=== PATIENT | female | born 1950 | race Caucasian/White ===

== ENCOUNTER 2023-04-06 12:49 | Outpatient (OUT) | payer MEDICARE, SELFPAY ==
[2023-04-06 13:42] LABS: Estimated Average Glucose 114 mg/dL; Glycohemoglobin A1C 5.6 % (4.5-6.2)
[2023-04-06 13:58] LABS: Alanine Aminotransferase 28 U/L (14-59); Albumin Globulin Ratio 0.8; Albumin Level 3.6 g/dL (3.4-5.0); Alkaline Phosphatase 152 U/L (46-116); Aspartate Amino Transferase 25 U/L (15-37); Bilirubin Direct 0.1 mg/dL (0.0-0.2); Bilirubin Total 0.6 mg/dL (0.2-1.0); Chol HDL Ratio 2.4; Cholesterol 154 mg/dL (<=200); Globulin 4.6 g/dL; HDL Cholesterol 64 mg/dL (40-60); Total Protein 8.2 g/dL (6.4-8.2); Triglycerides 74 mg/dL (<=150); VLDL CHOLESTEROL 14.8 mg/dL
== END 2023-04-06 12:50 | disposition home or self-care (01) ==
PROVIDERS: PCP Family Medicine; Visit Provider Family Medicine
DX: E78.5 Hyperlipidemia, unspecified (principal); E11.9 Type 2 diabetes mellitus without complications
CPT/HCPCS: 36415; 80061; 80076; 83036

== ENCOUNTER 2023-05-23 13:26 | Outpatient (OUT) | payer MEDICARE, SELFPAY ==
[2023-05-23 14:52] LABS: Hematocrit 38.8 % (36.0-48.0); Hemoglobin 12.4 g/dL (12.0-16.0); Mean Corpuscular Volume 93.9 fL (81.0-99.0); Platelet Count 264 10^3/uL (150-450); Red Blood Count 4.13 10^6/uL (4.20-5.40); Red Cell Distribution Width 13.6 % (11.0-15.0); White Blood Count 5.7 10^3/uL (4.0-11.0)
[2023-05-23 15:28] LABS: Albumin Level 3.1 g/dL (3.4-5.0); Anion Gap 12.4; BUN Creatinine Ratio 23.4; Calcium 8.9 mg/dL (8.5-10.1); Chloride 107 mmol/L (98-107); Estimated GFR (African America 44 (>=60); Estimated GFR (Non-African Ame 36 (>=60); Glucose 91 mg/dL (74-106); Potassium 4.4 mmol/L (3.5-5.1); Sodium 141 mmol/L (136-145); Uric Acid 3.6 mg/dL (2.6-6.0)
[2023-05-23 15:43] LABS: Creatinine Urine Random 121.52 mg/dL (20.00-300.00); Protein Creatinine Ratio Urine 0.18; Total Protein Urine Random 22.4 mg/dL (<=11.9)
[2023-05-23 16:21] LABS: Bilirubin Urine NEGATIVE (NEGATIVE); Blood Urine NEGATIVE (NEGATIVE); Clarity Urine CLEAR (CLEAR); Color Urine YELLOW (YELLOW); Glucose Urine UA NEGATIVE (NEGATIVE); Ketones Urine NEGATIVE (NEGATIVE); Leukocyte Esterase Urine NEGATIVE (NEGATIVE); Nitrite Urine NEGATIVE (NEGATIVE); Protein Urine NEGATIVE (NEG/TRACE); Specific Gravity Urine 1.025 (1.005-1.025); Urobilinogen Urine 0.2 EU/dL (0.2-1.0); pH Urine 5.5 (5.0-9.0)
[2023-05-23 16:27] LABS: Bacteria Urine NONE SEEN #/HPF (NONE SEEN); Cast Seen? NONE SEEN #/LPF (NONE SEEN); Crystals Seen? None Seen #/HPF (None Seen); Mucus Urine NONE SEEN (NONE SEEN); RBC Urine NONE SEEN #/HPF (0-2); Squamous Epithelial Cell Urine FEW #/LPF (NONE/RARE); WBC Urine 0-2 #/HPF (NONE SEEN)
[2023-05-24 11:09] LABS: PTH, Intact 135 pg/mL (15-65)
== END 2023-05-23 13:27 | disposition home or self-care (01) ==
LOC: LAB 13:31
PROVIDERS: PCP Family Medicine; Visit Provider Internal Medicine
DX: I12.9 Hypertensive chronic kidney disease with stage 1 through stage 4 chronic kidney disease, or unspecified chronic kidney disease (principal); N18.32 Chronic kidney disease, stage 3b; N25.81 Secondary hyperparathyroidism of renal origin; E79.0 Hyperuricemia without signs of inflammatory arthritis and tophaceous disease; R31.29 Other microscopic hematuria; E87.5 Hyperkalemia
CPT/HCPCS: 36415; 80069; 81001; 82306; 82570; 83735; 83970; 84156; 84550; 85027

== ENCOUNTER 2023-08-29 08:32 | Outpatient (OUT) | payer MEDICARE, SELFPAY ==
--- NOTE | 2023-08-29 08:54 | XR_ITS ---
[address] [address] Patient Name: ROBERT COBOS MRN: [id number] date: 1950 Sex: F Assigned Patient Location: [facility] Current Patient Location: [facility] Accession/Order Number: [id number] Exam Date: 08/29/2023 08:45 Report Date: 08/29/2023 09:03 At the request of: GEORGE PAULA Procedure: XR DEXA axial skeleton EXAMINATION: XR DEXA axial skeleton, 08/29/2023 8:45 AM EST HISTORY: osteopenia M85.80 COMPARISON: 2016 TECHNIQUE: Dual-energy X-ray absorptiometry (DEXA) bone density study performed for the axial skeleton. HISTORY: osteopenia M85.80 FINDINGS: Bone mineral density AP spine L1-L4 measures 1.281 g/sq cm. T score 0.8. WHO classification: Normal. Bone mineral density is lowest in the left femoral trochanter measuring 0.496 g/sq cm. T score -3.1. WHO classification: Osteoporosis XR/XR DEXA axial skeleton IMPRESSION: Osteoporosis. High fracture risk Electronically authenticated by: JAVIER EDWARDS Date: 08/29/2023 09:03
== END 2023-08-29 08:33 | disposition home or self-care (01) ==
LOC: RAD 08:32
PROVIDERS: PCP Family Medicine; Visit Provider Family Medicine
DX: M85.80 Other specified disorders of bone density and structure, unspecified site (principal); M81.0 Age-related osteoporosis without current pathological fracture
CPT/HCPCS: 77080

== ENCOUNTER 2023-09-12 12:04 | Outpatient (OUT) | payer MEDICARE, SELFPAY ==
--- OUTSIDE RECORDS SUMMARY | 2023-09-12 12:10 | XMS_ITS | CCD ---
Author Name Unknown Address [address] [place] [address] Organization [facility] Care Team Providers Care District Plant Superintendent Name Role Phone Yvan Razo Unavailable Unavailable Yvan Razo Unavailable Unavailable Yvan Razo Unavailable Unavailable George Ozuna~[id number] UNKNOWN Unavailable Unavailable George Ozuna Unavailable Unavailable Unavailable Corbin, Guillermo Unavailable MD George Ozuna Primary Care Provider [phone] DO Mahsa Howard Attending Provider [phone] MD George Ozuna Primary Care Provider [phone] DO Mahsa Howard Attending Provider MD George Ozuna Primary Care Provider [phone] DO Mahsa Howard Attending Provider DR GEORGE STACK Consulting Unavailable LAITH Patrick, DR VAZQUEZ Primary Care Unavailable LAITH Patrick, DR VAZQUEZ Attending Unavailable LAITH Patrick, DR VAZQUEZ Admitting Unavailable IVAN, DR MELINDA Barber Consulting Unavailable CORBIN, GUILLERMO Consulting Unavailable LAITH Patrick, DR VAZQUEZ Primary Care Unavailable CORBINGUILLERMO Attending Unavailable CORBIN, GUILLERMO Admitting Unavailable JAVIER MEDINA Consulting Unavailable LAITH Patrick, DR VAZQUEZ Primary Care Unavailable ANITA, DR JOSE FRANCISCO Pedro Attending Unavailnitin HOWARD, DR JOSE FRANCISCO Pedro Admitting Unavailnitin HOWARD, DR JOSE FRANCISCO Pedro Consulting Unavailabl e IVAN, DR MELINDA Barber Consulting Unavailable LAITH Patrick, DR VAZQUEZ Primary Care Unavailable ANITA, DR JOSE FRANCISCO Pedro Attending Unavailnitin HOWARD, DR JSOE FRANCISCO Pedro Admitting Unavailabl e ANITA, DR JOSE FRANCISCO Pedro Consulting Unavailabl e CORBIN, GUILLERMO Consulting Unavailable HOY ., DR VAZQUEZ Primary Care Unavailable HOY ., DR VAZQUEZ Referring Unavailable CORBIN, GUILLERMO Attending Unavailable CORBIN, GUILLERMO Admitting Unavailable HOY ., DR VAZQUEZ Consulting Unavailable HOY ., DR VAZQUEZ Attending Unavailable HOY ., DR VAZQUEZ Admitting Unavailable HOY ., DR VAZQUEZ Primary Care Unavailable YUNG GARCIA Consulting Unavailable SELVIN, AUSTIN Consulting Unavailable SULEMA, RUDDY Consulting Unavailable Bronson Smith Consulting Unavailable JAVIER HOWELL Consulting Unavailable LINTON, ADENIKE Consulting Unavailable HOY ., DR VAZQUEZ Consulting Unavailable HOY ., DR VAZQUEZ Primary Care Unavailable HOY ., DR VAZQUEZ Attending Unavailable HOY ., DR VAZQUEZ Admitting Unavailable AQUILINO FARIA Consulting Unavailable HOY ., DR VAZQUEZ Primary Care Unavailable ANITA, DR JOSE FRANCISCO Pedro Attending Unavailnitin e ANITA, DR JOSE FRANCISCO Pedro Admitting Unavailabl e ANIAT, DR JOSE FRANCISCO Pedro Consulting UnavailMD George Wolfe Primary Care Provider [phone] DO Mahsa Howard Attending Provider [phone] Dr. George Ozuna Primary Care Unavail able Laith, Dr. George Doe Primary Care Unavail able Laith, Dr. George Doe Primary Care Unavail able Anita, Dr. Jose Francisco Cortez Attending Unava ilable Anita, Dr. Jose Francisco Cortez Referring Unava ilmiladys Ozuna, Dr. George Doe Primary Care Unavail able Laith, Dr. George Doe Primary Care Unavail able MD George Ozuna Primary Care Provider [phone] DO Mahsa Howard Attending Provider Mahsa Howard Attending Unavailable George Ozuna Primary Care Unavailable Mahsa Howard Admitting Unavailable Mahsa Howard Attending Unavailable George Ozuna Primary Care Unavailable Mahsa Howard Admitting Unavailable Mahsa Howard Attending Unavailable George Ozuna Primary Care Unavailable Mahsa Howard Admitting Unavailable Mahsa Howard Attending Unavailable Mahsa Howard Admitting Unavailable Laith, George M Primary Care Unavailable Allergies Allergy Classification Reported Allergen(s) Allergy Type Date of Onset Reaction(s) Facility (1 source) No Known Medication Allergies; Translations: [No Known Medication Allergies] Propensity to adverse reactions (disorder) [facility] Medications Current Medications Medication Drug Class(es) Dates Sig (Normalized) Sig (Original) alendronic acid 70 mg oral tablet (12 sources) Bisphosphonate take 1 tablet by mouth every week Fosamax 70 MG 1 tablet Orally Weekly Active allopurinol 300 mg oral tablet (18 sources) Xanthine Oxidase Inhibitor Start: 08-24-2021 Allopurinol Active MG TABLET August 24, 2021 12:00am take 0.5 tablet by mouth once da alejandro Allopurinol 300 MG 1/2 tablet Orally Once a day for 90 day(s) Active apixaban 5 mg oral tablet (20 sources) Factor Xa Inhibitor Start: 08-24-2021 End: 08-26-2021 take 1 tablet by mouth twice daily Apixaban (Eliquis) 5 mg Tablet Active 5 MG PO Twice daily 60 August 26, 2021 12:00am calcitriol 0.22761 mg oral capsule (17 sources) Vitamin D3 Analog Start: 08-24-2021 Calcitriol A ctive MCG August 24, 2021 12:00am Start: 06-24-2021 Calcitriol 0.2 5 MCG 1 capsule Orally 3xweek for 90 day(s) Jun, Active take 1 capsule by [facility] every week Calcitriol 0.25 MCG 1 capsule Orally 2x a week for 90 days Active take 1 capsule by [facility] three times weekly Calcitriol 0.25 MCG Oral Capsule take one capsule three times a week. Quantity: 0 Refills: 0 Ordered: 07-Sep-2021 DO Active carvedilol 25 mg oral tablet (17 sources) alpha-Adrenergic Gordon, beta-Adrenergic Gordon Start: 08-26-2021 take 25 mg by mouth twice daily at mealtime Carvedilol Active 25 MG PO Twice daily with meals 60 August 26, 2021 12:00am clopidogrel 75 mg oral tablet (13 sources) P2Y12 Platelet Inhibitor Start: 08-26-2021 take 75 mg by mouth once daily Clopidogrel Active 75 MG PO Daily 30 August 26, 2021 12:00am lisinopril 2.5 mg oral tablet (16 sources) Angiotensin Converting Enzyme Inhibitor Start: 08-26-2021 take 2.5 mg by mouth once daily Lisinopril Active 2.5 MG PO Daily 30 August 26, 2021 12:00am nitroglycerin 0.4 mg sublingual tablet (16 sources) Nitrate Vasodilator Start: 08-26-2021 Nitroglycerin Active 0.4 MG SUBLINGUAL Q5M 25 August 26, 2021 12:00am Nitroglycerin 0. 4 MG as directed Sublingual Active Completed/Discontinued Medications Medication Drug Class(es) Dates Sig (Normalized) Sig (Original) amiodarone hydrochloride 200 mg oral tablet (9 sources) Antiarrhythmic Start: 03-10-2022 take 0.5 tablet by mouth once daily Amiodarone HCl - 200 MG Oral Tablet take one-half tablet daily monday through monday only Quantity: 40 Refills: 1 Ordered: 10-Mar-2022 Jose Francisco Howard DO Start : 10-Mar-2022 Active dose decreased Amiodarone HCl 1 00 MG 1 tablet Orally MONDAY- MONDAY Active take 1 tablet by eva th every twenty-four hours Amiodarone HCl 200 mg 1 tablet Orally On ce a day Active amLODIPine 5 mg oral tablet (7 sources) Dihydropyridine Calcium Channel Gordon Start: 08-24-2021 End: 08-26-2021 Amlodipine Discontinued MG TABLET August 24, 2021 12:00am August 26, 2021 3:20pm take 1 tablet by eva th every twenty-four hours Norvasc 5 mg 1 tablet Orally Once a day for 90 day(s) Active aspirin 81 mg delayed release oral tablet (16 sources) Platelet Aggregation Inhibitor, Nonsteroidal Anti-inflammatory Drug Start: 09-22-2022 take 1 tablet by mouth two times weekly Aspirin 81 MG Oral Tablet Delayed Release one tablet twice weekly Quantity: 32 Refills: 3 Ordered: 22-Sep-2022 Jose Francisco Howard DO Start : 22-Sep-2022 Active Start: 08-26-2021 take 81 mg by mouth once daily Aspirin Active 81 MG PO Daily 0 August 26, 2021 12:00am Aspirin 81 81 MG 1 tablet Orally MONDAY, MONDAY ONLY Active take 1 tablet by mouth once danny y Aspirin 81 81 MG 1 tablet Orally Once a day Active take 1 tablet by mouth once danny y Aspirin 81 MG Oral Tablet Chewable Take 1 tablet daily Quantity: 90 Refills: 3 Ordered: 07-Sep-2021 Jose Francisco Howard DO Active atorvastatin 40 mg oral tablet (16 sources) HMG-CoA Reductase Inhibitor Start: 09-22-2022 take 1 tablet by mouth at bedtime Atorvastatin Calcium 40 MG Oral Tablet TAKE 1 TABLET AT BEDTIME. Quantity: 90 Refills: 3 Ordered: 22-Sep-2022 Jose Francisco Howard DO Start : 22-Sep-2022 Active new start Start: 08-26-2021 take 80 mg by mouth once daily in the evening Atorvastatin Active 80 MG PO Every evening 30 30 August 26, 2021 12:00am furosemide 40 mg oral tablet (12 sources) Loop Diuretic Start: 08-24-2021 End: 08-26-2021 Furosemide (Lasix) 40 mg tablet Discontinued MG TABLET August 24, 2021 12:00am August 26, 2021 3:20pm Start: 08-24-2021 End: 08-26-2021 Furosemide Discontinued MG T ABLET August 24, 2021 12:00am August 26, 2021 3:20pm Problems Active Problems Problem Classification Problem Date Documented Date Episodic/Chronic Acute and unspecified renal failure (1 source) Acute kidney failure, unspecified; Translations: [ACUTE KIDNEY FAILURE UNSPECIFIED] Onset: 3 Episodic Acute myocardial infarction (10 sources) Myocardial infarction; Translations: [Acute myocardial infarction of unspecified site, episode of care unspecified] 08-24-2021 Chronic Cardiac arrest and ventricular fibrillation (5 sources) Ventricular fibrillation; Translations: [Ventricular fibrillation] 08-24-2021 Chronic Cardiac dysrhythmias (20 sources) Paroxysmal atrial fibrillation; Translations: [Atrial fibrillation] Onset: 3 08-24-2021 Chronic Chronic kidney disease (20 sources) Chronic kidney disease stage 4; Translations: [Chronic kidney disease, stage 4 (severe)] Onset: 1 Resolved: 1 Chronic Conduction disorders (11 sources) Cardiac pacemaker in situ; Translations: [Cardiac pacemaker in situ] Onset: 3 08-24-2021 Chronic Congestive heart failure; nonhypertensive (1 source) Chronic diastolic (congestive) heart failure; Translations: [CHRONIC DIASTOLIC HEART FAILURE] Onset: 2 Chronic Coronary atherosclerosis and other heart disease (5 sources) Coronary arteriosclerosis; Translations: [Coronary atherosclerosis of unspecified type of vessel, [place] or graft] Chronic Deficiency and other anemia (7 sources) Anemia of renal disease; Translations: [Anemia in chronic kidney disease] Chronic Disorders of lipid metabolism (9 sources) Mixed hyperlipidemia; Translations: [Mixed hyperlipidemia] Onset: 2 Chronic Essential hypertension (17 sources) Hypertensive disorder; Translations: [Unspecified essential hypertension] 08-24-2021 Chronic Genitourinary symptoms and ill-defined conditions (8 sources) Other microscopic hematuria; Translations: [OTHER MICROSCOPIC HEMATURIA] Onset: 1 Resolved: 1 Episodic Hypertension with complications and secondary hypertension (16 sources) Hypertensive renal disease; Translations: [Hypertensive chronic kidney disease with stage 1 through stage 4 chronic kidney disease, or unspecified chronic kidney disease] Onset: 1 Resolved: 1 Chronic Malaise and fatigue (1 source) Weakness; Translations: [WEAKNESS] Onset: 3 Episodic Other aftercare (4 sources) Drug therapy finding; Translations: [Long-term (current) use of other medications] Episodic Other aftercare (1 source) Other prison (current) drug therapy; Translations: [OTH SENIOR CARE CURRENT DRUG THERAPY] Onset: 3 Episodic Other aftercare (1 source) 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; Translations: [SENIOR CARE CURRNT USE ANTICOAGULANTS] Onset: 3 Episodic Other connective tissue disease (1 source) Rhabdomyolysis; Translations: [RHABDOMYOLYSIS] Onset: 3 Episodic Other diseases of kidney and ureters (7 sources) Secondary hyperparathyroidism; Translations: [Secondary hyperparathyroidism of renal origin] Chronic Other diseases of kidney and ureters (8 sources) Secondary hyperparathyroidism of renal origin; Translations: [SEC HYPERPARATHYROIDISM RENAL ORIGN] Onset: 1 Resolved: 2 Chronic Other lower respiratory disease (1 source) Dyspnea on exertion; Translations: [Shortness of breath] Episodic Other nutritional; endocrine; and metabolic disorders (4 sources) Body mass index 40+ - severely obese; Translations: [Morbid obesity] Chronic Other nutritional; endocrine; and metabolic disorders (2 sources) Severe obesity; Translations: [Morbid obesity] Chronic Other nutritional; endocrine; and metabolic disorders (6 sources) Obesity; Translations: [Obesity, unspecified] 08-24-2021 Chronic Other nutritional; endocrine; and metabolic disorders (1 source) Morbid (severe) obesity due to excess calories; Translations: [MORBID SEVERE OBES D/T EXCESS ZULEMA] Onset: 3 Chronic Other nutritional; endocrine; and metabolic disorders (1 source) Body mass index (BMI) 39.0-39.9, adult; Translations: [BODY MASS INDEX BMI 39.0-39.9 ADULT] Onset: 3 Chronic Other nutritional; endocrine; and metabolic disorders (4 sources) Hyperuricemia without signs of inflammatory arthritis and tophaceous disease; Translations: [HU W/O SIGNS IA AND TOPHACEOUS DZ] Onset: 1 Resolved: 1 Episodic Septicemia (except in labor) (1 source) Sepsis due to Escherichia coli [E. coli]; Translations: [SEPSIS D/O ESCHERICHIA COLI E COLI] Onset: 3 Episodic Unclassified (1 source) CONTACT W/AND (SUSP) EXPOS COVID-19; Translations: [CONTACT W/AND (SUSP) EXPOS COVID-19] Onset: 3 Unclassified (1 source) Encounter for checking and testing of cardiac pacemaker pulse generator [battery]; Translations: [Encounter for checking and testing of cardiac pacemaker pulse generator [battery]] Onset: 3 Urinary tract infections (3 sources) Acute pyelonephritis; Translations: [ACUTE PYELONEPHRITIS] Onset: 3 Episodic Past or Other Problems Problem Classification Problem Date Documented Da te Episodic/Chronic Chronic kidney disease (2 sources) Chronic kidney disease Deficiency and other anemia (1 source) Anemia, unspecified; Translations: [ANEMIA UNSPECIFIED] Onset: 01-13-2022 Episodic Diabetes mellitus without complication (1 source) Other abnormal glucose; Translations: [OTHER ABNORMAL GLUCOSE] Onset: 01-13-2022 Episodic Fluid and electrolyte disorders (7 sources) Hyperkalemia; Translations: [HYPERKALEMIA] Onset: 06-24-2021 Resolved: 06-24-2021 Episodic Other lower respiratory disease (4 sources) Other nonspecific abnormal finding of lung field; Translations: [OTH NONSPECIFIC ABN FIND LNG FIELD] Onset: 06-04-2022 Episodic Other screening for suspected conditions (not mental disorders or infectious disease) (1 source) Encounter for screening for malignant neoplasm of rectum; Translations: [ENC SCREEN MALIG NEOPLASM RECTUM] Onset: 01-13-2022 Episodic Unclassified (5 sources) Never smoked tobacco; Translations: [Never a smoker] Results Test Name Value Interpretation Reference Range Facility HEMOGLOBINon 11-30-2022 Hemoglobin (Bld) [Mass/Vol] 12.3 g/dL Normal 12.0-16.0 [facility] Comment on above: Performed By: #### L ACT #### [facility] [address] [address] [address] Dale Ngo PROF CHEM 8 (BAS METB)on Anion gap [Moles/Vol] 11.0 mmol/L Normal [facility] Comment on above: Performed By: #### B MP, AST, TSH #### [facility] [address] [place] [address] Dr. Dale Ngo Calcium [Mass/Vol] 9.2 mg/dL Normal 8.5-10.1 [facility] Comment on above: Performed By: #### B MP, AST, TSH #### [facility] [address] [address] [address] Dale Ngo Chloride [Moles/Vol] 106 mmol/L Normal 98-107 [facility] Comment on above: Performed By: #### B MP, AST, TSH #### [facility] [address] [place] [address] Dr. Dale Ngo CO2 [Moles/Vol] 26.5 mmol/L Normal 21.0-32.0 [facility] Comment on above: Performed By: #### B MP, AST, TSH #### [facility] [address] [place] [address] Dr. Dale Ngo Creatinine [Mass/Vol] 1.42 mg/dL Critically high 0.55-1.02 [facility] Comment on above: Performed By: #### B MP, AST, TSH #### [facility] [address] [place] [address] Dr. Dale Ngo EGFR-AF EMIRATI 44 mL/min/1.73m2 Critically low >=60 [facility] Comment on above: Performed By: #### B MP, AST, TSH #### [facility] [address] [address] [address] Dale Ngo EGFR-NON AF EMIRATI 36 mL/min/1.73m2 Critically low >=60 [facility] Comment on above: Performed By: #### B MP, AST, TSH #### [facility] [address] [address] [address] Dale Ngo Glucose [Mass/Vol] 118 mg/dL Critically high 74-106 T [facility] Comment on above: Performed By: #### B MP, AST, TSH #### [facility] [address] [place] [address] Dr. Dale Ngo Potassium [Moles/Vol] 4.5 mmol/L Normal 3.5-5.1 [facility] Comment on above: Performed By: #### B MP, AST, TSH #### [facility] [address] [place] [address] Dr. Dale Ngo Sodium [Moles/Vol] 139 mmol/L Normal 136-145 [facility] Comment on above: Performed By: #### B MP, AST, TSH #### [facility] [address] [address] [address] Dale Ngo Urea nitrogen [Mass/Vol] 31.0 mg/dL Critically high 7.0-18.0 [facility] Comment on above: Performed By: #### B MP, AST, TSH #### [facility] [address] [place] [address] Dr. Dale Ngo Urea nitrogen/Creatinine [Mass ratio] 21.8 mg/mg Normal [facility] Comment on above: Performed By: #### B MP, AST, TSH #### [facility] [address] [place] [address] Dr. Dale Ngo SGOTon 11-30-2022 AST [Catalytic activity/Vol] 24 U/L Normal 15-37 [facility] Comment on above: Performed By: #### B MP, AST, TSH #### [facility] [address] [place] [address] Dr. Dale Ngo TSHon 11-30-2022 TSH 2.811 uIU/mL Normal 0.358-3.740 [facility] Comment on above: Performed By: #### B MP, AST, TSH #### [facility] [address] [address] [address] Dale Ngo XR CHEST 2 Von 11-30-2022 XR CHEST 2 V EXAM: Chest x-ray HISTORY: . Long-term current use of drug therapy . COMPARISON: 10/16/2022 TECHNIQUE: Frontal and lateral chest. FINDINGS: Heart is normal in size. Bipolar pacing device is noted. Vascularity is unremarkable. Lungs are free of focal infiltrates. There is slight prominence of the interstitial markings. Atherosclerotic changes of the thoracic aorta are noted. Spondylosis of the spine is noted. IMPRESSION: 2. No infiltrates. 3. Slight prominence of the interstitial markings which are most likely chronic. Clinical correlation is suggested. 1. Heart is normal in size. Bipolar pacing device is noted. Electronically authenticated by: JAVIER MEDINA Date: 2022-11-30 19:00 Normal [facility] CBC AUTO DIFFon 10-19-2022 BASO # 0.0 103/ul Normal 0.0-0.1 [facility] Comment on above: Performed By: #### L ACT #### [facility] [address] [address] [address] Dale Ngo Basophils/100 WBC (Bld) 0.3 % Normal 0.2-2.0 [facility] Comment on above: Performed By: #### L ACT #### [facility] [address] [address] [address] Dale Ngo EO # 0.3 103/ul Normal 0.0-0.7 [facility] Comment on above: Performed By: #### L ACT #### [facility] [address] [address] [address] Dale Ngo Eosinophils/100 WBC (Bld) 2.9 % Normal 0.9-7.0 [facility] Comment on above: Performed By: #### L ACT #### [facility] [address] [place] [address] Dr. Dale Ngo Erythrocyte distribution width (RBC) [Ratio] 13.4 % Normal 11.0-15.0 [facility] Comment on above: Performed By: #### L ACT #### [facility] [address] [address] [address] Dale Ngo Hematocrit (Bld) [Volume fraction] 34.5 % Critically low 36.0-48.0 [facility] Comment on above: Performed By: #### L ACT #### [facility] [address] [address] [address] Dale Ngo Hemoglobin (Bld) [Mass/Vol] 11.6 g/dL Critically low 12.0-16.0 [facility] Comment on above: Performed By: #### L ACT #### [facility] [address] [address] [address] Dale Ngo IG # 0.08 10e3/ul Critically high 0.00-0.03 [facility] Comment on above: Performed By: #### L ACT #### [facility] [address] [address] [address] Dale Ngo IG % 0.8 % Critically high 0.0-0.5 [facility] Comment on above: Performed By: #### L ACT #### [facility] [address] [address] [address] Dale Ngo LYMPH # 0.6 103/ul Critically low 1.2-3.8 [facility] Comment on above: Performed By: #### L ACT #### [facility] [address] [address] [address] Dale Ngo Lymphocytes/100 WBC (Bld) 6.1 % Critically low 20.5-60.0 [facility] Comment on above: Performed By: #### L ACT #### [facility] [address] [address] [address] Dale Ngo MANUAL DIFF REQ NO Normal [facility] Comment on above: Performed By: #### L ACT #### [facility] [address] [address] [address] Dale Ngo MCH (RBC) [Entitic mass] 29.0 pg Normal 26.7-34.0 [facility] Comment on above: Performed By: #### L ACT #### [facility] [address] [address] [address] Dale Ngo MCHC (RBC) [Mass/Vol] 33.6 g/dL Normal 29.9-35.2 [facility] Comment on above: Performed By: #### L ACT #### [facility] [address] [address] [address] Dale Ngo MCV (RBC) [Entitic vol] 86.3 fL Normal 81.0-99.0 [facility] Comment on above: Performed By: #### L ACT #### [facility] [address] [address] [address] Dale Ngo MONO # 0.8 103/ul Normal 0.3-0.8 [facility] Comment on above: Performed By: #### L ACT #### [facility] [address] [place] [address] Dr. Dale Ngo Monocytes/100 WBC (Bld) 7.9 % Normal 1.7-12.0 [facility] Comment on above: Performed By: #### L ACT #### [facility] [address] [address] [address] Dale Ngo NEUT # 8.5 103/ul Critically high 1.4-6.5 [facility] Comment on above: Performed By: #### L ACT #### [facility] [address] [address] [address] Dale Ngo Neutrophils/100 WBC (Bld) 82.0 % Critically high 43.0-75.0 [facility] Comment on above: Performed By: #### L ACT #### [facility] [address] [address] [address] Dale Ngo Platelet mean volume (Bld) [Entitic vol] 11.3 fL Normal 9.5-13.[address] [facility] Comment on above: Performed By: #### L ACT #### [facility] [address] [address] [address] Dale Ngo PLT 234 103/ul Normal 150-[address] [facility] Comment on above: Performed By: #### L ACT #### [facility] [address] [place] [address] Dr. Dale Ngo RBC 4.00 106/ul Critically low 4.20-5.40 [facility] Comment on above: Performed By: #### L ACT #### [facility] [address] [place] [address] [id number] [address] Dale Ngo WBC 10.4 103/ul Normal 4.0-11.0 [facility] Comment on above: Performed By: #### L ACT #### [facility] [address] [place] [address] Dr. Dale Ngo CULTURE BLOODon 10-19-2022 Microscopic examination of blood, culture Culture Observations: Positive blood culture. Aerobic & Anaerobic bottles. BCID= E. Coli Isolate 1 Escherichia coli Growth of ORGANISM 1 Escherichia coli ANTIBIOTIC M.I.C RX STATUS Ampicillin >=32 R F Ampicillin/Sulbactam >=32 R F Piperacillin/Tazobact am <=4 S F Cefazolin <=4 S F Ceftazidime <=1 S F Ceftriaxone <=1 S F Ertapenem <=0.5 S F Imipenem <=0.25 S F Amikacin <=2 S F Gentamicin <=1 S F Tobramycin <=1 S F Ciprofloxacin <=0.25 S F Levofloxacin <=0.12 S F Trimethoprim/Sulfamet hoxazole <=20 S F Normal [facility] Comment on above: Performed By: #### L ACT #### [facility] [address] [place] [address] Dr. Dale Ngo CULTURE URINEon 10-19-2022 CULTURE URINE Isolate 1 Escherichia coli >100,000 cfu/mL of ORGANISM 1 Escherichia coli ANTIBIOTIC M.I.C RX STATUS Ampicillin >=32 R F Ampicillin/Sulbactam 16 I F Piperacillin/Tazobact am <=4 S F Cefazolin <=4 S F Ceftazidime <=1 S F Ceftriaxone <=1 S F Ertapenem <=0.5 S F Imipenem <=0.25 S F Amikacin <=2 S F Gentamicin <=1 S F Tobramycin <=1 S F Ciprofloxacin <=0.25 S F Levofloxacin <=0.12 S F Nitrofurantoin <=16 S F Trimethoprim/Sulfamet hoxazole <=20 S F Normal [facility] Comment on above: Performed By: #### L ACT #### [facility] [address] [address] [address] Dale Ngo PROF CHEM 8 (BAS METB)on Anion gap [Moles/Vol] 13.8 mmol/L Normal [facility] Comment on above: Performed By: #### B MP #### [facility] [address] [place] [address] Dr. Dale Ngo Calcium [Mass/Vol] 7.6 mg/dL Critically low 8.5-10.1 [facility] Comment on above: Performed By: #### B MP #### [facility] [address] [place] [address] Dr. Dale Ngo Chloride [Moles/Vol] 105 mmol/L Normal 98-107 [facility] Comment on above: Performed By: #### B MP #### [facility] [address] [place] [address] Dr. Dale Ngo CO2 [Moles/Vol] 20.8 mmol/L Critically low 21.0-32.0 [facility] Comment on above: Performed By: #### B MP #### [facility] [address] [place] [address] Dr. Dale Ngo Creatinine [Mass/Vol] 1.58 mg/dL Critically high 0.55-1.02 [facility] Comment on above: Performed By: #### B MP #### [facility] [address] [place] [address] Dr. Dale Ngo EGFR-AF EMIRATI 39 mL/min/1.73m2 Critically low >=60 [facility] Comment on above: Performed By: #### B MP #### [facility] [address] [place] [address] Dr. Dale Ngo EGFR-NON AF EMIRATI 32 mL/min/1.73m2 Critically low >=60 [facility] Comment on above: Performed By: #### B MP #### [facility] [address] [address] [address] Dale Ngo Glucose [Mass/Vol] 98 mg/dL Normal 74-106 [facility] Comment on above: Performed By: #### B MP #### [facility] [address] [place] [address] Dr. Dale Ngo Potassium [Moles/Vol] 3.6 mmol/L Normal 3.5-5.1 [facility] Comment on above: Performed By: #### B MP #### [facility] [address] [place] [address] Dr. Dale Ngo Sodium [Moles/Vol] 136 mmol/L Normal 136-145 [facility] Comment on above: Performed By: #### B MP #### [facility] [address] [place] [address] Dr. Dale Ngo Urea nitrogen [Mass/Vol] 31.0 mg/dL Critically high 7.0-18.0 [facility] Comment on above: Performed By: #### B MP #### [facility] [address] [place] [address] Dr. Dale Ngo Urea nitrogen/Creatinine [Mass ratio] 19.6 mg/mg Normal [facility] Comment on above: Performed By: #### B MP #### [facility] [address] [place] [address] Dr. Dale Ngo CBC AUTO DIFFon 10-18-2022 BASO # 0.0 103/ul Normal 0.0-0.1 [facility] Comment on above: Performed By: #### B MP, AST, TSH #### [facility] [address] [place] [address] Dr. Dale Ngo Basophils/100 WBC (Bld) 0.2 % Normal 0.2-2.0 [facility] Comment on above: Performed By: #### B MP, AST, TSH #### [facility] [address] [place] [address] Dr. Dale Ngo EO # 0.2 103/ul Normal 0.0-0.7 [facility] Comment on above: Performed By: #### B MP, AST, TSH #### [facility] [address] [place] [address] Dr. Dale Ngo Eosinophils/100 WBC (Bld) 1.7 % Normal 0.9-7.0 [facility] Comment on above: Performed By: #### B MP, AST, TSH #### [facility] [address] [place] [address] Dr. Dale Ngo Erythrocyte distribution width (RBC) [Ratio] 13.2 % Normal 11.0-15.0 [facility] Comment on above: Performed By: #### B MP, AST, TSH #### [facility] [address] [place] [address] Dr. Dale Ngo Hematocrit (Bld) [Volume fraction] 32.5 % Critically low 36.0-48.0 [facility] Comment on above: Performed By: #### B MP, AST, TSH #### [facility] [address] [place] [address] Dr. Dale Ngo Hemoglobin (Bld) [Mass/Vol] 10.8 g/dL Critically low 12.0-16.0 [facility] Comment on above: Performed By: #### B MP, AST, TSH #### [facility] [address] [place] [address] Dr. Dale Ngo IG # 0.09 10e3/ul Critically high 0.00-0.03 [facility] Comment on above: Performed By: #### B MP, AST, TSH #### [facility] [address] [place] [address] Dr. Dale Ngo IG % 0.7 % Critically high 0.0-0.5 [facility] Comment on above: Performed By: #### B MP, AST, TSH #### [facility] [address] [place] [address] Dr. Dale Ngo LYMPH # 0.5 103/ul Critically low 1.2-3.8 [facility] Comment on above: Performed By: #### B MP, AST, TSH #### [facility] [address] [place] [address] Dr. Dale Ngo Lymphocytes/100 WBC (Bld) 4.0 % Critically low 20.5-60.[address] [facility] Comment on above: Performed By: #### B MP, AST, TSH #### [facility] [address] [place] [address] Dr. Dale Ngo MANUAL DIFF REQ NO Normal [facility] Comment on above: Performed By: #### B MP, AST, TSH #### [facility] [address] [place] [address] Dr. Dale Ngo MCH (RBC) [Entitic mass] 29.0 pg Normal 26.7-34.[address] [facility] Comment on above: Performed By: #### B MP, AST, TSH #### [facility] [address] [place] [address] Dr. Dale Ngo MCHC (RBC) [Mass/Vol] 33.2 g/dL Normal 29.9-35.[address] [facility] Comment on above: Performed By: #### B MP, AST, TSH #### [facility] [address] [place] [address] Dr. Dale Ngo MCV (RBC) [Entitic vol] 87.1 fL Normal 81.0-99.[address] [facility] Comment on above: Performed By: #### B MP, AST, TSH #### [facility] [address] [place] [address] Dr. Dale Ngo MONO # 0.6 103/ul Normal 0.3-0.[address] [facility] Comment on above: Performed By: #### B MP, AST, TSH #### [facility] [address] [place] [address] Dr. Dale Ngo Monocytes/100 WBC (Bld) 5.0 % Normal 1.7-12.[address] [facility] Comment on above: Performed By: #### B MP, AST, TSH #### [facility] [address] [place] [address] Dr. Dale Ngo NEUT # 11.2 103/ul Critically high 1.4-6.5 [facility] Comment on above: Performed By: #### B MP, AST, TSH #### [facility] [address] [address] [address] Dale gNo Neutrophils/100 WBC (Bld) 88.4 % Critically high 43.0-75.0 [facility] Comment on above: Performed By: #### B MP, AST, TSH #### [facility] [address] [address] [address] Dale Ngo Platelet mean volume (Bld) [Entitic vol] 11.1 fL Normal 9.5-13.5 [facility] Comment on above: Performed By: #### B MP, AST, TSH #### [facility] [address] [place] [address] Dr. Dale Ngo PLT 199 103/ul Normal 150-450 [facility] Comment on above: Performed By: #### B MP, AST, TSH #### [facility] [address] [place] [address] Dr. Dale Ngo RBC 3.73 106/ul Critically low 4.20-5.40 [facility] Comment on above: Performed By: #### B MP, AST, TSH #### [facility] [address] [place] [address] Dr. Dale Ngo WBC 12.6 103/ul Critically high 4.0-11.0 [facility] Comment on above: Performed By: #### B MP, AST, TSH #### [facility] [address] [place] [address] Dr. Dale Ngo PROF CHEM 8 (BAS METB)on Anion gap [Moles/Vol] 12.3 mmol/L Normal [facility] Comment on above: Performed By: #### C BC #### [facility] [address] [place] [address] Dr. Dale Ngo Calcium [Mass/Vol] 7.3 mg/dL Critically low 8.5-10.1 [facility] Comment on above: Performed By: #### C BC #### [facility] [address] [place] [address] Dr. Dale Ngo Chloride [Moles/Vol] 103 mmol/L Normal 98-107 [facility] Comment on above: Performed By: #### C BC #### [facility] [address] [address] [address] Dale Ngo CO2 [Moles/Vol] 21.6 mmol/L Normal 21.0-32.0 [facility] Comment on above: Performed By: #### C BC #### [facility] [address] [address] [address] Dale Ngo Creatinine [Mass/Vol] 1.81 mg/dL Critically high 0.55-1.02 [facility] Comment on above: Performed By: #### C BC #### [facility] [address] [address] [address] Dale Ngo EGFR-AF EMIRATI 33 mL/min/1.73m2 Critically low >=60 [facility] Comment on above: Performed By: #### C BC #### [facility] [address] [address] [address] Dale Ngo EGFR-NON AF EMIRATI 27 mL/min/1.73m2 Critically low >=60 [facility] Comment on above: Performed By: #### C BC #### [facility] [address] [address] [address] Dale Ngo Glucose [Mass/Vol] 82 mg/dL Normal 74-106 [facility] Comment on above: Performed By: #### C BC #### [facility] [address] [address] [address] Dale Ngo Potassium [Moles/Vol] 3.9 mmol/L Normal 3.5-5.1 [facility] Comment on above: Performed By: #### C BC #### [facility] [address] [address] [address] Dale Ngo Sodium [Moles/Vol] 133 mmol/L Critically low 136-145 [facility] Comment on above: Performed By: #### C BC #### [facility] [address] [address] [address] Dale Ngo Urea nitrogen [Mass/Vol] 44.0 mg/dL Critically high 7.0-18.0 [facility] Comment on above: Performed By: #### C BC #### [facility] [address] [address] [address] Dale Ngo Urea nitrogen/Creatinine [Mass ratio] 24.3 mg/mg Normal [facility] Comment on above: Performed By: #### C BC #### [facility] [address] [address] [address] Dale Ngo CBC AUTO DIFFon 10-17-2022 BASO # 0.0 103/ul Normal 0.0-0.1 [facility] Comment on above: Performed By: #### C BC #### [facility] [address] [place] [address] Dr. Dale Ngo Basophils/100 WBC (Bld) 0.2 % Normal 0.2-2.0 [facility] Comment on above: Performed By: #### C BC #### [facility] [address] [place] [address] Dr. Dale Ngo EO # 0.0 103/ul Normal 0.0-0.7 [facility] Comment on above: Performed By: #### C BC #### [facility] [address] [place] [address] Dr. Dale Ngo Eosinophils/100 WBC (Bld) 0.1 % Critically low 0.9-7.0 [facility] Comment on above: Performed By: #### C BC #### [facility] [address] [place] [address] Dr. Dale Ngo Erythrocyte distribution width (RBC) [Ratio] 13.2 % Normal 11.0-15.0 [facility] Comment on above: Performed By: #### C BC #### [facility] [address] [place] [address] Dr. Dale Ngo Hematocrit (Bld) [Volume fraction] 33.9 % Critically low 36.0-48.0 [facility] Comment on above: Performed By: #### C BC #### [facility] [address] [place] [address] Dr. Dale Ngo Hemoglobin (Bld) [Mass/Vol] 11.5 g/dL Critically low 12.0-16.0 [facility] Comment on above: Performed By: #### C BC #### [facility] [address] [address] [address] Dale Ngo IG # 0.11 10e3/ul Critically high 0.00-0.03 [facility] Comment on above: Performed By: #### C BC #### [facility] [address] [address] [address] Dale Ngo IG % 0.6 % Critically high 0.0-0.5 [facility] Comment on above: Performed By: #### C BC #### [facility] [address] [address] [address] Dale Ngo LYMPH # 0.3 103/ul Critically low 1.2-3.8 [facility] Comment on above: Performed By: #### C BC #### [facility] [address] [place] [address] Dr. Dale Ngo Lymphocytes/100 WBC (Bld) 1.9 % Critically low 20.5-60.0 [facility] Comment on above: Performed By: #### C BC #### [facility] [address] [address] [address] Dale Ngo MANUAL DIFF REQ NO Normal [facility] Comment on above: Performed By: #### C BC #### [facility] [address] [address] [address] Dale Ngo MCH (RBC) [Entitic mass] 29.3 pg Normal 26.7-34.0 [facility] Comment on above: Performed By: #### C BC #### [facility] [address] [address] [address] Dale Ngo MCHC (RBC) [Mass/Vol] 33.9 g/dL Normal 29.9-35.2 [facility] Comment on above: Performed By: #### C BC #### [facility] [address] [address] [address] Dale Ngo MCV (RBC) [Entitic vol] 86.5 fL Normal 81.0-99.0 [facility] Comment on above: Performed By: #### C BC #### [facility] [address] [address] [address] Dale Ngo MONO # 0.5 103/ul Normal 0.3-0.[address] [facility] Comment on above: Performed By: #### C BC #### [facility] [address] [address] [address] Dale Ngo Monocytes/100 WBC (Bld) 3.1 % Normal 1.7-12.0 [facility] Comment on above: Performed By: #### C BC #### [facility] [address] [address] [address] Dale Ngo NEUT # 16.2 103/ul Critically high 1.4-6.5 [facility] Comment on above: Performed By: #### C BC #### [facility] [address] [place] [address] Dr. Dale Ngo Neutrophils/100 WBC (Bld) 94.1 % Critically high 43.0-75.0 [facility] Comment on above: Performed By: #### C BC #### [facility] [address] [address] [address] Dale Ngo Platelet mean volume (Bld) [Entitic vol] 11.4 fL Normal 9.5-13.5 [facility] Comment on above: Performed By: #### C BC #### [facility] [address] [address] [address] Dale gNo PLT 188 103/ul Normal 150-[address] [facility] Comment on above: Performed By: #### C BC #### [facility] [address] [address] [address] Dale Ngo RBC 3.92 106/ul Critically low 4.20-5.40 [facility] Comment on above: Performed By: #### C BC #### [facility] [address] [address] [address] Dale Ngo WBC 17.2 103/ul Critically high 4.0-11.0 [facility] Comment on above: Performed By: #### C BC #### [facility] [address] [place] [address] Dr. Dale Ngo CPKon 10-17-2022 CK [Catalytic activity/Vol] 1307 U/L Critically high 26-192 [facility] Comment on above: Performed By: #### C K #### [facility] [address] [place] [address] Dr. Dale Ngo Covid-19 PCR (CVDTB)on 09-22 SARS-CoV-2 (COVID-19) RNA LUCERO+probe Ql (Unsp spec) Not detected Normal NOT DETECTED [facility] Comment on above: Result Comment: When diagnostic testing is negative, the possibility of a false negative should be considered in the context of a patient's recent exposures and the presence of clinical signs and symptoms consistent with SARS-CoV-2. This test is not yet approved or cleared by the [place] FDA. When there are no FDA-approved or cleared tests available, and other criteria are met, FDA can make tests available under an emergency access mechanism called an Emergency Use Authorization (EUA). The EUA for this test is supported by the [employer] of Health and Human Service's declaration that circumstances exist to justify the emergency use of in vitro diagnostics for the detection and/or diagnosis of the virus that causes COVID-19. This EUA will remain in effect for the duration of the COVID-19 declaration justifying emergency of IVDs, unless it is terminated or revoked by the FDA (after which the test may no longer be used). Performed By: #### B MP, AST, TSH #### [facility] [address] [place] [address] Dr. Dale Ngo LACTATE/LACTIC ACIDon 2022 Lactate [Moles/Vol] 1.9 mmol/L Normal 0.4-1.9 [facility] Comment on above: Performed By: #### L ACT #### [facility] [address] [place] [address] Dr. Dale Ngo PROF CHEM 8 (BAS METB)on Anion gap [Moles/Vol] 15.3 mmol/L Normal [facility] Comment on above: Performed By: #### B MP, AST, TSH #### [facility] [address] [address] [address] Dale Ngo Calcium [Mass/Vol] 7.4 mg/dL Critically low 8.5-10.1 [facility] Comment on above: Performed By: #### B MP, AST, TSH #### [facility] [address] [address] [address] Dale Ngo Chloride [Moles/Vol] 101 mmol/L Normal 98-107 [facility] Comment on above: Performed By: #### B MP, AST, TSH #### [facility] [address] [address] [address] Dale Ngo CO2 [Moles/Vol] 21.3 mmol/L Normal 21.0-32.0 [facility] Comment on above: Performed By: #### B MP, AST, TSH #### [facility] [address] [address] [address] Dale Ngo Creatinine [Mass/Vol] 2.16 mg/dL Critically high 0.55-1.02 [facility] Comment on above: Performed By: #### B MP, AST, TSH #### [facility] [address] [address] [address] Dale Ngo EGFR-AF EMIRATI 27 mL/min/1.73m2 Critically low >=60 [facility] Comment on above: Performed By: #### B MP, AST, TSH #### [facility] [address] [address] [address] Dale Ngo EGFR-NON AF EMIRATI 22 mL/min/1.73m2 Critically low >=60 [facility] Comment on above: Performed By: #### B MP, AST, TSH #### [facility] [address] [address] [address] Dale Ngo Glucose [Mass/Vol] 80 mg/dL Normal 74-106 [facility] Comment on above: Performed By: #### B MP, AST, TSH #### [facility] [address] [address] [address] Dale Ngo Potassium [Moles/Vol] 3.6 mmol/L Normal 3.5-5.1 [facility] Comment on above: Performed By: #### B MP, AST, TSH #### [facility] [address] [place] [address] Dr. Dale Ngo Sodium [Moles/Vol] 134 mmol/L Critically low 136-145 [facility] Comment on above: Performed By: #### B MP, AST, TSH #### [facility] [address] [place] [address] Dr. Dale Ngo Urea nitrogen [Mass/Vol] 45.0 mg/dL Critically high 7.0-18.0 [facility] Comment on above: Performed By: #### B MP, AST, TSH #### [facility] [address] [place] [address] Dr. Dale Ngo Urea nitrogen/Creatinine [Mass ratio] 20.8 mg/mg Normal [facility] Comment on above: Performed By: #### B MP, AST, TSH #### [facility] [address] [place] [address] Dr. Dale Ngo BLOOD CULTURE ID PANELon A. baumannii Not detected Normal NOT DETECTED [facility] Comment on above: Performed By: #### B MP, AST, TSH #### [facility] [address] [place] [address] Dr. Dale Ngo Bacteriodes fragilis Not detected Normal NOT DETECTED [facility] Comment on above: Performed By: #### B MP, AST, TSH #### [facility] [address] [place] [address] Dr. Dale Ngo BCID CONTROLS PASSED Normal [facility] Comment on above: Performed By: #### B MP, AST, TSH #### [facility] [address] [place] [address] Dr. Dale Ngo BCIDBTHD BLOOD CULTURE BOTTLE INFORMATION Normal [facility] Comment on above: Performed By: #### B MP, AST, TSH #### [facility] [address] [place] [address] Dr. Dale Ngo [id number] ANTIMICROBIAL RESISTANCE GENES [facility] Comment on above: Performed By: #### B MP, AST, TSH #### [facility] [address] [place] [address] Dr. Dale Ngo [id number] SEE BELOW Normal [facility] Comment on above: Result Comment: Note : Antimicrobial resitance can occur via multiple mechanisms. A Not Detected result for the [employer] antomicrobial resistance gene assays does not indicate antimicrobial susceptibility. Subculturing is required for species identification and susceptibility testing of isolates. Performed By: #### B MP, AST, TSH #### [facility] [address] [place] [address] Dr. Dale Ngo BCIDHD3 Positive [facility] Comment on above: Performed By: #### B MP, AST, TSH #### [facility] [address] [place] [address] Dr. Dale Ngo BCIDHD4 Negative Normal [facility] Comment on above: Performed By: #### B MP, AST, TSH #### [facility] [address] [place] [address] Dr. Dale Ngo BCIDHD5 YEAST Normal [facility] Comment on above: Performed By: #### B MP, AST, TSH #### [facility] [address] [place] [address] Dr. Dale Ngo Bottle Set: Set 1 Normal [facility] Comment on above: Performed By: #### B MP, AST, TSH #### [facility] [address] [place] [address] Dr. Dale Ngo Bottle: Aerobic Normal [facility] Comment on above: Performed By: #### B MP, AST, TSH #### [facility] [address] [place] [address] Dr. Dale Ngo C. neoformans/gattii Not detected Normal NOT DETECTED [facility] Comment on above: Performed By: #### B MP, AST, TSH #### [facility] [address] [place] [address] Dr. Dale Ngo Lolis albicans Not detected Normal NOT DETECTED [facility] Comment on above: Performed By: #### B MP, AST, TSH #### [facility] [address] [place] [address] Dr. Dale Ngo Lolis auris Not detected Normal NOT DETECTED [facility] Comment on above: Performed By: #### B MP, AST, TSH #### [facility] [address] [place] [address] Dr. Dale Ngo Lolis glabrata Not detected Normal NOT DETECTED [facility] Comment on above: Performed By: #### B MP, AST, TSH #### [facility] [address] [place] [address] Dr. Dale Ngo Lolis Krusei Not detected Normal NOT DETECTED [facility] Comment on above: Performed By: #### B MP, AST, TSH #### [facility] [address] [place] [address] Dr. Dale Ngo Lolis Parapsilosis Not detected Normal NOT DETECTED [facility] Comment on above: Performed By: #### B MP, AST, TSH #### [facility] [address] [place] [address] Dr. Dale Ngo Lolis Tropicalis Not detected Normal NOT DETECTED [facility] Comment on above: Performed By: #### B MP, AST, TSH #### [facility] [address] [place] [address] Dr. Dale Ngo CTX-M Resistant Gene Not detected Normal NOT DETECTED [facility] Comment on above: Performed By: #### B MP, AST, TSH #### [facility] [address] [place] [address] Dr. Dale Ngo E. Cloacae complex Not detected Normal NOT DETECTED [facility] Comment on above: Performed By: #### B MP, AST, TSH #### [facility] [address] [place] [address] Dr. Dale Ngo E. faecalis Not detected Normal NOT DETECTED [facility] Comment on above: Performed By: #### B MP, AST, TSH #### [facility] [address] [place] [address] Dr. Dlae Ngo E. faecium Not detected Normal NOT DETECTED [facility] Comment on above: Performed By: #### B MP, AST, TSH #### [facility] [address] [place] [address] Dr. Dale Ngo Enterobacteriaceae Detected Critically abnormal NOT DETECTED [facility] Comment on above: Performed By: #### B MP, AST, TSH #### [facility] [address] [place] [address] Dr. Dale Ngo Escherichia coli Detected Critically abnormal NOT DETECTED [facility] Comment on above: Performed By: #### B MP, AST, TSH #### [facility] [address] [place] [address] Dr. Dale Ngo H. influenzae Not detected Normal NOT DETECTED [facility] Comment on above: Performed By: #### B MP, AST, TSH #### [facility] [address] [place] [address] Dr. Dale Ngo IMP Resistant Gene Not detected Normal NOT DETECTED [facility] Comment on above: Performed By: #### B MP, AST, TSH #### [facility] [address] [place] [address] Dr. Dale Ngo K. oxytoca Not detected Normal NOT DETECTED [facility] Comment on above: Performed By: #### B MP, AST, TSH #### [facility] [address] [place] [address] Dr. Dale Ngo K. pneumoniae Not detected Normal NOT DETECTED [facility] Comment on above: Performed By: #### B MP, AST, TSH #### [facility] [address] [place] [address] Dr. Dale Ngo Klebsiella aerogenes Not detected Normal NOT DETECTED [facility] Comment on above: Performed By: #### B MP, AST, TSH #### [facility] [address] [place] [address] Dr. Dale Ngo KPC Resistant Gene Not detected Normal NOT DETECTED [facility] Comment on above: Performed By: #### B MP, AST, TSH #### [facility] [address] [place] [address] Dr. Dale Ngo List. monocytogenes Not detected Normal NOT DETECTED [facility] Comment on above: Performed By: #### B MP, AST, TSH #### [facility] [address] [place] [address] Dr. Dale Ngo Mcr-1 Resistant Gene Not detected Normal NOT DETECTED [facility] Comment on above: Performed By: #### B MP, AST, TSH #### [facility] [address] [place] [address] Dr. Dale Ngo mecA/C Not Applicable Normal NOT DETECTED [facility] Comment on above: Performed By: #### B MP, AST, TSH #### [facility] [address] [place] [address] Dr. Dale Ngo mecA/C MREJ Not Applicable Normal NOT DETECTED [facility] Comment on above: Performed By: #### B MP, AST, TSH #### [facility] [address] [place] [address] Dr. Dale Ngo N. meningitidis Not detected Normal NOT DETECTED [facility] Comment on above: Performed By: #### B MP, AST, TSH #### [facility] [address] [place] [address] Dr. Dale Ngo NDM Resistant Gene Not detected Normal NOT DETECTED [facility] Comment on above: Performed By: #### B MP, AST, TSH #### [facility] [address] [place] [address] Dr. Dale Ngo Oxa-48-like Not detected Normal NOT DETECTED [facility] Comment on above: Performed By: #### B MP, AST, TSH #### [facility] [address] [place] [address] Dr. Dale Ngo Proteus Not detected Normal NOT DETECTED [facility] Comment on above: Performed By: #### B MP, AST, TSH #### [facility] [address] [place] [address] Dr. Dale Ngo Pseud. aeruginosa Not detected Normal NOT DETECTED [facility] Comment on above: Performed By: #### B MP, AST, TSH #### [facility] [address] [place] [address] Dr. Dale Ngo S. maltophilia Not detected Normal NOT DETECTED [facility] Comment on above: Performed By: #### B MP, AST, TSH #### [facility] [address] [address] [address] Dale Ngo Salmonella Not detected Normal NOT DETECTED [facility] Comment on above: Performed By: #### B MP, AST, TSH #### [facility] [address] [place] [address] Dr. Dale Ngo Seratia marcescens Not detected Normal NOT DETECTED [facility] Comment on above: Performed By: #### B MP, AST, TSH #### [facility] [address] [place] [address] Dr. Dale Ngo Site: unknown Normal [facility] Comment on above: Performed By: #### B MP, AST, TSH #### [facility] [address] [place] [address] Dr. Dale Ngo Stapgenaro. aureus Not detected Normal NOT DETECTED [facility] Comment on above: Performed By: #### B MP, AST, TSH #### [facility] [address] [place] [address] Dr. Dale Ngo Stapgenaro. epidermidis Not detected Normal NOT DETECTED [facility] Comment on above: Performed By: #### B MP, AST, TSH #### [facility] [address] [place] [address] Dr. Dale Ngo Stapgenaro. lugdunensis Not detected Normal NOT DETECTED [facility] Comment on above: Performed By: #### B MP, AST, TSH #### [facility] [address] [place] [address] Dr. Dale Ngo Staphylococcus Not detected Normal NOT DETECTED [facility] Comment on above: Performed By: #### B MP, AST, TSH #### [facility] [address] [place] [address] Dr. Dale Ngo Strep. agalactiae Not detected Normal NOT DETECTED [facility] Comment on above: Performed By: #### B MP, AST, TSH #### [facility] [address] [place] [address] Dr. Dale Ngo Strep. pneumoniae Not detected Normal NOT DETECTED [facility] Comment on above: Performed By: #### B MP, AST, TSH #### [facility] [address] [place] [address] Dr. Dale Ngo Strep. pyogenes Not detected Normal NOT DETECTED [facility] Comment on above: Performed By: #### B MP, AST, TSH #### [facility] [address] [place] [address] Dr. Dale Ngo Streptococcus Not detected Normal NOT DETECTED [facility] Comment on above: Performed By: #### B MP, AST, TSH #### [facility] [address] [place] [address] Dr. Dale Ngo Mireya/Ramez Resist. Gene Not Applicable Normal NOT DETECTED [facility] Comment on above: Performed By: #### B MP, AST, TSH #### [facility] [address] [place] [address] Dr. Dale Ngo VIM Resistant Gene Not detected Normal NOT DETECTED [facility] Comment on above: Performed By: #### B MP, AST, TSH #### [facility] [address] [place] [address] Dr. Dale Ngo CBC W MANUAL DIFFon 10-16-19 23 ANISOCYTOSIS SLIGHT Normal [facility] Comment on above: Performed By: #### B MP, AST, TSH #### [facility] [address] [place] [address] Dr. Dale Ngo ATYPICAL LYMPH # Normal [facility] Comment on above: Performed By: #### B MP, AST, TSH #### [facility] [address] [place] [address] Dr. Dale Ngo ATYPICAL LYMPH % Normal [facility] Comment on above: Performed By: #### B MP, AST, TSH #### [facility] [address] [place] [address] Dr. Dale Ngo BAND # 0.7 103/ul Critically high 0.0-0.3 [facility] Comment on above: Performed By: #### B MP, AST, TSH #### [facility] [address] [place] [address] Dr. Dale Ngo BAND % 3 % Normal 0-5 [facility] Comment on above: Performed By: #### B MP, AST, TSH #### [facility] [address] [place] [address] Dr. Dale Ngo BASOM # 0.00 103/ul Normal 0.00-0.10 [facility] Comment on above: Performed By: #### B MP, AST, TSH #### [facility] [address] [place] [address] Dr. Dale Ngo BASOM % 0.0 % Critically low 0.2-2.0 [facility] Comment on above: Performed By: #### B MP, AST, TSH #### [facility] [address] [place] [address] Dr. Dale Ngo BLAST # Normal [facility] Comment on above: Performed By: #### B MP, AST, TSH #### [facility] [address] [place] [address] Dr. Dale Ngo BLAST % Normal [facility] Comment on above: Performed By: #### B MP, AST, TSH #### [facility] [address] [place] [address] Dr. Dale gNo CORRECTED WBC Normal 4.0-11.0 [facility] Comment on above: Performed By: #### B MP, AST, TSH #### [facility] [address] [place] [address] Dr. Dale Ngo EOS # 0.48 103/ul Normal 0.00-0.70 [facility] Comment on above: Performed By: #### B MP, AST, TSH #### [facility] [address] [place] [address] Dr. Dale Ngo EOS% 2.0 % Normal 0.9-7.0 [facility] Comment on above: Performed By: #### B MP, AST, TSH #### [facility] [address] [place] [address] Dr. Dale Ngo HCT 37.4 % Normal 36.0-48.0 [facility] Comment on above: Performed By: #### B MP, AST, TSH #### [facility] [address] [place] [address] Dr. Dale Ngo HGB 12.9 g/dl Normal 12.0-16.0 [facility] Comment on above: Performed By: #### B MP, AST, TSH #### [facility] [address] [address] [address] Dale Ngo LYMPHM # 0.48 103/ul Critically low 1.20-3.80 [facility] Comment on above: Performed By: #### B MP, AST, TSH #### [facility] [address] [place] [address] Dr. Dale Ngo LYMPHM% 2.0 % Critically low 20.5-60.0 [facility] Comment on above: Performed By: #### B MP, AST, TSH #### [facility] [address] [place] [address] Dr. Dale Ngo MCH 29.3 pg Normal 26.7-34.0 [facility] Comment on above: Performed By: #### B MP, AST, TSH #### [facility] [address] [place] [address] Dr. Dale Ngo MCHC 34.5 g/dl Normal 29.9-35.2 [facility] Comment on above: Performed By: #### B MP, AST, TSH #### [facility] [address] [place] [address] Dr. Dale Ngo MCV 85.0 fL Normal 81.0-99.0 [facility] Comment on above: Performed By: #### B MP, AST, TSH #### [facility] [address] [place] [address] Dr. Dale Ngo METAMYELOCYTE # Normal [facility] Comment on above: Performed By: #### B MP, AST, TSH #### [facility] [address] [place] [address] Dr. Dale Ngo METAMYELOCYTE % Normal [facility] Comment on above: Performed By: #### B MP, AST, TSH #### [facility] [address] [place] [address] Dr. Dale Ngo MICROCYTOSIS SLIGHT Normal [facility] Comment on above: Performed By: #### B MP, AST, TSH #### [facility] [address] [address] [address] Dale Ngo MONOM# 0.71 103/ul Normal 0.30-0.80 [facility] Comment on above: Performed By: #### B MP, AST, TSH #### [facility] [address] [place] [address] Dr. Dale Ngo MONOM% 3.0 % Normal 1.7-12.0 [facility] Comment on above: Performed By: #### B MP, AST, TSH #### [facility] [address] [place] [address] Dr. Dale Ngo MPV 11.2 fL Normal 9.5-13.5 [facility] Comment on above: Performed By: #### B MP, AST, TSH #### [facility] [address] [place] [address] Dr. Dale Ngo MYELOCYTE # Normal [facility] Comment on above: Performed By: #### B MP, AST, TSH #### [facility] [address] [place] [address] Dr. Dale Ngo MYELOCYTE % Normal [facility] Comment on above: Performed By: #### B MP, AST, TSH #### [facility] [address] [place] [address] Dr. Dale Ngo NRBC Normal [facility] Comment on above: Performed By: #### B MP, AST, TSH #### [facility] [address] [place] [address] Dr. Dale Ngo PLT 208 103/ul Normal 150-[address] [facility] Comment on above: Performed By: #### B MP, AST, TSH #### [facility] [address] [place] [address] Dr. Dale Ngo RBC 4.40 106/ul Normal 4.20-5.40 [facility] Comment on above: Performed By: #### B MP, AST, TSH #### [facility] [address] [place] [address] Dr. Dale Ngo RDW 13.0 % Normal 11.0-15.0 [facility] Comment on above: Performed By: #### B MP, AST, TSH #### [facility] [address] [address] [address] Dale Ngo SEG # 21.42 103/ul Critically high 1.40-6.50 [facility] Comment on above: Performed By: #### B MP, AST, TSH #### [facility] [address] [address] [address] Dale Ngo SEG % 90.0 % Critically high 43.0-75.0 [facility] Comment on above: Performed By: #### B MP, AST, TSH #### [facility] [address] [place] [address] Dr. Dale Ngo WBC 23.8 103/ul Critically high 4.0-11.0 [facility] Comment on above: Performed By: #### B MP, AST, TSH #### [facility] [address] [address] [address] Dale Ngo CPKon 10-16-2022 CK [Catalytic activity/Vol] 2025 U/L Critically high 26-192 [facility] Comment on above: Performed By: #### B MP, AST, TSH #### [facility] [address] [place] [address] ABD/PELVIS WO CONon 10-16 CT ABD/PELVIS WO CON CLINICAL HISTORY: CALCULUS OF KIDNEY. Generalized weakness. EXAMINATION: Unenhanced CT scan of the abdomen and pelvis: 10/16/2022. COMPARISON: Unenhanced disc of the abdomen and pelvis: 06/15/2018. TECHNIQUE: 3 mm axial images from lung bases through ischial tuberosities without intravenous or oral contrast were obtained. Sagittal, coronal reconstructions were performed. CT dose reduction technique was used, including Automated Exposure Control. FINDINGS: There is a bipolar pacemaker with electroleads in right atrium, right ventricle. There is calcified granuloma in the left lower lobe. The remaining visualized lung bases seem normal. The heart size seems normal with minimal pericardial effusion. There is a small sliding-type hiatus hernia. CT ABDOMEN: The liver, spleen appears normal with multiple punctate calcified granulomas within the spleen. The pancreas is slightly atrophic without discrete lesions. 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 This seems unchanged. There is no hydronephrosis involving the right or the left kidney. There is slight asymmetric perinephric fat stranding left being greater than right with a nonobstructing calculus in the midpole of the left kidney, measuring approximately 4 mm in size. There is no definite ureteral lithiasis. The abdominal aorta is moderately atherosclerotic but there is no aneurysm. There is diffusely thickened asymmetric appearance with gallbladder wall near the fundus with a thickened portion measuring approximately 6 mm. There is some hypodensity in the vicinity which could represent some calculi. There is no induration of surrounding fat. There is no retroperitoneal or mesenteric adenopathy. The bowel loops are of normal caliber. There is a normal-appearing appendix. CT PELVIS: There is a Fernandez catheter in the bladder with decompression of the bladder. No ureterolithiasis seen. The uterus, ovaries are not identified. There is no pelvic adenopathy. No discrete focal fluid collections are seen. The visualized osseous structures demonstrate degenerative disc disease with vacuum disc phenomena at L5-S1. IMPRESSION: 1. There is asymmetric thickening of the gallbladder wall with some calcifications along the fundus of the gallbladder which has developed since previous examination. This is concerning for a possible mass in the gallbladder. There could be some cholelithiasis but no acute cholecystitis. 2. There is a nonobstructing calculus in the left kidney without obvious obstructive uropathy. There is asymmetric stranding of the perinephric fat left greater than right concerning for questionable pyelonephritis involving the left kidney. 3. Normal appendix. 4. Previous hysterectomy. Electronically authenticated by: RUDDY LEONE Date: 2022-10-16 21:23 Normal [facility] CT HEAD WO CONon 10-16-2022 CT HEAD WO CON NONCONTRAST CT SCAN OF THE HEAD CT HEAD WO CON HISTORY:: 72-year-old female with weakness and lack of energy/asthenia. TECHNIQUE: Multiple axial images are taken from the level the vertex down to the base of the skull without the use of IV contrast. Images were then reconstructed in the sagittal and coronal planes. This exam was performed according to our departmental dose-optimization program which includes use of Automated Exposure Control, adjustment of the mA and/or kV according to patient size and/or use of iterative reconstruction technique. COMPARISON: None. FINDINGS: Brain Parenchyma: There is global, diffuse atrophy with periventricular decreased white matter attenuation. No intracranial mass. No intracranial hemorrhage. Posterior fossa: Normal. Midline shift: None Extra-axial fluid collection: None Ventricles: Normal. Mastoid air cells: Normal. Sinuses: There is near complete opacification of the left maxillary sinus within the [id number]. There is some thickening of the bone around the maxillary sinus which is incompletely imaged. Cranium: No depressed skull fracture. Soft tissues: Normal. Orbits: Normal. IMPRESSION: 1. Chronic small vessel ischemic change. 2. Sinus disease which is incompletely imaged. Dedicated CT scan of the sinuses may help better delineate. 3. Otherwise, no CT evidence for acute pathology. If symptoms continue, MRI may help better delineate. Electronically authenticated by: BRONSON SMITH Date: 2022-10-16 18:25 [address] [facility] CULTURE BLOODon 10-16-2022 Microscopic examination of blood, culture Culture Observations: Positive blood culture. Pediatric bottle. Culture Observations: Refer to accession #[id number] for susceptibilities. Isolate 1 Escherichia coli Growth of Normal [facility] Comment on above: Performed By: #### L ACT #### [facility] [address] [place] [address] Dr. Dale gNo ER URINE PROFILEon 3 Bilirubin Ql (U) Negative Normal NEGATIVE [facility] Comment on above: Performed By: #### C BC #### [facility] [address] [place] [address] Dr. Dale Ngo Clarity (U) SL CLOUDY Abnormal CLEAR [facility] Comment on above: Performed By: #### C BC #### [facility] [address] [place] [address] Dr. Dale Ngo Color (U) LT. YELLOW Normal YELLOW [facility] Comment on above: Performed By: #### C BC #### [facility] [address] [place] [address] Dr. Dale Ngo ERUAHD A micrscopic examination will be performed if indicated. Normal [facility] Comment on above: Performed By: #### C BC #### [facility] [address] [place] [address] Dr. Dale Ngo Glucose Ql (U) Negative Normal NEGATIVE [facility] Comment on above: Performed By: #### C BC #### [facility] [address] [place] [address] Dr. Dale Ngo Hemoglobin Ql (U) LARGE Abnormal NEGATIVE [facility] Comment on above: Performed By: #### C BC #### [facility] [address] [place] [address] Dr. Dale Ngo Ketones Ql (U) Negative Normal NEGATIVE [facility] Comment on above: Performed By: #### C BC #### [facility] [address] [place] [address] Dr. Dale Ngo LEUKOCYTES LARGE Abnormal NEGATIVE [facility] Comment on above: Performed By: #### C BC #### [facility] [address] [place] [address] Dr. Dale Ngo Nitrite Ql (U) Positive Abnormal NEGATIVE [facility] Comment on above: Performed By: #### C BC #### [facility] [address] [place] [address] Dr. Dale Ngo pH (U) 5.5 [pH] Normal 5-9 [facility] Comment on above: Performed By: #### C BC #### [facility] [address] [place] [address] Dr. Dale Ngo Protein (U) [Mass/Vol] 100 mg/dL Abnormal NEGAT TIFFANI/ TRACE [facility] Comment on above: Performed By: #### C BC #### [facility] [address] [place] [address] Dr. Dale Ngo SPEC GRAVITY 1.020 Normal 1.005-<=1.02 5 [facility] Comment on above: Performed By: #### C BC #### [facility] [address] [place] [address] Dr. Dale Ngo UR MICRO IND INDICATED Normal [facility] Comment on above: Performed By: #### C BC #### [facility] [address] [address] [address] Dale Ngo Urobilinogen Qn (U) 0.2 {Tenisha'U}/dL Normal 0.2 - 1. 0 [facility] Comment on above: Performed By: #### C BC #### [facility] [address] [address] [address] Dale Ngo LIVER PROFILEon 10-16-2022 Albumin [Mass/Vol] 2.7 g/dL Critically low 3.4-5.0 [facility] Comment on above: Performed By: #### B MP, AST, TSH #### [facility] [address] [address] [address] Dale Ngo Albumin/Globulin [Mass ratio] 0.6 {ratio} Normal [facility] Comment on above: Performed By: #### B MP, AST, TSH #### [facility] [address] [address] [address] Dale Ngo ALP [Catalytic activity/Vol] 148 U/L Critically high 46-116 [facility] Comment on above: Performed By: #### B MP, AST, TSH #### [facility] [address] [address] [address] Dale Ngo ALT [Catalytic activity/Vol] 61 U/L Critically high 14-59 [facility] Comment on above: Performed By: #### B MP, AST, TSH #### [facility] [address] [address] [address] Dale Ngo AST [Catalytic activity/Vol] 111 U/L Critically high 15-37 [facility] Comment on above: Performed By: #### B MP, AST, TSH #### [facility] [address] [address] [address] Dale Ngo BILI, CONJUGATED 0.3 mg/dL Critically high 0.0-0.2 [facility] Comment on above: Performed By: #### B MP, AST, TSH #### [facility] [address] [address] [address] Dale Ngo Bilirubin [Mass/Vol] 0.9 mg/dL Normal 0.2-1.0 [facility] Comment on above: Performed By: #### B MP, AST, TSH #### [facility] [address] [address] [address] Dale Nog Globulin (S) [Mass/Vol] 4.2 g/dL Normal [facility] Comment on above: Performed By: #### B MP, AST, TSH #### [facility] [address] [place] [address] Dr. Dale Ngo Protein [Mass/Vol] 6.9 g/dL Normal 6.4-8.2 [facility] [place] [facility] Comment on above: Performed By: #### B MP, AST, TSH #### [facility] [address] [place] [address] Dr. Dale Ngo MYOGLOBINon 10-16-2022 BEVERLEY 4501 ng/mL Critically high 9-82 [facility] Comment on above: Performed By: #### B MP, AST, TSH #### [facility] [address] [place] [address] Dr. Dale Ngo PROF CHEM 8 (BAS METB)on Anion gap [Moles/Vol] 18.2 mmol/L Normal [facility] Comment on above: Performed By: #### B MP, AST, TSH #### [facility] [address] [place] [address] Dr. Dale Ngo Calcium [Mass/Vol] 8.5 mg/dL Normal 8.5-10.1 [facility] [place] [facility] Comment on above: Performed By: #### B MP, AST, TSH #### [facility] [address] [place] [address] Dr. Dale Ngo Chloride [Moles/Vol] 99 mmol/L Normal 98-[address] [facility] Comment on above: Performed By: #### B MP, AST, TSH #### [facility] [address] [place] [address] Dr. Dale Ngo CO2 [Moles/Vol] 20.0 mmol/L Critically low 21.0-32.0 [facility] Comment on above: Performed By: #### B MP, AST, TSH #### [facility] [address] [address] [address] Dale Ngo Creatinine [Mass/Vol] 2.08 mg/dL Critically high 0.55-1.02 [facility] Comment on above: Performed By: #### B MP, AST, TSH #### [facility] [address] [address] [address] Dale Ngo EGFR-AF EMIRATI 28 mL/min/1.73m2 Critically low >=60 [facility] Comment on above: Performed By: #### B MP, AST, TSH #### [facility] [address] [address] [address] Dale Ngo EGFR-NON AF EMIRATI 23 mL/min/1.73m2 Critically low >=60 [facility] Comment on above: Performed By: #### B MP, AST, TSH #### [facility] [address] [address] [address] Dale Ngo Glucose [Mass/Vol] 110 mg/dL Critically high 74-106 [facility] Comment on above: Performed By: #### B MP, AST, TSH #### [facility] [address] [address] [address] Dale Ngo Potassium [Moles/Vol] 4.2 mmol/L Normal 3.5-5.1 [facility] Comment on above: Performed By: #### B MP, AST, TSH #### [facility] [address] [address] [address] Dale Ngo Sodium [Moles/Vol] 133 mmol/L Critically low 136-145 [facility] Comment on above: Performed By: #### B MP, AST, TSH #### [facility] [address] [address] [address] Dale Ngo Urea nitrogen [Mass/Vol] 39.0 mg/dL Critically high 7.0-18.0 [facility] Comment on above: Performed By: #### B MP, AST, TSH #### [facility] [address] [address] [address] Dale Ngo Urea nitrogen/Creatinine [Mass ratio] 18.8 mg/mg Normal [facility] Comment on above: Performed By: #### B MP, AST, TSH #### [facility] [address] [place] [address] Dr. Dale Ngo TROPONIN, HIGH SENSITIVITYon 10-16-2022 HSTROP 22.0 pg/mL Normal 4.0-51.[address] [facility] Comment on above: Result Comment: CUT- OFF POINTS HAVE BEEN ESTABLISHED BASED ON THE FOURTH UNIVERSAL DEFINITIONS OF MYOCARDIAL INFARCTION. THE UPPER REFERENCE LIMIT (URL) OF TROPONIN, DEFINED THE 99TH PERCENTILE OF cTnI DISTRIBUTION IN A REFERENCE POPULATION, HAS BEEN CONFIRMED THE DECISION THRESHOLD FOR [place] DIAGNOSIS. Performed By: #### B MP, AST, TSH #### [facility] [address] [place] [address] Dr. Dale Ngo URINE MICROSCOPIC ONLYon BACTERIA LARGE Abnormal NONE SEEN [facility] Comment on above: Performed By: #### C BC #### [facility] [address] [place] [address] Dr. Dale Ngo Bacteria identified Cx Nom (U) INDICATED Normal [facility] Comment on above: Performed By: #### C BC #### [facility] [address] [place] [address] Dr. Dale Ngo CAST SEEN Abnormal NONE SEEN [facility] Comment on above: Performed By: #### C BC #### [facility] [address] [place] [address] Dr. Dale Ngo Crystals LM Nom (Urine sed) NONE SEEN Normal NONE SEEN [facility] Comment on above: Performed By: #### C BC #### [facility] [address] [place] [address] Dr. Dale Ngo Epithelial cells LM Ql (Urine sed) FEW Abnormal NONE SEEN /RARE [facility] Comment on above: Performed By: #### C BC #### [facility] [address] [place] [address] Dr. Dale Ngo FINE GRANULAR CAST RARE Normal [facility] Comment on above: Performed By: #### C BC #### [facility] [address] [place] [address] Dr. Dale Ngo MUCOUS NONE SEEN Normal NONE SEEN [facility] Comment on above: Performed By: #### C BC #### [facility] [address] [place], [place] [address] Dr. Dale Ngo RBC (U) [#/Vol] /uL Abnormal 0-2 [facility] Comment on above: Performed By: #### C BC #### [facility] [address] [place], [place] [address] Dr. Dale Ngo WBC (U) [#/Vol] /uL Abnormal NONE SEEN [facility] Comment on above: Performed By: #### C BC #### [facility] [address] [place], [place] [address] Dr. Dale Ngo XR CHEST 1 Von 10-16-2022 XR CHEST 1 V EXAMINATION: XR CHES T 1 V HISTORY: Weakness COMPARISON: Chest x-ray 05/23/2022 TECHNIQUE: Portable chest FINDINGS: The lung parenchyma is free of consolidation or infiltrate. No pneumothorax or pleural effusion. Left-sided cardiac pacemaker. The cardiac, mediastinal and hilar contours are normal. The visualized osseous structures exhibit no gross abnormality. IMPRESSION: No acute cardiopulmonary abnormality. Electronically authenticated by: JAVIER HOWELL Date: 2022-10-16 18:16 Normal [facility] Office Visit (Cardiology)on 09-22-2022 Follow-up visit Diagnoses/Problems Assessed STEMI (ST elevation myocardial infarction) (410.90) (I21.3) Paroxysmal atrial fibrillation (427.31) (I48.0) Sinus node dysfunction (427.81) (I49.5) History of PTCA (V45.82) (Z98.61) CAD (coronary artery disease) (414.00) (I25.10) Cardiac pacemaker in situ (V45.01) (Z95.0) High risk medication use (V58.69) (Z79.899) SOB (shortness of breath) on exertion (786.05) (R06.02) Orders CAD (coronary artery disease) Stop: Aspirin 81 MG Oral Tablet Chewable Start: Aspirin 81 MG Oral Tablet Delayed Release; one tablet twice weekly CAD (coronary artery disease), Mixed hyperlipidemia, Sinus node dysfunction, SOB (shortness of breath) on exertion, STEMI (ST elevation myocardial infarction) Ultrasound Duplex Carotid Bilateral; Status:Hold For - Scheduling,Retrospect tiffani Authorization; Requested for:[id number]; Radiologist to Determine Optimal Study : Y What are the patient's signs and symptoms? : SOB Class 2 obesity with body mass index (BMI) of 38.0 to 38.9 in adult Healthy Weight Tips; Status:Complete - Retrospective Authorization; Done: 22Sep2022 Some eating tips that can help you lose weight.; Status:Complete - Retrospective Authorization; Done: [id number] History of PTCA, Paroxysmal atrial fibrillation IO EKG Electrocardiogram- 12 Lead; Status:Complete; Done: [id number] Mixed hyperlipidemia Start: Atorvastatin Calcium 40 MG Oral Tablet; TAKE 1 TABLET AT BEDTIME Patient Instructions Please bring all medicines, vitamins, and herbal supplements with you when you come to the office. Prescriptions will not be filled unless you are compliant with your follow up appointments or have a follow up appointment scheduled as per instruction of your physician. Refills should be requested at the time of your visit. Patient provided Falls Prevention education sheet. Follow up in 1 year Chief Complaint GWEN WILCOX is being seen for a 6 month follow-up of. 72-year-old female here for routine follow-up and is doing overall well. 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 She has a history of sick sinus syndrome, paroxysmal A-fib, previously treated by workforce services representative in [place] now follows with ourselves. Her amiodarone has been downgraded to 100 mg Monday through Monday. Today's ECG reveals atrial pacing and appropriate sensing at a rate of 60 with low voltage. She does remain on Eliquis, clopidogrel and aspirin. She also complains of left neck swelling or asymmetry there is no left arm asymmetry or significant edema. When offered her a venous duplex of the left arm to rule out DVT left jugular she refuses since she is already on thromboembolic protection with Eliquis. We have asked her to decrease her aspirin to 2 days a week and stop her clopidogrel altogether. She is questioning the need for atorvastatin await counseled her on appropriateness of guideline directed medical therapies especially with statin following ACS event in future reduction in cardiovascular events/risks. Recommendations: Decrease aspirin stop clopidogrel, reorder atorvastatin 40 mg daily, I would recommend consideration for left subclavian vein and jugular vein duplex, will otherwise follow-up in 1 year Current Meds Medication NameInstruction Alendronate Sodium 70 MG Oral TabletTAKE 1 TABLET Once a week. Allopurinol 300 MG Oral TabletTAKE 1/2 TABLET DAILY. Amiodarone HCl - 200 MG Oral Tablettake one-half tablet daily monday through monday only Aspirin 81 MG Oral Tablet ChewableTake 1 tablet daily Calcitriol 0.25 MCG Oral Capsuletake one capsule three times a week. Carvedilol 25 MG Oral TabletTAKE 1 TABLET TWICE DAILY. Clopidogrel Bisulfate 75 MG Oral TabletTAKE 1 TABLET DAILY. Eliquis 5 MG Oral TabletTake 1 tablet twice daily Lisinopril 2.5 MG Oral TabletTAKE 1 TABLET DAILY. Nitroglycerin 0.4 MG Sublingual Tablet SublingualPLACE 1 TABLET UNDER THE TONGUE EVERY 5 MINUTES UP TO 3 DOSES NEEDED FOR CHEST PAIN. Allergies Medication No Known Drug Allergies Recorded By: Ainsley Tony; 09/07/2021 9:59:01 AM Social History Problems Never a smoker No alcohol use No caffeine use No illicit drug use Review of Systems Constitutional: not feeling tired. Cardiovascular: no intermittent leg claudication and as noted in HPI. Respiratory: no cough and no shortness of breath. Gastrointestinal: no change in bowel habits and no blood in stools. Integumentary: no skin rashes. Neurological: no seizures and no frequent falls. All other systems have been reviewed and are negative for complaint. Vitals Vital Signs Recorded: 22Sep2022 10:31AM Heart Rate60, Apical [id number] Oestbrywq07 Height5 ft 1 in Slbsxa349 lb BMI Zjspzbaqnp53.92 kg/m2 BSA Calculated1.91 Tobacco Useb) No PHQ-2 #1. Over the last 2 weeks have you felt down, depressed or hopeless? (If yes, answer PHQ-9 below)No PHQ-2 #2. Over the last 2 wee (more content not included)... Normal AMT Tobacco Screening.on 023 Adult depression screening assessment No [facility] [address] DO Work Phone: Fall risk assessment b) One or more fall s in the last year [facility] 250 DO Work Phone: Tobacco use status [facility] b) No [facility] 250 DO Work Phone: PTH INTACTon 06-25-2022 PTH, Intact 40 pg/mL Normal 15-65 [facility] Comment on above: Performed By: #### B MP, AST, TSH #### [facility] [address] [place] [address] Dr. Dale Ngo HEMOGRAM AND PLATELon 2021 Hematocrit (Bld) [Volume fraction] 40.6 % Normal 36.0-48.0 [facility] Comment on above: Performed By: #### C BC #### [facility] [address] [place] [address] Dr. Dale Ngo Hemoglobin (Bld) [Mass/Vol] 13.1 g/dL Normal 12.0-16.0 [facility] Comment on above: Performed By: #### C BC #### [facility] [address] [place] [address] Dr. Dale Ngo MCH (RBC) [Entitic mass] 29.2 pg Normal 26.7-34.0 [facility] Comment on above: Performed By: #### C BC #### [facility] [address] [place] [address] Dr. Dale Ngo MCHC (RBC) [Mass/Vol] 32.3 g/dL Normal 29.9-35.2 [facility] Comment on above: Performed By: #### C BC #### [facility] [address] [place] [address] Dr. Dale Ngo MCV (RBC) [Entitic vol] 90.6 fL Normal 81.0-99.0 [facility] Comment on above: Performed By: #### C BC #### [facility] [address] [place] [address] Dr. Dale Ngo PLT 249 103/ul Normal 150-[address] [facility] Comment on above: Performed By: #### C BC #### [facility] [address] [place] [address] Dr. Dale Ngo RBC 4.48 106/ul Normal 4.20-5.[address] [facility] Comment on above: Performed By: #### C BC #### [facility] [address] [address] [address] Dale Ngo WBC 7.2 103/ul Normal 4.0-11.0 [facility] Comment on above: Performed By: #### C BC #### [facility] [address] [address] [address] Dale Ngo MAGNESIUMon 06-24-2022 Magnesium [Mass/Vol] 2.1 mg/dL Normal 1.8-2.4 [facility] Comment on above: Performed By: #### C BC #### [facility] [address] [place] [address] Dr. Dale Ngo RENAL FUNCTION PANELon 06-24 Albumin [Mass/Vol] 3.4 g/dL Normal 3.4-5.0 [facility] [place] [facility] Comment on above: Performed By: #### C BC #### [facility] [address] [place] [address] Dr. Dale Ngo Calcium [Mass/Vol] 9.4 mg/dL Normal 8.5-10.1 [facility] Comment on above: Performed By: #### C BC #### [facility] [address] [place] [address] Dr. Dale Ngo Chloride [Moles/Vol] 104 mmol/L Normal 98-[address] [facility] Comment on above: Performed By: #### C BC #### [facility] [address] [place] [address] Dr. Dale Ngo CO2 [Moles/Vol] 28.5 mmol/L Normal 21.0-32.0 [facility] [place] [facility] Comment on above: Performed By: #### C BC #### [facility] [address] [place] [address] Dr. Dale Ngo Creatinine [Mass/Vol] 1.39 mg/dL Critically high 0.55-1.02 [facility] Comment on above: Performed By: #### C BC #### [facility] [address] [place] [address] Dr. Dale Ngo EGFR-AF EMIRATI 45 mL/min/1.73m2 Critically low >=[address] [facility] Comment on above: Performed By: #### C BC #### [facility] [address] [address] [address] Dale Ngo EGFR-NON AF EMIRATI 37 mL/min/1.73m2 Critically low >=60 [facility] Comment on above: Performed By: #### C BC #### [facility] [address] [address] [address] Dale Ngo Glucose [Mass/Vol] 93 mg/dL Normal 74-106 [facility] [place] [facility] Comment on above: Performed By: #### C BC #### [facility] [address] [address] [address] Dale Ngo Phosphate [Mass/Vol] 3.1 mg/dL Normal 2.6-4.7 [facility] Comment on above: Performed By: #### C BC #### [facility] [address] [address] [address] Dale Ngo Potassium [Moles/Vol] 5.0 mmol/L Normal 3.5-5.1 [facility] Comment on above: Performed By: #### C BC #### [facility] [address] [address] [address] Dale Ngo Sodium [Moles/Vol] 135 mmol/L Critically low 136-145 [facility] Comment on above: Performed By: #### C BC #### [facility] [address] [address] [address] Dale Ngo Urea nitrogen [Mass/Vol] 29.0 mg/dL Critically high 7.0-18.0 [facility] Comment on above: Performed By: #### C BC #### [facility] [address] [address] [address] Dale Ngo UA RANDOM W/MICROSCOPICon BACTERIA NONE SEEN Normal NONE SEEN [facility] Comment on above: Performed By: #### U AMIC #### [facility] [address] [address] [address] Dale Ngo Bilirubin Ql (U) Negative Normal NEGATIVE [facility] Comment on above: Performed By: #### U AMIC #### [facility] [address] [address] [address] Dale Ngo CAST NONE SEEN Normal NONE SEEN [facility] Comment on above: Performed By: #### U AMIC #### [facility] [address] [place] [address] Dr. Dale Ngo Clarity (U) CLEAR Normal CLEAR [facility] Comment on above: Performed By: #### U AMIC #### [facility] [address] [address] [address] Dale Ngo Color (U) LT. YELLOW Normal YELLOW [facility] Comment on above: Performed By: #### U AMIC #### [facility] [address] [place] [address] Dr. Dale Ngo Crystals LM Nom (Urine sed) NONE SEEN Normal NONE SEEN [facility] Comment on above: Performed By: #### U AMIC #### [facility] [address] [place] [address] Dr. Dale Ngo Epithelial cells LM Ql (Urine sed) FEW Abnormal NONE SEEN /RARE [facility] Comment on above: Performed By: #### U AMIC #### [facility] [address] [place] [address] Dr. Dale Ngo Glucose Ql (U) Negative Normal NEGATIVE [facility] Comment on above: Performed By: #### U AMIC #### [facility] [address] [place] [address] Dr. Dale Ngo Hemoglobin Ql (U) Negative Normal NEGATIVE [facility] Comment on above: Performed By: #### U AMIC #### [facility] [address] [place] [address] Dr. Dale Ngo Ketones Ql (U) Negative Normal NEGATIVE [facility] Comment on above: Performed By: #### U AMIC #### [facility] [address] [place] [address] Dr. Dale Ngo LEUKOCYTES SMALL Abnormal NEGATIVE [facility] Comment on above: Performed By: #### U AMIC #### [facility] [address] [place] [address] Dr. Dale Ngo MUCOUS NONE SEEN Normal NONE SEEN [facility] Comment on above: Performed By: #### U AMIC #### [facility] [address] [place] [address] Dr. Dale Ngo Nitrite Ql (U) Negative Normal NEGATIVE [facility] Comment on above: Performed By: #### U AMIC #### [facility] [address] [address] [address] Dale Ngo pH (U) 6.0 [pH] Normal 5-[address] [facility] Comment on above: Performed By: #### U AMIC #### [facility] [address] [place] [address] Dr. Dale Ngo RBC NONE SEEN Abnormal 0-2 [facility] Comment on above: Performed By: #### U AMIC #### [facility] [address] [place] [address] Dr. Dale Ngo SPEC GRAVITY <=1.005 Abnormal 1.005-<=1.02 5 [facility] Comment on above: Performed By: #### U AMIC #### [facility] [address] [place] [address] Dr. Dale Ngo UA PROTEIN Negative Normal NEGATIVE/ TRACE [facility] Comment on above: Performed By: #### U AMIC #### [facility] [address] [place] [address] Dr. Dale Ngo Urobilinogen Qn (U) 0.2 {Tenisha'U}/dL Normal 0.2 - 1. 0 [facility] Comment on above: Performed By: #### U AMIC #### [facility] [address] [place] [address] Dr. Dale Ngo WBC 0-2 Abnormal NONE SEEN [facility] Comment on above: Performed By: #### U AMIC #### [facility] [address] [place] [address] Dr. Dale Ngo URIC ACID SERUMon 06-24-2022 Urate [Mass/Vol] 4.0 mg/dL Normal 2.6-6.0 [facility] Comment on above: Performed By: #### C BC #### [facility] [address] [place] [address] Dr. Dale Ngo URINE T PROTEIN CREAT RATIOo n 06-24-2022 UR PROT CREAT RAT 0.34 Normal [facility] Comment on above: Performed By: #### B MP, AST, TSH #### [facility] [address] [place] [address] Dr. Dale Ngo UR TOTAL PROTEIN <6.0 Normal <=12.0 [facility] Comment on above: Performed By: #### B MP, AST, TSH #### [facility] [address] [place] [address] Dr. Dale Ngo URINE CREAT 17.84 mg/dL Critically low 20.00-300.00 [facility] [place] [facility] Comment on above: Performed By: #### B MP, AST, TSH #### [facility] [address] [place] [address] Dr. Dale Ngo VITAMIN D 25 OHon 06-24-2022 VIT D 25-OH 62.8 ng/mL Normal [facility] Comment on above: Performed By: #### V ITAD #### [facility] [address] [place] [address] Dr. Dale Ngo VIT D RANGES SEE BELOW Normal [facility] Comment on above: Result Comment: <20 ng/mL Vit D deficient 20 - <30 ng/mL Vit D insufficient 30 - 100 ng/mL Vit D sufficient >100 ng/mL Potential Toxicity Performed By: #### V ITAD #### [facility] [address] [place] [address] CHEST WO CONon 06-05-2022 CT CHEST WO CON EXAMINATION: CT CHES T WO CON HISTORY: Standard chest X-ray abnormal COMPARISON: XR chest 05/23/2022, CT chest 10/09/2018 TECHNIQUE: Axial, Coronal, and Sagittal images were created without the administration of IV contrast material. Dose reduction techniques were achieved by using automated exposure control and/or adjustment of mA and/or kV according to patient size and/or use of iterative reconstruction technique. FINDINGS: LUNGS: Stable appearance of a few scattered sub-5 mm nodules favoring benign etiology. No acute infiltrates or significant chronic interstitial changes. PLEURA: No mass, effusion, or pneumothorax. VASCULATURE: No abnormality. FLORENCE: No mass or adenopathy. MEDIASTINUM: No mass or adenopathy. CARDIAC: No enlargement or pericardial thickening. AORTA: No aneurysm or dissection. CHEST WALL: Heterogeneous, nodular thyroid gland containing numerous calcifications. BONES: No bone lesion or fracture. LIMITED ABDOMEN: Stable fat density right adrenal nodule favoring a benign adenoma. Limited images of the upper abdomen. OTHER: Negative. IMPRESSION: 1. No acute infiltrates to correspond to the recent chest x-ray. 2. Stable appearance of a few scattered sub-5 mm nodules; no overtly suspicious findings. 3. Heterogeneous, nodular thyroid gland with numerous calcifications; not appreciably changed compared to prior study. Patient underwent thyroid ultrasound evaluation on 10/12/2018 but no report is available. Electronically authenticated by: MELINDA LOVE Date: 2022-06-05 21:20 Normal [facility] HEMOGLOBINon 05-23-2022 Hemoglobin (Bld) [Mass/Vol] 13.1 g/dL Normal 12.0-16.0 [facility] Comment on above: Performed By: #### C BC #### [facility] [address] [address] [address] Dale Ngo PROF CHEM 8 (BAS METB)on Anion gap [Moles/Vol] 9.9 mmol/L Normal [facility] Comment on above: Performed By: #### L ACT #### [facility] [address] [address] [address] Dale Ngo Calcium [Mass/Vol] 8.7 mg/dL Normal 8.5-10.1 [facility] [place] [facility] Comment on above: Performed By: #### L ACT #### [facility] [address] [address] [address] Dale Ngo Chloride [Moles/Vol] 106 mmol/L Normal 98-107 [facility] Comment on above: Performed By: #### L ACT #### [facility] [address] [address] [address] Dale Ngo CO2 [Moles/Vol] 29.0 mmol/L Normal 21.0-32.0 [facility] Comment on above: Performed By: #### L ACT #### [facility] [address] [address] [address] Dale Ngo Creatinine [Mass/Vol] 1.37 mg/dL Critically high 0.55-1.02 [facility] Comment on above: Performed By: #### L ACT #### [facility] [address] [address] [address] Dale Ngo EGFR-AF EMIRATI 46 mL/min/1.73m2 Critically low >=60 [facility] Comment on above: Performed By: #### L ACT #### [facility] [address] [address] [address] Dale Ngo EGFR-NON AF EMIRATI 38 mL/min/1.73m2 Critically low >=60 [facility] Comment on above: Performed By: #### L ACT #### [facility] [address] [address] [address] Dale Ngo Glucose [Mass/Vol] 94 mg/dL Normal 74-106 [facility] [place] [facility] Comment on above: Performed By: #### L ACT #### [facility] [address] [address] [address] Dale Ngo Potassium [Moles/Vol] 3.9 mmol/L Normal 3.5-5.1 [facility] Comment on above: Performed By: #### L ACT #### [facility] [address] [address] [address] Dale Ngo Sodium [Moles/Vol] 141 mmol/L Normal 136-145 [facility] [place] [facility] Comment on above: Performed By: #### L ACT #### [facility] [address] [address] [address] Dale Ngo Urea nitrogen [Mass/Vol] 25.0 mg/dL Critically high 7.0-18.0 [facility] Comment on above: Performed By: #### L ACT #### [facility] [address] [address] [address] Dale Ngo Urea nitrogen/Creatinine [Mass ratio] 18.2 mg/mg Normal [facility] Comment on above: Performed By: #### L ACT #### [facility] [address] [place], [place] [address] Dr. Dale Ngo SGOTon 05-23-2022 AST [Catalytic activity/Vol] 37 U/L Normal 15-37 [facility] Comment on above: Performed By: #### L ACT #### [facility] [address] [place], [place] [address] Dr. Dale Ngo TSHon 05-23-2022 TSH 1.800 uIU/mL Normal 0.358-3.740 [facility] Comment on above: Performed By: #### A ST, TSH, BMP #### [facility] [address] [place], [place] [address] Dr. Dale Ngo XR CHEST 2 Von 05-23-2022 XR CHEST 2 V EXAM: XR CHEST 2 V HISTORY: Paroxysmal atrial fibrillation COMPARISON: 01/14/2022 TECHNIQUE: Upright PA and lateral chest x-ray FINDINGS: The heart is not enlarged and the vasculature is not distended. The pacemaker remains in place. There is focal eventration of the right hemidiaphragm. Subtle opacity at the right lung base medially suggest an infiltrate in the infrahilar region. Lungs otherwise clear and there is no evidence of an effusion or pneumothorax. The osseous structures are grossly intact. IMPRESSION: Slightly increasing opacity at the right lung base medially suggest an infrahilar infiltrate. The lungs otherwise clear and there is no evidence of overt cardiac decompensation. Electronically authenticated by: AQUILINO FARIA Date: 2022-05-23 13:14 Normal [facility] Office Visit (Cardiology)on 03-10-2022 Follow-up visit Diagnoses/Problems Assessed Class 2 severe obesity with serious comorbidity and body mass index (BMI) of 39.0 to 39.9 in adult (278.01,V85.39) (E66.01,Z68.39) History of PTCA (V45.82) (Z98.61) Paroxysmal atrial fibrillation (427.31) (I48.0) Cardiac pacemaker in situ (V45.01) (Z95.0) CAD (coronary artery disease) (414.00) (I25.10) High risk medication use (V58.69) (Z79.899) STEMI (ST elevation myocardial infarction) (410.90) (I21.3) Orders CAD (coronary artery disease) Renew: Atorvastatin Calcium 80 MG Oral Tablet; TAKE 1 TABLET AT BEDTIME Renew: Clopidogrel Bisulfate 75 MG Oral Tablet; TAKE 1 TABLET DAILY Class 2 severe obesity with serious comorbidity and body mass index (BMI) of 39.0 to 39.9 in adult Healthy Weight Tips; Status:Complete - Retrospective Authorization; Done: 10Mar2022 High risk medication use, Paroxysmal atrial fibrillation Pulmonary Function Test with DLCO; Status:Active - Retrospective Authorization; Requested for:10Jun2022; Pulmonary Function Test with/without bronchodilators; Status:Active - Retrospective Authorization; Requested for:10Jun2022; Paroxysmal atrial fibrillation Start: Amiodarone HCl - 200 MG Oral Tablet; take one-half tablet daily monday through monday only IO EKG Electrocardiogram- 12 Lead; Status:Complete; Done: 10Mar2022 Unlinked Stop: Amiodarone HCl - 200 MG Oral Tablet Patient Instructions By signing my name below, I, Ramriez Shahid RN ,Scribe, attest that this documentation has been prepared under the direction and in the presence of Dr. Jose Francisco Howard DO. All medical record entries made by the Scribe were at my direction and personally dictated by me. I have reviewed the chart and agree that the record accurately reflects my personal performance of the history, physical exam, discussion and plan. Please bring all medicines, vitamins, and herbal supplements with you when you come to the office. Prescriptions will not be filled unless you are compliant with your follow up appointments or have a follow up appointment scheduled as per instruction of your physician. Refills should be requested at the time of your visit. Pacemaker follow up per routine Amiodarone follow up per routine - repeat PFT 3 months Follow up in 6 months Chief Complaint GWEN WILCOX is being seen for a 6 month follow-up of. 71-year-old female who returns for follow-up, her only complaints are increasing shortness of breath and dyspnea. She sustained inferior ST elevation TN in August of this year with revascularization of the RCA. She has a history of paroxysmal A. 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 She has underlying obesity, pacemaker for reportedly sick sinus syndrome. Today's ECG reveals atrial paced rhythm with low voltage, QT corrected interval 414 ms. She remains on amiodarone 200 daily, aspirin 81 daily in addition to carvedilol, clopidogrel, Eliquis and lisinopril. She has had no bleeding or thromboembolic events. Notably on recent pulmonary function testing her DLCO had declined to 78% originally 92% when corrected. Based on the above I would recommend decreasing amiodarone to 100 mg Monday through Monday recessed pulmonary function test, continue current therapies, will pull her off her clopidogrel in 6 months and follow-up again in 6 months. Surgical History Problems Denied: History of Colonoscopy History of Hysterectomy History of Pacemaker insertion History of Percutaneous transluminal coronary angioplasty History of Tonsillectomy with adenoidectomy Current Meds Medication NameInstruction Alendronate Sodium 70 MG Oral TabletTAKE 1 TABLET Once a week. Allopurinol 300 MG Oral TabletTAKE 1/2 TABLET DAILY. Amiodarone HCl - 200 MG Oral TabletTAKE 1 TABLET DAILY. Aspirin 81 MG Oral Tablet ChewableTake 1 tablet daily Atorvastatin Calcium 80 MG Oral TabletTAKE 1 TABLET AT BEDTIME. Calcitriol 0.25 MCG Oral Capsuletake one capsule three times a week. Carvedilol 25 MG Oral TabletTAKE 1 TABLET TWICE DAILY. Clopidogrel Bisulfate 75 MG Oral TabletTAKE 1 TABLET DAILY. Eliquis 5 MG Oral TabletTake 1 tablet twice daily Lisinopril 2.5 MG Oral TabletTAKE 1 TABLET DAILY. Nitroglycerin 0.4 MG Sublingual Tablet SublingualPLACE 1 TABLET UNDER THE TONGUE EVERY 5 MINUTES UP TO 3 DOSES NEEDED FOR CHEST PAIN. Allergies Medication No Known Drug Allergies Recorded By: Ainsley Tony; 09/07/2021 9:59:01 AM Social History Problems Never a smoker No alcohol use No caffeine use No illicit drug use Review of Systems Constitutional: not feeling tired. Cardiovascular: no intermittent leg claudication and as noted in HPI. Respiratory: shortness of breath, but no cough. Gastrointestinal: no change in bowel habits and no blood in stools. Integumentary: no skin rashes. Neurological: no seizures and no frequent falls. All other systems have been reviewed and are negative for complaint. Vitals Vital Signs Recorded: 10Mar2022 02:45PM Hea (more content not included)... Normal [employer] Tobacco Screening.on 022 Adult depression screening assessment No [facility] y 250 DO Work Phone: Fall risk assessment a) No falls within the last year -[facility] y 250 DO Work Phone: Tobacco use status CP b) No -[facility] 250 DO Work Phone: PROF CHEM 8 (BAS METB)on Anion gap [Moles/Vol] 10.3 mmol/L Normal [facility] Comment on above: Performed By: #### B MP, AST, TSH #### [facility] [address] [address] [address] Dale Ngo Calcium [Mass/Vol] 8.8 mg/dL Normal 8.5-10.1 [facility] [place] [facility] Comment on above: Performed By: #### B MP, AST, TSH #### [facility] [address] [address] [address] Dale Ngo Chloride [Moles/Vol] 101 mmol/L Normal 98-107 [facility] Comment on above: Performed By: #### B MP, AST, TSH #### [facility] [address] [address] [address] Dale Ngo CO2 [Moles/Vol] 28.8 mmol/L Normal 21.0-32.0 [facility] Comment on above: Performed By: #### B MP, AST, TSH #### [facility] [address] [address] [address] Dale Ngo Creatinine [Mass/Vol] 1.58 mg/dL Critically high 0.55-1.02 [facility] Comment on above: Performed By: #### B MP, AST, TSH #### [facility] [address] [address] [address] Dale Ngo EGFR-AF EMIRATI 39 mL/min/1.73m2 Critically low >=60 [facility] Comment on above: Performed By: #### B MP, AST, TSH #### [facility] [address] [address] [address] Dale Ngo EGFR-NON AF EMIRATI 32 mL/min/1.73m2 Critically low >=60 [facility] Comment on above: Performed By: #### B MP, AST, TSH #### [facility] [address] [place] [address] Dr. Dale Ngo Glucose [Mass/Vol] 93 mg/dL Normal 74-106 [facility] [place] [facility] Comment on above: Performed By: #### B MP, AST, TSH #### [facility] [address] [place] [address] Dr. Dale Nog Potassium [Moles/Vol] 5.1 mmol/L Normal 3.5-5.1 [facility] Comment on above: Performed By: #### B MP, AST, TSH #### [facility] [address] [place] [address] Dr. Dale Ngo Sodium [Moles/Vol] 135 mmol/L Critically low 136-145 [facility] Comment on above: Performed By: #### B MP, AST, TSH #### [facility] [address] [place] [address] Dr. Dale Ngo Urea nitrogen [Mass/Vol] 36.0 mg/dL Critically high 7.0-18.0 [facility] Comment on above: Performed By: #### B MP, AST, TSH #### [facility] [address] [place] [address] Dr. Dale Ngo Urea nitrogen/Creatinine [Mass ratio] 22.8 mg/mg Normal [facility] Comment on above: Performed By: #### B MP, AST, TSH #### [facility] [address] [place] [address] Dr. Dale Ngo SGOTon 01-14-2022 AST [Catalytic activity/Vol] 29 U/L Normal 15-37 [facility] Comment on above: Performed By: #### B MP, AST, TSH #### [facility] [address] [place] [address] Dr. Dale Ngo T4 [facility]on 01-14-2022 T4 [Mass/Vol] 10.1 ug/dL Normal 4.5-12.0 [facility] Comment on above: Performed By: #### L ACT #### [facility] [address] [address] [address] Dale Ngo TSHon 01-14-2022 TSH 1.420 uIU/mL Normal 0.358-3.740 [facility] Comment on above: Performed By: #### B MP, AST, TSH #### [facility] [address] [address] [address] Dale Ngo TSH RANGE SEE BELOW Normal [facility] Comment on above: Result Comment: <0.3 4 UIU/ml HYPERTHYROID 0.34-5.60 UIU/ml EUTHYROID >5.60 UIU/ml HYPOTHYROID Performed By: #### B MP, AST, TSH #### [facility] [address] [address] [address] Dale Ngo XR CHEST 2 Von 01-14-2022 XR CHEST 2 V EXAMINATION: XR CHES T 2 V HISTORY: Long-term current use of drug therapy ; high risk medications COMPARISON: XR chest 08/24/2021 FINDINGS: LUNGS: Hyperexpanded lungs with mild haziness within the right and left lung bases. VASCULATURE: No increased pulmonary vasculature. PLEURA: No pneumothorax, effusion, or pleural thickening. CARDIAC: No cardiomegaly or cardiac silhouette abnormality. MEDIASTINUM: No visible mass or adenopathy. BONES: No fracture or visible bone lesion. OTHER: Stable cardiac pacer. IMPRESSION: 1. Hyperexpanded lungs suggestive COPD. 2. Trace amount of bibasilar atelectasis versus infiltrates. 3. No appreciable findings to suggest fibrosis. Electronically authenticated by: MELINDA LOVE Date: 2022-01-14 14:22 Normal [facility] BNPon 01-10-2022 Natriuretic peptide B (Bld) [Mass/Vol] 190.0 pg/mL Normal <=900.[address] [facility] Comment on above: Performed By: #### B MP, AST, TSH #### [facility] [address] [place] [address] Dr. Dale Ngo CBC AUTO DIFFon 01-10-2022 BASO # 0.1 103/ul Normal 0.0-0.1 [facility] Comment on above: Performed By: #### B MP, AST, TSH #### [facility] [address] [place] [address] Dr. Dale Ngo Basophils/100 WBC (Bld) 0.8 % Normal 0.2-2.0 [facility] Comment on above: Performed By: #### B MP, AST, TSH #### [facility] [address] [place] [address] Dr. Dale Ngo EO # 0.3 103/ul Normal 0.0-0.[address] [facility] Comment on above: Performed By: #### B MP, AST, TSH #### [facility] [address] [place] [address] Dr. Dale Ngo Eosinophils/100 WBC (Bld) 4.4 % Normal 0.9-7.0 [facility] Comment on above: Performed By: #### B MP, AST, TSH #### [facility] [address] [place] [address] Dr. Dale Ngo Erythrocyte distribution width (RBC) [Ratio] 14.0 % Normal 11.0-15.0 [facility] Comment on above: Performed By: #### B MP, AST, TSH #### [facility] [address] [place] [address] Dr. Dale Ngo Hematocrit (Bld) [Volume fraction] 40.6 % Normal 36.0-48.0 [facility] Comment on above: Performed By: #### B MP, AST, TSH #### [facility] [address] [place] [address] Dr. Dale Ngo Hemoglobin (Bld) [Mass/Vol] 13.0 g/dL Normal 12.0-16.0 [facility] Comment on above: Performed By: #### B MP, AST, TSH #### [facility] [address] [place] [address] Dr. aDle Ngo IG # 0.02 10e3/ul Normal 0.00-0.03 [facility] Comment on above: Performed By: #### B MP, AST, TSH #### [facility] [address] [place] [address] Dr. Dale Ngo IG % 0.3 % Normal 0.0-0.5 [facility] Comment on above: Performed By: #### B MP, AST, TSH #### [facility] [address] [place] [address] Dr. Dale Ngo LYMPH # 1.6 103/ul Normal 1.2-3.8 [facility] Comment on above: Performed By: #### B MP, AST, TSH #### [facility] [address] [place] [address] Dr. Dale Ngo Lymphocytes/100 WBC (Bld) 25.6 % Normal 20.5-60.0 [facility] Comment on above: Performed By: #### B MP, AST, TSH #### [facility] [address] [place] [address] Dr. Dale Ngo MANUAL DIFF REQ NO Normal [facility] Comment on above: Performed By: #### B MP, AST, TSH #### [facility] [address] [place] [address] Dr. Dale Ngo MCH (RBC) [Entitic mass] 29.1 pg Normal 26.7-34.0 [facility] Comment on above: Performed By: #### B MP, AST, TSH #### [facility] [address] [place] [address] Dr. Dale Ngo MCHC (RBC) [Mass/Vol] 32.0 g/dL Normal 29.9-35.2 [facility] Comment on above: Performed By: #### B MP, AST, TSH #### [facility] [address] [place] [address] Dr. Dale Ngo MCV (RBC) [Entitic vol] 90.8 fL Normal 81.0-99.[address] [facility] Comment on above: Performed By: #### B MP, AST, TSH #### [facility] [address] [place] [address] Dr. Dale Ngo MONO # 0.4 103/ul Normal 0.3-0.8 [facility] Comment on above: Performed By: #### B MP, AST, TSH #### [facility] [address] [place] [address] Dr. Dale Ngo Monocytes/100 WBC (Bld) 6.6 % Normal 1.7-12.[address] [facility] Comment on above: Performed By: #### B MP, AST, TSH #### [facility] [address] [place] [address] Dr. Dale Ngo NEUT # 3.9 103/ul Normal 1.4-6.[address] [facility] Comment on above: Performed By: #### B MP, AST, TSH #### [facility] [address] [place] [address] Dr. Dale Ngo Neutrophils/100 WBC (Bld) 62.3 % Normal 43.0-75.[address] [facility] Comment on above: Performed By: #### B MP, AST, TSH #### [facility] [address] [place] [address] Dr. Dale Ngo Platelet mean volume (Bld) [Entitic vol] 10.6 fL Normal 9.5-13.[address] [facility] Comment on above: Performed By: #### B MP, AST, TSH #### [facility] [address] [place] [address] Dr. Dale Ngo PLT 240 103/ul Normal 150-[address] [facility] Comment on above: Performed By: #### B MP, AST, TSH #### [facility] [address] [place] [address] Dr. Dale Ngo RBC 4.47 106/ul Normal 4.20-5.[address] [facility] Comment on above: Performed By: #### B MP, AST, TSH #### [facility] [address] [place] [address] Dr. Dale Ngo WBC 6.2 103/ul Normal 4.0-11.[address] [facility] Comment on above: Performed By: #### B MP, AST, TSH #### [facility] [address] [place] [address] Dr. Dale Ngo FREE THYROXINE INDEX T7on FTI 3.74 Normal 1.30-4.[address] [facility] Comment on above: Performed By: #### B MP, AST, TSH #### [facility] [address] [address] [address] Dale Ngo T3U 37.0 % Normal 30.0-39.0 [facility] Comment on above: Performed By: #### B MP, AST, TSH #### [facility] [address] [address] [address] Dale Ngo T4 [Mass/Vol] 10.10 ug/dL Normal 4.80-13.90 [facility] Comment on above: Performed By: #### B MP, AST, TSH #### [facility] [address] [address] [address] Dale Ngo GLYCOHEMOGLOBIN A1Con 2021 ADA RECOMMENDATION SEE BELOW Normal [facility] [place] [facility] Comment on above: Result Comment: ADA RECOMMENDED LIMIT 4.0 - 6.0 ADA THERAPEUTIC TARGET < 7.0 ACTION SUGGESTED > 7.0 Performed By: #### B MP, AST, TSH #### [facility] [address] [address] [address] Dale Ngo Glucose [Mass/Vol] 120 mg/dL Normal [facility] Comment on above: Performed By: #### B MP, AST, TSH #### [facility] [address] [address] [address] Dale Ngo HbA1c (Bld) [Mass fraction] 5.8 % Normal 4.5-6.2 [facility] Comment on above: Performed By: #### B MP, AST, TSH #### [facility] [address] [address] [address] Dale Ngo IRONon 01-10-2022 Iron [Mass/Vol] 81.0 ug/dL Normal 50.0-170.0 [facility] Comment on above: Performed By: #### B MP, AST, TSH #### [facility] [address] [place] [address] Dr. Dale Ngo LIPID PROFILEon 01-10-2022 CHOL-HDL RATIO NORM SEE BELOW Normal [facility] Comment on above: Result Comment: 3.3 - 4.4 LOW RISK 4.4 - 7.1 AVERAGE RISK 7.1 - 11.0 MODERATE RISK >11.0 HIGH RISK Performed By: #### B MP, AST, TSH #### [facility] [address] [address] [address] Dale Ngo Cholesterol [Mass/Vol] 144 mg/dL Normal <=200 [facility] Comment on above: Performed By: #### B MP, AST, TSH #### [facility] [address] [address] [address] Dale Ngo Cholesterol in HDL [Mass/Vol] 57 mg/dL Normal 40-60 [facility] Comment on above: Performed By: #### B MP, AST, TSH #### [facility] [address] [address] [address] Dale Ngo Cholesterol in LDL [Mass/Vol] 71.6 mg/dL Normal [facility] Comment on above: Performed By: #### B MP, AST, TSH #### [facility] [address] [address] [address] Dale Ngo Cholesterol.total/Chol esterol in HDL [Mass ratio] 2.5 {ratio} Normal [facility] Comment on above: Performed By: #### B MP, AST, TSH #### [facility] [address] [address] [address] Dale Ngo HDL NORMAL > or = 60 mg/dl - LO W CARDIOVASCULAR RISK <40 mg/dl - HIGH CARDIOVASCULAR RISK Normal [facility] Comment on above: Performed By: #### B MP, AST, TSH #### [facility] [address] [address] [address] Dale Ngo LDL CALC NORMAL SEE BELOW Normal [facility] Comment on above: Result Comment: <100 mg/dl OPTIMAL 100 - 129 mg/dl NEAR OR ABOVE OPTIMAL 130 - 159 mg/dl BORDERLINE HIGH 160 - 189 mg/dl HIGH >190 mg/dl VERY HIGH Performed By: #### B MP, AST, TSH #### [facility] [address] [address] [address] Dale Ngo Triglyceride [Mass/Vol] 77 mg/dL Normal <=150 [facility] Comment on above: Performed By: #### B MP, AST, TSH #### [facility] [address] [address] [address] Dale Ngo VLDL CALC 15.4 mg/dL Normal [facility] Comment on above: Performed By: #### B MP, AST, TSH #### [facility] [address] [address] [address] Dale Ngo OCC BLD IMMUNO SCREENon 12-20 OCCULT BLOOD Negative Normal NEGATIVE [facility] Comment on above: Performed By: #### B MP #### [facility] [address] [place] [address] Dr. Dale Ngo PROF 14(COMP METB)on 022 Albumin [Mass/Vol] 3.1 g/dL Critically low 3.4-5.0 [facility] Comment on above: Performed By: #### B MP, AST, TSH #### [facility] [address] [place] [address] Dr. Dale Ngo Albumin/Globulin [Mass ratio] 0.8 {ratio} Normal [facility] Comment on above: Performed By: #### B MP, AST, TSH #### [facility] [address] [place] [address] Dr. Dale Ngo ALP [Catalytic activity/Vol] 132 U/L Critically high 46-116 [facility] Comment on above: Performed By: #### B MP, AST, TSH #### [facility] [address] [address] [address] Dale Ngo ALT [Catalytic activity/Vol] 44 U/L Normal 14-59 [facility] Comment on above: Performed By: #### B MP, AST, TSH #### [facility] [address] [address] [address] Dale Ngo Anion gap [Moles/Vol] 12.6 mmol/L Normal [facility] Comment on above: Performed By: #### B MP, AST, TSH #### [facility] [address] [place] [address] Dr. Dale Ngo AST [Catalytic activity/Vol] 31 U/L Normal 15-37 [facility] Comment on above: Performed By: #### B MP, AST, TSH #### [facility] [address] [place] [address] Dr. Dale Ngo Bilirubin [Mass/Vol] 0.5 mg/dL Normal 0.2-1.0 [facility] Comment on above: Performed By: #### B MP, AST, TSH #### [facility] [address] [place] [address] Dr. Dale Ngo Calcium [Mass/Vol] 8.7 mg/dL Normal 8.5-10.1 [facility] [place] [facility] Comment on above: Performed By: #### B MP, AST, TSH #### [facility] [address] [place] [address] Dr. Dale Ngo Chloride [Moles/Vol] 104 mmol/L Normal 98-107 [facility] Comment on above: Performed By: #### B MP, AST, TSH #### [facility] [address] [place] [address] Dr. Dale Ngo CO2 [Moles/Vol] 27.5 mmol/L Normal 21.0-32.0 [facility] Comment on above: Performed By: #### B MP, AST, TSH #### [facility] [address] [place] [address] Dr. Dale Ngo Creatinine [Mass/Vol] 1.49 mg/dL Critically high 0.55-1.02 [facility] Comment on above: Performed By: #### B MP, AST, TSH #### [facility] [address] [place] [address] Dr. Dale Ngo EGFR-AF EMIRATI 42 mL/min/1.73m2 Critically low >=60 [facility] Comment on above: Performed By: #### B MP, AST, TSH #### [facility] [address] [place] [address] Dr. Dale Ngo EGFR-NON AF EMIRATI 34 mL/min/1.73m2 Critically low >=60 [facility] Comment on above: Performed By: #### B MP, AST, TSH #### [facility] [address] [place] [address] Dr. Dale Ngo Globulin (S) [Mass/Vol] 3.8 g/dL Normal [facility] Comment on above: Performed By: #### B MP, AST, TSH #### [facility] [address] [place] [address] Dr. Dale Ngo Glucose [Mass/Vol] 105 mg/dL Normal 74-106 [facility] Comment on above: Performed By: #### B MP, AST, TSH #### [facility] [address] [place] [address] Dr. Dale Ngo Potassium [Moles/Vol] 4.1 mmol/L Normal 3.5-5.1 [facility] Comment on above: Performed By: #### B MP, AST, TSH #### [facility] [address] [place] [address] Dr. Dale Ngo Protein [Mass/Vol] 6.9 g/dL Normal 6.4-8.2 [facility] Comment on above: Performed By: #### B MP, AST, TSH #### [facility] [address] [place] [address] Dr. Dale Ngo Sodium [Moles/Vol] 140 mmol/L Normal 136-145 [facility] Comment on above: Performed By: #### B MP, AST, TSH #### [facility] [address] [place] [address] Dr. Dale Ngo Urea nitrogen [Mass/Vol] 26.0 mg/dL Critically high 7.0-18.0 [facility] Comment on above: Performed By: #### B MP, AST, TSH #### [facility] [address] [place] [address] Dr. Dale Ngo Urea nitrogen/Creatinine [Mass ratio] 17.4 mg/mg Normal [facility] Comment on above: Performed By: #### B MP, AST, TSH #### [facility] [address] [place] [address] Dr. Dale Ngo TSHon 01-10-2022 TSH 1.720 uIU/mL Normal 0.358-3.740 [facility] Comment on above: Performed By: #### B MP, AST, TSH #### [facility] [address] [place] [address] Dr. Dale Ngo TSH RANGE SEE BELOW Normal [facility] Comment on above: Result Comment: <0.3 4 UIU/ml HYPERTHYROID 0.34-5.60 UIU/ml EUTHYROID >5.60 UIU/ml HYPOTHYROID Performed By: #### B MP, AST, TSH #### [facility] [address] [place] [address] Dr. Dale Ngo URIC ACID SERUMon 01-10-2022 Urate [Mass/Vol] 4.1 mg/dL Normal 2.6-6.0 [facility] Comment on above: Performed By: #### B MP, AST, TSH #### [facility] [address] [place] [address] Dr. Dale Ngo PTH INTACTon 01-06-2022 PTH, Intact 62 pg/mL Normal 15-[address] [facility] Comment on above: Performed By: #### B MP, AST, TSH #### [facility] [address] [place] [address] Dr. Dale Ngo HEMOGRAM AND PLATELon 2021 Hematocrit (Bld) [Volume fraction] 44.0 % Normal 36.0-48.0 [facility] Comment on above: Performed By: #### C BC #### [facility] [address] [place] [address] Dr. Dale Ngo Hemoglobin (Bld) [Mass/Vol] 14.1 g/dL Normal 12.0-16.[address] [facility] Comment on above: Performed By: #### C BC #### [facility] [address] [place] [address] Dr. Dale Ngo MCH (RBC) [Entitic mass] 29.3 pg Normal 26.7-34.[address] [facility] Comment on above: Performed By: #### C BC #### [facility] [address] [place] [address] Dr. Dale Ngo MCHC (RBC) [Mass/Vol] 32.0 g/dL Normal 29.9-35.[address] [facility] Comment on above: Performed By: #### C BC #### [facility] [address] [address] [address] Dale Ngo MCV (RBC) [Entitic vol] 91.3 fL Normal 81.0-99.0 [facility] Comment on above: Performed By: #### C BC #### [facility] [address] [address] [address] Dale Ngo PLT 272 103/ul Normal 150-[address] [facility] Comment on above: Performed By: #### C BC #### [facility] [address] [place] [address] Dr. Dale Ngo RBC 4.82 106/ul Normal 4.20-5.40 [facility] Comment on above: Performed By: #### C BC #### [facility] [address] [place] [address] Dr. Dale Ngo WBC 6.8 103/ul Normal 4.0-11.[address] [facility] Comment on above: Performed By: #### C BC #### [facility] [address] [place] [address] Dr. Dale Ngo MAGNESIUMon 01-05-2022 Magnesium [Mass/Vol] 2.2 mg/dL Normal 1.8-2.[address] [facility] Comment on above: Performed By: #### B MP #### [facility] [address] [place] [address] Dr. Dale Ngo RENAL FUNCTION PANELon 01-05 Albumin [Mass/Vol] 3.5 g/dL Normal 3.4-5.0 [facility] [place] [facility] Comment on above: Performed By: #### B MP #### [facility] [address] [place] [address] Dr. Dale Ngo Calcium [Mass/Vol] 9.3 mg/dL Normal 8.5-10.1 [facility] Comment on above: Performed By: #### B MP #### [facility] [address] [place] [address] Dr. Dale Ngo Chloride [Moles/Vol] 105 mmol/L Normal 98-[address] [facility] Comment on above: Performed By: #### B MP #### [facility] [address] [address] [address] Dale Ngo CO2 [Moles/Vol] 27.7 mmol/L Normal 21.0-32.0 [facility] Comment on above: Performed By: #### B MP #### [facility] [address] [address] [address] Dale Ngo Creatinine [Mass/Vol] 1.45 mg/dL Critically high 0.55-1.02 [facility] Comment on above: Performed By: #### B MP #### [facility] [address] [address] [address] Dale Ngo EGFR-AF EMIRATI 43 mL/min/1.73m2 Critically low >=60 [facility] Comment on above: Performed By: #### B MP #### [facility] [address] [address] [address] Dale Ngo EGFR-NON AF EMIRATI 35 mL/min/1.73m2 Critically low >=60 [facility] Comment on above: Performed By: #### B MP #### [facility] [address] [address] [address] Dale Ngo Glucose [Mass/Vol] 114 mg/dL Critically high 74-106 [facility] Comment on above: Performed By: #### B MP #### [facility] [address] [address] [address] aDle Ngo Phosphate [Mass/Vol] 3.9 mg/dL Normal 2.6-4.7 [facility] Comment on above: Performed By: #### B MP #### [facility] [address] [address] [address] Dale Ngo Potassium [Moles/Vol] 4.4 mmol/L Normal 3.5-5.1 [facility] Comment on above: Performed By: #### B MP #### [facility] [address] [address] [address] Dale Ngo Sodium [Moles/Vol] 141 mmol/L Normal 136-145 [facility] [place] [facility] Comment on above: Performed By: #### B MP #### [facility] [address] [place] [address] Dr. Dale Ngo Urea nitrogen [Mass/Vol] 27.0 mg/dL Critically high 7.0-18.0 [facility] Comment on above: Performed By: #### B MP #### [facility] [address] [place] [address] Dr. Dale Ngo UA RANDOM W/MICROSCOPICon BACTERIA NONE SEEN Normal NONE SEEN [facility] Comment on above: Performed By: #### L ACT #### [facility] [address] [place] [address] Dr. Dale Ngo Bilirubin Ql (U) Negative Normal NEGATIVE [facility] Comment on above: Performed By: #### L ACT #### [facility] [address] [place] [address] Dr. Dale Ngo CAST SEEN Abnormal NONE SEEN [facility] Comment on above: Performed By: #### L ACT #### [facility] [address] [place] [address] Dr. Dale Ngo Clarity (U) CLEAR Normal CLEAR [facility] Comment on above: Performed By: #### L ACT #### [facility] [address] [place] [address] Dr. Dale Ngo Color (U) YELLOW Normal YELLOW [facility] Comment on above: Performed By: #### L ACT #### [facility] [address] [place] [address] Dr. Dale Ngo Crystals LM Nom (Urine sed) NONE SEEN Normal NONE SEEN [facility] Comment on above: Performed By: #### L ACT #### [facility] [address] [place] [address] Dr. Dale Ngo Epithelial cells LM Ql (Urine sed) FEW Abnormal NONE SEEN /RARE [facility] Comment on above: Performed By: #### L ACT #### [facility] [address] [place] [address] Dr. Dale Ngo Glucose Ql (U) Negative Normal NEGATIVE [facility] Comment on above: Performed By: #### L ACT #### [facility] [address] [place] [address] Dr. Dale Ngo Hemoglobin Ql (U) Negative Normal NEGATIVE [facility] Comment on above: Performed By: #### L ACT #### [facility] [address] [place] [address] Dr. Dale Ngo HYALINE CAST RARE Normal [facility] Comment on above: Result Comment: Prev iously reported as: RARE On 01/05/2022 14:08 By RC01 Performed By: #### L ACT #### [facility] [address] [place] [address] Dr. Dale Ngo Ketones Ql (U) Negative Normal NEGATIVE [facility] Comment on above: Performed By: #### L ACT #### [facility] [address] [place] [address] Dr. Dale Ngo LEUKOCYTES TRACE Abnormal NEGATIVE [facility] Comment on above: Performed By: #### L ACT #### [facility] [address] [place] [address] Dr. Dale Ngo MUCOUS NONE SEEN Normal NONE SEEN [facility] Comment on above: Performed By: #### L ACT #### [facility] [address] [place] [address] Dr. Dale Ngo Nitrite Ql (U) Negative Normal NEGATIVE [facility] Comment on above: Performed By: #### L ACT #### [facility] [address] [place] [address] Dr. Dale Ngo pH (U) 5.0 [pH] Normal 5-[address] [facility] Comment on above: Performed By: #### L ACT #### [facility] [address] [place] [address] Dr. Dale Ngo RBC NONE SEEN Abnormal 0-[address] [facility] Comment on above: Performed By: #### L ACT #### [facility] [address] [place] [address] Dr. Dale Ngo SPEC GRAVITY >=1.030 Abnormal 1.005-<=1.02 [address] [facility] Comment on above: Performed By: #### L ACT #### [facility] [address] [place] [address] Dr. Dale Ngo UA PROTEIN Negative Normal NEGATIVE/ TRACE [facility] Comment on above: Performed By: #### L ACT #### [facility] [address] [address] [address] Dale Ngo Urobilinogen Qn (U) 0.2 {Tenisha'U}/dL Normal 0.2 - 1. [address] [facility] Comment on above: Performed By: #### L ACT #### [facility] [address] [place] [address] Dr. Dale Ngo WBC 2-5 Abnormal NONE SEEN [facility] Comment on above: Performed By: #### L ACT #### [facility] [address] [place] [address] Dr. Dale Ngo URIC ACID SERUMon 01-05-2022 Urate [Mass/Vol] 3.8 mg/dL Normal 2.6-6.0 [facility] Comment on above: Performed By: #### B MP #### [facility] [address] [place] [address] Dr. Dale Ngo URINE T PROTEIN CREAT RATIOo n 01-05-2022 Protein (U) [Mass/Vol] 19.9 mg/dL Critically high <=12.0 [facility] Comment on above: Performed By: #### B MP, AST, TSH #### [facility] [address] [place] [address] Dr. Dale Ngo UR PROT CREAT RAT 0.10 Normal [facility] Comment on above: Performed By: #### B MP, AST, TSH #### [facility] [address] [place] [address] Dr. Dale Ngo URINE CREAT 197.92 mg/dL Normal 20.00-300.00 [facility] Comment on above: Performed By: #### B MP, AST, TSH #### [facility] [address] [place] [address] Dr. Dale Ngo VITAMIN D 25 OHon 01-05-2022 VIT D 25-OH 69.6 ng/mL Normal [facility] Comment on above: Performed By: #### C BC #### [facility] [address] [place], [place] [address] Dr. Dale Ngo VIT D RANGES SEE BELOW Normal [facility] [facility] Comment on above: Result Comment: <20 ng/mL Vit D deficient 20 - <30 ng/mL Vit D insufficient 30 - 100 ng/mL Vit D sufficient >100 ng/mL Potential Toxicity Performed By: #### C BC #### [facility] [address] [place], [place] [address] Dr. Dale Ngo Tobacco Screening.on 022 Fall risk assessment a) No falls within the last year -[facility] 250 DO Work Phone: Tobacco use status [facility] b) No [facility] DO Work Phone: Coding Summary.on 06-22-2018 Coding Summary. CODING DATE: 06/22/2018 FINAL [facility] DSC STATUS: Home (Routine DC) PAYOR: Medicare APC DESCRIPTION 5372 Level 2 Urology and Related Services ADMIT DX: REASON FOR VISIT DX: R31.21 Asymptomatic microscopic hematuria FINAL DX: PRINCIPAL: R31.21 Asymptomatic microscopic hematuria SECONDARY: N20.0 Calculus of kidney N28.1 Cyst of kidney, acquired R35.0 Frequency of micturition I48.91 Unspecified atrial fibrillation M10.9 Gout, unspecified I10 Essential (primary) hypertension Z79.01 assisted (current) use of anticoagulants E66.01 Morbid (severe) obesity due to excess calories PYMT PROC APC STAT DESCRIPTION DOCTOR NAME DATE NOTE: The code number assigned matches the documented diagnosis and / or procedure in the patient's chart. However, the narrative phrase printed from the coding software may appear abbreviated, or result in slightly different terminology. Coded By: Krystal Bertrand Date Saved: 06/22/2018 08:44 am Normal [facility] Main OR Intraoperative Recor don 06-21-2018 Main OR Intraoperative Record IntraOp Document Type FTURO Summary Primary Physician: Manish Ludwig MD, Romeo Miranda Finalized Date/Time: 06/21/18 14:34:44 Pt. Name: GWEN WILCOX/Sex: 1950 Female Med Rec #: [id number] Physician: Romeo Hammond Jr., MD Financial #: [id number] Pt. Type: O Room/Bed: / Admit/Disch: 06/21/18 14:08:24 - Institution: Case Times FTURO Entry 1 Patient Times In Room 06/21/18 14:24:00 Out Room 06/21/18 14:34:00 Procedure Times Start 06/21/18 14:28:00 Stop 06/21/18 14:30:00 Anesthesia Times Last Modified By: LOUISE Boswell RNOR, Adenike Cortés 06/21/18 14:33:47 Case Attendance FTURO Entry 1 Entry 2 Entry 3 Case Attendee Manish Ludwig MD, Romeo Boswell RN, CNOR, Adenike Lester SENIOR SALES ADMINISTRATOR, Maira Elisabeth Role Performed Surgeon - Primary Neurology Specialist - Primary Scrub - Primary Time In 06/21/18 14:26:00 06/21/18 14:24:00 06/21/18 14:24:00 Time Out 06/21/18 14:34:00 06/21/18 14:34:00 06/21/18 14:34:00 Procedure CYSTOSCOPY LOCAL(.) CYSTOSCOPY LOCAL(.) CYSTOSCOPY LOCAL(.) Comments Last Modified By: Andreia MARQUIS, LOUISEORAdenike RN, CNORAdenike RN, ILDA, Adenike Cortés 06/21/18 14:33:48 06/21/18 14:33:48 06/21/18 14:33:48 Surgical Procedures FTURO Entry 1 Procedure Description Procedure CYSTOSCOPY LOCAL Modifiers . Surgeon Description CYSTOSCOPY Primary Procedure Yes Primary Surgeon Romeo Hammond Jr., MD Start 06/21/18 14:28:00 Stop 06/21/18 14:30:00 Anesthesia Type Local Surgical Service Urology Wound Class 2 - Clean-Contaminated Last Modified By: ILDA Boswell RN, Lou Ann 06/21/18 14:29:53 General Case Data FTURO Pre-Care Text: Classifies surgical wound, implements aseptic technique, initiates traffic control Entry 1 Case Information OR URO 1 FT Case Level None Wound Class 2 - Clean-Contaminated Specialty Urology Preop Diagnosis HEMATURIA, STRESS Postop Same As Preop Yes INCONTINENCE Postop Diagnosis HEMATURIA, STRESS Outcomes Met? Yes INCONTINENCE Last Modified By: ILDA Boswell RN, Lou Ann 06/21/18 10:50:07 Post-Care Text: The patient is free from signs and symptoms of infection General Comments: small stone via cat scan EU IntraOp - FTURO Pre-Care Text: Implements protective measures prior to operative or invasive procedure, confirms identity before the operative or invasive procedure, verifies operative procedure, surgical site, and laterality Entry 1 EU Perioperative Protocols Procedure(s) CYSTOSCOPY LOCAL(.) Patient Identity ID Band Check, Patient Verified (select at Participation least 2): Consents / H and P HandP, Surgery/Procedure Operative Site N/A Verified Consent Marking Verified Surgical Site Yes Laterality Verified n/a Verified Procedure Verified Yes Correct Patient Yes Position Verified Availability Equipment, Medication Time Out Manish Ludwig MD, Romeo Miranda, Verified (If Participants ILDA Boswell RN, Lou Applicable) Tayler Cortés SENIOR SALES ADMINISTRATOR, Shawn R Time Out Complete 06/21/18 14:26:00 Allergies Reviewed? Yes Allergies Reviewed Self/Patient With Body Position Frog Legged Prep Area perinium Prep Agents Betadine Solution Skin. Condition Warm, Dry Additional None Specimens Collected Vitals - EU Blood Pressure Pulse Respirations SPO2 EBL 0 IandO - EU Total Intake 0 mL Total Output 0 mL Outcomes Met? Yes Last Modified By: ILDA Boswell RN, Lou Ann 06/21/18 14:26:53 Post-Care Text: The patient is free from signs and symptoms of injury caused by extraneous objects Case Comments Finalized By: ILDA Boswell RN, Lou Ann Document Signatures Signed By: ILDA Boswell RN, Lou Ann 06/21/18 14:33 ILDA Boswell RN, Lou Ann 06/21/18 14:34 Normal [facility] Main OR Preoperative Recordo n 06-21-2018 Main OR Preoperative Record Holding Area Document Type FTURO Summary Primary Physician: Romeo Hammond Jr., MD Finalized Date/Time: 06/21/18 14:34:35 Pt. Name: GWEN WILCOX/Sex: 1950 Female Med Rec #: [id number] Physician: Romeo Hammond Jr., MD Financial #: [id number] Pt. Type: O Room/Bed: / Admit/Disch: 06/21/18 14:08:24 - Institution: Case Times Holding FTURO Pre-Care Text: Verifies consent for planned procedure, identifies individual values and wishes concerning care, includes family members in perioperative teaching Secures patient's records' belongings, and valuables, maintains patient's dignity and privacy, and maintains patient confidentiality Entry 1 In Holding 06/21/18 14:17:00 Outcomes Met? Yes Last Modified By: Jagruti Garcia LPN 06/21/18 14:17:05 Post-Care Text: The patient participates in decisions affecting his or her perioperative plan of care The patient's right to privacy is maintained Surgery Checklist FTURO Entry 1 Patient Birthday, ID Band Procedure History and Physical, Identification: Check, Patient Verification: Surgical Consent, With Participation Patient NPO after Midnight: n/a Personal Items: Glasses, Jewelry, Pacemaker Personal Items ring Complaints of Pain: No Comment: Skin Integrity Intact, [place], Warm, & Dry Vitals - EU Blood Pressure 158/87 Pulse 66 bpm Respirations 18 br/min SPO2 Additional None RN Reviewed Yes Specimens Collected Last Modified By: ILDA Boswell RN, Lou Ann 06/21/18 14:34:31 Finalized By: ILDA Boswell RN, Lou Ann Document Signatures Signed By: Jagruti Garcia LPN 06/21/18 14:19 ILDA Boswell RN, Lou Ann 06/21/18 14:34 Normal [facility] Operative Reporton Operative Report Patient: GWEN WILCOX Age: 67 years Sex: Female : 1950 Associated Diagnoses: None Author: Manish Ludwig MD, Romeo Miranda Procedure Operative Information Details: Date/ Time: 06/21/18 14:34:00. Pre-Op Dx: Micro Hematuria - Asymptomatic - R31.21, Left renal calculus, left renal cyst. Post-Op Dx: Same. Anesthesia Type: Local. Procedure: Local Cystoscopy. Complications: None. Risks/Benefits/Inform ed Consent: Surgical risks, benefits, details of the procedure have been explained to the patient, Full informed consent has been obtained. Intraoperative Information Prepped: Patient is brought back to the endoscopy suite, Patient is placed in modified dorso/lithotomy position, Patient prepped in the usual fashion with Betadine solution, 2% Xylocaine Jelly is placed per Urethra, After waiting several minutes the Cystoscope is introduced. The Urethra is: Normal. The Bladder is: Normal, Trabeculated None (0). The ureteral orifices: Show efflux of clear urine. Specimens Removed: Urine cytology was negative and FISH was negative.. Devices Implanted: None. Removal: Cystoscope is removed, The patient tolerated it well. Review of this computed tomography scan showed a 4 mm left renal calculus with no obstruction and small left renal cyst.. The results of the computed tomography scan and urine tests have been discussed with the patient as well as the recent cystoscopic examination. Her hematuria workup is negative except for the left renal calculus. She will follow up with us on an as needed. Postoperative Information Discharge: Patient is discharged home with antibiotic coverage, Follow up arranged. Normal [facility] Comment on above: Result Comment: Elec tronically Signed By: Manish Ludwig MD, Romeo Miranda\.zeb\Date and Time Signed: 06/21/18 14:37 EDT Vital Signs Date Time Vital Sign Value Performing Clinician Facility 06-01-2023 11:40-0400 Body height 154.94 cm Guillermo Corbin Other [facility] Other 06-01-2023 11:40-0400 Body mass index (BMI) [Ratio] 40.35 kg/m2 Guillermo Corbin Other [facility] Other 06-01-2023 11:40-0400 Body temperature 96.6 [degF] Guillermo Corbin Other [facility] Other 06-01-2023 11:40-0400 Body weight 96.89 kg Guillermo Corbin Other [facility] Other 06-01-2023 11:40-0400 Diastolic blood pressure 77 mm[Hg] Guillermo Corbin Other [facility] Other 06-01-2023 11:40-0400 Respiratory rate 18 /min Guillermo Corbin Other [facility] Other 06-01-2023 11:40-0400 SaO2% (BldA) [Mass fraction] 96 % Guillermo Corbin Other [facility] Other 06-01-2023 11:40-0400 Systolic blood pressure 157 mm[Hg] Guillermo Cobrin Other [facility] Other 09-22-2022 10:31-0500 Body height 154.94 cm George Pond5 Hoy Work Phone: [employer] [facility] 250 DO Work Phone: 09-22-2022 10:31-0500 Body mass index (BMI) [Ratio] 38.92 kg/m2 George M Hoy Work Phone: [facility] 250 DO Work Phone: 09-22-2022 10:31-0500 Body surface area Derived from formula 1.91 m2 George Pond5 Hoy Work Phone: [facility] DO Work Phone: 09-22-2022 10:31-0500 Body weight 93.44 kg George M Hoy Work Phone: [facility] 250 DO Work Phone: 09-22-2022 10:31-0500 Diastolic blood pressure 86 mm[Hg] George M Hoy Work Phone: [facility] 250 DO Work Phone: 09-22-2022 10:31-0500 Heart rate 60 /min George M Hoy Work Phone: [facility] 250 DO Work Phone: 09-22-2022 10:31-0500 Systolic blood pressure 136 mm[Hg] George Healy Hoy Work Phone: [facility] [employer] 250 DO Work Phone: 06-30-2022 15:00-0500 Body height 154.94 cm Guillermo Corbin Other [facility] Other 06-30-2022 15:00-0500 Body mass index (BMI) [Ratio] 39.03 kg/m2 Guillermo Corbin Other [facility] Other 06-30-2022 15:00-0500 Body temperature 96.8 [degF] Guillermo Corbin Other [facility] Other 06-30-2022 15:00-0500 Body weight 93.71 kg Guillermo Corbin Other [facility] Other 06-30-2022 15:00-0500 Diastolic blood pressure 80 mm[Hg] Guillermo Corbin Other [facility] Other 06-30-2022 15:00-0500 Respiratory rate 18 /min Guillermo Corbin Other [facility] Other 06-30-2022 15:00-0500 SaO2% (BldA) [Mass fraction] 96 % Guillermo Corbin Other [facility] Other 06-30-2022 15:00-0500 Systolic blood pressure 126 mm[Hg] Guillermo Corbin Other [facility] Other 03-10-2022 14:45-0400 Body height 154.94 cm George Davalosy Work Phone: [facility] 250 DO Work Phone: 03-10-2022 14:45-0400 Body mass index (BMI) [Ratio] 39.49 kg/m2 George M Hoy Work Phone: [facility] 250 DO Work Phone: 03-10-2022 14:45-0400 Body surface area Derived from formula 1.92 m2 George M Hoy Work Phone: [facility] DO Work Phone: 03-10-2022 14:45-0400 Body weight 94.8 kg George M Hoy Work Phone: [facility] DO Work Phone: 03-10-2022 14:45-0400 Diastolic blood pressure 74 mm[Hg] George M Hoy Work Phone: [facility] DO Work Phone: 03-10-2022 14:45-0400 Heart rate 60 /min George M Hoy Work Phone: [facility] DO Work Phone: 03-10-2022 14:45-0400 Systolic blood pressure 102 mm[Hg] George M Hoy Work Phone: [facility] 250 DO Work Phone: 09-07-2021 10:10-0500 Body height 154.94 cm George M Hoy Work Phone: [facility] DO Work Phone: 09-07-2021 10:10-0500 Body mass index (BMI) [Ratio] 40.81 kg/m2 George M Hoy Work Phone: [facility] DO Work Phone: 09-07-2021 10:10-0500 Body surface area Derived from formula 1.95 m2 George Healy Hoy Work Phone: [facility] 250 DO Work Phone: 09-07-2021 10:10-0500 Body weight 97.98 kg George Healy Hoy Work Phone: [facility] 250 DO Work Phone: 09-07-2021 10:10-0500 Diastolic blood pressure 68 mm[Hg] George Haely Hoy Work Phone: [facility] DO Work Phone: 09-07-2021 10:10-0500 Heart rate 61 /min George Healy Hoy Work Phone: [facility] 250 DO Work Phone: 09-07-2021 10:10-0500 Systolic blood pressure 108 mm[Hg] George Healy Hoy Work Phone: [facility] DO Work Phone: 08-25-2021 08:15-0500 60 1 George Healy Hoy Work Phone: [facility] 250 DO Work Phone: Comment on above: [id number] 06-24-2021 14:20-0400 Body height 154.94 cm Guillermo Cobrin Other [facility] Other 06-24-2021 14:20-0400 Body mass index (BMI) [Ratio] 41.22 kg/m2 Guillermo Corbin Other [facility] Other 06-24-2021 14:20-0400 Body temperature 96.4 [degF] Guillermo Corbin Other [facility] Other 06-24-2021 14:20-0400 Body weight 98.98 kg Guillermo Corbin Other [facility] Other 06-24-2021 14:20-0400 Diastolic blood pressure 70 mm[Hg] Guillermo Corbin Other [facility] Other 06-24-2021 14:20-0400 Respiratory rate 18 /min Guillermo Corbin Other [facility] Other 06-24-2021 14:20-0400 SaO2% (BldA) [Mass fraction] 95 % Guillermo Corbin Other [facility] Other 06-24-2021 14:20-0400 Systolic blood pressure 120 mm[Hg] Guillermo Corbin Other [facility] Other Encounters Encounter Date Encounter Type Care Provider Facility Start: 08-18-2023 End: 08-18-2023 ambulatory Mahsa Howard Facility:[facility] Start: 08-18-2023 End: 08-18-2023 ambulatory MD George Ozuna Work Phone: [facility] Work Phone: Start: 08-18-2023 End: 08-18-2023 Patient encounter procedure MD George Ozuna Work Phone: [facility] Start: 07-11-2023 End: 07-11-2023 ambulatory Guillermo Corbin Other [facility] Other Start: 07-11-2023 Telephone encounter Guillermo Corbin [facility] Start: 06-01-2023 End: 06-01-2023 ambulatory Guillermo Corbin Other [facility] Other Start: 06-01-2023 Office outpatient vi sit 25 minutes Guillermo Corbin [facility] Manny Start: 05-18-2023 End: 05-18-[address] George Ozuna Facility:[id number] Start: 02-13-2023 End: 02-13-[address] George Ozuna Facility:[id number] Start: 02-13-2023 End: 02-13-2023 ambulatory MD Goerge Ozuna Work Phone: [facility] Work Phone: Start: 02-13-2023 End: 02-13-2023 Patient encounter procedure MD George Ozuna Work Phone: [facility] Start: 11-30-2022 End: 12-01-2022 ambulatory JAVIER MEDINA Facility:[facility] Start: 11-10-2022 End: 11-10-2022 ambulatory Mahsa Howard Facility:[facility] Start: 11-10-2022 End: 11-10-2022 ambulatory MD George zOuna Work Phone: [facility] Work Phone: Start: 11-10-2022 End: 11-10-2022 Patient encounter procedure MD George Ozuna Work Phone: [facility] Start: 11-10-[address] George Ozuna Facility:[id number] Start: 10-17-2022 End: 10-19-2022 Evaluation and management of inpatient DR GEORGE OZUNA . Facility:[facility]1 Start: 09-22-2022 Office outpatient vi sit 25 minutes George Ozuna Work Phone: [facility] DO Work Phone: Start: 09-22-[address] Jose Francisco Howard Facility: Start: 09-16-2022 End: 09-16-2022 ambulatory Guillermo Cheung Other [facility] [employer] Other Start: 09-16-2022 Telephone encounter Guillermo Corbin [facility] Start: 09-12-2022 End: 09-12-2022 ambulatory Guillermo Corbin Other [facility] Other Start: 09-12-2022 Telephone encounter Guillermo Corbin [facility] Start: 09-05-2022 Rx Renewal George Ozuna Work Phone: [facility] DO Work Phone: Start: 08-11-2022 End: 08-11-2022 Patient encounter procedure MD George Ozuna Work Phone: [facility] Start: 08-11-2022 End: 08-11-2022 ambulatory MD George Ozuna Work Phone: [facility] Work Phone: Start: 06-30-2022 End: 06-30-2022 ambulatory Guillermo Corbin Other [facility] Other Start: 06-30-2022 Office outpatient vi sit 25 minutes Guillermo Corbin [facility] Start: 06-24-2022 End: 06-25-2022 ambulatory GUILLERMO CORBIN Facility:[facility]1 Start: 06-04-2022 End: 06-05-[address] GEORGE OZUNA . Facility:[facility] Start: 05-23-2022 End: 05-24-2022 ambulatory AQUILINO FARIA Facility:[facility]1 Start: 05-13-2022 End: 05-13-2022 Patient encounter procedure MD George Ozuna Work Phone: [facility] Start: 03-10-2022 Office outpatient vi sit 25 minutes George Ozuna Work Phone: [facility] DO Work Phone: Start: 02-04-2022 End: 02-04-2022 ambulatory Guillermo Corbin Other [facility] Other Start: 02-04-2022 Telephone encounter Guillermo Corbin [facility] Start: 01-14-2022 End: 01-15-[address] MELINDA LOVE Facility: Start: 01-10-2022 End: 01-11-[address] GEORGE OZUNA . Facility: Start: 01-05-2022 End: 01-06-2022 ambulatory GUILLERMO CORBIN Facility: Start: 12-23-2021 Patient encounter procedure George Ozuna Work Phone: [facility] 600 DO Work Phone: Start: 09-07-2021 Patient encounter procedure Georgeamee Ozuna Work Phone: [facility] 250 DO Work Phone: Start: 06-24-2021 End: 06-24-2021 ambulatory Guillermo Corbin Other [facility] [employer] Other Start: 06-24-2021 Office outpatient vi sit 25 minutes Guillermo Corbin [facility] Manny Start: 06-21-2018 End: 06-22-2018 Patient encounter procedure Yvan Razo Facility:[facility] Procedures Date Procedure Procedure Detail Performing Clinician History of percutane ous transluminal coronary angioplasty History of PTCA Georgeamee Ozuna Work Phone: History of placement of stent for coronary artery disease Status post insertion of drug eluting coronary artery stent Georgeamee Ozuna Work Phone: Hysterectomy George M Anoop[place]il Work Phone: Insertion of pacemak er pulse generator George Ozuna Work Phone: Percutaneous transluminal coronary angioplasty Georgeamee Ozuna Work Phone: Tonsillectomy and adenoidectomy Georgeamee Ozuna Work Phone: NEGATED: Highlighted row has not occurred! Colonoscopy Georgeamee zOuna Work Phone: Plan of Treatment Date Care Activity Detail Author Start: 09-27-2023 FUV, Provider: Jose Francisco Howard, Status: Pen, Time: 10:30 AM [facility], Provider: Jose Francisco Howard, Status: Pen, Time: 10:30 AM [facility] DO Work Phone: Start: 09-22-2022 FUV, Provider: Jose Francisco Howard, Status: Pen, Time: 10:30 AM [facility], Provider: Jose Francisco Howard, Status: Pen, Time: 10:30 AM [facility] DO Work Phone: Start: 03-09-2022 FUV, Provider: Jose Francisco Howard, Status: Pen, Time: 9:50 AM [facility], Provider: Jose Francisco Howard, Status: Pen, Time: 9:50 AM [facility] 250 DO Work Phone: Payers Date Payer Category Payer Self-pay [id number] 1961 Medicare [id number] 1950 Unknown [id number] 2.16.84 [id number] 1950 Unknown [id number] 2.16.84 0.1.339663.3.579.2.593 1950 Unknown [id number] 2.16.84 0.1.960807.3.579.2.593 1950 Unknown [id number] 2.16.84 0.1.263898.3.579.2.593 1950 Unknown [id number] 2.16.84 0.1.215134.3.579.2.593 1950 Unknown [id number] 2.16.84 0.1.435163.3.579.2.593 1950 Unknown [id number] 2.16.84 0.1.337041.3.579.2.593 1950 Unknown [id number] 2.16.84 0.1.845841.3.579.2.593 1950 Unknown [id number] 2.16.84 0.1.682661.3.579.2.593 1950 Unknown [id number] 2.16. 840.1.743298.3.579.2.356 1950 Unknown [id number] 2.16. 840.1.436035.3.579.2.356 1950 Unknown [id number] 2.16. 840.1.926810.3.579.2.356 1950 Unknown [id number] 2.16. 840.1.167927.3.579.2.356 1950 Unknown [id number] 2.16. 840.1.574848.3.579.2.356 Unknown Unknown [id number] 2.16.8 40.1.981182.3.579.2.531 Unknown [id number] 2.16.8 40.1.933614.3.579.2.531 Unknown [id number] 2.16.8 40.1.048614.3.579.2.531 Unknown [id number] 2.16.8 40.1.611195.3.579.2.531 Social History Date Type Detail Facility No alcohol use No alcohol use [facility] Other Sex Assigned At Sex Assigned At Bir th [facility] Other Start: 08-24-2021 End: 08-24-2021 Tobacco smoking status NHIS Never smoked tobacco (finding) [facility] Start: 1950 Sex Assigned At Female F [facility] Medical Equipment Procedure Code Equipment Code Equipment Origin al Text Equipment Identifier Dates Drug-eluting coronary artery stent, [id number] lymer-coated ()[id number] FDA Start: 08-24-2021 Drug-eluting coronary artery stent, [id number]-[id number]-wi lymer-coated ()[id number] FDA Start: 08-24-2021 Clinical Notes 06-24-2021 to 07-11-2023 Note Date & Type Note Facility 11-21-2023 Evaluation note Encounter Date Diagnosis Assessment Notes Jun, Secondary hyperparathyroidism (ICD-10 - N25.81) [facility] Other 10-12-2023 Evaluation note* Encounter Date Diagnosis Assessment Notes Treatment Notes Treatment Clinical Notes May, Chronic kidney disea se, stage 3b (ICD-10 - N18.32) She has CKD due to longstanding HTN. Her serum Creatinine is 1.3-1.5 mg /dl. Her renal function has been declining due to the progression of her CKD. Her renal US showed b/l renal cortical atrophy and non obstructive nephrolithiasis. I have discussed with her the importance of good blood pressure control to slow down the progression of disease. I also discussed with the importance of weight loss to slow down the progression of CKD. Advised that she can follow-up with the weight loss clinic and can take Ozempic if needed. May, Hypertensive chronic kidney disease with stage 1 through stage 4 chronic kidney disease, or unspecified chronic kidney disease (ICD-10 - I12.9) Her Blood pressure is controlled and appears to be euvolemic. Continue Lisinopril May, Secondary hyperparathyroidism (ICD-10 - N25.81) Her PTH is below the goal. Calcium, phosphorus are within the normal limit. Decrease oral Calcitriol May, Hyperuricemia (ICD-1 0 - E79.0) She denies any recent gout flare. Uric acid within the target goal. Continue oral allopurinol. May, Microscopic hematuri a (ICD-10 - R31.29) She has transient hematuria and was seen by Urologist Dr. Hammond. May, Dyslipidemia (ICD-10 - E78.5) Continue statins. Monitor LFTs and lipid profile [facility] Other 01-27-2023 Evaluation note* Encounter Date Diagnosis Assessment Notes Treatment Notes Treatment Clinical Notes Aug, Secondary hyperparathyroidism (ICD-10 - N25.81) [facility] Other 01-23-2023 Evaluation note* Encounter Date Diagnosis Assessment Notes Treatment Notes Treatment Clinical Notes Aug, Secondary hyperparathyroidism (ICD-10 - N25.81) [facility] Other 11-10-2022 Evaluation note* Encounter Date Diagnosis Assessment Notes Treatment Notes Treatment Clinical Notes Jun, Hypertensive chronic kidney disease with stage 1 through stage 4 chronic kidney disease, or unspecified chronic kidney disease (ICD-10 - I12.9) Her Blood pressure is controlled and appears to be euvolemic. Continue Lisinopril 10 Jun, 2022 Chronic kidney disea se, stage 3b (ICD-10 - N18.32) She has CKD due to longstanding HTN. Her serum Creatinine is 1.3-1.5 mg /dl. Her renal function has been declining due to the progression of her CKD. Her renal US showed b/l renal cortical atrophy and non obstructive nephrolithiasis. I have discussed with her the importance of good blood pressure control to slow down the progression of disease. Jun, Secondary hyperparathyroidism (ICD-10 - N25.81) Her PTH is below the goal. Calcium, phosphorus are within the normal limit. Decrease oral Calcitriol Jun, Hyperuricemia (ICD-1 0 - E79.0) She denies any recent gout flare. Uric acid within the target goal. Continue oral allopurinol. Jun, Microscopic hematuri a (ICD-10 - R31.29) She has transient hematuria and was seen by Urologist Dr. Hammond. Jun, Hyperkalemia (ICD-10 - E87.5) Her serum Potassium is normal. Continue low potassium diet. [facility] Other 06-17-2022 Evaluation note* Encounter Date Diagnosis Assessment Notes Treatment Notes Treatment Clinical Notes Jan, Secondary hyperparathyroidism (ICD-10 - N25.81) [facility] Other 01-01-2022 History general Narrative - Reported* Type Description Date Medical History hypertension Medical History Arthritis Medical History Gout Medical History A fib Medical History osteoporsis Medical History HEART ATTACK IN AUGUST 2021 Surgical History hysterectomy 1992 Surgical History cardiac pacemeker 05/2016 Surgical History tonsillectomy 1950s Surgical History HEART STENT PLACEMENT X 2 Hospitalization History see above surgical histo ry Hospitalization History A-fib Hospitalization History HEART ATTACK 08/2021 [facility] Other 01-01-2022 History general Narrative - Reported* Type Description Date Medical History hypertension Medical History Arthritis Medical History Gout Medical History A fib Medical History osteoporsis Medical History HEART ATTACK IN AUGUST 2021 Medical History KIDNEY INFECTION, AND SEPSIS 09/22 023 Surgical History hysterectomy 1992 Surgical History cardiac pacemeker 05/2016 Surgical History tonsillectomy 1950s Surgical History HEART STENT PLACEMENT X 2 Hospitalization History see above surgical histo ry Hospitalization History A-fib Hospitalization History HEART ATTACK 08/2021 Hospitalization History SEPSIS AND URINARY TRACT INFECTION 09/2022 [facility] Other 11-04-2021 Evaluation note* Encounter Date Diagnosis Assessment Notes Treatment Notes Treatment Clinical Notes Jun, CKD (chronic kidney disease) stage 4, GFR 15-29 ml/min (ICD-10 - N18.4) She has CKD due to longstanding HTN. Her serum Creatinine is 1.9 mg /dl. Her renal function has been declining due to the progression of her CKD. Her renal US showed b/l renal cortical atrophy and non obstructive nephrolithiasis. I have discussed with her the importance of good blood pressure control to slow down the progression of disease. Jun, Secondary hyperparathyroidism (ICD-10 - N25.81) Her PTH is above the goal. Calcium, phosphorus are within the normal limit. I have prescribed oral calcitriol 3 times a week. I have advised her to stop the vitamin D due to the high normal vitamin D level. Jun, Hypertensive chronic kidney disease with stage 1 through stage 4 chronic kidney disease, or unspecified chronic kidney disease (ICD-10 - I12.9) Her Blood pressure is controlled and appears to be euvolemic. Continue Lasix 40 mg daily. Jun, Hyperuricemia (ICD-1 0 - E79.0) She has Hyperuricemia but denies any h/o Gout. Her Uric acid is within the goal . Decrease Allopurinol to 150 mg daily due to the cost Jun, Microscopic hematuri a (ICD-10 - R31.29) She has transient hematuria and was seen by Urologist Dr. Hammond. Jun, Hyperkalemia (ICD-10 - E87.5) Her serum Potassium is normal. Continue Lasix and low K diet [facility] Other Evaluation noteNo assessment information available [facility] Work Phone: History general Narrative - Reported* Type Description Date Medical History hypertension Medical History Arthritis Medical History Gout Medical History A fib Medical History osteoporsis Surgical History hysterectomy 1991 Surgical History cardiac pacemeker 05/2016 Surgical History tonsillectomy 1950s Hospitalization History see above surgical histo ry Hospitalization History A-fib [facility] Other Summary Purpose Family History No Family History Records FoundUnknown Family Member Name Dates Details Family history of malignant neoplasm of esophagus: Father(V16.0, Z80.0) Status:Active S/P CABG (coronary artery by pass graft): Father(V45.81, Z95.1) Status:Active Family history of Alzheimer' s disease: Mother(V17.2, Z82.0) Status:Active Family history of malignant neoplasm of bone: Brother(V16.8, Z80.8) Status:Active Family history of cerebral a neurysm: Sister(V17.1, Z82.49) Status:Active Unknown Family Member Name Dates Details Family history of malignant neoplasm of esophagus: Father(V16.0, Z80.0) Status:Active S/P CABG (coronary artery by pass graft): Father(V45.81, Z95.1) Status:Active Family history of Alzheimer' s disease: Mother(V17.2, Z82.0) Status:Active Family history of malignant neoplasm of bone: Brother(V16.8, Z80.8) Status:Active Family history of cerebral a neurysm: Sister(V17.1, Z82.49) Status:Active Unknown Family Member Name Dates Details Family history of malignant neoplasm of esophagus: Father(V16.0, Z80.0) Status:Active S/P CABG (coronary artery by pass graft): Father(V45.81, Z95.1) Status:Active Family history of Alzheimer' s disease: Mother(V17.2, Z82.0) Status:Active Family history of malignant neoplasm of bone: Brother(V16.8, Z80.8) Status:Active Family history of cerebral a neurysm: Sister(V17.1, Z82.49) Status:Active Unknown Family Member Name Dates Details Family history of malignant neoplasm of esophagus: Father(V16.0, Z80.0) Status:Active S/P CABG (coronary artery by pass graft): Father(V45.81, Z95.1) Status:Active Family history of Alzheimer' s disease: Mother(V17.2, Z82.0) Status:Active Family history of malignant neoplasm of bone: Brother(V16.8, Z80.8) Status:Active Family history of cerebral a neurysm: Sister(V17.1, Z82.49) Status:Active Unknown Family Member Name Dates Details Family history of malignant neoplasm of esophagus: Father(V16.0, Z80.0) Status:Active S/P CABG (coronary artery by pass graft): Father(V45.81, Z95.1) Status:Active Family history of Alzheimer' s disease: Mother(V17.2, Z82.0) Status:Active Family history of malignant neoplasm of bone: Brother(V16.8, Z80.8) Status:Active Family history of cerebral a neurysm: Sister(V17.1, Z82.49) Status:Active Advance Directives No Advanced Directives Records Found Advance Directive Response Recorded Date/ Time Advance Directives No August 24, 2021 5:04pm Advance Directive Response Recorded Date/ Time Advance Directives No August 24, 2021 4:04pm Chief Complaint Amiodarone order sent to [facility] for December* GWEN WILCOX is being seen for a 6 month follow-up of. * 71-year-old female who returns for follow-up, her only complaints are increasing shortness of breath and dyspnea. She sustained inferior ST elevation TN in August of this year with revascularizationof the RCA. She has a history of paroxysmal A. 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 She has underlying obesity, pacemaker for reportedly sick sinus syndrome. Today's ECG reveals atrialpaced rhythm with low voltage, QT corrected interval 414 ms. She remains on amiodarone 200 daily, aspirin 81 daily in addition to carvedilol, clopidogrel, Eliquis and lisinopril. She has had no bleeding or thromboembolic events. * Notably on recent pulmonary function testing her DLCO had declined to 78% originally 92% when corrected. * Based on the above I would recommend decreasing amiodarone to 100 mg Monday through Monday recessedpulmonary function test, continue current therapies, will pull her off her clopidogrel in 6 months and follow-up again in 6 months. Chief Complaint and Reason for Visit Chief Complaint i49.5 Additional Source Comments INFORMATION SOURCE (unrecogn ized section and content) DATE CREATED AUTHOR 07/29/2018 Ronn Wheat [facility] DATE CREATED AUTHOR AUTHOR'S ORGANIZ ATION 09/23/2022 [employer] DATE CREATED AUTHOR AUTHOR'S ORGANIZ ATION 12/05/2022 [facility] DATE CREATED AUTHOR AUTHOR'S ORGANIZ ATION 05/28/2023 [facility] DATE CREATED AUTHOR AUTHOR'S ORGANIZ ATION 08/31/2023 [facility] REASON FOR VISIT (unrecogniz ed section and content) CKDClinicalCKD and HTN[facility]FILL ClinicalCKD and HTN[employer] Care Teams (unrecognized sec tion and content) Team Status: Active Member Role Status Dates George Ozuna MD Primary Care Provider Active Team Status: Inactive Member Role Status Dates George Ozuna MD Primary Care Provider Active W Diego Howard DO Attending Provider Active Goals (unrecognized section and content) Goals may be documented in a n alternate section FOR RECORDS PERTAINING TO PATIENTS WHO ARE OR HAVE BEEN ENROLLED IN A CHEMICAL DEPENDENCY/SUBSTANCEABUSE PROGRAM, SOME INFORMATION MAY BE OMITTED. This clinical summary was aggregated from multiple sources. Caution should be exercised in using it in the provision of clinical care. This summary normalizes information from multiple sources, and as a consequence, information in this document may materially change the coding, format and clinical context of patient data. In addition, data may be omitted in some cases. CLINICAL DECISIONS SHOULD BE BASED ON THE PRIMARY CLINICAL RECORDS. [employer] provides no warranty or guarantee of the accuracy or completeness of information in this document.
[2023-09-12 12:33] LABS: Hemoglobin 13.8 g/dL (12.0-16.0)
--- NOTE | 2023-09-12 13:44 | RT_ITS ---
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 Findings were considered accurate and reproducible, with exception of DLCO which did not meet ATS standards. No bronchodilator was administered due to normal spirometric values. Plethysmography wsa not ordered. Spirometry: -FEV1/FVC: Normal @ 90% -FEV1: Normal @ 113% -FVC: Normal @ 93% Diffusion capacity: -DLCO: Normal @ 87% when corrected for Hb 13.8g/dL Flow-volume loop: -Normal shape Impressions: -Normal spirometry and diffusion capacity. Clinical correlation required. Electronically Signed On 09-13-2023 13:08:36 EST by Ahsan Rees
== END 2023-09-12 12:05 | disposition home or self-care (01) ==
LOC: CARD 12:04
PROVIDERS: PCP Family Medicine; Visit Provider Internal Medicine Cardiovascular Disease
DX: I48.0 Paroxysmal atrial fibrillation (principal); Z79.899 Other long term (current) drug therapy
CPT/HCPCS: 36415; 85018; 94010; 94729

== ENCOUNTER 2023-09-14 07:22 | Outpatient (RCR) | payer MEDICARE, SELFPAY ==
[2023-09-14 13:13] LABS: Calcium 8.7 mg/dL (8.5-10.1); Estimated GFR (African America 40 (>=60); Estimated GFR (Non-African Ame 33 (>=60)
[2023-09-14 13:15] VITALS: BP 161/106; PULSE 72; RESP 20; TEMP 36.2; O2SAT 94
[2023-09-14] MEDS: DENOSUMAB 60 MG/ML SYRINGE SUBQ (13:43)
--- NOTE | 2023-09-14 13:49 | PC.NURSE ---
Patient is here for prolia injection, she denies any issues or concerns. Patient tolerated this well and was discharged home ambulatory.
== END 2023-10-12 14:26 | disposition home or self-care (01) ==
LOC: LAB 07:22
PROVIDERS: PCP Family Medicine; Visit Provider Family Medicine
DX: M81.0 Age-related osteoporosis without current pathological fracture (principal)
CPT/HCPCS: 36415; 82310; 82565; 96372; J0897

== ENCOUNTER 2024-04-25 09:20 | Outpatient (OUT) | payer MEDICARE, SELFPAY ==
--- OUTSIDE RECORDS SUMMARY | 2024-04-25 09:45 | XMS_ITS | CCD ---
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 Name Role Phone Yvan Razo W Unavailable Unavailable Rice, Yvan W Unavailable Unavailable Rice, Yvan W Unavailable Unavailable George Ozuna~[id number] UNKNOWN Unavailable Unavailable George Ozuna Unavailable Unavailable Unavailable Guillermo Alaniz Unavailable MD George Ozuna Primary Care Provider [phone] DO Mahsa Howard Attending Provider MD George Ozuna Primary Care Provider [phone] DO Mahsa Howard Attending Provider MD George Ozuna Primary Care Provider [phone] DO Mahsa Howard Attending Provider [phone] LAITH Patrick, DR VAZQUEZ Consulting Unavailable LAITH ., DR VAZQUEZ Primary Care Unavailable LAITH ., DR VAZQUEZ Attending Unavailable HOBasil ., DR VAZQUEZ Admitting Unavailable IVAN, DR MELINDA Barber Consulting Unavailable CORBIN, GUILLERMO Consulting Unavailable LAITH Patrick, DR VAZQUEZ Primary Care Unavailable GUILLERMO ALANIZ Attending Unavailable CORBIN, GUILLERMO Admitting Unavailable JAVIER MEDINA Consulting Unavailable LAITH Patrick, DR VAZQUEZ Primary Care Unavailable ANITA, DR JOSE FRANCISCO Pedro Attending Unavailabl herbert HOWARD, DR JOSE FRANCISCO Pedro Admitting Unavailabl e ANITA, DR JOSE FRANCISCO Pedro Consulting Unavailabl e IVAN, DR MELINDA Barber Consulting Unavailable LAITH Patrick, DR VAZQUEZ Primary Care Unavailable ANITA, DR JOSE FRANCISCO Pedro Attending Unavailabl e ANITA, DR JOSE FRANCISCO Pedro Admitting Unavailabl e ANITA, DR JOSE FRANCISCO Pedro Consulting Unavailabl e CORBIN, GUILLERMO Consulting Unavailable LAITH Patrick, DR VAZQUEZ Primary Care Unavailable LAITH ., DR VAZQUEZ Referring Unavailable CORBIN, GUILLERMO Attending Unavailable CORBIN, GUILLERMO Admitting Unavailable PAYALY ., DR VAZQUEZ Consulting Unavailable HOY ., DR VAZQUEZ Attending Unavailable HOY ., DR VAZQUEZ Admitting Unavailable HOY ., DR VAZQUEZ Primary Care Unavailable YUNG GARCIA Consulting Unavailable AUSTIN MONTALVO Consulting Unavailable SULEMA, RUDDY Consulting Unavailable Bronson Smith Consulting Unavailable JAVIER HOWELL Consulting Unavailable LINTON, ADENIKE Consulting Unavailable HOY ., DR VAZQUEZ Consulting Unavailable HOY ., DR VAZQUEZ Primary Care Unavailable HOY ., DR VAZQUEZ Attending Unavailable HOY ., DR VAZQUEZ Admitting Unavailable AQUILINO FARIA Consulting Unavailable LAITH ., DR VAZQUEZ Primary Care Unavailable ANITA, DR JOSE FRANCISCO Pedro Attending Unavailnitin HOWARD, DR JOSE FRANCISCO Pedro Admitting Unavailnitin HOWARD, DR JOSE FRANCISCO Pedro Consulting UnavailMD George Wolfe Primary Care Provider [phone] DO Mahsa Howard Attending Provider Dr. George Ozuna Primary Care Unavail able Laith, Dr. George Doe Primary Care Unavail able Laith, Dr. George Doe Primary Care Unavail able Anita, Dr. Jose Francisco Cortez Attending Unava ilable Anita, Dr. Jose Francisco Cortez Referring Unava sindi Ozuna, Dr. George Doe Primary Care Unavail able Laith, Dr. George Doe Primary Care Unavail able MD George Ozuna Primary Care Provider [phone] DO Mahsa Howard Attending Provider JOSE FRANCISCO HOWARD Attending Unavailable GEOGRE OZUNA Primary Care Unavailable MD George Ozuna Primary Care Provider [phone] DO Mahsa Howard Attending Provider [phone] MD George Ozuna Primary Care Provider [phone] DO Mahsa Howard Attending Provider [phone] Mahsa Howard Attending Unavailable George Ozuna Primary Care Unavailable Mahsa Howard Admitting Unavailable Mahsa Howard Attending Unavailable George Ozuna Primary Care Unavailable Mahsa Howard Admitting Unavailable Mahsa Howard Attending Unavailable George Ozuna Primary Care Unavailable Mahsa Howard Admitting Unavailable Mahsa Howard Attending Unavailable Mahsa Howard Admitting Unavailable George Ozuna Primary Care Unavailable Allergies Allergy Classification Reported Allergen(s) Allergy Type Date of Onset Reaction(s) Facility (1 source) No Known Medication Allergies; Translations: [No Known Medication Allergies] Propensity to adverse reactions (disorder) [facility] Repository Medications Current Medications Medication Drug Class(es) Dates Sig (Normalized) Sig (Original) alendronic acid 70 mg oral tablet (12 sources) Bisphosphonate take 1 tablet by mouth every week Fosamax 70 MG 1 tablet Orally Weekly Active allopurinol 300 mg oral tablet (20 sources) Xanthine Oxidase Inhibitor Start: 08-24-2021 Allopurinol Active MG TABLET August 24, 2021 1:00am take 0.5 tablet by mouth once da alejandro Allopurinol 300 MG 1/2 tablet Orally Once a day for 90 day(s) Active apixaban 5 mg oral tablet (20 sources) Factor Xa Inhibitor Start: 08-24-2021 End: 08-26-2021 take 1 tablet by mouth twice daily Apixaban (Eliquis) 5 mg Tablet Active 5 MG PO Twice daily 60 August 26, 2021 1:00am calcitriol 0.98194 mg oral capsule (19 sources) Vitamin D3 Analog Start: 08-24-2021 Calcitriol A ctive MCG August 24, 2021 1:00am Start: 06-24-2021 Calcitriol 0.2 5 MCG 1 capsule Orally 3xweek for 90 day(s) Jun, Active take 1 capsule by [facility] every week Calcitriol 0.25 MCG 1 capsule Orally 2x a week for 90 days Active take 1 capsule by [facility] three times weekly Calcitriol 0.25 MCG Oral Capsule take one capsule three times a week. Quantity: 0 Refills: 0 Ordered: 07-Sep-2021 DO Active carvedilol 25 mg oral tablet (19 sources) alpha-Adrenergic Gordon, beta-Adrenergic Gordon Start: 08-26-2021 take 25 mg by mouth twice daily at mealtime Carvedilol Active 25 MG PO Twice daily with meals 60 August 26, 2021 1:00am clopidogrel 75 mg oral tablet (15 sources) [id number] Platelet Inhibitor Start: 08-26-2021 take 75 mg by mouth once daily Clopidogrel Active 75 MG PO Daily 30 August 26, 2021 1:00am lisinopril 2.5 mg oral tablet (18 sources) Angiotensin Converting Enzyme Inhibitor Start: 08-26-2021 take 2.5 mg by mouth once daily Lisinopril Active 2.5 MG PO Daily August 26, 2021 1:00am nitroglycerin 0.4 mg sublingual tablet (18 sources) Nitrate Vasodilator Start: 08-26-2021 Nitroglycerin Active 0.4 MG SUBLINGUAL Q5M August 26, 2021 1:00am Nitroglycerin 0. 4 MG as directed Sublingual [...] day Active amLODIPine 5 mg oral tablet (9 sources) Dihydropyridine Calcium Channel Gordon Start: 08-24-2021 End: 08-26-2021 Amlodipine Discontinued MG TABLET August 24, 2021 1:00am August 26, 2021 4:20pm take 1 tablet by eva th every twenty-four hours Norvasc 5 mg 1 tablet Orally Once a day for 90 day(s) Active aspirin 81 mg delayed release oral tablet (18 sources) Platelet Aggregation Inhibitor, Nonsteroidal Anti-inflammatory Drug Start: 09-22-2022 take 1 tablet by mouth two times weekly Aspirin 81 MG Oral Tablet Delayed Release one tablet twice weekly Quantity: 32 Refills: 3 Ordered: 22-Sep-2022 Jose Francisco Howard DO Start : 22-Sep-2022 Active Start: 08-26-2021 take 81 mg by mouth once daily Aspirin Active 81 MG PO Daily 0 August 26, 2021 1:00am Aspirin 81 81 MG 1 tablet Orally [...] DO Active atorvastatin 40 mg oral tablet (18 sources) HMG-CoA Reductase Inhibitor Start: 09-22-2022 take 1 tablet by mouth at bedtime Atorvastatin Calcium 40 MG Oral Tablet TAKE 1 TABLET AT BEDTIME. Quantity: 90 Refills: 3 Ordered: 22-Sep-2022 Jose Francisco Hwoard DO Start : 22-Sep-2022 Active new start Start: 08-26-2021 take 80 mg by mouth once daily in the evening Atorvastatin Active 80 MG PO Every evening 30 August 26, 2021 1:00am furosemide 40 mg oral tablet (16 sources) Loop Diuretic Start: 08-24-2021 End: 08-26-2021 Furosemide (Lasix) 40 mg tablet Discontinued MG TABLET August 24, 2021 1:00am August 26, 2021 4:20pm Start: 08-24-2021 End: 08-26-2021 Furosemide Discontinued MG T ABLET August 24, 2021 1:00am August 26, 2021 4:20pm Problems Active Problems Problem Classification Problem Date Documented Date Episodic/Chronic Acute and unspecified renal failure (1 source) Acute kidney failure, unspecified; Translations: [ACUTE KIDNEY FAILURE UNSPECIFIED] Onset: 3 Episodic Acute myocardial infarction (14 sources) Myocardial infarction; Translations: [Acute myocardial infarction of unspecified site, episode of care unspecified] Onset: 4 08-24-2021 Chronic Cardiac arrest and ventricular fibrillation (7 sources) Ventricular fibrillation; Translations: [Ventricular fibrillation] 08-24-2021 Chronic Cardiac dysrhythmias (20 sources) Paroxysmal atrial fibrillation; Translations: [Atrial fibrillation] Onset: 3 08-24-2021 Chronic Chronic kidney disease (20 sources) Chronic kidney disease stage 4; Translations: [Chronic kidney disease, stage 4 (severe)] Onset: 1 Resolved: 1 Chronic Conduction disorders (16 sources) Cardiac pacemaker in situ; Translations: [Cardiac pacemaker in situ] Onset: 3 08-24-2021 Chronic Congestive heart failure; nonhypertensive (1 source) Chronic diastolic (congestive) heart failure; Translations: [CHRONIC DIASTOLIC HEART FAILURE] Onset: 2 Chronic Coronary atherosclerosis and other heart disease (7 sources) Coronary arteriosclerosis; Translations: [Coronary atherosclerosis of unspecified type of vessel, [facility] or graft] Onset: 4 Chronic Coronary atherosclerosis and other heart disease (2 sources) Coronary angioplasty status; Translations: [Coronary angioplasty status] Onset: 4 Episodic Deficiency and other anemia (7 sources) Anemia of renal disease; Translations: [Anemia in chronic kidney disease] Chronic Disorders of lipid metabolism (9 sources) Mixed hyperlipidemia; Translations: [Mixed hyperlipidemia] Onset: 2 Chronic Essential hypertension (20 sources) Hypertensive disorder; Translations: [Unspecified essential hypertension] Onset: 4 08-24-2021 Chronic Genitourinary symptoms and ill-defined conditions [...] use of other medications] Episodic Other aftercare (3 sources) Other jail (current) drug therapy; Translations: [OTH CHEMIST BIOLOGICAL CURRENT DRUG THERAPY] Onset: 3 Episodic Other aftercare (1 source) retirement (current) use of anticoagulants; Translations: [CHEMIST BIOLOGICAL CURRNT USE ANTICOAGULANTS] Onset: 3 Episodic Other [...] Chronic Other nutritional; endocrine; and metabolic disorders (8 sources) Obesity; Translations: [Obesity, unspecified] 08-24-2021 Chronic [...] Hemoglobin (Bld) [Mass/Vol] 12.3 g/dL Normal 12.0-16.0 [facility] Comment on above: Performed By: #### L ACT #### [facility] [address] [place] [address] Dr. Dale Ngo PROF CHEM 8 (BAS METB)on Anion gap [Moles/Vol] 11.0 mmol/L Normal [facility] Comment on above: Performed By: #### B MP, AST, TSH #### [facility] [address] [address] [address] Dale Ngo Calcium [Mass/Vol] 9.2 mg/dL Normal 8.5-10.1 [facility] Comment on above: Performed By: #### B MP, AST, TSH #### [facility] [address] [address] [address] Dale Ngo Chloride [Moles/Vol] 106 mmol/L Normal 98-107 [facility] Comment on above: Performed By: #### B MP, AST, TSH #### [facility] [address] [address] [address] Dale Ngo CO2 [Moles/Vol] 26.5 mmol/L Normal 21.0-32.0 [facility] Comment on above: Performed By: #### B MP, AST, TSH #### [facility] [address] [address] [address] Dale Ngo Creatinine [Mass/Vol] 1.42 mg/dL Critically high 0.55-1.02 [facility] Comment on above: Performed By: #### B MP, AST, TSH #### [facility] [address] [address] [address] Dale Ngo EGFR-AF COSTA RICAN 44 mL/min/1.73m2 Critically low >=60 [facility] Comment on above: Performed By: #### B MP, AST, TSH #### [facility] [address] [address] [address] Dale Ngo EGFR-NON AF COSTA RICAN 36 mL/min/1.73m2 Critically low >=60 [facility] Comment on above: Performed By: #### B MP, AST, TSH #### [facility] [address] [place] [address] Dr. Dale Ngo Glucose [Mass/Vol] 118 mg/dL Critically high 74-106 [facility] Comment on above: Performed By: #### B MP, AST, TSH #### [facility] [address] [place] [address] Dr. Dale Ngo Potassium [Moles/Vol] 4.5 mmol/L Normal 3.5-5.1 [facility] Comment on above: Performed By: #### B MP, AST, TSH #### [facility] [address] [place] [address] Dr. Dale Ngo Sodium [Moles/Vol] 139 mmol/L Normal 136-145 [facility] Comment on above: Performed By: #### B MP, AST, TSH #### [facility] [address] [place] [address] Dr. Dale Ngo Urea nitrogen [Mass/Vol] 31.0 mg/dL Critically high 7.0-18.0 [facility] Comment on above: Performed By: #### B MP, AST, TSH #### [facility] [address] [place] [address] Dr. Dale Ngo Urea nitrogen/Creatinine [Mass ratio] 21.8 mg/mg Normal [facility] Comment on above: Performed By: #### B MP, AST, TSH #### [facility] [address] [place] [address] Dr. Dale Ngo SGOTon 11-30-2022 AST [Catalytic activity/Vol] 24 U/L Normal 15-37 [facility] Comment on above: Performed By: #### B MP, AST, TSH #### [facility] [address] [place] [address] Dr. Dale Ngo TSHon 11-30-2022 TSH 2.811 uIU/mL Normal 0.358-3.740 [facility] Comment on above: Performed By: #### B MP, AST, TSH #### [facility] [address] [place], [place] [id number] Dr. Dale Ngo XR CHEST 2 Von [...] JAVIER MEDINA Date: 2022-11-30 19:00 Normal [facility] CBC AUTO DIFFon 10-19-2022 BASO # 0.0 103/ul Normal 0.0-0.1 [facility] Comment on above: Performed By: #### L ACT #### [facility] [address] [place] [address] Dr. Dale Ngo Basophils/100 WBC (Bld) 0.3 % Normal 0.2-2.0 [facility] Comment on above: Performed By: #### L ACT #### [facility] [address] [place] [address] Dr. Dale Ngo EO # 0.3 103/ul Normal 0.0-0.7 [facility] Comment on above: Performed By: #### L ACT #### [facility] [address] [place] [address] Dr. Dale Ngo Eosinophils/100 WBC (Bld) 2.9 % Normal 0.9-7.0 [facility] Comment on above: Performed By: #### L ACT #### [facility] [address] [address] [address] Dale Ngo Erythrocyte distribution width (RBC) [Ratio] 13.4 % Normal 11.0-15.0 [facility] Comment on above: Performed By: #### L ACT #### [facility] [address] [address] [address] Dale Ngo Hematocrit (Bld) [Volume fraction] 34.5 % Critically low 36.0-48.0 [facility] Comment on above: Performed By: #### L ACT #### [facility] [address] [place] [address] Dr. Dale Ngo Hemoglobin (Bld) [Mass/Vol] 11.6 g/dL Critically low 12.0-16.0 [facility] Comment on above: Performed By: #### L ACT #### [facility] [address] [place] [address] Dr. Dale Ngo IG # 0.08 10e3/ul Critically high 0.00-0.03 [facility] Comment on above: Performed By: #### L ACT #### [facility] [address] [place] [address] Dr. Dale Ngo IG % 0.8 % Critically high 0.0-0.5 [facility] Comment on above: Performed By: #### L ACT #### [facility] [address] [place] [address] Dr. Dale Ngo LYMPH # 0.6 103/ul Critically low 1.2-3.8 [facility] Comment on above: Performed By: #### L ACT #### [facility] [address] [address] [address] Dale Ngo Lymphocytes/100 WBC (Bld) 6.1 % Critically low 20.5-60.0 [facility] Comment on above: Performed By: #### L ACT #### [facility] [address] [place] [address] Dr. Dale Ngo MANUAL DIFF REQ NO Normal [facility] Comment on above: Performed By: #### L ACT #### [facility] [address] [place] [address] Dr. Dale Ngo MCH (RBC) [Entitic mass] 29.0 pg Normal 26.7-34.0 [facility] Comment on above: Performed By: #### L ACT #### [facility] [address] [place] [address] Dr. Dale Ngo MCHC (RBC) [Mass/Vol] 33.6 g/dL Normal 29.9-35.2 [facility] Comment on above: Performed By: #### L ACT #### [facility] [address] [place] [address] Dr. Dale Ngo MCV (RBC) [Entitic vol] 86.3 fL Normal 81.0-99.0 [facility] Comment on above: Performed By: #### L ACT #### [facility] [address] [place] [address] Dr. Dale Ngo MONO # 0.8 103/ul Normal 0.3-0.8 [facility] Comment on above: Performed By: #### L ACT #### [facility] [address] [place] [address] Dr. Dale Ngo Monocytes/100 WBC (Bld) 7.9 % Normal 1.7-12.0 [facility] Comment on above: Performed By: #### L ACT #### [facility] [address] [place] [address] Dr. Dale Ngo NEUT # 8.5 103/ul Critically high 1.4-6.5 [facility] Comment on above: Performed By: #### L ACT #### [facility] [address] [place] [address] Dr. Dale Ngo Neutrophils/100 WBC (Bld) 82.0 % Critically high 43.0-75.0 [facility] Comment on above: Performed By: #### L ACT #### [facility] [address] [place] [address] Dr. Dale Ngo Platelet mean volume (Bld) [Entitic vol] 11.3 fL Normal 9.5-13.5 [facility] Comment on above: Performed By: #### L ACT #### [facility] [address] [place] [address] Dr. Dale Ngo PLT 234 103/ul Normal 150-450 [facility] Comment on above: Performed By: #### L ACT #### [facility] [address] [address] [address] Dale Ngo RBC 4.00 106/ul Critically low 4.20-5.40 [facility] Comment on above: Performed By: #### L ACT #### [facility] [address] [place] [address] Dr. Dale Ngo WBC 10.4 103/ul Normal 4.0-11.0 [facility] Comment on above: Performed By: #### L ACT #### [facility] [address] [place] [address] Dr. Dale Ngo CULTURE BLOODon 10-19-2022 Microscopic [...] Trimethoprim/Sulfamet hoxazole <=20 S F Normal [facility] Comment on above: Performed By: #### L ACT #### [facility] [address] [place] [address] Dr. Dale Ngo CULTURE URINEon 10-19-2022 CULTURE [...] F Trimethoprim/Sulfamet hoxazole <=20 S F Normal [facility] Comment on above: Performed By: #### L ACT #### [facility] [address] [place] [address] Dr. Dale Ngo PROF CHEM 8 (BAS METB)on Anion gap [Moles/Vol] 13.8 mmol/L Normal [facility] Comment on above: Performed By: #### B MP #### [facility] [address] [place] [address] Dr. Dale Ngo Calcium [Mass/Vol] 7.6 mg/dL Critically low 8.5-10.1 [facility] Comment on above: Performed By: #### B MP #### [facility] [address] [place] [address] Dr. Dale Ngo Chloride [Moles/Vol] 105 mmol/L Normal 98-107 [facility] Comment on above: Performed By: #### B MP #### [facility] [address] [place] [address] Dr. Dale Ngo CO2 [Moles/Vol] 20.8 mmol/L Critically low 21.0-32.0 [facility] Comment on above: Performed By: #### B MP #### [facility] [address] [place] [address] Dr. Dale Ngo Creatinine [Mass/Vol] 1.58 mg/dL Critically high 0.55-1.02 [facility] Comment on above: Performed By: #### B MP #### [facility] [address] [place] [address] Dr. Dale Ngo EGFR-AF COSTA RICAN 39 mL/min/1.73m2 Critically low >=60 [facility] Comment on above: Performed By: #### B MP #### [facility] [address] [address] [address] Dale Ngo EGFR-NON AF COSTA RICAN 32 mL/min/1.73m2 Critically low >=60 [facility] Comment on above: Performed By: #### B MP #### [facility] [address] [address] [address] Dale Ngo Glucose [Mass/Vol] 98 mg/dL Normal 74-106 [facility] Comment on above: Performed By: #### B MP #### [facility] [address] [address] [address] Dale Ngo Potassium [Moles/Vol] 3.6 mmol/L Normal 3.5-5.1 [facility] Comment on above: Performed By: #### B MP #### [facility] [address] [address] [address] Dale Ngo Sodium [Moles/Vol] 136 mmol/L Normal 136-145 [facility] Comment on above: Performed By: #### B MP #### [facility] [address] [address] [address] Dale Ngo Urea nitrogen [Mass/Vol] 31.0 mg/dL Critically high 7.0-18.0 [facility] Comment on above: Performed By: #### B MP #### [facility] [address] [address] [address] Dale Ngo Urea nitrogen/Creatinine [Mass ratio] 19.6 mg/mg Normal [facility] Comment on above: Performed By: #### B MP #### [facility] [address] [address] [address] Dale Ngo CBC AUTO DIFFon 10-18-2022 BASO # 0.0 103/ul Normal 0.0-0.1 [facility] Comment on above: Performed By: #### B MP, AST, TSH #### [facility] [address] [place] [address] Dr. Dale Ngo Basophils/100 WBC (Bld) 0.2 % Normal 0.2-2.0 [facility] Comment on above: Performed By: #### B MP, AST, TSH #### [facility] [address] [place] [address] Dr. Dale Ngo EO # 0.2 103/ul Normal 0.0-0.7 [facility] Comment on above: Performed By: #### B MP, AST, TSH #### [facility] [address] [place] [address] Dr. Dale Ngo Eosinophils/100 WBC (Bld) 1.7 % Normal 0.9-7.0 [facility] Comment on above: Performed By: #### B MP, AST, TSH #### [facility] [address] [place] [address] Dr. Dale Ngo Erythrocyte distribution width (RBC) [Ratio] 13.2 % Normal 11.0-15.0 [facility] Comment on above: Performed By: #### B MP, AST, TSH #### [facility] [address] [place] [address] Dr. Dale Ngo Hematocrit (Bld) [Volume fraction] 32.5 % Critically low 36.0-48.0 [facility] Comment on above: Performed By: #### B MP, AST, TSH #### [facility] [address] [place] [address] Dr. Dale Ngo Hemoglobin (Bld) [Mass/Vol] 10.8 g/dL Critically low 12.0-16.0 [facility] Comment on above: Performed By: #### B MP, AST, TSH #### [facility] [address] [place] [address] Dr. Dale Ngo IG # 0.09 10e3/ul Critically high 0.00-0.03 [facility] Comment on above: Performed By: #### B MP, AST, TSH #### [facility] [address] [place] [address] Dr. Dale Ngo IG % 0.7 % Critically high 0.0-0.5 [facility] Comment on above: Performed By: #### B MP, AST, TSH #### [facility] [address] [address] [address] Dale Ngo LYMPH # 0.5 103/ul Critically low 1.2-3.8 [facility] Comment on above: Performed By: #### B MP, AST, TSH #### [facility] [address] [place] [address] Dr. Dale Ngo Lymphocytes/100 WBC (Bld) 4.0 % Critically low 20.5-60.0 [facility] Comment on above: Performed By: #### B MP, AST, TSH #### [facility] [address] [place] [address] Dr. Dale Ngo MANUAL DIFF REQ NO Normal [facility] Comment on above: Performed By: #### B MP, AST, TSH #### [facility] [address] [place] [address] Dr. Dale Ngo MCH (RBC) [Entitic mass] 29.0 pg Normal 26.7-34.0 [facility] Comment on above: Performed By: #### B MP, AST, TSH #### [facility] [address] [place] [address] Dr. Dale Ngo MCHC (RBC) [Mass/Vol] 33.2 g/dL Normal 29.9-35.2 [facility] Comment on above: Performed By: #### B MP, AST, TSH #### [facility] [address] [place] [address] Dr. Dale Ngo MCV (RBC) [Entitic vol] 87.1 fL Normal 81.0-99.0 [facility] Comment on above: Performed By: #### B MP, AST, TSH #### [facility] [address] [place] [address] Dr. Dale Ngo MONO # 0.6 103/ul Normal 0.3-0.8 [facility] Comment on above: Performed By: #### B MP, AST, TSH #### [facility] [address] [place] [address] Dr. Dale Ngo Monocytes/100 WBC (Bld) 5.0 % Normal 1.7-12.0 [facility] Comment on above: Performed By: #### B MP, AST, TSH #### [facility] [address] [place] [address] Dr. Dale Ngo NEUT # 11.2 103/ul Critically high 1.4-6.5 [facility] Comment on above: Performed By: #### B MP, AST, TSH #### [facility] [address] [place] [address] Dr. Dale Ngo Neutrophils/100 WBC (Bld) 88.4 % Critically high 43.0-75.0 [facility] Comment on above: Performed By: #### B MP, AST, TSH #### [facility] [address] [place] [address] Dr. Dale Ngo Platelet mean volume (Bld) [Entitic vol] 11.1 fL Normal 9.5-13.5 [facility] Comment on above: Performed By: #### B MP, AST, TSH #### [facility] [address] [place] [address] Dr. Dale Ngo PLT 199 103/ul Normal 150-450 [facility] Comment on above: Performed By: #### B MP, AST, TSH #### [facility] [address] [place] [address] Dr. Dale Ngo RBC 3.73 106/ul Critically low 4.20-5.40 [facility] Comment on above: Performed By: #### B MP, AST, TSH #### [facility] [address] [place] [address] Dr. Dale Ngo WBC 12.6 103/ul Critically high 4.0-11.0 [facility] Comment on above: Performed By: #### B MP, AST, TSH #### [facility] [address] [place] [address] Dr. Dale Ngo PROF CHEM 8 (BAS METB)on Anion gap [Moles/Vol] 12.3 mmol/L Normal [facility] Comment on above: Performed By: #### C BC #### [facility] [address] [place], [place] [id number] Dr. Dale Ngo Calcium [Mass/Vol] 7.3 mg/dL Critically low 8.5-10.1 [facility] Comment on above: Performed By: #### C BC #### [facility] [address] [place] [address] Dr. Dale Ngo Chloride [Moles/Vol] 103 mmol/L Normal 98-107 [facility] Comment on above: Performed By: #### C BC #### [facility] [address] [address] [address] Dale Ngo CO2 [Moles/Vol] 21.6 mmol/L Normal 21.0-32.0 [facility] Comment on above: Performed By: #### C BC #### [facility] [address] [place] [address] Dr. Dale Ngo Creatinine [Mass/Vol] 1.81 mg/dL Critically high 0.55-1.02 [facility] Comment on above: Performed By: #### C BC #### [facility] [address] [place] [address] Dr. Dale Ngo EGFR-AF COSTA RICAN 33 mL/min/1.73m2 Critically low >=60 [facility] Comment on above: Performed By: #### C BC #### [facility] [address] [place] [address] Dr. Dale Ngo EGFR-NON AF COSTA RICAN 27 mL/min/1.73m2 Critically low >=60 [facility] Comment on above: Performed By: #### C BC #### [facility] [address] [place] [address] Dr. Dale Ngo Glucose [Mass/Vol] 82 mg/dL Normal 74-106 [facility] Comment on above: Performed By: #### C BC #### [facility] [address] [address] [address] Dale Ngo Potassium [Moles/Vol] 3.9 mmol/L Normal 3.5-5.1 [facility] Comment on above: Performed By: #### C BC #### [facility] [address] [place] [address] Dr. Dale Ngo Sodium [Moles/Vol] 133 mmol/L Critically low 136-145 [facility] Comment on above: Performed By: #### C BC #### [facility] [address] [place] [address] Dr. Dale Ngo Urea nitrogen [Mass/Vol] 44.0 mg/dL Critically high 7.0-18.0 [facility] Comment on above: Performed By: #### C BC #### [facility] [address] [place] [address] Dr. Dale Ngo Urea nitrogen/Creatinine [Mass ratio] 24.3 mg/mg Normal [facility] Comment on above: Performed By: #### C BC #### [facility] [address] [place] [address] Dr. Dale Ngo CBC AUTO DIFFon 10-17-2022 BASO # 0.0 103/ul Normal 0.0-0.1 [facility] Comment on above: Performed By: #### C BC #### [facility] [address] [place] [address] Dr. Dale Ngo Basophils/100 WBC (Bld) 0.2 % Normal 0.2-2.0 [facility] Comment on above: Performed By: #### C BC #### [facility] [address] [place] [address] Dr. Dale Ngo EO # 0.0 103/ul Normal 0.0-0.7 [facility] Comment on above: Performed By: #### C BC #### [facility] [address] [place] [address] Dr. Dale Ngo Eosinophils/100 WBC (Bld) 0.1 % Critically low 0.9-7.0 [facility] Comment on above: Performed By: #### C BC #### [facility] [address] [place] [address] Dr. Dale Ngo Erythrocyte distribution width (RBC) [Ratio] 13.2 % Normal 11.0-15.0 [facility] Comment on above: Performed By: #### C BC #### [facility] [address] [place] [address] Dr. Dale Ngo Hematocrit (Bld) [Volume fraction] 33.9 % Critically low 36.0-48.0 [facility] Comment on above: Performed By: #### C BC #### [facility] [address] [place] [address] Dr. Dale Ngo Hemoglobin (Bld) [Mass/Vol] 11.5 g/dL Critically low 12.0-16.0 [facility] Comment on above: Performed By: #### C BC #### [facility] [address] [address] [address] Dale Ngo IG # 0.11 10e3/ul Critically high 0.00-0.03 [facility] Comment on above: Performed By: #### C BC #### [facility] [address] [place] [address] Dr. Dale Ngo IG % 0.6 % Critically high 0.0-0.5 [facility] Comment on above: Performed By: #### C BC #### [facility] [address] [address] [address] Dale Ngo LYMPH # 0.3 103/ul Critically low 1.2-3.8 [facility] Comment on above: Performed By: #### C BC #### [facility] [address] [place] [address] Dr. Dale Ngo Lymphocytes/100 WBC (Bld) 1.9 % Critically low 20.5-60.0 [facility] Comment on above: Performed By: #### C BC #### [facility] [address] [place] [address] Dr. Dale Ngo MANUAL DIFF REQ NO Normal [facility] Comment on above: Performed By: #### C BC #### [facility] [address] [place] [address] Dr. Dale Ngo MCH (RBC) [Entitic mass] 29.3 pg Normal 26.7-34.0 [facility] Comment on above: Performed By: #### C BC #### [facility] [address] [place] [address] Dr. Dale Ngo MCHC (RBC) [Mass/Vol] 33.9 g/dL Normal 29.9-35.2 [facility] Comment on above: Performed By: #### C BC #### [facility] [address] [place] [address] Dr. Dale Ngo MCV (RBC) [Entitic vol] 86.5 fL Normal 81.0-99.0 [facility] Comment on above: Performed By: #### C BC #### [facility] [address] [place] [address] Dr. Dale Ngo MONO # 0.5 103/ul Normal 0.3-0.8 [facility] Comment on above: Performed By: #### C BC #### [facility] [address] [place] [address] Dr. Dale Ngo Monocytes/100 WBC (Bld) 3.1 % Normal 1.7-12.0 [facility] Comment on above: Performed By: #### C BC #### [facility] [address] [place] [address] Dr. Dale Ngo NEUT # 16.2 103/ul Critically high 1.4-6.5 [facility] Comment on above: Performed By: #### C BC #### [facility] [address] [place] [address] Dr. Dale Ngo Neutrophils/100 WBC (Bld) 94.1 % Critically high 43.0-75.0 [facility] Comment on above: Performed By: #### C BC #### [facility] [address] [place] [address] Dr. Dale Ngo Platelet mean volume (Bld) [Entitic vol] 11.4 fL Normal 9.5-13.5 [facility] Comment on above: Performed By: #### C BC #### [facility] [address] [place] [address] Dr. Dale Ngo PLT 188 103/ul Normal 150-450 [facility] Comment on above: Performed By: #### C BC #### [facility] [address] [place] [address] Dr. Dale Ngo RBC 3.92 106/ul Critically low 4.20-5.40 [facility] Comment on above: Performed By: #### C BC #### [facility] [address] [place] [address] Dr. Dale Ngo WBC 17.2 103/ul Critically high 4.0-11.0 [facility] Comment on above: Performed By: #### C BC #### [facility] [address] [place] [address] Dr. Dale Ngo CPKon 10-17-2022 CK [Catalytic activity/Vol] 1307 U/L Critically high 26-192 [facility] Comment on above: Performed By: #### C K #### [facility] [address] [place] [address] Dr. Dale Ngo [facility] SARS-CoV-2 (COVID-19) RNA LUCERO+probe Ql (Unsp spec) Not detected Normal NOT DETECTED [facility] Comment on above: Result Comment: When diagnostic [...] for this test is supported by the [employer] and Human Service's declaration that [...] By: #### B MP, AST, TSH #### [facility] [address] [place] [address] Dr. Dale Ngo LACTATE/LACTIC ACIDon 2022 Lactate [Moles/Vol] 1.9 mmol/L Normal 0.4-1.9 [place] Comment on above: Performed By: #### L ACT #### [facility] [address] [place] [address] Dr. Dale Ngo PROF CHEM 8 (BAS METB)on Anion gap [Moles/Vol] 15.3 mmol/L Normal [facility] Comment on above: Performed By: #### B MP, AST, TSH #### [facility] [address] [place] [address] Dr. Dale Ngo Calcium [Mass/Vol] 7.4 mg/dL Critically low 8.5-10.1 [facility] Comment on above: Performed By: #### B MP, AST, TSH #### [facility] [address] [place] [address] Dr. Dale Ngo Chloride [Moles/Vol] 101 mmol/L Normal 98-107 [facility] Comment on above: Performed By: #### B MP, AST, TSH #### [facility] [address] [place] [address] Dr. Dale Ngo CO2 [Moles/Vol] 21.3 mmol/L Normal 21.0-32.0 [facility] Comment on above: Performed By: #### B MP, AST, TSH #### [facility] [address] [place] [address] Dr. Dale Ngo Creatinine [Mass/Vol] 2.16 mg/dL Critically high 0.55-1.02 [facility] Comment on above: Performed By: #### B MP, AST, TSH #### [facility] [address] [place] [address] Dr. Dale Ngo EGFR-AF COSTA RICAN 27 mL/min/1.73m2 Critically low >=60 [facility] Comment on above: Performed By: #### B MP, AST, TSH #### [facility] [address] [place] [address] Dr. Dale Ngo EGFR-NON AF COSTA RICAN 22 mL/min/1.73m2 Critically low >=60 [facility] Comment on above: Performed By: #### B MP, AST, TSH #### [facility] [address] [address] [address] Dale Ngo Glucose [Mass/Vol] 80 mg/dL Normal 74-106 [facility] Comment on above: Performed By: #### B MP, AST, TSH #### [facility] [address] [address] [address] Dale Ngo Potassium [Moles/Vol] 3.6 mmol/L Normal 3.5-5.1 [facility] Comment on above: Performed By: #### B MP, AST, TSH #### [facility] [address] [address] [address] Dale Ngo Sodium [Moles/Vol] 134 mmol/L Critically low 136-145 [facility] Comment on above: Performed By: #### B MP, AST, TSH #### [facility] [address] [place] [address] Dr. Dale Ngo Urea nitrogen [Mass/Vol] 45.0 mg/dL Critically high 7.0-18.0 [facility] Comment on above: Performed By: #### B MP, AST, TSH #### [facility] [address] [place] [address] Dr. Dale Ngo Urea nitrogen/Creatinine [Mass ratio] 20.8 mg/mg Normal [facility] Comment on above: Performed By: #### B MP, AST, TSH #### [facility] [address] [place] [address] Dr. Dale Ngo BLOOD CULTURE ID PANELon A. baumannii Not detected Normal NOT DETECTED [facility] Comment on above: Performed By: #### B MP, AST, TSH #### [facility] [address] [place] [address] Dr. Dale Ngo Bacteriodes fragilis Not detected Normal NOT DETECTED [facility] Comment on above: Performed By: #### B MP, AST, TSH #### [facility] [address] [place] [address] Dr. Dale Ngo BCID CONTROLS PASSED Normal [facility] Comment on above: Performed By: #### B MP, AST, TSH #### [facility] [address] [address] [address] Dale Ngo BCIDBTHD BLOOD CULTURE BOTTLE INFORMATION Normal [facility] Comment on above: Performed By: #### B MP, AST, TSH #### [facility] [address] [place] [address] Dr. Dale Ngo BCIDHD1 ANTIMICROBIAL RESISTANCE GENES [facility] Comment on above: Performed By: #### B MP, AST, TSH #### [facility] [address] [address] [address] Dale Ngo BCIDHD2 SEE BELOW [facility] Comment on above: Result Comment: Note : Antimicrobial resitance can occur via multiple mechanisms. A Not Detected result for the [employer] antomicrobial resistance gene assays does not indicate antimicrobial susceptibility. Subculturing is required for species identification and susceptibility testing of isolates. Performed By: #### B MP, AST, TSH #### [facility] [address] [place] [address] Dr. Dale Ngo BCIDHD3 Positive [facility] Comment on above: Performed By: #### B MP, AST, TSH #### [facility] [address] [place] [address] Dr. Dale Ngo BCIDHD4 Negative [facility] Comment on above: Performed By: #### B MP, AST, TSH #### [facility] [address] [place] [address] Dr. Dale Ngo BCIDHD5 YEAST Normal [facility] Comment on above: Performed By: #### B MP, AST, TSH #### [facility] [address] [place] [address] Dr. Dale Ngo Bottle Set: Set 1 [facility] Comment on above: Performed By: #### B MP, AST, TSH #### [facility] [address] [place] [address] Dr. Dale Ngo Bottle: Aerobic Normal [facility] Comment on above: Performed By: #### B MP, AST, TSH #### [facility] [address] [place] [address] Dr. Dale Ngo C. neoformans/gattii Not detected Normal NOT DETECTED [facility] Comment on above: Performed By: #### B MP, AST, TSH #### [facility] [address] [place] [address] Dr. Dale Ngo Lolis albicans Not detected Normal NOT DETECTED [facility] Comment on above: Performed By: #### B MP, AST, TSH #### [facility] [address] [address] [address] Dale Ngo Lolis auris Not detected Normal NOT DETECTED [facility] Comment on above: Performed By: #### B MP, AST, TSH #### [facility] [address] [place] [address] Dr. Dale Ngo Lolis glabrata Not detected Normal NOT DETECTED [facility] Comment on above: Performed By: #### B MP, AST, TSH #### [facility] [address] [place] [address] Dr. Dale Ngo Lolis Krusei Not detected Normal NOT DETECTED [facility] Comment on above: Performed By: #### B MP, AST, TSH #### [facility] [address] [place] [address] Dr. Dale Ngo Lolis Parapsilosis Not detected Normal NOT DETECTED [facility] Comment on above: Performed By: #### B MP, AST, TSH #### [facility] [address] [place] [address] Dr. Dale Ngo Lolis Tropicalis Not detected Normal NOT DETECTED [facility] Comment on above: Performed By: #### B MP, AST, TSH #### [facility] [address] [place] [address] Dr. Dale Ngo CTX-M Resistant Gene Not detected Normal NOT DETECTED [facility] Comment on above: Performed By: #### B MP, AST, TSH #### [facility] [address] [place] [address] Dr. Dale Ngo E. Cloacae complex Not detected Normal NOT DETECTED [facility] Comment on above: Performed By: #### B MP, AST, TSH #### [facility] [address] [place] [address] Dr. Dale Ngo E. faecalis Not detected Normal NOT DETECTED [facility] Comment on above: Performed By: #### B MP, AST, TSH #### [facility] [address] [place] [address] Dr. Dale Ngo E. faecium Not detected Normal NOT DETECTED [facility] Comment on above: Performed By: #### B MP, AST, TSH #### [facility] [address] [place] [address] Dr. Dale Ngo Enterobacteriaceae Detected Critically abnormal NOT DETECTED [facility] Comment on above: Performed By: #### B MP, AST, TSH #### [facility] [address] [place] [address] Dr. Dale Ngo Escherichia coli Detected Critically abnormal NOT DETECTED [facility] Comment on above: Performed By: #### B MP, AST, TSH #### [facility] [address] [place] [address] Dr. Dale Ngo H. influenzae Not detected Normal NOT DETECTED [facility] Comment on above: Performed By: #### B MP, AST, TSH #### [facility] [address] [place] [address] Dr. Dale Ngo IMP Resistant Gene Not detected Normal NOT DETECTED [facility] Comment on above: Performed By: #### B MP, AST, TSH #### [facility] [address] [place] [address] Dr. Dlae Ngo K. oxytoca Not detected Normal NOT DETECTED [facility] Comment on above: Performed By: #### B MP, AST, TSH #### [facility] [address] [place] [address] Dr. Dale Ngo K. pneumoniae Not detected Normal NOT DETECTED [facility] Comment on above: Performed By: #### B MP, AST, TSH #### [facility] [address] [place] [address] Dr. Dale Ngo Klebsiella aerogenes Not detected Normal NOT DETECTED [facility] Comment on above: Performed By: #### B MP, AST, TSH #### [facility] [address] [place] [address] Dr. Dale Ngo KPC Resistant Gene Not detected Normal NOT DETECTED [facility] Comment on above: Performed By: #### B MP, AST, TSH #### [facility] [address] [place] [address] Dr. Dale Ngo List. monocytogenes Not detected Normal NOT DETECTED [facility] Comment on above: Performed By: #### B MP, AST, TSH #### [facility] [address] [place] [address] Dr. Dale Ngo Mcr-1 Resistant Gene Not detected Normal NOT DETECTED [facility] Comment on above: Performed By: #### B MP, AST, TSH #### [facility] [address] [place] [address] Dr. Dale Ngo mecA/C Not Applicable Normal NOT DETECTED [facility] Comment on above: Performed By: #### B MP, AST, TSH #### [facility] [address] [place] [address] Dr. Dale Ngo mecA/C MREJ Not Applicable Normal NOT DETECTED [facility] Comment on above: Performed By: #### B MP, AST, TSH #### [facility] [address] [place] [address] Dr. Dale Ngo N. meningitidis Not detected Normal NOT DETECTED [facility] Comment on above: Performed By: #### B MP, AST, TSH #### [facility] [address] [place] [address] Dr. Dale Ngo NDM Resistant Gene Not detected Normal NOT DETECTED [facility] Comment on above: Performed By: #### B MP, AST, TSH #### [facility] [address] [place] [address] Dr. Dale Ngo Oxa-48-like Not detected Normal NOT DETECTED [facility] Comment on above: Performed By: #### B MP, AST, TSH #### [facility] [address] [place] [address] Dr. Dale Ngo Proteus Not detected Normal NOT DETECTED [facility] Comment on above: Performed By: #### B MP, AST, TSH #### [facility] [address] [place] [address] Dr. Dale Ngo Pseud. aeruginosa Not detected Normal NOT DETECTED [facility] Comment on above: Performed By: #### B MP, AST, TSH #### [facility] [address] [place] [address] Dr. Dale Ngo S. maltophilia Not detected Normal NOT DETECTED [facility] Comment on above: Performed By: #### B MP, AST, TSH #### [facility] [address] [place] [address] Dr. Dale Ngo Salmonella Not detected Normal NOT DETECTED [facility] Comment on above: Performed By: #### B MP, AST, TSH #### [facility] [address] [place] [address] Dr. Dale Ngo Seratia marcescens Not detected Normal NOT DETECTED [facility] Comment on above: Performed By: #### B MP, AST, TSH #### [facility] [address] [place] [address] Dr. Dale Ngo Site: unknown Normal [facility] Comment on above: Performed By: #### B MP, AST, TSH #### [facility] [address] [place] [address] Dr. Dale Ngo Staph. aureus Not detected Normal NOT DETECTED [facility] Comment on above: Performed By: #### B MP, AST, TSH #### [facility] [address] [place] [address] Dr. Dale Ngo Staph. epidermidis Not detected Normal NOT DETECTED [facility] Comment on above: Performed By: #### B MP, AST, TSH #### [facility] [address] [place] [address] Dr. Dale Ngo Staph. lugdunensis Not detected Normal NOT DETECTED [facility] Comment on above: Performed By: #### B MP, AST, TSH #### [facility] [address] [place] [address] Dr. Dale Ngo Staphylococcus Not detected Normal NOT DETECTED [facility] Comment on above: Performed By: #### B MP, AST, TSH #### [facility] [address] [place], [place] [id number] Dr. Dale Ngo Strep. agalactiae Not detected Normal NOT DETECTED [facility] Comment on above: Performed By: #### B MP, AST, TSH #### [facility] [address] [place] [address] Dr. Dale Ngo Strep. pneumoniae Not detected Normal NOT DETECTED [facility] Comment on above: Performed By: #### B MP, AST, TSH #### [facility] [address] [place] [address] Dr. Dale Ngo Strep. pyogenes Not detected Normal NOT DETECTED [facility] Comment on above: Performed By: #### B MP, AST, TSH #### [facility] [address] [place] [address] Dr. Dale Ngo Streptococcus Not detected Normal NOT DETECTED [facility] Comment on above: Performed By: #### B MP, AST, TSH #### [facility] [address] [place] [address] Dr. Dale Ngo Mireya/Ramez Resist. Gene Not Applicable Normal NOT DETECTED [facility] Comment on above: Performed By: #### B MP, AST, TSH #### [facility] [address] [place] [address] Dr. Dale Ngo VIM Resistant Gene Not detected Normal NOT DETECTED [facility] Comment on above: Performed By: #### B MP, AST, TSH #### [facility] [address] [place] [address] Dr. Dale Ngo CBC W MANUAL DIFFon 10-16-19 23 ANISOCYTOSIS SLIGHT Normal [facility] Comment on above: Performed By: #### B MP, AST, TSH #### [facility] [address] [place] [address] Dr. Dale Ngo ATYPICAL LYMPH # Normal [facility] Comment on above: Performed By: #### B MP, AST, TSH #### [facility] [address] [place] [address] Dr. Dale Ngo ATYPICAL LYMPH % Normal [facility] Comment on above: Performed By: #### B MP, AST, TSH #### [facility] [address] [place] [address] Dr. Dale Ngo BAND # 0.7 103/ul Critically high 0.0-0.3 [facility] Comment on above: Performed By: #### B MP, AST, TSH #### [facility] [address] [place] [address] Dr. Dale Ngo BAND % 3 % Normal 0-5 [facility] Comment on above: Performed By: #### B MP, AST, TSH #### [facility] [address] [place] [address] Dr. Dlae Ngo BASOM # 0.00 103/ul Normal 0.00-0.10 [facility] Comment on above: Performed By: #### B MP, AST, TSH #### [facility] [address] [place] [address] Dr. Dale Ngo BASOM % 0.0 % Critically low 0.2-2.0 [facility] Comment on above: Performed By: #### B MP, AST, TSH #### [facility] [address] [place] [address] Dr. Dale Ngo BLAST # Normal [facility] Comment on above: Performed By: #### B MP, AST, TSH #### [facility] [address] [place] [address] Dr. Dale Ngo BLAST % Normal [facility] Comment on above: Performed By: #### B MP, AST, TSH #### [facility] [address] [place] [address] Dr. Dale Ngo CORRECTED WBC Normal 4.0-11.0 [facility] Comment on above: Performed By: #### B MP, AST, TSH #### [facility] [address] [place] [address] Dr. Dale Ngo EOS # 0.48 103/ul Normal 0.00-0.70 [facility] Comment on above: Performed By: #### B MP, AST, TSH #### [facility] [address] [place] [address] Dr. Dale Ngo EOS% 2.0 % Normal 0.9-7.0 [facility] Comment on above: Performed By: #### B MP, AST, TSH #### [facility] [address] [address] [address] Dale Ngo HCT 37.4 % Normal 36.0-48.0 [facility] Comment on above: Performed By: #### B MP, AST, TSH #### [facility] [address] [address] [address] Dale Ngo HGB 12.9 g/dl Normal 12.0-16.0 [facility] Comment on above: Performed By: #### B MP, AST, TSH #### [facility] [address] [address] [address] Dale Ngo LYMPHM # 0.48 103/ul Critically low 1.20-3.80 [facility] Comment on above: Performed By: #### B MP, AST, TSH #### [facility] [address] [address] [address] Dale Ngo LYMPHM% 2.0 % Critically low 20.5-60.0 [facility] Comment on above: Performed By: #### B MP, AST, TSH #### [facility] [address] [address] [address] Dale Ngo MCH 29.3 pg Normal 26.7-34.0 [facility] Comment on above: Performed By: #### B MP, AST, TSH #### [facility] [address] [address] [address] Dale Ngo MCHC 34.5 g/dl Normal 29.9-35.2 [facility] Comment on above: Performed By: #### B MP, AST, TSH #### [facility] [address] [address] [address] Dale Ngo MCV 85.0 fL Normal 81.0-99.0 [facility] Comment on above: Performed By: #### B MP, AST, TSH #### [facility] [address] [address] [address] Dale Ngo METAMYELOCYTE # Normal [facility] Comment on above: Performed By: #### B MP, AST, TSH #### [facility] [address] [address] [address] Dale Ngo METAMYELOCYTE % Normal [facility] Comment on above: Performed By: #### B MP, AST, TSH #### [facility] [address] [address] [address] Dale Ngo MICROCYTOSIS SLIGHT Normal [facility] Comment on above: Performed By: #### B MP, AST, TSH #### [facility] [address] [place] [address] Dr. Dale Ngo MONOM# 0.71 103/ul Normal 0.30-0.80 [facility] Comment on above: Performed By: #### B MP, AST, TSH #### [facility] [address] [place] [address] Dr. Dale Ngo MONOM% 3.0 % Normal 1.7-12.0 [facility] Comment on above: Performed By: #### B MP, AST, TSH #### [facility] [address] [place] [address] Dr. Dale Ngo MPV 11.2 fL Normal 9.5-13.5 [facility] Comment on above: Performed By: #### B MP, AST, TSH #### [facility] [address] [place] [address] Dr. Dale Ngo MYELOCYTE # Normal [facility] Comment on above: Performed By: #### B MP, AST, TSH #### [facility] [address] [place] [address] Dr. Dale Ngo MYELOCYTE % Normal [facility] Comment on above: Performed By: #### B MP, AST, TSH #### [facility] [address] [place] [address] Dr. Dale Ngo NRBC Normal [facility] Comment on above: Performed By: #### B MP, AST, TSH #### [facility] [address] [place] [address] Dr. Dale Ngo PLT 208 103/ul Normal 150-450 [facility] Comment on above: Performed By: #### B MP, AST, TSH #### [facility] [address] [address] [address] Dale Ngo RBC 4.40 106/ul Normal 4.20-5.40 [facility] Comment on above: Performed By: #### B MP, AST, TSH #### [facility] [address] [address] [address] Dale Ngo RDW 13.0 % Normal 11.0-15.0 [facility] Comment on above: Performed By: #### B MP, AST, TSH #### [facility] [address] [address] [address] Dale Ngo SEG # 21.42 103/ul Critically high 1.40-6.50 [facility] Comment on above: Performed By: #### B MP, AST, TSH #### [facility] [address] [address] [address] Dale Ngo SEG % 90.0 % Critically high 43.0-75.0 [facility] Comment on above: Performed By: #### B MP, AST, TSH #### [facility] [address] [address] [address] Dale Ngo WBC 23.8 103/ul Critically high 4.0-11.0 [facility] Comment on above: Performed By: #### B MP, AST, TSH #### [facility] [address] [address] [address] Dale Ngo CPKon 10-16-2022 CK [Catalytic activity/Vol] 2025 U/L Critically high 26-192 [facility] Comment on above: Performed By: #### B MP, AST, TSH #### [facility] [address] [address] [address] ABD/PELVIS WO CONon [...] RUDDY LEONE Date: 2022-10-16 21:23 Normal [facility] CT HEAD WO CONon 10-16-2022 CT HEAD [...] of the left maxillary sinus within the [id number]. There is some thickening of the bone [...] BRONSON SMITH Date: 2022-10-16 18:25 Normal [facility] CULTURE BLOODon 10-16-2022 Microscopic examination of blood, culture Culture Observations: Positive blood culture. Pediatric bottle. Culture Observations: Refer to accession #[id number] for susceptibilities. Isolate 1 Escherichia coli Growth of Normal [facility] Comment on above: Performed By: #### L ACT #### [facility] [address] [address] [address] Dale Ngo ER URINE PROFILEon 3 Bilirubin Ql (U) Negative Normal NEGATIVE [facility] Comment on above: Performed By: #### C BC #### [facility] [address] [address] [address] Dale Ngo Clarity (U) SL CLOUDY Abnormal CLEAR [facility] Comment on above: Performed By: #### C BC #### [facility] [address] [place] [address] Dr. Dale Ngo Color (U) LT. YELLOW Normal YELLOW [facility] Comment on above: Performed By: #### C BC #### [facility] [address] [place] [address] Dr. Dale NELSON A micrscopic examination will be performed if indicated. Normal [facility] Comment on above: Performed By: #### C BC #### [facility] [address] [place] [address] Dr. Dale Ngo Glucose Ql (U) Negative Normal NEGATIVE [facility] Comment on above: Performed By: #### C BC #### [facility] [address] [place] [address] Dr. Dale Ngo Hemoglobin Ql (U) LARGE Abnormal NEGATIVE [facility] Comment on above: Performed By: #### C BC #### [facility] [address] [place] [address] Dr. Dale Ngo Ketones Ql (U) Negative Normal NEGATIVE [facility] Comment on above: Performed By: #### C BC #### [facility] [address] [place] [address] Dr. Dale Ngo LEUKOCYTES LARGE Abnormal NEGATIVE [facility] Comment on above: Performed By: #### C BC #### [facility] [address] [place] [address] Dr. Dale Ngo Nitrite Ql (U) Positive Abnormal NEGATIVE [facility] Comment on above: Performed By: #### C BC #### [facility] [address] [place] [address] Dr. Dale Ngo pH (U) 5.5 [pH] Normal 5-9 [facility] Comment on above: Performed By: #### C BC #### [facility] [address] [place] [address] Dr. Dale Ngo Protein (U) [Mass/Vol] 100 mg/dL Abnormal NEGAT TIFFANI/ TRACE [facility] Comment on above: Performed By: #### C BC #### [facility] [address] [place] [address] Dr. Dale Ngo SPEC GRAVITY 1.020 Normal 1.005-<=1.02 5 [facility] Comment on above: Performed By: #### C BC #### [facility] [address] [place] [address] Dr. Dale Ngo UR MICRO IND INDICATED Normal [facility] Comment on above: Performed By: #### C BC #### [facility] [address] [place] [address] Dr. Dale Ngo Urobilinogen Qn (U) 0.2 {Tenisha'U}/dL Normal 0.2 - 1. 0 [facility] Comment on above: Performed By: #### C BC #### [facility] [address] [place] [address] Dr. Dale Ngo LIVER PROFILEon 10-16-2022 Albumin [Mass/Vol] 2.7 g/dL Critically low 3.4-5.0 [facility] Comment on above: Performed By: #### B MP, AST, TSH #### [facility] [address] [place] [address] Dr. Dale Ngo Albumin/Globulin [Mass ratio] 0.6 {ratio} Normal [facility] Comment on above: Performed By: #### B MP, AST, TSH #### [facility] [address] [place] [address] Dr. Dale Ngo ALP [Catalytic activity/Vol] 148 U/L Critically high 46-116 [facility] Comment on above: Performed By: #### B MP, AST, TSH #### [facility] [address] [place] [address] Dr. Dale Ngo ALT [Catalytic activity/Vol] 61 U/L Critically high 14-59 [facility] Comment on above: Performed By: #### B MP, AST, TSH #### [facility] [address] [place] [address] Dr. Dale Ngo AST [Catalytic activity/Vol] 111 U/L Critically high 15-37 [facility] Comment on above: Performed By: #### B MP, AST, TSH #### [facility] [address] [place] [address] Dr. Dale Ngo BILI, CONJUGATED 0.3 mg/dL Critically high 0.0-0.2 [facility] Comment on above: Performed By: #### B MP, AST, TSH #### [facility] [address] [place] [address] Dr. Dale Ngo Bilirubin [Mass/Vol] 0.9 mg/dL Normal 0.2-1.0 [facility] Comment on above: Performed By: #### B MP, AST, TSH #### [facility] [address] [address] [address] Dale Ngo Globulin (S) [Mass/Vol] 4.2 g/dL Normal [facility] Comment on above: Performed By: #### B MP, AST, TSH #### [facility] [address] [place] [address] Dr. Dale Ngo Protein [Mass/Vol] 6.9 g/dL Normal 6.4-8.2 [facility] Comment on above: Performed By: #### B MP, AST, TSH #### [facility] [address] [place] [address] Dr. Dale Ngo MYOGLOBINon 10-16-2022 BEVERLEY 4501 ng/mL Critically high 9-82 [facility] Comment on above: Performed By: #### B MP, AST, TSH #### [facility] [address] [place] [address] Dr. Dale Ngo PROF CHEM 8 (BAS METB)on Anion gap [Moles/Vol] 18.2 mmol/L Normal [facility] Comment on above: Performed By: #### B MP, AST, TSH #### [facility] [address] [address] [address] Dale Ngo Calcium [Mass/Vol] 8.5 mg/dL Normal 8.5-10.1 [facility] Comment on above: Performed By: #### B MP, AST, TSH #### [facility] [address] [address] [address] Dale Ngo Chloride [Moles/Vol] 99 mmol/L Normal 98-107 [facility] Comment on above: Performed By: #### B MP, AST, TSH #### [facility] [address] [place] [address] Dr. Dale Ngo CO2 [Moles/Vol] 20.0 mmol/L Critically low 21.0-32.0 [facility] Comment on above: Performed By: #### B MP, AST, TSH #### [facility] [address] [place] [address] Dr. Dale Ngo Creatinine [Mass/Vol] 2.08 mg/dL Critically high 0.55-1.02 [facility] Comment on above: Performed By: #### B MP, AST, TSH #### [facility] [address] [place] [address] Dr. Dale Ngo EGFR-AF COSTA RICAN 28 mL/min/1.73m2 Critically low >=60 [facility] Comment on above: Performed By: #### B MP, AST, TSH #### [facility] [address] [place] [address] Dr. Dale Ngo EGFR-NON AF COSTA RICAN 23 mL/min/1.73m2 Critically low >=60 [facility] Comment on above: Performed By: #### B MP, AST, TSH #### [facility] [address] [place] [address] Dr. Dale Ngo Glucose [Mass/Vol] 110 mg/dL Critically high 74-106 [facility] Comment on above: Performed By: #### B MP, AST, TSH #### [facility] [address] [place] [address] Dr. Dale Ngo Potassium [Moles/Vol] 4.2 mmol/L Normal 3.5-5.1 [facility] Comment on above: Performed By: #### B MP, AST, TSH #### [facility] [address] [place] [address] Dr. Dale Ngo Sodium [Moles/Vol] 133 mmol/L Critically low 136-145 [facility] Comment on above: Performed By: #### B MP, AST, TSH #### [facility] [address] [place] [address] Dr. Dale Ngo Urea nitrogen [Mass/Vol] 39.0 mg/dL Critically high 7.0-18.0 [facility] Comment on above: Performed By: #### B MP, AST, TSH #### [facility] [address] [place] [address] Dr. Dale Ngo Urea nitrogen/Creatinine [Mass ratio] 18.8 mg/mg Normal [facility] Comment on above: Performed By: #### B MP, AST, TSH #### [facility] [address] [place] [address] Dr. Dale Ngo TROPONIN, HIGH SENSITIVITYon 10-16-2022 HSTROP 22.0 pg/mL Normal 4.0-51.3 [facility] Comment on above: Result Comment: CUT- OFF POINTS HAVE BEEN ESTABLISHED BASED ON THE FOURTH UNIVERSAL DEFINITIONS OF MYOCARDIAL INFARCTION. THE UPPER REFERENCE LIMIT (URL) OF TROPONIN, DEFINED THE 99TH PERCENTILE OF cTnI DISTRIBUTION IN A REFERENCE POPULATION, HAS BEEN CONFIRMED THE DECISION THRESHOLD FOR LA DIAGNOSIS. Performed By: #### B MP, AST, TSH #### [facility] [address] [place] [address] Dr. Dale Ngo URINE MICROSCOPIC ONLYon BACTERIA LARGE Abnormal NONE SEEN [facility] Comment on above: Performed By: #### C BC #### [facility] [address] [place] [address] Dr. Dale Ngo Bacteria identified Cx Nom (U) INDICATED Normal [facility] Comment on above: Performed By: #### C BC #### [facility] [address] [place] [address] Dr. Dale Ngo CAST SEEN Abnormal NONE SEEN [facility] Comment on above: Performed By: #### C BC #### [facility] [address] [place] [address] Dr. Dale Ngo Crystals LM Nom (Urine sed) NONE SEEN Normal NONE SEEN [facility] Comment on above: Performed By: #### C BC #### [facility] [address] [place] [address] Dr. Dale Ngo Epithelial cells LM Ql (Urine sed) FEW Abnormal NONE SEEN /RARE [facility] Comment on above: Performed By: #### C BC #### [facility] [address] [address] [address] Dale Ngo FINE GRANULAR CAST RARE Normal [facility] Comment on above: Performed By: #### C BC #### [facility] [address] [place] [address] [address] [address] Dale Ngo MUCOUS NONE SEEN Normal NONE SEEN [facility] Comment on above: Performed By: #### C BC #### [facility] [address] [place] [address] Dr. Dale Ngo RBC (U) [#/Vol] /uL Abnormal 0-2 [facility] Comment on above: Performed By: #### C BC #### [facility] [address] [place] [address] Dr. Dale Ngo WBC (U) [#/Vol] /uL Abnormal NONE SEEN [facility] Comment on above: Performed By: #### C BC #### [facility] [address] [place] [address] Dr. Dale Ngo XR CHEST 1 Von [...] JAVIER HOWELL Date: 2022-10-16 18:16 Normal [facility] Office Visit (Cardiology)on 09-22-2022 Follow-up visit Diagnoses/Problems [...] Status:Hold For - Scheduling,Retrospect tiffani Authorization; Requested for:[id number]; Radiologist to Determine Optimal Study : Y What are the patient's signs and symptoms? 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 Her amiodarone has [...] Signs Recorded: 22Sep2022 10:31AM Heart Rate60, Apical [id number] Height5 ft 1 in Jmouvr491 lb BMI Dyrhtfbruz31.92 kg/m2 BSA Calculated1.91 Tobacco Useb) No PHQ-2 #1. Over the last 2 weeks have you felt down, depressed or hopeless? (If yes, answer PHQ-9 below)No PHQ-2 #2. Over the last 2 wee (more content not included)... Normal [employer] Tobacco Screening.on 023 Adult depression screening assessment No [facility] y 250 DO Work Phone: Fall risk assessment b) One or more fall s in the last year [facility] y 250 DO Work Phone: Tobacco use status [facility] b) No [facility] y 250 DO Work Phone: PTH INTACTon 06-25-2022 PTH, Intact 40 pg/mL Normal 15-65 [facility] Comment on above: Performed By: #### B MP, AST, TSH #### [facility] [address] [place] [address] Dr. Dale Ngo HEMOGRAM AND PLATELon 2021 Hematocrit (Bld) [Volume fraction] 40.6 % Normal 36.0-48.0 [facility] Comment on above: Performed By: #### C BC #### [facility] [address] [place] [address] Dr. Dale Ngo Hemoglobin (Bld) [Mass/Vol] 13.1 g/dL Normal 12.0-16.0 [facility] Comment on above: Performed By: #### C BC #### [facility] [address] [place] [address] Dr. Dale Ngo MCH (RBC) [Entitic mass] 29.2 pg Normal 26.7-34.0 [facility] [facility] Comment on above: Performed By: #### C BC #### [facility] [address] [place] [address] Dr. Dale Ngo MCHC (RBC) [Mass/Vol] 32.3 g/dL Normal 29.9-35.2 [facility] Comment on above: Performed By: #### C BC #### [facility] [address] [place] [address] Dr. Dale Ngo MCV (RBC) [Entitic vol] 90.6 fL Normal 81.0-99.0 [facility] Comment on above: Performed By: #### C BC #### [facility] [address] [place] [address] Dr. Dale Ngo PLT 249 103/ul Normal 150-450 [facility] Comment on above: Performed By: #### C BC #### [facility] [address] [place] [address] Dr. Dale Ngo RBC 4.48 106/ul Normal 4.20-5.40 [facility] Comment on above: Performed By: #### C BC #### [facility] [address] [place] [address] Dr. Dale Ngo WBC 7.2 103/ul Normal 4.0-11.0 [facility] Comment on above: Performed By: #### C BC #### [facility] [address] [place] [address] Dr. Dale Ngo MAGNESIUMon 06-24-2022 Magnesium [Mass/Vol] 2.1 mg/dL Normal 1.8-2.4 [facility] Comment on above: Performed By: #### C BC #### [facility] [address] [place] [address] Dr. Dale Ngo RENAL FUNCTION PANELon 06-24 Albumin [Mass/Vol] 3.4 g/dL Normal 3.4-5.0 [facility] Comment on above: Performed By: #### C BC #### [facility] [address] [place] [address] Dr. Dale Ngo Calcium [Mass/Vol] 9.4 mg/dL Normal 8.5-10.1 [facility] Comment on above: Performed By: #### C BC #### [facility] [address] [place] [address] Dr. Dale Ngo Chloride [Moles/Vol] 104 mmol/L Normal 98-107 [facility] Comment on above: Performed By: #### C BC #### [facility] [address] [place] [address] Dr. Dale Ngo CO2 [Moles/Vol] 28.5 mmol/L Normal 21.0-32.0 [facility] Comment on above: Performed By: #### C BC #### [facility] [address] [address] [address] Dale Ngo Creatinine [Mass/Vol] 1.39 mg/dL Critically high 0.55-1.02 [facility] Comment on above: Performed By: #### C BC #### [facility] [address] [address] [address] Dale Ngo EGFR-AF COSTA RICAN 45 mL/min/1.73m2 Critically low >=60 [facility] Comment on above: Performed By: #### C BC #### [facility] [address] [address] [address] Dale Ngo EGFR-NON AF COSTA RICAN 37 mL/min/1.73m2 Critically low >=60 [facility] Comment on above: Performed By: #### C BC #### [facility] [address] [place] [address] Dr. Dale Ngo Glucose [Mass/Vol] 93 mg/dL Normal 74-106 [facility] Comment on above: Performed By: #### C BC #### [facility] [address] [address] [address] Dale Ngo Phosphate [Mass/Vol] 3.1 mg/dL Normal 2.6-4.7 [facility] Comment on above: Performed By: #### C BC #### [facility] [address] [place] [address] Dr. Dale Ngo Potassium [Moles/Vol] 5.0 mmol/L Normal 3.5-5.1 [facility] Comment on above: Performed By: #### C BC #### [facility] [address] [address] [address] Dale Ngo Sodium [Moles/Vol] 135 mmol/L Critically low 136-145 [facility] Comment on above: Performed By: #### C BC #### [facility] [address] [address] [address] Dale Ngo Urea nitrogen [Mass/Vol] 29.0 mg/dL Critically high 7.0-18.0 [facility] Comment on above: Performed By: #### C BC #### [facility] [address] [address] [address] Dale Ngo UA RANDOM W/MICROSCOPICon BACTERIA NONE SEEN Normal NONE SEEN [facility] Comment on above: Performed By: #### U AMIC #### [facility] [address] [place] [address] Dr. Dale Ngo Bilirubin Ql (U) Negative Normal NEGATIVE [facility] Comment on above: Performed By: #### U AMIC #### [facility] [address] [place] [address] Dr. Dale Ngo CAST NONE SEEN Normal NONE SEEN [facility] Comment on above: Performed By: #### U AMIC #### [facility] [address] [place] [address] Dr. Dale Ngo Clarity (U) CLEAR Normal CLEAR [facility] Comment on above: Performed By: #### U AMIC #### [facility] [address] [place] [address] Dr. Dale Ngo Color (U) LT. YELLOW Normal YELLOW [facility] Comment on above: Performed By: #### U AMIC #### [facility] [address] [place] [address] Dr. Dale Ngo Crystals LM Nom (Urine sed) NONE SEEN Normal NONE SEEN [facility] Comment on above: Performed By: #### U AMIC #### [facility] [address] [place] [address] Dr. Dale Ngo Epithelial cells LM Ql (Urine sed) FEW Abnormal NONE SEEN /RARE [facility] Comment on above: Performed By: #### U AMIC #### [facility] [address] [place] [address] Dr. Dale Ngo Glucose Ql (U) Negative Normal NEGATIVE [facility] Comment on above: Performed By: #### U AMIC #### [facility] [address] [place] [address] Dr. Dale Ngo Hemoglobin Ql (U) Negative Normal NEGATIVE [facility] Comment on above: Performed By: #### U AMIC #### [facility] [address] [place] [address] Dr. Dale gNo Ketones Ql (U) Negative Normal NEGATIVE [facility] Comment on above: Performed By: #### U AMIC #### [facility] [address] [place] [address] Dr. Dale Ngo LEUKOCYTES SMALL Abnormal NEGATIVE [facility] Comment on above: Performed By: #### U AMIC #### [facility] [address] [place] [address] Dr. Dale Ngo MUCOUS NONE SEEN Normal NONE SEEN [facility] Comment on above: Performed By: #### U AMIC #### [facility] [address] [place] [address] Dr. Dale Ngo Nitrite Ql (U) Negative Normal NEGATIVE [facility] Comment on above: Performed By: #### U AMIC #### [facility] [address] [place] [address] Dr. Dale Ngo pH (U) 6.0 [pH] Normal 5-9 [facility] Comment on above: Performed By: #### U AMIC #### [facility] [address] [place] [address] Dr. Dale Ngo RBC NONE SEEN Abnormal 0-2 [facility] Comment on above: Performed By: #### U AMIC #### [facility] [address] [place] [address] Dr. Dale Ngo SPEC GRAVITY <=1.005 Abnormal 1.005-<=1.02 5 [facility] Comment on above: Performed By: #### U AMIC #### [facility] [address] [place] [address] Dr. Dale Ngo UA PROTEIN Negative Normal NEGATIVE/ TRACE [facility] Comment on above: Performed By: #### U AMIC #### [facility] [address] [address] [address] Dale Ngo Urobilinogen Qn (U) 0.2 {Tenisha'U}/dL Normal 0.2 - 1. 0 [facility] Comment on above: Performed By: #### U AMIC #### [facility] [address] [place] [address] Dr. Dale Ngo WBC 0-2 Abnormal NONE SEEN [facility] Comment on above: Performed By: #### U AMIC #### [facility] [address] [address] [address] Dale Ngo URIC ACID SERUMon 06-24-2022 Urate [Mass/Vol] 4.0 mg/dL Normal 2.6-6.0 [facility] Comment on above: Performed By: #### C BC #### [facility] [address] [address] [address] Dale Ngo URINE T PROTEIN CREAT RATIOo n 06-24-2022 UR PROT CREAT RAT 0.34 Normal [facility] Comment on above: Performed By: #### B MP, AST, TSH #### [facility] [address] [place] [address] Dr. Dale Ngo UR TOTAL PROTEIN <6.0 Normal <=12.0 [facility] Comment on above: Performed By: #### B MP, AST, TSH #### [facility] [address] [address] [address] Dale Ngo URINE CREAT 17.84 mg/dL Critically low 20.00-300.00 [facility] Comment on above: Performed By: #### B MP, AST, TSH #### [facility] [address] [place] [address] Dr. Dale Ngo VITAMIN D 25 OHon 06-24-2022 VIT D 25-OH 62.8 ng/mL Normal [facility] Comment on above: Performed By: #### V ITAD #### [facility] [address] [place] [address] Dr. Dale Ngo VIT D RANGES SEE BELOW Normal [facility] Comment on above: Result Comment: <20 ng/mL Vit D deficient 20 - <30 ng/mL Vit D insufficient 30 - 100 ng/mL Vit D sufficient >100 ng/mL Potential Toxicity Performed By: #### V ITAD #### [facility] [address] [place] [address] CHEST WO CONon [...] MELINDA LOVE Date: 2022-06-05 21:20 Normal [facility] HEMOGLOBINon 05-23-2022 Hemoglobin (Bld) [Mass/Vol] 13.1 g/dL Normal 12.0-16.0 [facility] Comment on above: Performed By: #### C BC #### [facility] [address] [address] [address] Dale Ngo PROF CHEM 8 (BAS METB)on Anion gap [Moles/Vol] 9.9 mmol/L Normal [facility] Comment on above: Performed By: #### L ACT #### [facility] [address] [address] [address] Dale Ngo Calcium [Mass/Vol] 8.7 mg/dL Normal 8.5-10.1 [facility] Comment on above: Performed By: #### L ACT #### [facility] [address] [address] [address] Dale Ngo Chloride [Moles/Vol] 106 mmol/L Normal 98-107 [facility] Comment on above: Performed By: #### L ACT #### [facility] [address] [address] [address] Dale Ngo CO2 [Moles/Vol] 29.0 mmol/L Normal 21.0-32.0 [facility] Comment on above: Performed By: #### L ACT #### [facility] [address] [address] [address] Dale Ngo Creatinine [Mass/Vol] 1.37 mg/dL Critically high 0.55-1.02 [facility] Comment on above: Performed By: #### L ACT #### [facility] [address] [place] [address] Dr. Dale Ngo EGFR-AF COSTA RICAN 46 mL/min/1.73m2 Critically low >=60 [facility] Comment on above: Performed By: #### L ACT #### [facility] [address] [place] [address] Dr. Dale Ngo EGFR-NON AF COSTA RICAN 38 mL/min/1.73m2 Critically low >=60 [facility] Comment on above: Performed By: #### L ACT #### [facility] [address] [place] [address] Dr. Dale Ngo Glucose [Mass/Vol] 94 mg/dL Normal 74-106 [facility] Comment on above: Performed By: #### L ACT #### [facility] [address] [address] [address] Dale Ngo Potassium [Moles/Vol] 3.9 mmol/L Normal 3.5-5.1 [facility] Comment on above: Performed By: #### L ACT #### [facility] [address] [address] [address] Dale Ngo Sodium [Moles/Vol] 141 mmol/L Normal 136-145 [facility] Comment on above: Performed By: #### L ACT #### [facility] [address] [address] [address] Dale Ngo Urea nitrogen [Mass/Vol] 25.0 mg/dL Critically high 7.0-18.0 [facility] Comment on above: Performed By: #### L ACT #### [facility] [id number] Dale Ngo Urea nitrogen/Creatinine [Mass ratio] 18.2 mg/mg Normal [facility] Comment on above: Performed By: #### L ACT #### [facility] [id number] Dale Ngo SGOTon 05-23-2022 AST [Catalytic activity/Vol] 37 U/L Normal 15-37 [facility] Comment on above: Performed By: #### L ACT #### [facility] [address] [place], [place] [id number] Dr. Dale Ngo TSHon 05-23-2022 TSH 1.800 uIU/mL Normal 0.358-3.740 [facility] Comment on above: Performed By: #### A ST, TSH, BMP #### [facility] [address] [place], [place] [id number] Dr. Dale Ngo XR CHEST 2 Von [...] overt cardiac decompensation. Electronically authenticated by: AQUILINO AFRIA Date: 2022-05-23 13:14 Normal [facility] Office Visit (Cardiology)on 03-10-2022 Follow-up visit Diagnoses/Problems [...] Weight Tips; Status:Complete - Retrospective Authorization; Done: [id number] High risk medication use, Paroxysmal atrial fibrillation Pulmonary Function Test with DLCO; Status:Active - Retrospective Authorization; Requested for:[id number]; Pulmonary Function Test with/without bronchodilators; Status:Active - Retrospective Authorization; Requested for:[id number]; Paroxysmal atrial fibrillation Start: Amiodarone HCl - 200 MG Oral Tablet; take one-half tablet daily monday through monday only IO EKG Electrocardiogram- 12 Lead; Status:Complete; Done: [id number] Unlinked Stop: Amiodarone HCl - 200 MG Oral Tablet Patient Instructions By signing my name below, I, Ramirez Shahid RN ,Scribe, attest that this documentation [...] and dyspnea. She sustained inferior ST elevation LA in August of this year with revascularization of the RCA. She has a history of paroxysmal A. 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 She has underlying obesity, pacemaker for reportedly [...] 02:45PM Hea (more content not included)... Normal [facility] Tobacco Screening.on 022 Adult depression screening assessment No [facility] io [facility] y 250 DO Work Phone: Fall risk assessment a) No falls within the last year [facility] y 250 DO Work Phone: Tobacco use status [facility] b) No [facility] y 250 DO Work Phone: PROF CHEM 8 (BAS METB)on Anion gap [Moles/Vol] 10.3 mmol/L Normal [facility] Comment on above: Performed By: #### B MP, AST, TSH #### [facility] [address] [place] [address] Dr. Dale Ngo Calcium [Mass/Vol] 8.8 mg/dL Normal 8.5-10.1 [facility] Comment on above: Performed By: #### B MP, AST, TSH #### [facility] [address] [address] [address] Dale Ngo Chloride [Moles/Vol] 101 mmol/L Normal 98-107 [facility] Comment on above: Performed By: #### B MP, AST, TSH #### [facility] [address] [address] [address] Dale Ngo CO2 [Moles/Vol] 28.8 mmol/L Normal 21.0-32.0 [facility] Comment on above: Performed By: #### B MP, AST, TSH #### [facility] [address] [address] [address] Dale Ngo Creatinine [Mass/Vol] 1.58 mg/dL Critically high 0.55-1.02 [facility] Comment on above: Performed By: #### B MP, AST, TSH #### [facility] [address] [place] [address] Dr. Dale Ngo EGFR-AF COSTA RICAN 39 mL/min/1.73m2 Critically low >=60 [facility] Comment on above: Performed By: #### B MP, AST, TSH #### [facility] [address] [address] [address] Dale Ngo EGFR-NON AF COSTA RICAN 32 mL/min/1.73m2 Critically low >=60 [facility] Comment on above: Performed By: #### B MP, AST, TSH #### [facility] [address] [address] [address] Dale Ngo Glucose [Mass/Vol] 93 mg/dL Normal 74-106 [facility] Comment on above: Performed By: #### B MP, AST, TSH #### [facility] [address] [place] [address] Dr. Dale Ngo Potassium [Moles/Vol] 5.1 mmol/L Normal 3.5-5.1 [facility] Comment on above: Performed By: #### B MP, AST, TSH #### [facility] [address] [address] [address] Dale Ngo Sodium [Moles/Vol] 135 mmol/L Critically low 136-145 [facility] Comment on above: Performed By: #### B MP, AST, TSH #### [facility] [address] [place] [address] Dr. Dale Ngo Urea nitrogen [Mass/Vol] 36.0 mg/dL Critically high 7.0-18.0 [facility] Comment on above: Performed By: #### B MP, AST, TSH #### [facility] [address] [place] [address] Dr. Dale Ngo Urea nitrogen/Creatinine [Mass ratio] 22.8 mg/mg Normal [facility] Comment on above: Performed By: #### B MP, AST, TSH #### [facility] [address] [address] [address] Dale Ngo SGOTon 01-14-2022 AST [Catalytic activity/Vol] 29 U/L Normal 15-37 [facility] Comment on above: Performed By: #### B MP, AST, TSH #### [facility] [address] [address] [address] Dale Ngo T4 LABCORPon 01-14-2022 T4 [Mass/Vol] 10.1 ug/dL Normal 4.5-12.0 [facility] Comment on above: Performed By: #### L ACT #### [facility] [address] [address] [address] Dale Ngo TSHon 01-14-2022 TSH 1.420 uIU/mL Normal 0.358-3.740 [facility] Comment on above: Performed By: #### B MP, AST, TSH #### [facility] [address] [place] [address] Dr. Dale Ngo TSH RANGE SEE BELOW Normal [facility] Comment on above: Result Comment: <0.3 4 UIU/ml HYPERTHYROID 0.34-5.60 UIU/ml EUTHYROID >5.60 UIU/ml HYPOTHYROID Performed By: #### B MP, AST, TSH #### [facility] [address] [place] [address] Dr. Dale Ngo XR CHEST 2 Von [...] MELINDA LOVE Date: 2022-01-14 14:22 Normal [facility] BNPon 01-10-2022 Natriuretic peptide B (Bld) [Mass/Vol] 190.0 pg/mL Normal <=900.0 [facility] Comment on above: Performed By: #### B MP, AST, TSH #### [facility] [address] [place] [address] Dr. Dale Ngo CBC AUTO DIFFon 01-10-2022 BASO # 0.1 103/ul Normal 0.0-0.1 [facility] Comment on above: Performed By: #### B MP, AST, TSH #### [facility] [address] [place] [address] Dr. Dale Ngo Basophils/100 WBC (Bld) 0.8 % Normal 0.2-2.0 [facility] Comment on above: Performed By: #### B MP, AST, TSH #### [facility] [address] [place] [address] Dr. Dale Ngo EO # 0.3 103/ul Normal 0.0-0.7 [facility] Comment on above: Performed By: #### B MP, AST, TSH #### [facility] [address] [place] [address] Dr. Dale Ngo Eosinophils/100 WBC (Bld) 4.4 % Normal 0.9-7.0 [facility] Comment on above: Performed By: #### B MP, AST, TSH #### [facility] [address] [place] [address] Dr. Dale Ngo Erythrocyte distribution width (RBC) [Ratio] 14.0 % Normal 11.0-15.0 [facility] Comment on above: Performed By: #### B MP, AST, TSH #### [facility] [address] [place] [address] Dr. Dale Ngo Hematocrit (Bld) [Volume fraction] 40.6 % Normal 36.0-48.0 [facility] Comment on above: Performed By: #### B MP, AST, TSH #### [facility] [address] [place] [address] Dr. Dale Ngo Hemoglobin (Bld) [Mass/Vol] 13.0 g/dL Normal 12.0-16.0 [facility] Comment on above: Performed By: #### B MP, AST, TSH #### [facility] [address] [address] [address] Dale Ngo IG # 0.02 10e3/ul Normal 0.00-0.03 [facility] Comment on above: Performed By: #### B MP, AST, TSH #### [facility] [address] [address] [address] Dale Ngo IG % 0.3 % Normal 0.0-0.5 [facility] Comment on above: Performed By: #### B MP, AST, TSH #### [facility] [address] [address] [address] Dale Ngo LYMPH # 1.6 103/ul Normal 1.2-3.8 [facility] Comment on above: Performed By: #### B MP, AST, TSH #### [facility] [address] [place] [address] Dr. Dale Ngo Lymphocytes/100 WBC (Bld) 25.6 % Normal 20.5-60.0 [facility] Comment on above: Performed By: #### B MP, AST, TSH #### [facility] [address] [place] [address] Dr. Dale Ngo MANUAL DIFF REQ NO Normal [facility] Comment on above: Performed By: #### B MP, AST, TSH #### [facility] [address] [place] [address] Dr. Dale Ngo MCH (RBC) [Entitic mass] 29.1 pg Normal 26.7-34.0 [facility] Comment on above: Performed By: #### B MP, AST, TSH #### [facility] [address] [place] [address] Dr. Dale Ngo MCHC (RBC) [Mass/Vol] 32.0 g/dL Normal 29.9-35.2 [facility] Comment on above: Performed By: #### B MP, AST, TSH #### [facility] [address] [place] [address] Dr. Dale Ngo MCV (RBC) [Entitic vol] 90.8 fL Normal 81.0-99.0 [facility] Comment on above: Performed By: #### B MP, AST, TSH #### [facility] [address] [place] [address] Dr. Dale Ngo MONO # 0.4 103/ul Normal 0.3-0.8 [facility] Comment on above: Performed By: #### B MP, AST, TSH #### [facility] [address] [place] [address] Dr. Dale Ngo Monocytes/100 WBC (Bld) 6.6 % Normal 1.7-12.0 [facility] Comment on above: Performed By: #### B MP, AST, TSH #### [facility] [address] [place] [address] Dr. Dale Ngo NEUT # 3.9 103/ul Normal 1.4-6.5 [facility] Comment on above: Performed By: #### B MP, AST, TSH #### [facility] [address] [place] [address] Dr. Dale Ngo Neutrophils/100 WBC (Bld) 62.3 % Normal 43.0-75.0 [facility] Comment on above: Performed By: #### B MP, AST, TSH #### [facility] [address] [place] [address] Dr. Dale Ngo Platelet mean volume (Bld) [Entitic vol] 10.6 fL Normal 9.5-13.5 [facility] Comment on above: Performed By: #### B MP, AST, TSH #### [facility] [address] [place] [address] Dr. Dale Ngo PLT 240 103/ul Normal 150-450 [facility] Comment on above: Performed By: #### B MP, AST, TSH #### [facility] [address] [place] [address] Dr. Dale Ngo RBC 4.47 106/ul Normal 4.20-5.40 [facility] Comment on above: Performed By: #### B MP, AST, TSH #### [facility] [address] [place] [address] Dr. Dale Ngo WBC 6.2 103/ul Normal 4.0-11.0 [facility] Comment on above: Performed By: #### B MP, AST, TSH #### [facility] [address] [address] [address] Dale Ngo FREE THYROXINE INDEX T7on FTI 3.74 Normal 1.30-4.50 [facility] Comment on above: Performed By: #### B MP, AST, TSH #### [facility] [address] [address] [address] Dale Ngo T3U 37.0 % Normal 30.0-39.0 [facility] Comment on above: Performed By: #### B MP, AST, TSH #### [facility] [address] [place] [address] Dr. Dale Ngo T4 [Mass/Vol] 10.10 ug/dL Normal 4.80-13.90 [facility] Comment on above: Performed By: #### B MP, AST, TSH #### [facility] [address] [address] [address] Dale Ngo GLYCOHEMOGLOBIN A1Con 2021 ADA RECOMMENDATION SEE BELOW Normal [facility] Comment on above: Result Comment: ADA RECOMMENDED LIMIT 4.0 - 6.0 ADA THERAPEUTIC TARGET < 7.0 ACTION SUGGESTED > 7.0 Performed By: #### B MP, AST, TSH #### [facility] [address] [place] [address] Dr. Dale Ngo Glucose [Mass/Vol] 120 mg/dL Normal [facility] Comment on above: Performed By: #### B MP, AST, TSH #### [facility] [address] [address] [address] Dale Ngo HbA1c (Bld) [Mass fraction] 5.8 % Normal 4.5-6.2 [facility] Comment on above: Performed By: #### B MP, AST, TSH #### [facility] [address] [place] [address] Dr. Dale Ngo IRONon 01-10-2022 Iron [Mass/Vol] 81.0 ug/dL Normal 50.0-170.0 [facility] Comment on above: Performed By: #### B MP, AST, TSH #### [facility] [address] [address] [address] Dale Ngo LIPID PROFILEon 01-10-2022 CHOL-HDL RATIO NORM SEE BELOW Normal [place] Comment on above: Result Comment: 3.3 - 4.4 LOW RISK 4.4 - 7.1 AVERAGE RISK 7.1 - 11.0 MODERATE RISK >11.0 HIGH RISK Performed By: #### B MP, AST, TSH #### [facility] [address] [address] [address] Dale Ngo Cholesterol [Mass/Vol] 144 mg/dL Normal <=200 [facility] Comment on above: Performed By: #### B MP, AST, TSH #### [facility] [address] [address] [address] Dale Ngo Cholesterol in HDL [Mass/Vol] 57 mg/dL Normal 40-60 [facility] Comment on above: Performed By: #### B MP, AST, TSH #### [facility] [address] [address] [address] Dale Ngo Cholesterol in LDL [Mass/Vol] 71.6 mg/dL Normal [facility] Comment on above: Performed By: #### B MP, AST, TSH #### [facility] [address] [address] [address] Dale Ngo Cholesterol.total/Chol esterol in HDL [Mass ratio] 2.5 {ratio} Normal [facility] Comment on above: Performed By: #### B MP, AST, TSH #### [facility] [address] [address] [address] Dale Ngo HDL NORMAL > or = 60 mg/dl - LO W CARDIOVASCULAR RISK <40 mg/dl - HIGH CARDIOVASCULAR RISK Normal [facility] Comment on above: Performed By: #### B MP, AST, TSH #### [facility] [address] [address] [address] Dale Ngo LDL CALC NORMAL SEE BELOW Normal [facility] Comment on above: Result Comment: <100 mg/dl OPTIMAL 100 - 129 mg/dl NEAR OR ABOVE OPTIMAL 130 - 159 mg/dl BORDERLINE HIGH 160 - 189 mg/dl HIGH >190 mg/dl VERY HIGH Performed By: #### B MP, AST, TSH #### [facility] [address] [place] [address] Dr. Dale Ngo Triglyceride [Mass/Vol] 77 mg/dL Normal <=150 [facility] Comment on above: Performed By: #### B MP, AST, TSH #### [facility] [address] [address] [address] Dale Ngo VLDL CALC 15.4 mg/dL Normal [facility] Comment on above: Performed By: #### B MP, AST, TSH #### [facility] [address] [place] [address] Dr. Dale Ngo OCC BLD IMMUNO SCREENon 12-20 OCCULT BLOOD Negative Normal NEGATIVE [facility] Comment on above: Performed By: #### B MP #### [facility] [address] [place] [address] Dr. Dale Ngo PROF 14(COMP METB)on 022 Albumin [Mass/Vol] 3.1 g/dL Critically low 3.4-5.0 [facility] Comment on above: Performed By: #### B MP, AST, TSH #### [facility] [address] [place] [address] Dr. Dale Ngo Albumin/Globulin [Mass ratio] 0.8 {ratio} Normal [facility] Comment on above: Performed By: #### B MP, AST, TSH #### [facility] [address] [place] [address] Dr. Dale Ngo ALP [Catalytic activity/Vol] 132 U/L Critically high 46-116 [facility] Comment on above: Performed By: #### B MP, AST, TSH #### [facility] [address] [place] [address] Dr. Dlae Ngo ALT [Catalytic activity/Vol] 44 U/L Normal 14-59 [facility] Comment on above: Performed By: #### B MP, AST, TSH #### [facility] [address] [address] [address] Dale Ngo Anion gap [Moles/Vol] 12.6 mmol/L Normal [facility] Comment on above: Performed By: #### B MP, AST, TSH #### [facility] [address] [address] [address] Dale Ngo AST [Catalytic activity/Vol] 31 U/L Normal 15-37 [facility] Comment on above: Performed By: #### B MP, AST, TSH #### [facility] [address] [place] [address] Dr. Dale Ngo Bilirubin [Mass/Vol] 0.5 mg/dL Normal 0.2-1.0 [facility] Comment on above: Performed By: #### B MP, AST, TSH #### [facility] [address] [place] [address] Dr. Dale Ngo Calcium [Mass/Vol] 8.7 mg/dL Normal 8.5-10.1 [facility] Comment on above: Performed By: #### B MP, AST, TSH #### [facility] [address] [place] [address] Dr. Dale Ngo Chloride [Moles/Vol] 104 mmol/L Normal 98-107 [facility] Comment on above: Performed By: #### B MP, AST, TSH #### [facility] [address] [place] [address] Dr. Dale Ngo CO2 [Moles/Vol] 27.5 mmol/L Normal 21.0-32.0 [facility] Comment on above: Performed By: #### B MP, AST, TSH #### [facility] [address] [address] [address] Dale Ngo Creatinine [Mass/Vol] 1.49 mg/dL Critically high 0.55-1.02 [facility] Comment on above: Performed By: #### B MP, AST, TSH #### [facility] [address] [place] [address] Dr. Dale Ngo EGFR-AF COSTA RICAN 42 mL/min/1.73m2 Critically low >=60 [facility] Comment on above: Performed By: #### B MP, AST, TSH #### [facility] [address] [address] [address] Dale Nog EGFR-NON AF COSTA RICAN 34 mL/min/1.73m2 Critically low >=60 [facility] Comment on above: Performed By: #### B MP, AST, TSH #### [facility] [address] [address] [address] Dale Ngo Globulin (S) [Mass/Vol] 3.8 g/dL Normal [facility] Comment on above: Performed By: #### B MP, AST, TSH #### [facility] [address] [address] [address] Dale Ngo Glucose [Mass/Vol] 105 mg/dL Normal 74-106 [facility] Comment on above: Performed By: #### B MP, AST, TSH #### [facility] [address] [address] [address] Dale Ngo Potassium [Moles/Vol] 4.1 mmol/L Normal 3.5-5.1 [facility] Comment on above: Performed By: #### B MP, AST, TSH #### [facility] [address] [address] [address] Dale Ngo Protein [Mass/Vol] 6.9 g/dL Normal 6.4-8.2 [facility] Comment on above: Performed By: #### B MP, AST, TSH #### [facility] [address] [address] [address] Dale Ngo Sodium [Moles/Vol] 140 mmol/L Normal 136-145 [facility] Comment on above: Performed By: #### B MP, AST, TSH #### [facility] [address] [address] [address] Dale Ngo Urea nitrogen [Mass/Vol] 26.0 mg/dL Critically high 7.0-18.0 [facility] Comment on above: Performed By: #### B MP, AST, TSH #### [facility] [address] [address] [address] Dale Ngo Urea nitrogen/Creatinine [Mass ratio] 17.4 mg/mg Normal [facility] Comment on above: Performed By: #### B MP, AST, TSH #### [facility] [address] [place] [address] Dr. Dale Ngo TSHon 01-10-2022 TSH 1.720 uIU/mL Normal 0.358-3.740 [facility] Comment on above: Performed By: #### B MP, AST, TSH #### [facility] [address] [place] [address] Dr. Dale Ngo TSH RANGE SEE BELOW Normal [facility] Comment on above: Result Comment: <0.3 4 UIU/ml HYPERTHYROID 0.34-5.60 UIU/ml EUTHYROID >5.60 UIU/ml HYPOTHYROID Performed By: #### B MP, AST, TSH #### [facility] [address] [place] [address] Dr. Dale Ngo URIC ACID SERUMon 01-10-2022 Urate [Mass/Vol] 4.1 mg/dL Normal 2.6-6.0 [facility] Comment on above: Performed By: #### B MP, AST, TSH #### [facility] [address] [place] [address] Dr. Dale Ngo PTH INTACTon 01-06-2022 PTH, Intact 62 pg/mL Normal 15-65 [facility] Comment on above: Performed By: #### B MP, AST, TSH #### [facility] [address] [place] [address] Dr. Dale Ngo HEMOGRAM AND PLATELon 2021 Hematocrit (Bld) [Volume fraction] 44.0 % Normal 36.0-48.0 [facility] Comment on above: Performed By: #### C BC #### [facility] [address] [place] [address] Dr. Dale Ngo Hemoglobin (Bld) [Mass/Vol] 14.1 g/dL Normal 12.0-16.0 [facility] Comment on above: Performed By: #### C BC #### [facility] [address] [place] [address] Dr. Dale Ngo MCH (RBC) [Entitic mass] 29.3 pg Normal 26.7-34.0 [facility] Comment on above: Performed By: #### C BC #### [facility] [address] [place] [address] Dr. Dale Ngo MCHC (RBC) [Mass/Vol] 32.0 g/dL Normal 29.9-35.2 [facility] Comment on above: Performed By: #### C BC #### [facility] [address] [place] [address] Dr. Dale Ngo MCV (RBC) [Entitic vol] 91.3 fL Normal 81.0-99.0 [facility] Comment on above: Performed By: #### C BC #### [facility] [address] [place] [address] Dr. Dale Ngo PLT 272 103/ul Normal 150-450 [facility] Comment on above: Performed By: #### C BC #### [facility] [address] [place] [address] Dr. Dale Ngo RBC 4.82 106/ul Normal 4.20-5.40 [facility] Comment on above: Performed By: #### C BC #### [facility] [address] [place] [address] Dr. Dale Ngo WBC 6.8 103/ul Normal 4.0-11.0 [facility] Comment on above: Performed By: #### C BC #### [facility] [address] [place] [address] Dr. Dale Ngo MAGNESIUMon 01-05-2022 Magnesium [Mass/Vol] 2.2 mg/dL Normal 1.8-2.4 [facility] Comment on above: Performed By: #### B MP #### [facility] [address] [place] [address] Dr. Dale Ngo RENAL FUNCTION PANELon 01-05 Albumin [Mass/Vol] 3.5 g/dL Normal 3.4-5.0 [facility] Comment on above: Performed By: #### B MP #### [facility] [address] [address] [address] Dale Ngo Calcium [Mass/Vol] 9.3 mg/dL Normal 8.5-10.1 [facility] Comment on above: Performed By: #### B MP #### [facility] [address] [address] [address] Dale Ngo Chloride [Moles/Vol] 105 mmol/L Normal 98-107 [facility] Comment on above: Performed By: #### B MP #### [facility] [address] [address] [address] Dale Ngo CO2 [Moles/Vol] 27.7 mmol/L Normal 21.0-32.0 [facility] Comment on above: Performed By: #### B MP #### [facility] [address] [place] [address] Dr. Dale Ngo Creatinine [Mass/Vol] 1.45 mg/dL Critically high 0.55-1.02 [facility] Comment on above: Performed By: #### B MP #### [facility] [address] [place] [address] Dr. Dale Ngo EGFR-AF COSTA RICAN 43 mL/min/1.73m2 Critically low >=60 [facility] Comment on above: Performed By: #### B MP #### [facility] [address] [place] [address] Dr. Dale Ngo EGFR-NON AF COSTA RICAN 35 mL/min/1.73m2 Critically low >=60 [facility] Comment on above: Performed By: #### B MP #### [facility] [address] [address] [address] Dale Ngo Glucose [Mass/Vol] 114 mg/dL Critically high 74-106 [facility] Comment on above: Performed By: #### B MP #### [facility] [address] [address] [address] Dale Ngo Phosphate [Mass/Vol] 3.9 mg/dL Normal 2.6-4.7 [facility] Comment on above: Performed By: #### B MP #### [facility] [address] [address] [address] Dale Ngo Potassium [Moles/Vol] 4.4 mmol/L Normal 3.5-5.1 [facility] Comment on above: Performed By: #### B MP #### [facility] [address] [place] [address] Dr. Dale Ngo Sodium [Moles/Vol] 141 mmol/L Normal 136-145 [facility] Comment on above: Performed By: #### B MP #### [facility] [address] [place] [address] Dr. Dale Ngo Urea nitrogen [Mass/Vol] 27.0 mg/dL Critically high 7.0-18.0 [facility] Comment on above: Performed By: #### B MP #### [facility] [address] [place] [address] Dr. Dale Ngo UA RANDOM W/MICROSCOPICon BACTERIA NONE SEEN Normal NONE SEEN [facility] Comment on above: Performed By: #### L ACT #### [facility] [address] [place] [address] Dr. Dale Ngo Bilirubin Ql (U) Negative Normal NEGATIVE [facility] Comment on above: Performed By: #### L ACT #### [facility] [address] [place] [address] Dr. Dale Ngo CAST SEEN Abnormal NONE SEEN [facility] Comment on above: Performed By: #### L ACT #### [facility] [address] [place] [address] Dr. Dale Ngo Clarity (U) CLEAR Normal CLEAR [facility] Comment on above: Performed By: #### L ACT #### [facility] [address] [place] [address] Dr. Dale Ngo Color (U) YELLOW Normal YELLOW [facility] Comment on above: Performed By: #### L ACT #### [facility] [address] [place] [address] Dr. Dale Ngo Crystals LM Nom (Urine sed) NONE SEEN Normal NONE SEEN [facility] Comment on above: Performed By: #### L ACT #### [facility] [address] [address] [address] Dale Ngo Epithelial cells LM Ql (Urine sed) FEW Abnormal NONE SEEN /RARE [facility] Comment on above: Performed By: #### L ACT #### [facility] [address] [place] [address] Dr. Dale Ngo Glucose Ql (U) Negative Normal NEGATIVE [facility] Comment on above: Performed By: #### L ACT #### [facility] [address] [place] [address] Dr. Dale Ngo Hemoglobin Ql (U) Negative Normal NEGATIVE [facility] Comment on above: Performed By: #### L ACT #### [facility] [address] [place] [address] Dr. Dale Ngo HYALINE CAST RARE Normal [facility] Comment on above: Result Comment: Prev iously reported as: RARE On 01/05/2022 14:08 By RC01 Performed By: #### L ACT #### [facility] [address] [place] [address] Dr. Dale Ngo Ketones Ql (U) Negative Normal NEGATIVE [facility] Comment on above: Performed By: #### L ACT #### [facility] [address] [place] [address] Dr. Dale Ngo LEUKOCYTES TRACE Abnormal NEGATIVE [facility] Comment on above: Performed By: #### L ACT #### [facility] [address] [place] [address] Dr. Dale Ngo MUCOUS NONE SEEN Normal NONE SEEN [facility] Comment on above: Performed By: #### L ACT #### [facility] [address] [place] [address] Dr. Dale Ngo Nitrite Ql (U) Negative Normal NEGATIVE [facility] Comment on above: Performed By: #### L ACT #### [facility] [address] [place] [address] Dr. Dale Ngo pH (U) 5.0 [pH] Normal 5-9 [facility] Comment on above: Performed By: #### L ACT #### [facility] [address] [place] [address] Dr. Dale Ngo RBC NONE SEEN Abnormal 0-2 [facility] Comment on above: Performed By: #### L ACT #### [facility] [address] [place] [address] Dr. Dale Ngo SPEC GRAVITY >=1.030 Abnormal 1.005-<=1.02 5 [facility] Comment on above: Performed By: #### L ACT #### [facility] [address] [place] [address] Dr. Dale Ngo UA PROTEIN Negative Normal NEGATIVE/ TRACE [facility] Comment on above: Performed By: #### L ACT #### [facility] [address] [place] [address] Dr. Dale Ngo Urobilinogen Qn (U) 0.2 {Tenisha'U}/dL Normal 0.2 - 1. 0 [facility] Comment on above: Performed By: #### L ACT #### [facility] [address] [place] [address] Dr. Dale Ngo WBC 2-5 Abnormal NONE SEEN [facility] Comment on above: Performed By: #### L ACT #### [facility] [address] [place] [address] Dr. Dale Ngo URIC ACID SERUMon 01-05-2022 Urate [Mass/Vol] 3.8 mg/dL Normal 2.6-6.0 [facility] Comment on above: Performed By: #### B MP #### [facility] [address] [place] [address] Dr. Dale Ngo URINE T PROTEIN CREAT RATIOo n 01-05-2022 Protein (U) [Mass/Vol] 19.9 mg/dL Critically high <=12.0 [facility] Comment on above: Performed By: #### B MP, AST, TSH #### [facility] [address] [place] [address] Dr. Dale Ngo UR PROT CREAT RAT 0.10 Normal [facility] Comment on above: Performed By: #### B MP, AST, TSH #### [facility] [address] [place] [address] Dr. Dale Ngo URINE CREAT 197.92 mg/dL Normal 20.00-300.00 [facility] Comment on above: Performed By: #### B MP, AST, TSH #### [facility] [address], [place] [address] Dr. Dale Ngo VITAMIN D 25 OHon 01-05-2022 VIT D 25-OH 69.6 ng/mL Normal [facility] Comment on above: Performed By: #### C BC #### [facility] [address], [place] [address] Dr. Dale Ngo VIT D RANGES SEE BELOW Normal [facility] Comment on above: Result Comment: <20 ng/mL Vit D deficient 20 - <30 ng/mL Vit D insufficient 30 - 100 ng/mL Vit D sufficient >100 ng/mL Potential Toxicity Performed By: #### C BC #### [facility] [address] [place], [place] [address] Dr. Dale Ngo Tobacco Screening.on 022 Fall risk assessment a) No falls within the last year -[facility] y 250 DO Work Phone: Tobacco use status CP b) No [facility] DO Work Phone: Coding Summary.on 06-22-2018 Coding Summary. CODING DATE: 06/22/[address] [facility] STATUS: Home (Routine DC) PAYOR: Medicare APC DESCRIPTION 5372 Level 2 Urology and Related Services ADMIT DX: REASON FOR VISIT DX: R31.21 Asymptomatic microscopic hematuria FINAL DX: PRINCIPAL: R31.21 Asymptomatic microscopic hematuria SECONDARY: N20.0 Calculus of kidney N28.1 Cyst of kidney, acquired R35.0 Frequency of micturition I48.91 Unspecified atrial fibrillation M10.9 Gout, unspecified I10 Essential (primary) hypertension Z79.01 retirement (current) use of anticoagulants E66.01 Morbid (severe) obesity due to excess calories PYMT PROC APC STAT DESCRIPTION DOCTOR NAME DATE NOTE: The code number assigned matches the documented diagnosis and / or procedure in the patient's chart. However, the narrative phrase printed from the coding software may appear abbreviated, or result in slightly different terminology. Coded By: Krystal Bertrand Saved: 06/22/2018 08:44 am Normal [facility] Main OR Intraoperative Recor don 06-21-2018 Main OR Intraoperative Record IntraOp Document Type FTURO Summary Primary Physician: Romeo Hammond Jr., MD Finalized Date/Time: 06/21/18 14:34:44 Pt. Name: GWEN WILCOX /Sex: 1950 Female Med Rec #: [id number] Physician: Romeo Hammond Jr., MD Financial #: [id number] Pt. Type: O Room/Bed: / Admit/Disch: 06/21/18 14:08:24 - Institution: Case Times FTURO Entry 1 Patient Times In Room 06/21/18 14:24:00 Out Room 06/21/18 14:34:00 Procedure Times Start 06/21/18 14:28:00 Stop 06/21/18 14:30:00 Anesthesia Times Last Modified By: LOUISE Boswell RNOR, Adenike Cortés 06/21/18 14:33:47 Case Attendance FTURO Entry 1 Entry 2 Entry 3 Case Attendee Romeo Hammond Jr., MD RN, CNOR, ViktoriaMilana Lester STAFF PHYSICAL THERAPY ASSISTANT, [facility] R Role Performed Surgeon - Primary Medical Billing Service - Primary Scrub - Primary Time In 06/21/18 14:26:00 06/21/18 14:24:00 06/21/18 14:24:00 Time Out 06/21/18 14:34:00 06/21/18 14:34:00 06/21/18 14:34:00 Procedure CYSTOSCOPY LOCAL(.) CYSTOSCOPY LOCAL(.) CYSTOSCOPY LOCAL(.) Comments Last Modified By: Andreia RN, CNOR, Adenike Boswell RN, CNOR, Adenike Boswell RN, CNOR, Viktoria 06/21/18 14:33:48 06/21/18 14:33:48 06/21/18 14:33:48 Surgical [...] ILDA Boswell RN, Lou Applicable) Tayler Cortés STAFF PHYSICAL THERAPY ASSISTANT, Maira R Time Out Complete 06/21/18 14:26:00 Allergies [...] Boswell RN, Lou Ann 06/21/18 14:34 Normal [facility] Main OR Preoperative Recordo n 06-21-2018 Main OR Preoperative Record Holding Area Document Type FTURO Summary Primary Physician: Manish Ludwig MD, Romeo Miranda Finalized Date/Time: 06/21/18 14:34:35 Pt. Name: GWEN WILCOX /Sex: 1950 Female Med Rec #: [id number] Physician: Romeo Hammond Jr., MD Financial #: [id number] Pt. Type: O Room/Bed: / Admit/Disch: 06/21/18 [...] of Pain: No Comment: Skin Integrity Intact, [place], Warm, & Dry Vitals - EU Blood Pressure 158/87 Pulse 66 bpm Respirations 18 br/min SPO2 Additional None RN Reviewed Yes Specimens Collected Last Modified By: ILDA Boswell RN, Lou Ann 06/21/18 14:34:31 Finalized By: ILDA Boswell RN, Lou Ann Document Signatures Signed By: Jagruti Garcia LPN 06/21/18 14:19 ILDA Boswell RN, Lou Ann 06/21/18 14:34 Normal [facility] Operative Reporton 8 Operative Report Patient: GWEN WILCOX Age: 67 years Sex: Female : 1950 Associated Diagnoses: None Author: Romeo Hammond Jr., MD Procedure Operative Information Details: Date/ Time: 06/21/18 [...] with antibiotic coverage, Follow up arranged. Normal [facility] Comment on above: Result Comment: Elec tronically Signed By: Manish Ludwig MD, Romeo Miranda\.zeb\Date and Time Signed: 06/21/18 14:37 EDT Vital Signs Date Time Vital Sign Value Performing Clinician Facility 06-01-2023 11:40-0400 Body height 154.94 cm Guillermo Alaniz Other [facility] Other 06-01-2023 11:40-0400 Body mass index (BMI) [Ratio] 40.35 kg/m2 Guillermo Corbin Other [facility] Other 06-01-2023 11:40-0400 Body temperature 96.6 [degF] Guillermo Corbin Other [facility] Other 10-12-2023 11:40-0400 Body weight 96.89 kg Guillermo Corbin Other [facility] Other 06-01-2023 11:40-0400 Diastolic blood pressure 77 mm[Hg] Guillermo Corbin Other [facility] Other 06-01-2023 11:40-0400 Respiratory rate 18 /min Guillermo Corbin Other [facility] Other 06-01-2023 11:40-0400 SaO2% (BldA) [Mass fraction] 96 % Guillermo Corbin Other [facility] Other 06-01-2023 11:40-0400 Systolic blood pressure 157 mm[Hg] Guillermo Corbin Other [facility] Other 09-22-2022 10:31-0500 Body height 154.94 cm George Integrate Hoy Work Phone: [facility] [place] 250 DO Work Phone: 09-22-2022 10:31-0500 Body mass index (BMI) [Ratio] 38.92 kg/m2 George M Hoy Work Phone: [facility] 250 DO Work Phone: 09-22-2022 10:31-0500 Body surface area Derived from formula 1.91 m2 George M Hoy Work Phone: [facility] 250 DO Work Phone: 09-22-2022 10:31-0500 Body weight 93.44 kg George M Hoy Work Phone: [facility] 250 DO Work Phone: 09-22-2022 10:31-0500 Diastolic blood pressure 86 mm[Hg] George M Hoy Work Phone: [facility] 250 DO Work Phone: 09-22-2022 10:31-0500 Heart rate 60 /min George Ozuna Work Phone: [facility] 250 DO Work Phone: 09-22-2022 10:31-0500 Systolic blood pressure 136 mm[Hg] George Ozuna Work Phone: [facility] 250 DO Work Phone: 06-30-2022 15:00-0500 Body height 154.94 cm Guillermo Corbin Other [facility] Other 06-30-2022 15:00-0500 Body mass index (BMI) [Ratio] 39.03 kg/m2 Guillermo Corbin Other [facility] Other 06-30-2022 15:00-0500 Body temperature 96.8 [degF] Guillermo Corbin Other [facility] Other 06-30-2022 15:00-0500 Body weight 93.71 kg Guillermo Corbin Other [facility] Other 06-30-2022 15:00-0500 Diastolic blood pressure 80 mm[Hg] Guillermo Corbin Other [facility] Other 06-30-2022 15:00-0500 Respiratory rate 18 /min Guillermo Corbin Other [facility] Other 06-30-2022 15:00-0500 SaO2% (BldA) [Mass fraction] 96 % Guillermo Corbin Other [facility] Other 06-30-2022 15:00-0500 Systolic blood pressure 126 mm[Hg] Guillermo Alaniz Other [facility] [employer] Other 03-10-2022 14:45-0400 Body height 154.94 cm George M Hoy Work Phone: [facility] 250 DO Work Phone: 03-10-2022 14:45-0400 Body mass index (BMI) [Ratio] 39.49 kg/m2 George M Hoy Work Phone: [facility] 250 DO Work Phone: 03-10-2022 14:45-0400 Body surface area Derived from formula 1.92 m2 George M Hoy Work Phone: [facility] 250 DO Work Phone: 03-10-2022 14:45-0400 Body weight 94.8 kg George M Hoy Work Phone: [facility] 250 DO Work Phone: 03-10-2022 14:45-0400 Diastolic blood pressure 74 mm[Hg] George M Hoy Work Phone: [facility] 250 DO Work Phone: 03-10-2022 14:45-0400 Heart rate 60 /min George M Hoy Work Phone: [facility] 250 DO Work Phone: 03-10-2022 14:45-0400 Systolic blood pressure 102 mm[Hg] George M Hoy Work Phone: [facility] 250 DO Work Phone: 09-07-2021 10:10-0500 Body height 154.94 cm George M Hoy Work Phone: [facility] 250 DO Work Phone: 09-07-2021 10:10-0500 Body mass index (BMI) [Ratio] 40.81 kg/m2 George M Hoy Work Phone: [facility] 250 DO Work Phone: 09-07-2021 10:10-0500 Body surface area Derived from formula 1.95 m2 George M Hoy Work Phone: [facility] 250 DO Work Phone: 09-07-2021 10:10-0500 Body weight 97.98 kg Geogre M Hoy Work Phone: [facility] 250 DO Work Phone: 09-07-2021 10:10-0500 Diastolic blood pressure 68 mm[Hg] George M Hoy Work Phone: [facility] 250 DO Work Phone: 09-07-2021 10:10-0500 Heart rate 61 /min George M Hoy Work Phone: [facility] 250 DO Work Phone: 09-07-2021 10:10-0500 Systolic blood pressure 108 mm[Hg] Georeg M Hoy Work Phone: [facility] 250 DO Work Phone: 08-25-2021 08:15-0500 60 1 George M Hoy Work Phone: [facility] 250 DO Work Phone: Comment on above: [id number] 06-24-2021 14:20-0400 Body height 154.94 cm Guillermo Corbin Other [facility] Other 06-24-2021 14:20-0400 Body mass index (BMI) [Ratio] 41.22 kg/m2 Guillermo Corbin Other [facility] Other 06-24-2021 14:20-0400 Body temperature 96.4 [degF] Guillermo Corbin Other [facility] Other 06-24-2021 14:20-0400 Body weight 98.98 kg Guillermo Corbin Other [facility] Other 06-24-2021 14:20-0400 Diastolic blood pressure 70 mm[Hg] Guillermo Corbin Other [facility] Other 06-24-2021 14:20-0400 Respiratory rate 18 /min Guillermo Corbin Other [facility] Other 06-24-2021 14:20-0400 SaO2% (BldA) [Mass fraction] 95 % Guillermo Corbin Other [facility] Other 06-24-2021 14:20-0400 Systolic blood pressure 120 mm[Hg] Guillermo Corbin Other [facility] Other Encounters Encounter Date Encounter Type Care Provider Facility Start: 02-19-2024 End: 02-19-2024 Patient encounter procedure MD George Ozuna Work Phone: [facility] Start: 02-19-2024 End: 02-19-2024 ambulatory MD George Ozuna Work Phone: [facility] Work Phone: Start: 11-17-2023 End: 11-17-2023 Patient encounter procedure MD George Ozuna Work Phone: [facility] Start: 11-17-2023 End: 11-17-2023 ambulatory MD George Ozuna Work Phone: [facility] Work Phone: Start: 09-27-2023 End: 09-27-2023 ambulatory [facility] Start: 08-18-2023 End: 08-18-2023 Patient encounter procedure MD George Ozuna Work Phone: [facility] Start: 08-18-2023 End: 08-18-2023 ambulatory MD George Ozuna Work Phone: [facility] Work Phone: Start: 07-11-2023 End: 07-11-2023 ambulatory Guillermo Corbin Other [facility] Other Start: 07-11-2023 Telephone encounter Guillermo Corbin [facility] Start: 06-01-2023 End: 06-01-2023 ambulatory Guillermo Corbin Other [facility] Other Start: 06-01-2023 Office outpatient vi sit 25 minutes Guillermo Corbin [facility] Manny Start: 05-18-2023 End: 05-18-[address] George Ozuna Facility:[id number] Start: 02-13-[address] George Ozuna Facility:[id number] Start: 02-13-2023 End: 02-13-2023 ambulatory MD George Ozuna Work Phone: [facility] Work Phone: Start: 02-13-2023 End: 02-13-2023 Patient encounter procedure MD George Ozuna Work Phone: [facility] Start: 11-30-2022 End: 12-01-2022 ambulatory JAVIER MEDINA Facility:H1 Start: 11-10-2022 End: 11-10-2022 ambulatory MD George Ozuna Work Phone: [facility] Work Phone: Start: 11-10-2022 End: 11-10-2022 Patient encounter procedure MD George Ozuna Work Phone: [facility] Start: 11-10-[address] George Ozuna Facility:[id number] Start: 10-17-2022 End: 10-19-2022 Evaluation and management of inpatient DR GEORGE OZUNA . Facility:H1 Start: 09-22-2022 Office outpatient vi sit 25 minutes George Ozuna Work Phone: [facility] 250 DO Work Phone: Start: 09-22-[address] Jose Francisco Howard Facility: Start: 09-16-2022 End: 09-16-2022 ambulatory Guillermo Corbin Other [facility] Other Start: 09-16-2022 Telephone encounter Guillermo Corbin [facility] Start: 09-12-2022 End: 09-12-2022 ambulatory Guillermo Corbin Other [facility] Other Start: 09-12-2022 Telephone encounter Guillermo Corbin [facility] Start: 09-05-2022 Rx Renewal [facility] Ozuna [facility] DO Work Phone: Start: 08-11-2022 End: 08-11-2022 Patient encounter procedure MD George Ozuna Work Phone: [facility] Start: 08-11-2022 End: 08-11-2022 ambulatory MD George Ozuna Work Phone: [facility] Work Phone: Start: 06-30-2022 End: 06-30-2022 ambulatory Guillermo Corbin Other [facility] Other Start: 06-30-2022 Office outpatient vi sit 25 minutes Guillermo Corbin [facility] [place] Start: 06-24-2022 End: 06-25-2022 ambulatory GUILLERMO CORBIN Facility:H1 Start: 06-04-2022 End: 06-05-[address] GEORGE OZUNA . Facility:H1 Start: 05-23-2022 End: 05-24-2022 ambulatory AQUILINO FARIA Facility:H1 Start: 05-13-2022 End: 05-13-2022 Patient encounter procedure MD George Ozuna Work Phone: [facility] Start: 03-10-2022 Office outpatient vi sit 25 minutes George Ozuna Work Phone: [facility] 250 DO Work Phone: Start: 02-04-2022 End: 02-04-2022 ambulatory Guillermo Corbin Other [facility] Other Start: 02-04-2022 Telephone encounter Guillermo Corbin [facility] Start: 01-14-2022 End: 01-15-[address] MELINDA LOVE Facility:H1 Start: 01-10-2022 End: 01-11-[address] GEORGE OZUNA . Facility:H1 Start: 01-05-2022 End: 01-06-2022 ambulatory GUILLERMO CORBIN Facility:H1 Start: 12-23-2021 Patient encounter procedure George Monet Laith Work Phone: [facility] 600 DO Work Phone: Start: 09-07-2021 Patient encounter procedure George M Payalbasil Work Phone: [facility] 250 DO Work Phone: Start: 06-24-2021 End: 06-24-2021 ambulatory Guillermo Corbin Other [facility] Other Start: 06-24-2021 Office outpatient vi sit 25 minutes Guillermo Corbin [facility] Start: 06-21-2018 End: 06-22-2018 Patient encounter procedure Yvan Razo Facility:[facility] Procedures Date Procedure Procedure Detail Performing Clinician Start: 09-27-2023 ECG 12-LEAD JOSE FRANCISCO SCHNEIDER History of percutane ous transluminal coronary angioplasty History of PTCA George Ozuna Work Phone: History of placement of stent for coronary artery disease Status post insertion of drug eluting coronary artery stent George Ozuna Work Phone: Hysterectomy George Ozuna Work Phone: Insertion of pacemak er pulse generator George Ozuna Work Phone: Percutaneous transluminal coronary angioplasty George Ozuna Work Phone: Tonsillectomy and adenoidectomy George Ozuna Work Phone: NEGATED: Highlighted row has not occurred! Colonoscopy George Ozuna Work Phone: Plan of Treatment Date Care Activity Detail Author Start: 09-27-2023 FUV, Provider: Jose Francisco Howard, Status: Pen, Time: 10:30 AM [facility]UV, Provider: Jose Francisco Howard, Status: Pen, Time: 10:30 AM [facility] 250 DO Work Phone: Start: 09-22-2022 FUV, Provider: Jose Francisco Howard, Status: Pen, Time: 10:30 AM [facility], Provider: Jose Francisco Howard, Status: Pen, Time: 10:30 AM [facility] 250 DO Work Phone: Start: 03-09-2022 FUV, Provider: Jose Francisco Howard, Status: Pen, Time: 9:50 AM [facility], Provider: Jose Francisco Howard, Status: Pen, Time: 9:50 AM [facility] 250 DO Work Phone: Payers Date Payer Category Payer Self-pay [id number] 1961 Medicare [id number] 1950 Unknown [id number] 2.16.84 [id number] 1950 Unknown [id number] 2.16.84 0.1.622843.3.579.2.593 1950 Unknown [id number] 2.16.84 0.1.832038.3.579.2.593 1950 Unknown [id number] 2.16.84 0.1.358341.3.579.2.593 1950 Unknown [id number] 2.16.84 0.1.468925.3.579.2.593 1948 Unknown [id number] 2.16.84 0.1.698538.3.579.2.593 1948 Unknown [id number] 2.16.84 0.1.232931.3.579.2.593 1950 Unknown [id number] 2.16.84 0.1.579687.3.579.2.593 1948 Unknown [id number] 2.16.84 0.1.711652.3.579.2.593 1948 Unknown [id number] 2.16. 840.1.728973.3.579.2.356 1950 Unknown [id number] 2.16. 840.1.850895.3.579.2.356 1950 Unknown [id number] 2.16. 840.1.485092.3.579.2.356 1950 Unknown [id number] 2.16. 840.1.012243.3.579.2.356 1950 Unknown [id number] 2.16. 840.1.159732.3.579.2.356 1950 Unknown [id number] 2.16.8 40.1.962229.3.579.2.1244 Unknown Unknown HCAP/HFA/FAP Active [id number] Unknown [id number] 2.16.8 40.1.455796.3.579.2.531 Unknown [id number] 2.16.8 40.1.158123.3.579.2.531 Unknown [id number] 2.16.8 40.1.070849.3.579.2.531 Unknown [id number] 2.16.8 40.1.110305.3.579.2.531 Social History Date Type Detail Facility No alcohol use No alcohol use [facility] [employer] Other Sex Assigned At Sex Assigned At Bir th [facility] Other Start: 08-24-2021 End: 08-24-2021 Tobacco smoking status NHIS Never smoked tobacco (finding) [facility] Start: 1950 Sex Assigned At Female F [facility] Medical Equipment Procedure Code Equipment Code Equipment Origin al Text Equipment Identifier Dates Drug-eluting coronary artery stent, [id number] lymer-coated ()[id number] [facility] Start: 08-24-2021 Drug-eluting coronary artery stent, [id number] lymer-coated ()[id number] [facility] Start: 08-24-2021 Clinical Notes 06-24-2021 to 07-11-2023 Note Date & Type Note Facility 07-11-2023 Evaluation note Encounter Date Diagnosis Assessment Notes Jun, Secondary hyperparathyroidism (ICD-10 - N25.81) [facility] [employer] Other [id number] Evaluation note* Encounter Date Diagnosis Assessment Notes [...] Continue statins. Monitor LFTs and lipid profile [facility] Other 01-27-2023 Evaluation note* Encounter Date Diagnosis Assessment Notes Treatment Notes Treatment Clinical Notes Aug, Secondary hyperparathyroidism (ICD-10 - N25.81) [facility] Other 01-23-2023 Evaluation note* Encounter Date Diagnosis Assessment Notes Treatment Notes Treatment Clinical Notes Aug, Secondary hyperparathyroidism (ICD-10 - N25.81) [facility] Other 11-10-2022 Evaluation note* Encounter Date Diagnosis Assessment Notes Treatment Notes Treatment Clinical Notes Jun, Hypertensive chronic kidney disease with stage 1 through stage 4 chronic kidney disease, or unspecified chronic kidney disease (ICD-10 - I12.9) Her Blood pressure is controlled and appears to be euvolemic. Continue Lisinopril Jun, Chronic kidney disea se, stage 3b (ICD-10 [...] within the target goal. Continue oral allopurinol. 10 Jun, 2022 Microscopic hematuri a (ICD-10 - R31.29) She has transient hematuria and was seen by Urologist Dr. Hammond. Jun, Hyperkalemia (ICD-10 - E87.5) Her serum Potassium is normal. Continue low potassium diet. [facility] Other 06-17-2022 Evaluation note* Encounter Date Diagnosis Assessment Notes Treatment Notes Treatment Clinical Notes Jan, Secondary hyperparathyroidism (ICD-10 - N25.81) [facility] Other 01-01-2022 History general Narrative - Reported* Type Description Date Medical History hypertension Medical History Arthritis Medical History Gout Medical History A fib Medical History osteoporsis Medical History HEART ATTACK IN AUGUST 2021 Surgical History hysterectomy 1991 Surgical History cardiac pacemeker 05/2016 Surgical History tonsillectomy 1950 Surgical History HEART STENT PLACEMENT X 2 Hospitalization History see above surgical histo ry Hospitalization History A-fib Hospitalization History HEART ATTACK 08/2021 [facility] Other 01-01-2022 History general Narrative - Reported* Type Description Date Medical History hypertension Medical History Arthritis Medical History Gout Medical History A fib Medical History osteoporsis Medical History HEART ATTACK IN AUGUST 2021 Medical History KIDNEY INFECTION, AND SEPSIS 09/22 023 Surgical History hysterectomy 1991 Surgical History cardiac pacemeker 05/2016 Surgical History tonsillectomy 1950s Surgical History HEART STENT PLACEMENT X 2 Hospitalization History see above surgical histo ry Hospitalization History A-fib Hospitalization History HEART ATTACK 08/2021 Hospitalization History SEPSIS AND URINARY TRACT INFECTION 09/2022 [facility] Other 11-04-2021 Evaluation note* Encounter Date Diagnosis [...] normal. Continue Lasix and low K diet [facility] Other Evaluation noteNo assessment information available [facility] Work Phone: History general Narrative - Reported* Type Description Date Medical History hypertension Medical History Arthritis Medical History Gout Medical History A fib Medical History osteoporsis Surgical History hysterectomy 1991 Surgical History cardiac pacemeker 05/2016 Surgical History tonsillectomy 1950s Hospitalization History see above surgical histo ry Hospitalization History A-fib [facility] Other Summary Purpose Family History No Family [...] of cerebral a neurysm: Sister(V17.1, Z82.49) Status:Active Relationship Condition Age at Onset Recorded Date/T yayo brother Malignant neoplasm Unknown Unknown father Malignant neoplasm Unknown Heart disease Unknown Hypertension Unknown Not Specified Unknown sister Unknown Relationship Condition Age at Onset Recorded Date/T yayo brother Malignant neoplasm Unknown Unknown father Malignant neoplasm Unknown Heart disease Unknown Hypertension Unknown mother Unknown sister Unknown Advance Directives No Advanced Directives Records Found Advance Directive Response Recorded Date/ Time Advance Directives No August 24, 2021 5:04pm Advance Directive Response Recorded Date/ Time Advance Directives No August 24, 2021 4:04pm Chief Complaint Amiodarone order sent to [facility] for December* GWEN WILCOX is being seen for a 6 month follow-up of. * 71-year-old female who returns for follow-up, her only complaints are increasing shortness of breath and dyspnea. She sustained inferior ST elevation LA in August of this year with revascularizationof the RCA. She has a history of paroxysmal A. 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 She has underlying obesity, pacemaker for reportedly [...] section and content) DATE CREATED AUTHOR 07/29/2018 [facility] [employer] [facility] DATE CREATED AUTHOR AUTHOR'S ORGANIZ ATION 09/23/2022 [employer] DATE CREATED AUTHOR AUTHOR'S ORGANIZ ATION 12/05/2022 [facility] DATE CREATED AUTHOR AUTHOR'S ORGANIZ ATION 05/28/2023 [facility] DATE CREATED AUTHOR AUTHOR'S ORGANIZ ATION 10/02/2023 [facility] DATE CREATED AUTHOR AUTHOR'S ORGANIZ ATION 02/21/2024 [facility] REASON FOR VISIT (unrecogniz ed section and content) CKDClinicalCKD and HTNREFILL ClinicalCKD and HTNREFILL Care Teams (unrecognized sec tion and content) Team Status: Active Member Role Status Leonardo Ozuna MD Primary Care Provider Active Team Status: Inactive Member Role Status Leonardo Ozuna MD Primary Care Provider Active W Diego Howard DO Attending Provider Active Team Status: Inactive Member Role Status Leonardo Ozuna MD Primary Care Provider Active Start: November 17, 2023 End: November 17, 2023 W Diego Howard DO Attending Provider Active S tart: November 17, 2023 End: November 17, 2023 Team Status: Inactive Member Role Status Leonardo Ozuna MD Primary Care Provider Active Start: February 19, 2024 End: February 19, 2024 W Diego Howard DO Attending Provider Active S tart: February 19, 2024 End: February 19, 2024 Goals (unrecognized section and content) Goals may [...] BE BASED ON THE PRIMARY CLINICAL RECORDS. [employer] provides no warranty or guarantee of the accuracy or completeness of information in this document.
[2024-04-25 10:24] LABS: Creatinine Urine Random 85.05 mg/dL (20.00-300.00); Protein Creatinine Ratio Urine 0.13; Total Protein Urine Random 10.8 mg/dL (<=11.9)
[2024-04-25 10:33] LABS: Hemoglobin 13.4 g/dL (12.0-16.0); Mean Corpuscular HGB Conc 32.7 g/dL (29.9-35.2); Mean Corpuscular Hemoglobin 29.9 pg (26.7-34.0); Mean Corpuscular Volume 91.5 fL (81.0-99.0); Mean Platelet Volume 10.7 fL (9.5-13.5); Platelet Count 279 10^3/uL (150-450); Red Blood Count 4.48 10^6/uL (4.20-5.40); Red Cell Distribution Width 13.1 % (11.0-15.0); White Blood Count 6.7 10^3/uL (4.0-11.0)
[2024-04-25 10:34] LABS: Bilirubin Urine NEGATIVE (NEGATIVE); Blood Urine NEGATIVE (NEGATIVE); Clarity Urine CLEAR (CLEAR); Color Urine LT. YELLOW (YELLOW); Glucose Urine UA NEGATIVE (NEGATIVE); Ketones Urine NEGATIVE (NEGATIVE); Leukocyte Esterase Urine TRACE (NEGATIVE); Nitrite Urine NEGATIVE (NEGATIVE); Protein Urine NEGATIVE (NEG/TRACE); Urobilinogen Urine 0.2 EU/dL (0.2-1.0)
[2024-04-25 10:46] LABS: Bacteria Urine TRACE #/HPF (NONE SEEN); RBC Urine NONE SEEN #/HPF (0-2)
[2024-04-25 10:47] LABS: Mucus Urine NONE SEEN (NONE SEEN); Squamous Epithelial Cell Urine MODERATE #/LPF (NONE/RARE)
[2024-04-25 10:56] LABS: Albumin Level 3.3 g/dL (3.4-5.0); Anion Gap 12.6; BUN Creatinine Ratio 19.6; Calcium 9.1 mg/dL (8.5-10.1); Carbon Dioxide 27.9 mmol/L (21.0-32.0); Chloride 105 mmol/L (98-107); Estimated GFR (African America 43 (>=60); Estimated GFR (Non-African Ame 36 (>=60); Glucose 101 mg/dL (74-106); Phosphorus 2.8 mg/dL (2.6-4.7); Potassium 4.5 mmol/L (3.5-5.1); Sodium 141 mmol/L (136-145); Uric Acid 4.6 mg/dL (2.6-6.0)
[2024-04-26 12:09] LABS: PTH, Intact 108 pg/mL (15-65)
== END 2024-04-25 09:21 | disposition home or self-care (01) ==
LOC: LAB 09:22
PROVIDERS: PCP Family Medicine; Visit Provider Internal Medicine
DX: I12.9 Hypertensive chronic kidney disease with stage 1 through stage 4 chronic kidney disease, or unspecified chronic kidney disease (principal); N18.32 Chronic kidney disease, stage 3b; N25.81 Secondary hyperparathyroidism of renal origin; E79.0 Hyperuricemia without signs of inflammatory arthritis and tophaceous disease; R31.29 Other microscopic hematuria; E87.5 Hyperkalemia
CPT/HCPCS: 36415; 80069; 81001; 82306; 82570; 83735; 83970; 84156; 84550; 85027

== ENCOUNTER 2024-05-02 13:54 | Outpatient (OUT) | payer MEDICARE, SELFPAY ==
[2024-05-02 14:46] LABS: Estimated Average Glucose 111 mg/dL; Glycohemoglobin A1C 5.5 % (4.5-6.2)
[2024-05-02 15:36] LABS: Alanine Aminotransferase 25 U/L (14-59); Albumin Globulin Ratio 0.9; Albumin Level 3.5 g/dL (3.4-5.0); Alkaline Phosphatase 125 U/L (46-116); Aspartate Amino Transferase 23 U/L (15-37); Bilirubin Direct 0.2 mg/dL (0.0-0.2); Bilirubin Total 0.7 mg/dL (0.2-1.0); Chol HDL Ratio 4.3; Cholesterol 251 mg/dL (<=200); Globulin 4.1 g/dL; HDL Cholesterol 58 mg/dL (40-60); Total Protein 7.6 g/dL (6.4-8.2); Triglycerides 85 mg/dL (<=150)
== END 2024-05-02 13:55 | disposition home or self-care (01) ==
LOC: LAB 13:56
PROVIDERS: PCP Family Medicine; Visit Provider Family Medicine
DX: E78.5 Hyperlipidemia, unspecified (principal); E11.9 Type 2 diabetes mellitus without complications
CPT/HCPCS: 36415; 80061; 80076; 83036

== ENCOUNTER 2024-10-11 14:42 | Outpatient (OUT) | payer MEDICARE, SELFPAY ==
[2024-10-11 15:29] LABS: Estimated Average Glucose 117 mg/dL; Glycohemoglobin A1C 5.7 % (4.5-6.2)
[2024-10-11 15:41] LABS: Basophils Percent Auto 0.7 % (0.2-2.0); Eosinophils Absolute Auto 0.1 10^3/uL (0.0-0.7); Eosinophils Percent Auto 2.6 % (0.9-7.0); Hematocrit 45.4 % (36.0-48.0); Hemoglobin 14.5 g/dL (12.0-16.0); Immature Granulocytes Abs Auto 0.01 10^3/uL (0.00-0.03); Immature Granulocytes Pct Auto 0.2 % (0.0-0.5); Lymphocytes Absolute Auto 1.5 10^3/uL (1.2-3.8); Lymphocytes Percent Auto 28.8 % (20.5-60.0); Mean Corpuscular HGB Conc 31.9 g/dL (29.9-35.2); Mean Corpuscular Hemoglobin 28.7 pg (26.7-34.0); Mean Corpuscular Volume 89.9 fL (81.0-99.0); Mean Platelet Volume 10.1 fL (9.5-13.5); Monocytes Absolute Auto 0.3 10^3/uL (0.3-0.8); Neutrophils Absolute Auto 3.3 10^3/uL (1.4-6.5); Neutrophils Percent Auto 61.7 % (43.0-75.0); Platelet Count 322 10^3/uL (150-450); Red Blood Count 5.05 10^6/uL (4.20-5.40); Red Cell Distribution Width 13.1 % (11.0-15.0); White Blood Count 5.4 10^3/uL (4.0-11.0)
[2024-10-11 16:10] LABS: Alanine Aminotransferase 30 U/L (14-59); Albumin Globulin Ratio 0.8; Albumin Level 3.4 g/dL (3.4-5.0); Alkaline Phosphatase 154 U/L (46-116); Anion Gap 10.1; Aspartate Amino Transferase 30 U/L (15-37); Bilirubin Total 0.6 mg/dL (0.2-1.0); Calcium 9.4 mg/dL (8.5-10.1); Carbon Dioxide 27.8 mmol/L (21.0-32.0); Chloride 104 mmol/L (98-107); Chol HDL Ratio 4.6; Cholesterol 259 mg/dL (<=200); Estimated GFR (African America 36 (>=60 mL/min/1.73m^2); Estimated GFR (Non-African Ame 30 (>=60 mL/min/1.73m^2); Free T3 1.41 pg/mL (2.18-3.98); Globulin 4.5 g/dL; Glucose 108 mg/dL (74-106); HDL Cholesterol 56 mg/dL (40-60); Potassium 3.9 mmol/L (3.5-5.1); Sodium 138 mmol/L (136-145); Thyroid Stimulating Hormone 2.481 uIU/mL (0.358-3.740); Total Protein 7.9 g/dL (6.4-8.2); Triglycerides 97 mg/dL (<=150); VLDL CHOLESTEROL 19.4 mg/dL
== END 2024-10-11 14:43 ==
LOC: LAB 10-16 12:10
PROVIDERS: PCP Family Medicine; Visit Provider Family Medicine
DX: E78.5 Hyperlipidemia, unspecified (principal); I48.0 Paroxysmal atrial fibrillation; E04.2 Nontoxic multinodular goiter; E11.9 Type 2 diabetes mellitus without complications; R53.83 Other fatigue
CPT/HCPCS: 36415; 80053; 80061; 82306; 83036; 83540; 83880; 84436; 84443; 84481; 85025

== ENCOUNTER 2024-10-23 12:20 | Outpatient (OUT) | payer MEDICARE, SELFPAY ==
--- NOTE | 2024-10-23 | XR_ITS ---
The [address] [address] Patient Name: ROBERT COBOS MRN: [id number] date: 1950 Sex: F Assigned Patient Location: CARD Current Patient Location: CARD Accession/Order Number: [id number] Exam Date: 10/23/2024 23:17 Report Date: 10/23/2024 23:18 At the request of: JOSE FRANCISCO HOWARD Procedure: XR chest 2V Chest 2 views CLINICAL HISTORY: High risk medication use Z79.899 COMPARISON: Chest 11/30/2022 FINDINGS: Pacemaker device in place. Heart is normal in size. Lungs are clear. No free air. XR/XR chest 2V IMPRESSION: NO ACUTE CARDIOPULMONARY ABNORMALITY. Impression dictated by: Julio Avalos Jr., D.O.10/23/2024 11:18 PM Dictation Location: [place] [address] Electronically authenticated by: [id number] Y Date: 10/23/2024 23:18
--- OUTSIDE RECORDS SUMMARY | 2024-10-23 12:30 | XMS_ITS | CCD ---
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 Name Role Phone Yvan Razo W Unavailable Unavailable Rice, Yvan W Unavailable Unavailable Rice, Yvan W Unavailable Unavailable George Ozuna~[phone] UNKNOWN Unavailable Unavailable George Ozuna Unavailable Unavailable Unavailable Guillermo Alaniz Unavailable MD George Ozuna Primary Care Provider [phone] DO Mahsa Howard Attending Provider [phone] MD George Ozuna Primary Care Provider [phone] DO Mahsa Howard Attending Provider MD George Ozuna Primary Care Provider [phone] DO Mahsa Howard Attending Provider NISA Patrick, DR VAZQUEZ Consulting Unavailable NISA ., DR VAZQUEZ Primary Care Unavailable NISA ., DR VAZQUEZ Attending Unavailable NISA ., DR VAZQUEZ Admitting Unavailable IVAN, DR MELINDA Barber Consulting Unavailable GUILLERMO ALANIZ Consulting Unavailable NISA Patrick, DR VAZQUEZ Primary Care Unavailable GUILLERMO ALANIZ Attending Unavailable CROBIN, GUILLERMO Admitting Unavailable JAVIER MEDINA Consulting Unavailable NISA Patrick, DR VAZQUEZ Primary Care Unavailable NIXON, DR MALCOM Pedro Attending Unavailabl herbert HOWARD, DR MALCOM Pedro Admitting Unavailabl herbert HOWARD, DR MALCOM Pedro Consulting Unavailabl e IVAN, DR MELINDA Barber Consulting Unavailable NISA Patrick, DR VAZQUEZ Primary Care Unavailable NIXON, DR MALCOM Pedro Attending Unavailabl e NIXON, DR MALCOM Pedro Admitting Unavailabl e NIXON, DR MALCOM Pedro Consulting Unavailabl e CORBIN, GUILLERMO Consulting Unavailable NISA Patrick, DR VAZQUEZ Primary Care Unavailable NISA Patrick, DR VAZQUEZ Referring Unavailable CORBIN, GUILLERMO Attending Unavailable CORBIN, GUILLERMO Admitting Unavailable HOY ., DR VAZQUEZ Consulting Unavailable HOY ., DR VAZQUEZ Attending Unavailable HOY ., DR VAZQUEZ Admitting Unavailable HOY ., DR VAZQUEZ Primary Care Unavailable YUNG GARCIA Consulting Unavailable SELVIN, AUSTIN Consulting Unavailable SULMEA, RUDDY Consulting Unavailable Claire, Ally Consulting Unavailable KLIPPJUVE, JAVIER Consulting Unavailable LINTON, ADENIKE Consulting Unavailable HOY ., DR VAZQUEZ Consulting Unavailable HOY ., DR VAZQUEZ Primary Care Unavailable HOY ., DR VAZQUEZ Attending Unavailable HOY ., DR VAZQUEZ Admitting Unavailable NEFAQUILINO CONROY Consulting Unavailable PAYALY ., DR VAZQUEZ Primary Care Unavailable NIXON, DR MALCOM Pedro Attending Unavailnitin HOWARD, DR MALCOM Pedro Admitting Unavailnitin HOWARD, DR MALCOM Pedro Consulting UnavailMD George Wolfe Primary Care Provider [phone] Mahsa Howard Attending Provider [phone] Dr. George Ozuna Primary Care Unavail able Nisa, Dr. George Doe Primary Care Unavail able Nisa, Dr. George Doe Primary Care Unavail able Nixon, Dr. Malcom Cortez Attending Unava ilable Nixon, Dr. Malcom Cortez Referring Unamichelle Ozuna, Dr. George Doe Primary Care Unavail able Nisa, Dr. George Doe Primary Care Unavail able MD George Ozuna Primary Care Provider [phone] DO Mahsa Howard Attending Provider MD George Ozuna Primary Care Provider [phone] DO Mahsa Howard Attending Provider [phone] MD George Ozuna Primary Care Provider [phone] DO Mahsa Howard Attending Provider [phone] MD George Ozuna Primary Care Provider [phone] DO Mahsa Howard Attending Provider Mahsa Howard Attending Unavailable Mahsa Howard Admitting Unavailable George Ozuna Primary Care Unavailable Mahsa Howard Attending Unavailable Mahsa Howard Admitting Unavailable George Ozuna Primary Care Unavailable Mahsa Howard Attending Unavailable Mahsa Howard Admitting Unavailable George Ozuna M Primary Care Unavailable Mahsa Howard Attending Unavailable George Ozuna Primary Care Unavailable Mahsa Howard Admitting Unavailable George Ozuna MD Primary Care Provider [phone] MALCOM HOWARD Attending Unavailable MALCOM HOWARD Referring Unavailable GEORGE OZUNA Primary Care Unavailable Allergies Allergy Classification Reported Allergen(s) Allergy Type Date of Onset Reaction(s) Facility (1 source) No Known Medication Allergies; Translations: [No Known Medication Allergies] Propensity to adverse reactions (disorder) [facility] Repository Medications Current Medications Medication Drug Class(es) Dates Sig (Normalized) Sig (Original) alendronic acid 70 mg oral tablet (13 sources) Bisphosphonate Start: 05-02-2024 take 70 mg by mouth every week Alendronate Active 70 MG PO every week May 02, 2024 12:00am take 1 tablet by mouth every wee k Fosamax 70 MG 1 tablet Orally Weekly Active allopurinol 300 mg oral tablet (20 sources) Xanthine Oxidase Inhibitor Start: 05-02-2024 take 150 mg by mouth once daily Allopurinol Active 150 MG PO Daily May 02, 2024 11:42am Start: 08-24-2021 End: 05-02-2024 Allopurinol Discontinued MG TABLET August 24, 2021 1:00am May 02, 2024 11:47am take 0.5 tablet by m outh once daily allopurinol (Zyloprim) 300 mg tablet Take 0.5 tablets (150 mg) by mouth once daily. Active amiodarone hydrochloride 100 mg oral tablet (11 sources) Antiarrhythmic Start: 05-02-2024 take 100 mg by mouth five times weekly Amiodarone Active 100 MG PO 5 TIMES PER WEEK May 02, 2024 12:00am Start: 03-10-2022 take 0.5 tablet by m outh once daily Amiodarone HCl - 200 MG Oral Tablet take one-half tablet daily monday through monday only Quantity: 40 Refills: 1 Ordered: 10-Mar-2022 Malcom Howard DO Start : 10-Mar-2022 Active dose decreased Amiodarone HCl 1 00 MG 1 tablet Orally MONDAY- MONDAY Active take 1 tablet by eva th every twenty-four hours Amiodarone HCl 200 mg 1 tablet Orally Once a day Active apixaban 5 mg oral tablet (20 sources) Factor Xa Inhibitor Start: 08-24-2021 End: 08-26-2021 take 1 tablet by mouth twice daily Apixaban (Eliquis) 5 mg Tablet Active 5 MG PO Twice daily 60 August 26, 2021 1:00am aspirin 81 mg delayed release oral tablet (20 sources) Platelet Aggregation Inhibitor, Nonsteroidal Anti-inflammatory Drug Start: 05-02-2024 take 81 mg by mouth two times weekly Aspirin Active 81 MG PO .Two times a week May 02, 2024 11:43am Start: 09-22-2022 take 1 tablet by eva th two times weekly Aspirin 81 MG Oral Tablet Delayed Release one tablet twice weekly Quantity: 32 Refills: 3 Ordered: 22-Sep-2022 Malcom Howard DO Start : 22-Sep-2022 Active Start: 08-26-2021 End: 05-02-2024 take 81 mg by mouth once daily Aspirin Discontinued 81 MG PO Daily 0 August 26, 2021 1:00am May 02, 2024 11:47am aspirin 81 mg ch ewable tablet Chew 1 tablet (81 mg) 2 times a week. Active Aspirin 81 81 MG 1 tablet Orally MONDAY, MONDAY ONLY Active take 1 tablet by eva th once daily Aspirin 81 81 MG 1 tablet Orally Once a day Active take 1 tablet by eva th once daily Aspirin 81 MG Oral Tablet Chewable Take 1 tablet daily Quantity: 90 Refills: 3 Ordered: 07-Sep-2021 Malcom Howard DO Active atorvastatin 40 mg oral tablet (20 sources) HMG-CoA Reductase Inhibitor Start: 11-28-2023 take 40 mg by mouth once daily Atorvastatin Active 40 MG PO Daily May 02, 2024 12:00am Start: 09-22-2022 take 1 tablet by eva th at bedtime Atorvastatin Calcium 40 MG Oral Tablet TAKE 1 TABLET AT BEDTIME. Quantity: 90 Refills: 3 Ordered: 22-Sep-2022 Malcom Howard DO Start : 22-Sep-2022 Active new start Start: 08-26-2021 End: 05-02-2024 take 80 mg by mouth once daily in the evening Atorvastatin Discontinued 80 MG PO Every evening August 26, 2021 1:00am May 02, 2024 11:44am calcitriol 0.64964 mg oral capsule (20 sources) Vitamin D3 Analog Start: 02-21-2024 take 0.25 ug by mouth two times weekly Calcitriol Active 0.25 MCG PO Twice a Week 28 February 21, 2024 12:37pm Start: 08-24-2021 End: 02-21-2024 Calcitriol Discontinued MCG August 24, 2021 1:00am February 21, 2024 12:38pm Start: 06-24-2021 Calcitriol 0.2 5 MCG 1 capsule Orally 3xweek for 90 day(s) Jun, Active take 1 capsule by [facility] every week Calcitriol 0.25 MCG 1 capsule Orally 2x a week for 90 days Active take 1 capsule by [facility] three times weekly Calcitriol 0.25 MCG Oral Capsule take one capsule three times a week. Quantity: 0 Refills: 0 Ordered: 07-Sep-2021 DO Active carvedilol 25 mg oral tablet (20 sources) alpha-Adrenergic Gordon, beta-Adrenergic Gordon Start: 08-26-2021 take 25 mg by mouth twice daily at mealtime Carvedilol Active 25 MG PO Twice daily with meals August 26, 2021 1:00am lisinopril 2.5 mg oral tablet (20 sources) Angiotensin Converting Enzyme Inhibitor Start: 08-26-2021 take 2.5 mg by mouth once daily Lisinopril Active 2.5 MG PO Daily August 26, 2021 1:00am nitroglycerin 0.4 mg sublingual tablet (20 sources) Nitrate Vasodilator Start: 08-26-2021 End: 05-02-2024 Nitroglycerin Active 0.4 MG SUBLINGUAL As Directed May 02, 2024 12:00am Nitroglycerin 0. 4 MG as directed Sublingual Active Completed/Discontinued Medications Medication Drug Class(es) Dates Sig (Normalized) Sig (Original) amLODIPine 5 mg oral tablet (10 sources) Dihydropyridine Calcium Channel Gordon Start: 08-24-2021 End: 08-26-2021 Amlodipine Discontinued MG TABLET August 24, 2021 1:00am August 26, 2021 4:20pm take [address] [facility] every twenty-four hours Norvasc 5 mg 1 tablet Orally Once a day for 90 day(s) Active clopidogrel 75 mg oral tablet (16 sources) P2Y12 Platelet Inhibitor Start: 08-26-2021 End: 05-02-2024 take 75 mg by mouth once daily Clopidogrel Discontinued 75 MG PO Daily 30 August 26, 2021 1:00am May 02, 2024 11:45am 1 ml denosumab 60 mg/ml prefilled syringe (1 source) RANK Ligand Inhibitor End: 10-15-2024 denosumab (Prolia) 60 mg/mL syringe Inject 1 mL (60 mg total) under the skin every 6 months. 10/15/2024 Discontinued (Therapy completed) furosemide 40 mg oral tablet (18 sources) Loop Diuretic Start: 08-24-2021 End: 08-26-2021 [...] UNSPECIFIED] Onset: 3 Episodic Acute myocardial infarction (17 sources) Myocardial infarction; Translations: [Acute myocardial infarction of unspecified site, episode of care unspecified] Onset: 4 08-24-2021 Chronic Cardiac arrest and ventricular fibrillation (8 sources) Ventricular fibrillation; Translations: [Ventricular fibrillation] 08-24-2021 Chronic Cardiac dysrhythmias (20 sources) Paroxysmal atrial fibrillation; Translations: [Atrial fibrillation] Onset: 3 08-24-2021 Chronic Chronic kidney disease (20 sources) Chronic kidney disease stage 4; Translations: [Chronic kidney disease, stage 4 (severe)] Onset: 1 Resolved: 1 Chronic Conduction disorders (19 sources) Cardiac pacemaker in situ; Translations: [Cardiac pacemaker in situ] Onset: 3 08-24-2021 Chronic Congestive heart failure; nonhypertensive (1 source) Chronic diastolic (congestive) heart failure; Translations: [CHRONIC DIASTOLIC HEART FAILURE] Onset: 2 Chronic Coronary atherosclerosis and other heart disease (10 sources) Coronary arteriosclerosis; Translations: [Coronary atherosclerosis of unspecified type of vessel, [place] or graft] Onset: 4 10-15-2024 Chronic Coronary atherosclerosis and other heart disease (2 sources) Coronary angioplasty status; Translations: [Coronary angioplasty status] Onset: 4 Episodic Deficiency and other anemia (7 sources) Anemia of renal disease; Translations: [Anemia in chronic kidney disease] Chronic Disorders of lipid metabolism (12 sources) Mixed hyperlipidemia; Translations: [Mixed hyperlipidemia] Onset: 2 Chronic Essential hypertension (20 sources) Hypertensive disorder; Translations: [Unspecified essential hypertension] Onset: 4 08-24-2021 Chronic Genitourinary symptoms and ill-defined conditions (10 sources) Other microscopic hematuria; Translations: [Microscopic hematuria] Onset: 1 Resolved: 1 Episodic Hypertension with complications and secondary hypertension (18 sources) Hypertensive renal disease; Translations: [Hypertensive chronic kidney disease with stage 1 through stage 4 chronic kidney disease, or unspecified chronic kidney disease] Onset: 1 Resolved: 1 Chronic Malaise and fatigue (1 source) Weakness; Translations: [WEAKNESS] Onset: 3 Episodic Other aftercare (4 sources) Drug therapy finding; Translations: [Long-term (current) use of other medications] Episodic Other aftercare (3 sources) Other half-way (current) drug therapy; Translations: [OTH MARINE ARCHITECT CURRENT DRUG THERAPY] Onset: 3 Episodic Other aftercare (1 source) [facility] (current) use of anticoagulants; Translations: [MARINE ARCHITECT CURRNT USE ANTICOAGULANTS] Onset: 3 Episodic Other aftercare (6 sources) Taking high risk medication; Translations: [Other half-way (current) drug therapy] Onset: 4 10-15-2024 Episodic Other connective tissue disease (1 source) Rhabdomyolysis; Translations: [RHABDOMYOLYSIS] Onset: 3 Episodic Other diseases of kidney and ureters (8 sources) Secondary hyperparathyroidism; Translations: [Secondary hyperparathyroidism of renal origin] 05-01-2024 Chronic Other diseases of kidney and ureters (9 sources) Secondary hyperparathyroidism of renal origin; Translations: [Secondary hyperparathyroidism (of renal origin)] Onset: 1 Resolved: 2 Chronic Other lower respiratory disease (1 source) Dyspnea on exertion; Translations: [Shortness of breath] Episodic Other nutritional; endocrine; and metabolic disorders (6 sources) Body mass index 40+ - severely obese; Translations: [Morbid obesity] Onset: 5 10-15-2024 Chronic Other nutritional; endocrine; and metabolic disorders (2 sources) Severe obesity; Translations: [Morbid obesity] Chronic Other nutritional; endocrine; and metabolic disorders (9 sources) Obesity; Translations: [Obesity, unspecified] 08-24-2021 Chronic [...] nutritional; endocrine; and metabolic disorders (2 sources) Body mass index (BMI) 40.0-44.9, adult; Translations: [Body mass index (BMI) 40.0-44.9, adult (Multi)] Onset: 5 Chronic Other nutritional; endocrine; and metabolic disorders (5 sources) Hyperuricemia without signs of inflammatory arthritis and tophaceous disease; Translations: [Other abnormal blood chemistry] Onset: 1 Resolved: 1 Episodic Other nutritional; endocrine; and metabolic disorders (1 source) Hyperuricemia; Translations: [Hyperuricemia without signs of inflammatory arthritis and tophaceous disease] 05-01-2024 Episodic Residual codes; unclassified (2 sources) Never smoked tobacco; Translations: [Other specified health status] Onset: 5 10-15-2024 Episodic Residual codes; unclassified (2 sources) Other specified health status; Translations: [Other specified health status] Onset: 5 Episodic Septicemia (except in labor) (1 source) Sepsis due to Escherichia coli [E. coli]; Translations: [SEPSIS D/O ESCHERICHIA COLI E COLI] Onset: 3 Episodic Unclassified (1 source) CONTACT W/AND (SUSP) EXPOS COVID-19; Translations: [CONTACT W/AND (SUSP) EXPOS COVID-19] Onset: 3 Urinary tract infections (3 sources) [...] Never smoked tobacco; Translations: [Never a smoker] Unclassified (1 source) Onset: 10-15-2024 10-15-2024 Results Test Name Value Interpretation Reference Range Facility ECG 12 [place] 10-15-2024 Atrial paced rhythm, rightward axis, low voltage QRS, abnormal ECG [facility] Work Phone: Erythrocyte distribution wid th Auto (RBC) [Ratio]on 04-25-2024 Erythrocyte distribution width (RBC) [Ratio] 13.1 % 11.0-15.0 [facility] Estimated glomerular filtrat ion rate (GFR) non- Americanon 04-25-2024 GFR/1.73 sq M.predicted among non-blacks MDRD (S/P/Bld) [Vol rate/Area] 36 mL/min/{1.73_m2} Low >=60 [facility] Hematocrit Auto (Bld) [Volum e fraction]on 04-25-2024 Hematocrit (Bld) [Volume fraction] 41.0 % 36.0-48.0 [facility] Hemoglobin [Mass/volume] in Bloodon 04-25-2024 Hemoglobin (Bld) [Mass/Vol] 13.4 g/dL 12.0-16.0 [facility] Laboratory - Chemistry and C hemistry - challengeon 04-25-2024 Albumin [Mass/Vol] 3.3 g/dL Low 3.4-5.0 [facility] Calcium [Mass/Vol] 9.1 mg/dL 8.5-10.1 [facility] Chloride [Moles/Vol] 105 mmol/L 98-107 [facility] CO2 [Moles/Vol] 27.9 mmol/L 21.0-32.0 [facility] Creatinine [Mass/Vol] 1.43 mg/dL High 0.55-1.02 [facility] GFR/1.73 sq M.predicted MDRD (S/P/Bld) [Vol rate/Area] 43 mL/min/{1.73_m2} Low >=60 [facility] Glucose [Mass/Vol] 101 mg/dL 74-106 [facility] Magnesium [Mass/Vol] 2.0 mg/dL 1.8-2.4 [facility] Potassium [Moles/Vol] 4.5 mmol/L 3.5-5.1 [facility] Sodium [Moles/Vol] 141 mmol/L 136-145 [facility] Urate [Mass/Vol] 4.6 mg/dL 2.6-6.0 [facility] Urea nitrogen [Mass/Vol] 28.0 mg/dL High 7.0-18.0 [facility] Urea nitrogen/Creatinine [Mass ratio] 19.6 mg/mg [facility] Bilirubin Ql (U) Negative NEGATIVE [facility] Glucose (U) [Mass/Vol] Negative NEGATIVE [facility] Ketones Ql (U) Negative NEGATIVE [facility] pH (U) 6.0 [pH] 5.0-9.0 [facility] Specific gravity (U) [Rel density] 1.020 1.005-1.025 [facility] Urobilinogen Qn (U) 0.2 {Tenisha'U}/dL 0.2-1.0 [facility] Laboratory - Specimen inform ationon 04-25-2024 Appearance (U) CLEAR CLEAR [facility] Color (U) LT. YELLOW YELLOW [facility] Laboratory - Urinalysison Leukocyte esterase Test strip Ql (U) TRACE Abnormal NEGATIVE [facility] Mucus Ql (Urine sed) NONE SEEN NONE SEEN [facility] Nitrite Ql (U) Negative NEGATIVE [facility] Protein (U) [Mass/Vol] 10.8 mg/dL <=11.9 [facility] Protein Ql (U) Negative NEG/TRACE [facility] Leukocytes [#/volume] correc jake for nucleated erythrocytes in Blood by Automated counon 04-25-2024 WBC corrected for nucl RBC Auto (Bld) [#/Vol] 6.7 10 3/uL 4.0-11.0 [facility] MCH Auto (RBC) [Entitic mass ]on 04-25-2024 MCH (RBC) [Entitic mass] 29.9 pg 26.7-34.0 [facility] MCHC Auto (RBC) [Mass/Vol]on 04-25-2024 MCHC (RBC) [Mass/Vol] 32.7 g/dL 29.9-35.2 Fir [facility] MCV Auto (RBC) [Entitic vol] on 04-25-2024 MCV (RBC) [Entitic vol] 91.5 fL 81.0-99.0 [facility] No Panel Informationon 04-25 25-Hydroxy Vitamin D Total 46.5 ng/mL [facility] Comment on above: <20 ng/mL Vit D defi cient20-<30 ng/mL Vit D [id number] ng/mL Vit D sufficient>100 ng/mL Potential Toxicity Parathyroid Hormone (Intact) 108 pg/mL Abnormal 15-65 [facility] Comment on above: Performed at: [facility] [address] [id number] Director: Salvador Grullon PhD, Phone: [phone] Phosphorus Level 2.8 mg/dL 2.6-4.7 [facility] Urine Bacteria TRACE #/HPF Abnormal NONE SEEN [facility] Urine Occult Blood Negative NEGATIVE [facility] Urine Random Creatinine 85.05 mg/dL 20.00-300.00 [facility] Urine RBC NONE SEEN #/HPF 0-2 [facility] Urine Squamous Epithelial Cells MODERATE #/LPF Abnormal NONE/RARE [facility] Urine WBC 2-5 #/HPF Abnormal NONE SEEN [facility] Platelet mean volume Auto (B ld) [Entitic vol]on 04-25-2024 Platelet mean volume (Bld) [Entitic vol] 10.7 fL 9.5-13.5 [facility] Platelets Auto (Bld) [#/Vol] on 04-25-2024 Platelets (Bld) [#/Vol] 279 10 3/uL 150-450 [facility] RBC Auto (Bld) [#/Vol]on RBC (Bld) [#/Vol] 4.48 10 6/uL 4.20-5.40 [facility] Serum or plasma anion gap de terminationon 04-25-2024 Anion gap [Moles/Vol] 12.6 mmol/L [facility] Urine protein/creatinine rat ioon 04-25-2024 Protein/Creatinine (U) [Ratio] 0.13 [facility] HEMOGLOBINon 11-30-2022 Hemoglobin (Bld) [Mass/Vol] 12.3 g/dL Normal 12.0-16.0 [facility] Comment on above: Performed By: #### L ACT #### [facility] [address] [place] [address] Dr. Dale Ngo PROF CHEM 8 (BAS METB)on Anion gap [Moles/Vol] 11.0 mmol/L Normal [facility] Comment on above: Performed By: #### B MP, AST, TSH #### [facility] [address] [address] [address] Dale Ngo Calcium [Mass/Vol] 9.2 mg/dL Normal 8.5-10.1 [facility] Comment on above: Performed By: #### B MP, AST, TSH #### [facility] [address] [address] [address] Dale Ngo Chloride [Moles/Vol] 106 mmol/L Normal 98-107 [facility] Comment on above: Performed By: #### B MP, AST, TSH #### [facility] [address] [address] [address] Dale gNo CO2 [Moles/Vol] 26.5 mmol/L Normal 21.0-32.0 [facility] Comment on above: Performed By: #### B MP, AST, TSH #### [facility] [address] [address] [address] Dale Ngo Creatinine [Mass/Vol] 1.42 mg/dL Critically high 0.55-1.02 [facility] Comment on above: Performed By: #### B MP, AST, TSH #### [facility] [address] [address] [address] Dale Ngo EGFR-AF MAURITIAN 44 mL/min/1.73m2 Critically low >=60 [facility] Comment on above: Performed By: #### B MP, AST, TSH #### [facility] [address] [address] [address] Dale Ngo EGFR-NON AF MAURITIAN 36 mL/min/1.73m2 Critically low >=60 [facility] Comment on above: Performed By: #### B MP, AST, TSH #### [facility] [address] [address] [address] Dale Ngo Glucose [Mass/Vol] 118 mg/dL Critically high 74-106 [facility] Comment on above: Performed By: #### B MP, AST, TSH #### [facility] [address] [address] [address] Dale Ngo Potassium [Moles/Vol] 4.5 mmol/L Normal 3.5-5.1 [facility] Comment on above: Performed By: #### B MP, AST, TSH #### [facility] [address] [address] [address] Dale Ngo Sodium [Moles/Vol] 139 mmol/L Normal 136-145 [facility] Comment on above: Performed By: #### B MP, AST, TSH #### [facility] [address] [address] [address] Dale Ngo Urea nitrogen [Mass/Vol] 31.0 mg/dL Critically high 7.0-18.0 [facility] Comment on above: Performed By: #### B MP, AST, TSH #### [facility] [address] [address] [address] Dale Ngo Urea nitrogen/Creatinine [Mass ratio] 21.8 mg/mg Normal [facility] Comment on above: Performed By: #### B MP, AST, TSH #### [facility] [address] [address] [address] Dale Ngo SGOTon 11-30-2022 AST [Catalytic activity/Vol] 24 U/L Normal 15-37 [facility] Comment on above: Performed By: #### B MP, AST, TSH #### [facility] [address] [place] [address] Dr. Dale Ngo TSHon 11-30-2022 TSH 2.811 uIU/mL Normal 0.358-3.740 [facility] Comment on above: Performed By: #### B MP, AST, TSH #### [facility] [address] [place] [address] Dr. Dale Ngo XR CHEST 2 Von [...] by: JAVIER MEDINA Date: 2022-11-30 19:00 Normal [facility] CBC AUTO DIFFon 10-19-2022 BASO # 0.0 103/ul Normal 0.0-0.1 [facility] Comment on above: Performed By: #### L ACT #### [facility] [address] [address] [address] Dale Ngo Basophils/100 WBC (Bld) 0.3 % Normal 0.2-2.0 [facility] Comment on above: Performed By: #### L ACT #### [facility] [address] [address] [address] Dale Ngo EO # 0.3 103/ul Normal 0.0-0.7 [facility] Comment on above: Performed By: #### L ACT #### [facility] [address] [address] [address] Dale Ngo Eosinophils/100 WBC (Bld) 2.9 % Normal 0.9-7.0 [facility] [facility] Comment on above: Performed By: #### L ACT #### [facility] [address] [place] [address] Dr. Dale Ngo Erythrocyte distribution width (RBC) [Ratio] 13.4 % Normal 11.0-15.0 [facility] Comment on above: Performed By: #### L ACT #### [facility] [address] [address] [address] Dale Ngo Hematocrit (Bld) [Volume fraction] 34.5 % Critically low 36.0-48.0 [facility] Comment on above: Performed By: #### L ACT #### [facility] [address] [address] [address] Dale Ngo Hemoglobin (Bld) [Mass/Vol] 11.6 g/dL Critically low 12.0-16.0 [facility] Comment on above: Performed By: #### L ACT #### [facility] [address] [address] [address] Dale Ngo IG # 0.08 10e3/ul Critically high 0.00-0.03 [facility] Comment on above: Performed By: #### L ACT #### [facility] [address] [address] [address] Dale Ngo IG % 0.8 % Critically high 0.0-0.5 [facility] Comment on above: Performed By: #### L ACT #### [facility] [address] [address] [address] Dale Ngo LYMPH # 0.6 103/ul Critically low 1.2-3.8 [facility] Comment on above: Performed By: #### L ACT #### [facility] [address] [place] [address] Dr. Dale Ngo Lymphocytes/100 WBC (Bld) 6.1 % Critically low 20.5-60.0 [facility] Comment on above: Performed By: #### L ACT #### [facility] [address] [place] [address] Dr. Dale Ngo MANUAL DIFF REQ NO Normal [facility] Comment on above: Performed By: #### L ACT #### [facility] [address] [place] [address] Dr. Dale Ngo MCH (RBC) [Entitic mass] 29.0 pg Normal 26.7-34.0 [facility] Comment on above: Performed By: #### L ACT #### [facility] [address] [place] [address] Dr. Dale Ngo MCHC (RBC) [Mass/Vol] 33.6 g/dL Normal 29.9-35.2 [facility] Comment on above: Performed By: #### L ACT #### [facility] [address] [place] [address] Dr. Dale Ngo MCV (RBC) [Entitic vol] 86.3 fL Normal 81.0-99.0 [facility] Comment on above: Performed By: #### L ACT #### [facility] [address] [place] [address] Dr. Dale Ngo MONO # 0.8 103/ul Normal 0.3-0.8 [facility] Comment on above: Performed By: #### L ACT #### [facility] [address] [place] [address] Dr. Dale Ngo Monocytes/100 WBC (Bld) 7.9 % Normal 1.7-12.0 [facility] Comment on above: Performed By: #### L ACT #### [facility] [address] [address] [address] Dale Ngo NEUT # 8.5 103/ul Critically high 1.4-6.5 [facility] Comment on above: Performed By: #### L ACT #### [facility] [address] [address] [address] Dale Ngo Neutrophils/100 WBC (Bld) 82.0 % Critically high 43.0-75.0 [facility] Comment on above: Performed By: #### L ACT #### [facility] [address] [address] [address] Dale Ngo Platelet mean volume (Bld) [Entitic vol] 11.3 fL Normal 9.5-13.5 [facility] Comment on above: Performed By: #### L ACT #### [facility] [address] [place] [address] Dr. Dale Ngo PLT 234 103/ul Normal 150-450 [facility] Comment on above: Performed By: #### L ACT #### [facility] [address] [address] [address] Dale Ngo RBC 4.00 106/ul Critically low 4.20-5.40 [facility] Comment on above: Performed By: #### L ACT #### [facility] [address] [place] [address] Dr. Dale Ngo WBC 10.4 103/ul Normal 4.0-11.0 [facility] Comment on above: Performed By: #### L ACT #### [facility] [address] [place] [address] Dr. Dale Ngo CULTURE BLOODon 10-19-2022 Microscopic [...] F Trimethoprim/Sulfamet hoxazole <=20 S F Normal [facility] Comment on above: Performed By: #### L ACT #### [facility] [address] [place] [address] Dr. Dale Ngo CULTURE URINEon 10-19-2022 CULTURE [...] F Trimethoprim/Sulfamet hoxazole <=20 S F Normal [facility] Comment on above: Performed By: #### L ACT #### [facility] [address] [place] [address] Dr. Dale Ngo PROF CHEM 8 (BAS METB)on Anion gap [Moles/Vol] 13.8 mmol/L Normal [facility] Comment on above: Performed By: #### B MP #### [facility] [address] [place] [address] Dr. Dale Ngo Calcium [Mass/Vol] 7.6 mg/dL Critically low 8.5-10.1 [facility] Comment on above: Performed By: #### B MP #### [facility] [address] [place] [address] Dr. Dale Ngo Chloride [Moles/Vol] 105 mmol/L Normal 98-107 [facility] Comment on above: Performed By: #### B MP #### [facility] [address] [address] [address] Dale Ngo CO2 [Moles/Vol] 20.8 mmol/L Critically low 21.0-32.0 [facility] Comment on above: Performed By: #### B MP #### [facility] [address] [address] [address] Dale Ngo Creatinine [Mass/Vol] 1.58 mg/dL Critically high 0.55-1.02 [facility] Comment on above: Performed By: #### B MP #### [facility] [address] [address] [address] Dale Ngo EGFR-AF MAURITIAN 39 mL/min/1.73m2 Critically low >=60 [facility] Comment on above: Performed By: #### B MP #### [facility] [address] [place] [address] Dr. Dale Ngo EGFR-NON AF MAURITIAN 32 mL/min/1.73m2 Critically low >=60 [facility] Comment on above: Performed By: #### B MP #### [facility] [address] [place] [address] Dr. Dale Ngo Glucose [Mass/Vol] 98 mg/dL Normal 74-106 [facility] Comment on above: Performed By: #### B MP #### [facility] [address] [place] [address] Dr. Dale Ngo Potassium [Moles/Vol] 3.6 mmol/L Normal 3.5-5.1 [facility] Comment on above: Performed By: #### B MP #### [facility] [address] [place] [address] Dr. Dale Ngo Sodium [Moles/Vol] 136 mmol/L Normal 136-145 [facility] Comment on above: Performed By: #### B MP #### [facility] [address] [address] [address] Dale Ngo Urea nitrogen [Mass/Vol] 31.0 mg/dL Critically high 7.0-18.0 [facility] Comment on above: Performed By: #### B MP #### [facility] [address] [address] [address] Dale Ngo Urea nitrogen/Creatinine [Mass ratio] 19.6 mg/mg Normal [facility] Comment on above: Performed By: #### B MP #### [facility] [address] [place] [address] Dr. Dale Ngo CBC AUTO DIFFon 10-18-2022 BASO # 0.0 103/ul Normal 0.0-0.1 [facility] Comment on above: Performed By: #### B MP, AST, TSH #### [facility] [address] [place] [address] Dr. Dale Ngo Basophils/100 WBC (Bld) 0.2 % Normal 0.2-2.0 [facility] Comment on above: Performed By: #### B MP, AST, TSH #### [facility] [address] [place] [address] Dr. Dale Ngo EO # 0.2 103/ul Normal 0.0-0.7 [facility] Comment on above: Performed By: #### B MP, AST, TSH #### [facility] [address] [place] [address] Dr. Dale Ngo Eosinophils/100 WBC (Bld) 1.7 % Normal 0.9-7.0 [facility] Comment on above: Performed By: #### B MP, AST, TSH #### [facility] [address] [place] [address] Dr. Dale Ngo Erythrocyte distribution width (RBC) [Ratio] 13.2 % Normal 11.0-15.0 [facility] Comment on above: Performed By: #### B MP, AST, TSH #### [facility] [address] [place] [address] Dr. Dale Ngo Hematocrit (Bld) [Volume fraction] 32.5 % Critically low 36.0-48.0 [facility] Comment on above: Performed By: #### B MP, AST, TSH #### [facility] [address] [place] [address] Dr. Dale Ngo Hemoglobin (Bld) [Mass/Vol] 10.8 g/dL Critically low 12.0-16.0 [facility] Comment on above: Performed By: #### B MP, AST, TSH #### [facility] [address] [place] [address] Dr. Dale Ngo IG # 0.09 10e3/ul Critically high 0.00-0.03 [facility] Comment on above: Performed By: #### B MP, AST, TSH #### [facility] [address] [place] [address] Dr. Dale Ngo IG % 0.7 % Critically high 0.0-0.5 [facility] Comment on above: Performed By: #### B MP, AST, TSH #### [facility] [address] [place] [address] Dr. Dale Ngo LYMPH # 0.5 103/ul Critically low 1.2-3.8 [facility] Comment on above: Performed By: #### B MP, AST, TSH #### [facility] [address] [place] [address] Dr. Dale Ngo Lymphocytes/100 WBC (Bld) 4.0 % Critically low 20.5-60.0 [facility] Comment on above: Performed By: #### B MP, AST, TSH #### [facility] [address] [place] [address] Dr. Dale Ngo MANUAL DIFF REQ NO Normal [facility] Comment on above: Performed By: #### B MP, AST, TSH #### [facility] [address] [place] [address] Dr. Dale Ngo MCH (RBC) [Entitic mass] 29.0 pg Normal 26.7-34.0 [facility] Comment on above: Performed By: #### B MP, AST, TSH #### [facility] [address] [place] [address] Dr. Dale Ngo MCHC (RBC) [Mass/Vol] 33.2 g/dL Normal 29.9-35.2 [facility] Comment on above: Performed By: #### B MP, AST, TSH #### [facility] [address] [place] [address] Dr. Dale Ngo MCV (RBC) [Entitic vol] 87.1 fL Normal 81.0-99.0 [facility] Comment on above: Performed By: #### B MP, AST, TSH #### [facility] [address] [place] [address] Dr. Dale Ngo MONO # 0.6 103/ul Normal 0.3-0.8 [facility] Comment on above: Performed By: #### B MP, AST, TSH #### [facility] [address] [place] [address] Dr. Dale Ngo Monocytes/100 WBC (Bld) 5.0 % Normal 1.7-12.0 [facility] Comment on above: Performed By: #### B MP, AST, TSH #### [facility] [address] [place] [address] Dr. Dale Ngo NEUT # 11.2 103/ul Critically high 1.4-6.5 [facility] Comment on above: Performed By: #### B MP, AST, TSH #### [facility] [address] [place] [address] Dr. Dale Ngo Neutrophils/100 WBC (Bld) 88.4 % Critically high 43.0-75.0 [facility] Comment on above: Performed By: #### B MP, AST, TSH #### [facility] [address] [place] [address] Dr. Dale Ngo Platelet mean volume (Bld) [Entitic vol] 11.1 fL Normal 9.5-13.5 [facility] Comment on above: Performed By: #### B MP, AST, TSH #### [facility] [address] [place] [address] Dr. Dale Ngo PLT 199 103/ul Normal 150-450 [facility] Comment on above: Performed By: #### B MP, AST, TSH #### [facility] [address] [place] [address] Dr. Dale Ngo RBC 3.73 106/ul Critically low 4.20-5.40 [facility] Comment on above: Performed By: #### B MP, AST, TSH #### [facility] [address] [address] [address] Dale Ngo WBC 12.6 103/ul Critically high 4.0-11.0 [facility] Comment on above: Performed By: #### B MP, AST, TSH #### [facility] [address] [address] [address] Dale Ngo PROF CHEM 8 (BAS METB)on Anion gap [Moles/Vol] 12.3 mmol/L Normal [facility] Comment on above: Performed By: #### C BC #### [facility] [address] [address] [address] Dale Ngo Calcium [Mass/Vol] 7.3 mg/dL Critically low 8.5-10.1 [facility] Comment on above: Performed By: #### C BC #### [facility] [address] [place] [address] Dr. Dale Ngo Chloride [Moles/Vol] 103 mmol/L Normal 98-107 [facility] Comment on above: Performed By: #### C BC #### [facility] [address] [address] [address] Dale Ngo CO2 [Moles/Vol] 21.6 mmol/L Normal 21.0-32.0 [facility] Comment on above: Performed By: #### C BC #### [facility] [address] [address] [address] Dale Ngo Creatinine [Mass/Vol] 1.81 mg/dL Critically high 0.55-1.02 [facility] Comment on above: Performed By: #### C BC #### [facility] [address] [address] [address] Dale Ngo EGFR-AF MAURITIAN 33 mL/min/1.73m2 Critically low >=60 [facility] Comment on above: Performed By: #### C BC #### [facility] [address] [address] [address] Dale Ngo EGFR-NON AF MAURITIAN 27 mL/min/1.73m2 Critically low >=60 [facility] Comment on above: Performed By: #### C BC #### [facility] [address] [place] [address] Dr. Dale Ngo Glucose [Mass/Vol] 82 mg/dL Normal 74-106 [facility] Comment on above: Performed By: #### C BC #### [facility] [address] [place] [address] Dr. Dale Ngo Potassium [Moles/Vol] 3.9 mmol/L Normal 3.5-5.1 [facility] Comment on above: Performed By: #### C BC #### [facility] [address] [place] [address] Dr. Dale Ngo Sodium [Moles/Vol] 133 mmol/L Critically low 136-145 [facility] Comment on above: Performed By: #### C BC #### [facility] [address] [place] [address] Dr. Dale Ngo Urea nitrogen [Mass/Vol] 44.0 mg/dL Critically high 7.0-18.0 [facility] Comment on above: Performed By: #### C BC #### [facility] [address] [place] [address] Dr. Dale Ngo Urea nitrogen/Creatinine [Mass ratio] 24.3 mg/mg Normal [facility] Comment on above: Performed By: #### C BC #### [facility] [address] [place] [address] Dr. Dale Ngo CBC AUTO DIFFon 10-17-2022 BASO # 0.0 103/ul Normal 0.0-0.1 [facility] Comment on above: Performed By: #### C BC #### [facility] [address] [place] [address] Dr. Dale Ngo Basophils/100 WBC (Bld) 0.2 % Normal 0.2-2.0 [facility] Comment on above: Performed By: #### C BC #### [facility] [address] [place] [address] Dr. Dale Ngo EO # 0.0 103/ul Normal 0.0-0.7 [facility] Comment on above: Performed By: #### C BC #### [facility] [address] [address] [address] Dale Ngo Eosinophils/100 WBC (Bld) 0.1 % Critically low 0.9-7.0 [facility] Comment on above: Performed By: #### C BC #### [facility] [address] [place] [address] Dr. Dale Ngo Erythrocyte distribution width (RBC) [Ratio] 13.2 % Normal 11.0-15.0 [facility] Comment on above: Performed By: #### C BC #### [facility] [address] [place] [address] Dr. Dale Ngo Hematocrit (Bld) [Volume fraction] 33.9 % Critically low 36.0-48.0 [facility] Comment on above: Performed By: #### C BC #### [facility] [address] [place] [address] Dr. Dale Ngo Hemoglobin (Bld) [Mass/Vol] 11.5 g/dL Critically low 12.0-16.0 [facility] Comment on above: Performed By: #### C BC #### [facility] [address] [place] [address] Dr. Dale Ngo IG # 0.11 10e3/ul Critically high 0.00-0.03 [facility] Comment on above: Performed By: #### C BC #### [facility] [address] [place] [address] Dr. Dale Ngo IG % 0.6 % Critically high 0.0-0.5 [facility] Comment on above: Performed By: #### C BC #### [facility] [address] [place] [address] Dr. Dale Ngo LYMPH # 0.3 103/ul Critically low 1.2-3.8 [facility] Comment on above: Performed By: #### C BC #### [facility] [address] [place] [address] Dr. Dale Ngo Lymphocytes/100 WBC (Bld) 1.9 % Critically low 20.5-60.0 [facility] Comment on above: Performed By: #### C BC #### [facility] [address] [place] [address] Dr. Dale Ngo MANUAL DIFF REQ NO Normal [facility] Comment on above: Performed By: #### C BC #### [facility] [address] [place] [address] Dr. Dale Ngo MCH (RBC) [Entitic mass] 29.3 pg Normal 26.7-34.0 [facility] Comment on above: Performed By: #### C BC #### [facility] [address] [place] [address] Dr. Dale Ngo MCHC (RBC) [Mass/Vol] 33.9 g/dL Normal 29.9-35.2 [facility] Comment on above: Performed By: #### C BC #### [facility] [address] [place] [address] Dr. Dale Ngo MCV (RBC) [Entitic vol] 86.5 fL Normal 81.0-99.0 [facility] Comment on above: Performed By: #### C BC #### [facility] [address] [place] [address] Dr. Dale Ngo MONO # 0.5 103/ul Normal 0.3-0.8 [facility] Comment on above: Performed By: #### C BC #### [facility] [address] [place] [address] Dr. Dale Ngo Monocytes/100 WBC (Bld) 3.1 % Normal 1.7-12.0 [facility] Comment on above: Performed By: #### C BC #### [facility] [address] [place] [address] Dr. Dale Ngo NEUT # 16.2 103/ul Critically high 1.4-6.5 [facility] Comment on above: Performed By: #### C BC #### [facility] [address] [place] [address] Dr. Dale Ngo Neutrophils/100 WBC (Bld) 94.1 % Critically high 43.0-75.0 [facility] Comment on above: Performed By: #### C BC #### [facility] [address] [address] [address] Dale Ngo Platelet mean volume (Bld) [Entitic vol] 11.4 fL Normal 9.5-13.5 [facility] Comment on above: Performed By: #### C BC #### [facility] [address] [place] [address] Dr. Dale Ngo PLT 188 103/ul Normal 150-450 [facility] Comment on above: Performed By: #### C BC #### [facility] [address] [address] [address] Dale Ngo RBC 3.92 106/ul Critically low 4.20-5.40 [facility] Comment on above: Performed By: #### C BC #### [facility] [address] [place] [address] Dr. Dale Ngo WBC 17.2 103/ul Critically high 4.0-11.0 [facility] Comment on above: Performed By: #### C BC #### [facility] [address] [place] [address] Dr. Dale Ngo CPKon 10-17-2022 CK [Catalytic activity/Vol] 1307 U/L Critically high 26-192 [facility] Comment on above: Performed By: #### C K #### [facility] [address] [place] [address] Dr. Dale Ngo Covid-19 PCR (CVDTB)on 09-22 SARS-CoV-2 (COVID-19) RNA LUCERO+probe Ql (Unsp spec) Not detected Normal NOT DETECTED [facility] Comment on above: Result [...] for this test is supported by the [employer]'s declaration that [...] By: #### B MP, AST, TSH #### [facility] [address] [place] [address] Dr. Dale Ngo LACTATE/LACTIC ACIDon 2022 Lactate [Moles/Vol] 1.9 mmol/L Normal 0.4-1.9 [facility] Comment on above: Performed By: #### L ACT #### [facility] [address] [place] [address] Dr. Dale Ngo PROF CHEM 8 (BAS METB)on Anion gap [Moles/Vol] 15.3 mmol/L Normal [facility] Comment on above: Performed By: #### B MP, AST, TSH #### [facility] [address] [place] [address] Dr. Dale Ngo Calcium [Mass/Vol] 7.4 mg/dL Critically low 8.5-10.1 [facility] Comment on above: Performed By: #### B MP, AST, TSH #### [facility] [address] [place] [address] Dr. Dale Ngo Chloride [Moles/Vol] 101 mmol/L Normal 98-107 [facility] Comment on above: Performed By: #### B MP, AST, TSH #### [facility] [address] [place] [address] Dr. Dale Ngo CO2 [Moles/Vol] 21.3 mmol/L Normal 21.0-32.0 [facility] Comment on above: Performed By: #### B MP, AST, TSH #### [facility] [address] [place] [address] Dr. Dale Nog Creatinine [Mass/Vol] 2.16 mg/dL Critically high 0.55-1.02 [facility] Comment on above: Performed By: #### B MP, AST, TSH #### [facility] [address] [address] [address] Dale Ngo EGFR-AF MAURITIAN 27 mL/min/1.73m2 Critically low >=60 [facility] Comment on above: Performed By: #### B MP, AST, TSH #### [facility] [address] [place] [address] Dr. Dale Ngo EGFR-NON AF MAURITIAN 22 mL/min/1.73m2 Critically low >=60 [facility] Comment on above: Performed By: #### B MP, AST, TSH #### [facility] [address] [place] [address] Dr. Dale Ngo Glucose [Mass/Vol] 80 mg/dL Normal 74-106 [facility] Comment on above: Performed By: #### B MP, AST, TSH #### [facility] [address] [place] [address] Dr. Dale Ngo Potassium [Moles/Vol] 3.6 mmol/L Normal 3.5-5.1 [facility] Comment on above: Performed By: #### B MP, AST, TSH #### [facility] [address] [place] [address] Dr. Dale Ngo Sodium [Moles/Vol] 134 mmol/L Critically low 136-145 Th [facility] Comment on above: Performed By: #### B MP, AST, TSH #### [facility] [address] [place] [address] Dr. Dale Ngo Urea nitrogen [Mass/Vol] 45.0 mg/dL Critically high 7.0-18.0 [facility] Comment on above: Performed By: #### B MP, AST, TSH #### [facility] [address] [place] [address] Dr. Dale Ngo Urea nitrogen/Creatinine [Mass ratio] 20.8 mg/mg Normal [facility] Comment on above: Performed By: #### B MP, AST, TSH #### [facility] [address] [place] [address] Dr. Dale Ngo BLOOD CULTURE ID PANELon A. baumannii Not detected Normal NOT DETECTED [facility] Comment on above: Performed By: #### B MP, AST, TSH #### [facility] [address] [place] [address] Dr. Dale Ngo Bacteriodes fragilis Not detected Normal NOT DETECTED [facility] Comment on above: Performed By: #### B MP, AST, TSH #### [facility] [address] [place] [address] Dr. Dale RENDON [employer] P[employer]ED [facility] Comment on above: Performed By: #### B MP, AST, TSH #### [facility] [address] [address] [address] Dale GARCIADBTHD BLOOD CULTURE BOTTLE INFORMATION [facility] Comment on above: Performed By: #### B MP, AST, TSH #### [facility] [address] [place] [address] Dr. Dale VOD1 ANTIMICROBIAL RESISTANCE GENES [facility] Comment on above: Performed By: #### B MP, AST, TSH #### [facility] [address] [place] [address] Dr. Dale VOD2 SEE BELOW [facility] Comment on above: Result Comment: Note : Antimicrobial resitance can occur via multiple mechanisms. A Not Detected result for the [employer] antomicrobial resistance gene assays does not indicate antimicrobial susceptibility. Subculturing is required for species identification and susceptibility testing of isolates. Performed By: #### B MP, AST, TSH #### [facility] [address] [place] [address] Dr. Dale VOD3 Positive [facility] Comment on above: Performed By: #### B MP, AST, TSH #### [facility] [address] [place] [address] Dr. Dale VOD4 Negative [facility] Comment on above: Performed By: #### B MP, AST, TSH #### [facility] [address] [place] [address] Dr. Dale GARCIADHD5 YEAST [facility] Comment on above: Performed By: #### B MP, AST, TSH #### [facility] [address] [place] [address] Dr. Dale Ngo Bottle Set: Set 1 Normal [facility] Comment on above: Performed By: #### B MP, AST, TSH #### [facility] [address] [place] [address] Dr. Dale Ngo Bottle: Aerobic Normal [facility] Comment on above: Performed By: #### B MP, AST, TSH #### [facility] [address] [place] [address] Dr. Dale Ngo C. neoformans/gattii Not detected Normal NOT DETECTED [facility] Comment on above: Performed By: #### B MP, AST, TSH #### [facility] [address] [place] [address] Dr. Dale Ngo Lolis albicans Not detected Normal NOT DETECTED [facility] Comment on above: Performed By: #### B MP, AST, TSH #### [facility] [address] [place] [address] Dr. Dale Danielle auris Not detected Normal NOT DETECTED [facility] Comment on above: Performed By: #### B MP, AST, TSH #### [facility] [address] [place] [address] Dr. Dale Ngo Lolis glabrata Not detected Normal NOT DETECTED [facility] Comment on above: Performed By: #### B MP, AST, TSH #### [facility] [address] [place] [address] Dr. Dlae Ngo Lolis Krusei Not detected Normal NOT DETECTED [facility] Comment on above: Performed By: #### B MP, AST, TSH #### [facility] [address] [place] [address] Dr. Dale Ngo Lolis Parapsilosis Not detected Normal NOT DETECTED [facility] Comment on above: Performed By: #### B MP, AST, TSH #### [facility] [address] [place] [address] Dr. Dale Ngo Lolis Tropicalis Not detected Normal NOT DETECTED [facility] Comment on above: Performed By: #### B MP, AST, TSH #### [facility] [address] [place] [address] Dr. Dale Ngo CTX-M Resistant Gene Not detected Normal NOT DETECTED [facility] Comment on above: Performed By: #### B MP, AST, TSH #### [facility] [address] [place] [address] Dr. Dale Ngo E. Cloacae complex Not detected Normal NOT DETECTED [facility] Comment on above: Performed By: #### B MP, AST, TSH #### [facility] [address] [place] [address] Dr. Dale Ngo E. faecalis Not detected Normal NOT DETECTED [facility] Comment on above: Performed By: #### B MP, AST, TSH #### [facility] [address] [place] [address] Dr. Dale Ngo E. faecium Not detected Normal NOT DETECTED [facility] Comment on above: Performed By: #### B MP, AST, TSH #### [facility] [address] [place] [address] Dr. Dale Ngo Enterobacteriaceae Detected Critically abnormal NOT DETECTED [facility] Comment on above: Performed By: #### B MP, AST, TSH #### [facility] [address] [place] [address] Dr. Dale Ngo Escherichia coli Detected Critically abnormal NOT DETECTED [facility] Comment on above: Performed By: #### B MP, AST, TSH #### [facility] [address] [place] [address] Dr. Dale Ngo H. influenzae Not detected Normal NOT DETECTED [facility] Comment on above: Performed By: #### B MP, AST, TSH #### [facility] [address] [place] [address] Dr. Dale Ngo IMP Resistant Gene Not detected Normal NOT DETECTED [facility] Comment on above: Performed By: #### B MP, AST, TSH #### [facility] [address] [place] [address] Dr. Dale Ngo K. oxytoca Not detected Normal NOT DETECTED [facility] Comment on above: Performed By: #### B MP, AST, TSH #### [facility] [address] [place] [address] Dr. Dale Ngo K. pneumoniae Not detected Normal NOT DETECTED [facility] Comment on above: Performed By: #### B MP, AST, TSH #### [facility] [address] [place] [address] Dr. Dale Ngo Klebsiella aerogenes Not detected Normal NOT DETECTED [facility] Comment on above: Performed By: #### B MP, AST, TSH #### [facility] [address] [place] [address] Dr. Dale Ngo KPC Resistant Gene Not detected Normal NOT DETECTED [facility] Comment on above: Performed By: #### B MP, AST, TSH #### [facility] [address] [place] [address] Dr. Dale Ngo List. monocytogenes Not detected Normal NOT DETECTED [facility] Comment on above: Performed By: #### B MP, AST, TSH #### [facility] [address] [place] [address] Dr. Dale Ngo Mcr-1 Resistant Gene Not detected Normal NOT DETECTED [facility] Comment on above: Performed By: #### B MP, AST, TSH #### [facility] [address] [place] [address] Dr. Dale Ngo mecA/C Not Applicable Normal NOT DETECTED [facility] Comment on above: Performed By: #### B MP, AST, TSH #### [facility] [address] [place] [address] Dr. Dale Ngo mecA/C MREJ Not Applicable Normal NOT DETECTED [facility] Comment on above: Performed By: #### B MP, AST, TSH #### [facility] [address] [place] [address] Dr. Dale Ngo N. meningitidis Not detected Normal NOT DETECTED [facility] Comment on above: Performed By: #### B MP, AST, TSH #### [facility] [address] [place] [address] Dr. Dale Ngo NDM Resistant Gene Not detected Normal NOT DETECTED [facility] Comment on above: Performed By: #### B MP, AST, TSH #### [facility] [address] [address] [address] Dale Ngo Oxa-48-like Not detected Normal NOT DETECTED [facility] Comment on above: Performed By: #### B MP, AST, TSH #### [facility] [address] [place] [address] Dr. Dale Ngo Proteus Not detected Normal NOT DETECTED [facility] Comment on above: Performed By: #### B MP, AST, TSH #### [facility] [address] [place] [address] Dr. Dale Ngo Pseud. aeruginosa Not detected Normal NOT DETECTED [facility] Comment on above: Performed By: #### B MP, AST, TSH #### [facility] [address] [place] [address] Dr. Dale Ngo S. maltophilia Not detected Normal NOT DETECTED [facility] Comment on above: Performed By: #### B MP, AST, TSH #### [facility] [address] [place] [address] Dr. Dale Ngo Salmonella Not detected Normal NOT DETECTED [facility] Comment on above: Performed By: #### B MP, AST, TSH #### [facility] [address] [place] [address] Dr. Dale Ngo Seratia marcescens Not detected Normal NOT DETECTED [facility] Comment on above: Performed By: #### B MP, AST, TSH #### [facility] [address] [place] [address] Dr. Dale Ngo Site: unknown Normal [facility] Comment on above: Performed By: #### B MP, AST, TSH #### [facility] [address] [place] [address] Dr. Dale Ngo Staph. aureus Not detected Normal NOT DETECTED [facility] Comment on above: Performed By: #### B MP, AST, TSH #### [facility] [address] [place] [address] Dr. Dale Ngo Staph. epidermidis Not detected Normal NOT DETECTED [facility] Comment on above: Performed By: #### B MP, AST, TSH #### [facility] [address] [place] [address] Dr. Dale Ngo Staph. lugdunensis Not detected Normal NOT DETECTED [facility] Comment on above: Performed By: #### B MP, AST, TSH #### [facility] [address] [place] [address] Dr. Dale Ngo Staphylococcus Not detected Normal NOT DETECTED [facility] Comment on above: Performed By: #### B MP, AST, TSH #### [facility] [address] [place] [address] Dr. Dale Ngo Strep. agalactiae Not detected Normal NOT DETECTED [facility] Comment on above: Performed By: #### B MP, AST, TSH #### [facility] [address] [place] [address] Dr. Dale Ngo Strep. pneumoniae Not detected Normal NOT DETECTED [facility] Comment on above: Performed By: #### B MP, AST, TSH #### [facility] [address] [place] [address] Dr. Dale Ngo Strep. pyogenes Not detected Normal NOT DETECTED [facility] Comment on above: Performed By: #### B MP, AST, TSH #### [facility] [address] [place] [address] Dr. Dale Ngo Streptococcus Not detected Normal NOT DETECTED [facility] Comment on above: Performed By: #### B MP, AST, TSH #### [facility] [address] [place] [address] Dr. Dale Ngo Mireya/B Resist. Gene Not Applicable Normal NOT DETECTED [facility] Comment on above: Performed By: #### B MP, AST, TSH #### [facility] [address] [place] [address] Dr. Dale Ngo VIM Resistant Gene Not detected Normal NOT DETECTED [facility] Comment on above: Performed By: #### B MP, AST, TSH #### [facility] [address] [place] [address] Dr. Dale Ngo CBC W MANUAL DIFFon 10-16-19 23 ANISOCYTOSIS SLIGHT Normal [facility] Comment on above: Performed By: #### B MP, AST, TSH #### [facility] [address] [place] [address] Dr. Dale Ngo ATYPICAL LYMPH # Normal [facility] Comment on above: Performed By: #### B MP, AST, TSH #### [facility] [address] [address] [address] Dale Ngo ATYPICAL LYMPH % Normal [facility] Comment on above: Performed By: #### B MP, AST, TSH #### [facility] [address] [address] [address] Dale Ngo BAND # 0.7 103/ul Critically high 0.0-0.3 [facility] Comment on above: Performed By: #### B MP, AST, TSH #### [facility] [address] [place] [address] Dr. Dale Ngo BAND % 3 % Normal 0-5 [facility] Comment on above: Performed By: #### B MP, AST, TSH #### [facility] [address] [place] [address] Dr. Dale Ngo BASOM # 0.00 103/ul Normal 0.00-0.10 [facility] Comment on above: Performed By: #### B MP, AST, TSH #### [facility] [address] [place] [address] Dr. Dale Ngo BASOM % 0.0 % Critically low 0.2-2.0 [facility] Comment on above: Performed By: #### B MP, AST, TSH #### [facility] [address] [place] [address] Dr. Dale Ngo BLAST # Normal [facility] Comment on above: Performed By: #### B MP, AST, TSH #### [facility] [address] [place] [address] Dr. Dale Ngo BLAST % Normal [facility] Comment on above: Performed By: #### B MP, AST, TSH #### [facility] [address] [place] [address] Dr. Dale Ngo CORRECTED WBC Normal 4.0-11.[address] [facility] Comment on above: Performed By: #### B MP, AST, TSH #### [facility] [address] [address] [address] Dale Ngo EOS # 0.48 103/ul Normal 0.00-0.70 [facility] Comment on above: Performed By: #### B MP, AST, TSH #### [facility] [address] [address] [address] Dale Ngo EOS% 2.0 % Normal 0.9-7.0 [facility] Comment on above: Performed By: #### B MP, AST, TSH #### [facility] [address] [address] [address] Dale Ngo HCT 37.4 % Normal 36.0-48.0 [facility] Comment on above: Performed By: #### B MP, AST, TSH #### [facility] [address] [address] [address] Dale Ngo HGB 12.9 g/dl Normal 12.0-16.0 [facility] Comment on above: Performed By: #### B MP, AST, TSH #### [facility] [address] [address] [address] Dale Ngo LYMPHM # 0.48 103/ul Critically low 1.20-3.80 [facility] Comment on above: Performed By: #### B MP, AST, TSH #### [facility] [address] [address] [address] Dale Ngo LYMPHM% 2.0 % Critically low 20.5-60.0 [facility] Comment on above: Performed By: #### B MP, AST, TSH #### [facility] [address] [address] [address] Dale Ngo MCH 29.3 pg Normal 26.7-34.0 [facility] Comment on above: Performed By: #### B MP, AST, TSH #### [facility] [address] [address] [address] Dale Ngo MCHC 34.5 g/dl Normal 29.9-35.2 [facility] Comment on above: Performed By: #### B MP, AST, TSH #### [facility] [address] [address] [address] Dale Ngo MCV 85.0 fL Normal 81.0-99.0 [facility] Comment on above: Performed By: #### B MP, AST, TSH #### [facility] [address] [address] [address] Dale Ngo METAMYELOCYTE # Normal [facility] Comment on above: Performed By: #### B MP, AST, TSH #### [facility] [address] [place] [address] Dr. Dale Ngo METAMYELOCYTE % Normal [facility] Comment on above: Performed By: #### B MP, AST, TSH #### [facility] [address] [place] [address] Dr. Dale Ngo MICROCYTOSIS SLIGHT Normal [facility] Comment on above: Performed By: #### B MP, AST, TSH #### [facility] [address] [place] [address] Dr. Dale Ngo MONOM# 0.71 103/ul Normal 0.30-0.80 [facility] Comment on above: Performed By: #### B MP, AST, TSH #### [facility] [address] [place] [address] Dr. Dale Ngo MONOM% 3.0 % Normal 1.7-12.0 [facility] Comment on above: Performed By: #### B MP, AST, TSH #### [facility] [address] [place] [address] Dr. Dale Ngo MPV 11.2 fL Normal 9.5-13.5 [facility] Comment on above: Performed By: #### B MP, AST, TSH #### [facility] [address] [place] [address] Dr. Dale Ngo MYELOCYTE # Normal [facility] Comment on above: Performed By: #### B MP, AST, TSH #### [facility] [address] [address] [address] Dale Ngo MYELOCYTE % Normal [facility] Comment on above: Performed By: #### B MP, AST, TSH #### [facility] [address] [place] [address] Dr. Dale Ngo NRBC Normal [facility] Comment on above: Performed By: #### B MP, AST, TSH #### [facility] [address] [address] [address] Dale Ngo PLT 208 103/ul Normal 150-450 [facility] Comment on above: Performed By: #### B MP, AST, TSH #### [facility] [address] [address] [address] Dale Ngo RBC 4.40 106/ul Normal 4.20-5.40 [facility] Comment on above: Performed By: #### B MP, AST, TSH #### [facility] [address] [place] [address] Dr. Dale Ngo RDW 13.0 % Normal 11.0-15.0 [facility] Comment on above: Performed By: #### B MP, AST, TSH #### [facility] [address] [address] [address] Dale Ngo SEG # 21.42 103/ul Critically high 1.40-6.50 [facility] Comment on above: Performed By: #### B MP, AST, TSH #### [facility] [address] [place] [address] Dr. Dale Ngo SEG % 90.0 % Critically high 43.0-75.0 [facility] Comment on above: Performed By: #### B MP, AST, TSH #### [facility] [address] [place] [address] Dr. Dale Ngo WBC 23.8 103/ul Critically high 4.0-11.0 [facility] Comment on above: Performed By: #### B MP, AST, TSH #### [facility] [address] [place] [address] Dr. Dale Ngo CPKon 10-16-2022 CK [Catalytic activity/Vol] 2025 U/L Critically high 26-192 [facility] Comment on above: Performed By: #### B MP, AST, TSH #### [facility] [address] [address] [address] ABD/PELVIS WO CONon [...] RUDDY LEONE Date: 2022-10-16 21:23 Normal [facility] CT HEAD WO CONon 10-16-2022 [...] of the left maxillary sinus within the [id number]. There is some thickening of the bone [...] may help better delineate. Electronically authenticated by: ALLY SMITH Date: 2022-10-16 18:25 Normal [facility] CULTURE BLOODon 10-16-2022 Microscopic examination of blood, culture Culture Observations: Positive blood culture. Pediatric bottle. Culture Observations: Refer to accession #[id number] for susceptibilities. Isolate 1 Escherichia coli Growth of Normal [facility] Comment on above: Performed By: #### L ACT #### [facility] [address] [place] [address] Dr. Dale AN URINE PROFILEon 3 Bilirubin Ql (U) Negative Normal NEGATIVE [facility] Comment on above: Performed By: #### C BC #### [facility] [address] [place] [address] Dr. Dale Ngo Clarity (U) SL CLOUDY Abnormal CLEAR [facility] Comment on above: Performed By: #### C BC #### [facility] [address] [place] [address] Dr. Dale Ngo Color (U) LT. YELLOW Normal YELLOW [facility] Comment on above: Performed By: #### C BC #### [facility] [address] [place] [address] Dr. Dale Ngo ERUAHAllison A micrscopic examination will be performed if indicated. Normal [facility] Comment on above: Performed By: #### C BC #### [facility] [address] [place] [address] Dr. Dale Ngo Glucose Ql (U) Negative Normal NEGATIVE [facility] Comment on above: Performed By: #### C BC #### [facility] [address] [place] [address] Dr. Dale Ngo Hemoglobin Ql (U) LARGE Abnormal NEGATIVE [facility] Comment on above: Performed By: #### C BC #### [facility] [address] [place] [address] Dr. Dale Ngo Ketones Ql (U) Negative Normal NEGATIVE [facility] Comment on above: Performed By: #### C BC #### [facility] [address] [place] [address] Dr. Dale Ngo LEUKOCYTES LARGE Abnormal NEGATIVE [facility] Comment on above: Performed By: #### C BC #### [facility] [address] [place] [address] Dr. Dale Ngo Nitrite Ql (U) Positive Abnormal NEGATIVE [facility] Comment on above: Performed By: #### C BC #### [facility] [address] [place] [address] Dr. Dale Ngo pH (U) 5.5 [pH] Normal 5-9 [facility] Comment on above: Performed By: #### C BC #### [facility] [address] [place] [address] Dr. Dale Ngo Protein (U) [Mass/Vol] 100 mg/dL Abnormal NEGAT TIFFANI/ TRACE [facility] Comment on above: Performed By: #### C BC #### [facility] [address] [place] [address] Dr. Dale Ngo SPEC GRAVITY 1.020 Normal 1.005-<=1.02 5 [facility] Comment on above: Performed By: #### C BC #### [facility] [address] [place] [address] Dr. Dale Ngo UR MICRO IND INDICATED Normal [facility] Comment on above: Performed By: #### C BC #### [facility] [address] [place] [address] Dr. Dale Ngo Urobilinogen Qn (U) 0.2 {Tenisha'U}/dL Normal 0.2 - 1. 0 [facility] Comment on above: Performed By: #### C BC #### [facility] [address] [place] [address] Dr. Dale Ngo LIVER PROFILEon 10-16-2022 Albumin [Mass/Vol] 2.7 g/dL Critically low 3.4-5.0 [facility] Comment on above: Performed By: #### B MP, AST, TSH #### [facility] [address] [place] [address] Dr. Dale Ngo Albumin/Globulin [Mass ratio] 0.6 {ratio} Normal [facility] Comment on above: Performed By: #### B MP, AST, TSH #### [facility] [address] [place] [address] Dr. Dale Ngo ALP [Catalytic activity/Vol] 148 U/L Critically high 46-116 [facility] Comment on above: Performed By: #### B MP, AST, TSH #### [facility] [address] [address] [address] Dale Ngo ALT [Catalytic activity/Vol] 61 U/L Critically high 14-59 [facility] Comment on above: Performed By: #### B MP, AST, TSH #### [facility] [address] [address] [address] Dale Ngo AST [Catalytic activity/Vol] 111 U/L Critically high 15-37 [facility] Comment on above: Performed By: #### B MP, AST, TSH #### [facility] [address] [address] [address] Dale Ngo BILI, CONJUGATED 0.3 mg/dL Critically high 0.0-0.2 [facility] Comment on above: Performed By: #### B MP, AST, TSH #### [facility] [address] [place] [address] Dr. Dale Ngo Bilirubin [Mass/Vol] 0.9 mg/dL Normal 0.2-1.0 [facility] Comment on above: Performed By: #### B MP, AST, TSH #### [facility] [address] [address] [address] Dale Ngo Globulin (S) [Mass/Vol] 4.2 g/dL Normal [facility] Comment on above: Performed By: #### B MP, AST, TSH #### [facility] [address] [address] [address] Dale Ngo Protein [Mass/Vol] 6.9 g/dL Normal 6.4-8.2 [facility] Comment on above: Performed By: #### B MP, AST, TSH #### [facility] [address] [address] [address] Dale Ngo MYOGLOBINon 10-16-2022 BEVERLEY 4501 ng/mL Critically high 9-82 [facility] Comment on above: Performed By: #### B MP, AST, TSH #### [facility] [address] [address] [address] Dale Ngo PROF CHEM 8 (BAS METB)on Anion gap [Moles/Vol] 18.2 mmol/L Normal Th [facility] Comment on above: Performed By: #### B MP, AST, TSH #### [facility] [address] [address] [address] Dale Ngo Calcium [Mass/Vol] 8.5 mg/dL Normal 8.5-10.1 [facility] Comment on above: Performed By: #### B MP, AST, TSH #### [facility] [address] [place] [address] Dr. Dale Ngo Chloride [Moles/Vol] 99 mmol/L Normal 98-107 [facility] Comment on above: Performed By: #### B MP, AST, TSH #### [facility] [address] [place] [address] Dr. Dale Ngo CO2 [Moles/Vol] 20.0 mmol/L Critically low 21.0-32.0 [facility] Comment on above: Performed By: #### B MP, AST, TSH #### [facility] [address] [place] [address] Dr. Dale Ngo Creatinine [Mass/Vol] 2.08 mg/dL Critically high 0.55-1.02 [facility] Comment on above: Performed By: #### B MP, AST, TSH #### [facility] [address] [place] [address] Dr. Dale Ngo EGFR-AF MAURITIAN 28 mL/min/1.73m2 Critically low >=60 [facility] Comment on above: Performed By: #### B MP, AST, TSH #### [facility] [address] [place] [address] Dr. Dale Ngo EGFR-NON AF MAURITIAN 23 mL/min/1.73m2 Critically low >=60 [facility] Comment on above: Performed By: #### B MP, AST, TSH #### [facility] [address] [place] [address] Dr. Dale Ngo Glucose [Mass/Vol] 110 mg/dL Critically high 74-106 [facility] Comment on above: Performed By: #### B MP, AST, TSH #### [facility] [address] [address] [address] Dale Ngo Potassium [Moles/Vol] 4.2 mmol/L Normal 3.5-5.1 [facility] Comment on above: Performed By: #### B MP, AST, TSH #### [facility] [address] [place] [address] Dr. Dale Ngo Sodium [Moles/Vol] 133 mmol/L Critically low 136-145 Th [facility] Comment on above: Performed By: #### B MP, AST, TSH #### [facility] [address] [place] [address] Dr. Dale Ngo Urea nitrogen [Mass/Vol] 39.0 mg/dL Critically high 7.0-18.0 [facility] Comment on above: Performed By: #### B MP, AST, TSH #### [facility] [address] [place] [address] Dr. Dale Ngo Urea nitrogen/Creatinine [Mass ratio] 18.8 mg/mg Normal [facility] Comment on above: Performed By: #### B MP, AST, TSH #### [facility] [address] [place] [address] Dr. Dale Ngo TROPONIN, HIGH SENSITIVITYon 10-16-2022 HSTROP 22.0 pg/mL Normal 4.0-51.3 [facility] Comment on above: Result Comment: CUT- OFF POINTS HAVE BEEN ESTABLISHED BASED ON THE FOURTH UNIVERSAL DEFINITIONS OF MYOCARDIAL INFARCTION. THE UPPER REFERENCE LIMIT (URL) OF TROPONIN, DEFINED THE 99TH PERCENTILE OF cTnI DISTRIBUTION IN A REFERENCE POPULATION, HAS BEEN CONFIRMED THE DECISION THRESHOLD FOR NM DIAGNOSIS. Performed By: #### B MP, AST, TSH #### [facility] [address] [place] [address] Dr. Dale Ngo URINE MICROSCOPIC ONLYon BACTERIA LARGE Abnormal NONE SEEN [facility] Comment on above: Performed By: #### C BC #### [facility] [address] [place] [address] Dr. Dale Ngo Bacteria identified Cx Nom (U) INDICATED Normal [facility] Comment on above: Performed By: #### C BC #### [facility] [address] [place] [address] Dr. Dale Ngo CAST SEEN Abnormal NONE SEEN [facility] Comment on above: Performed By: #### C BC #### [facility] [address] [place] [address] Dr. Dale Ngo Crystals LM Nom (Urine sed) NONE SEEN Normal NONE SEEN [facility] Comment on above: Performed By: #### C BC #### [facility] [address] [place] [address] Dr. Dale Ngo Epithelial cells LM Ql (Urine sed) FEW Abnormal NONE SEEN /RARE [facility] Comment on above: Performed By: #### C BC #### [facility] [address] [place] [address] Dr. Dale Ngo FINE GRANULAR CAST RARE Normal [facility] Comment on above: Performed By: #### C BC #### [facility] [address] [place] [address] Dr. Dale Ngo MUCOUS NONE SEEN Normal NONE SEEN [facility] Comment on above: Performed By: #### C BC #### [facility] [address] [place] [address] Dr. Dale Ngo RBC (U) [#/Vol] /uL Abnormal 0-2 [facility] Comment on above: Performed By: #### C BC #### [facility] [address] [place] [address] Dr. Dale Ngo WBC (U) [#/Vol] /uL Abnormal NONE SEEN [facility] Comment on above: Performed By: #### C BC #### [facility] [address] [place] [address] Dr. Dale Ngo XR CHEST 1 Von [...] JAVIER HOWELL Date: 2022-10-16 18:16 Normal [facility] Office Visit (Cardiology)on 09-22-2022 Follow-up [...] Status:Hold For - Scheduling,Retrospect tiffani Authorization; Requested for:[id number]; Radiologist to Determine Optimal Study : Y What are the patient's signs and symptoms? : SOB Class 2 obesity with body mass index (BMI) of 38.0 to 38.9 in adult Healthy Weight Tips; Status:Complete - Retrospective Authorization; Done: [id number] Some eating tips that can help you lose weight.; Status:Complete - Retrospective Authorization; Done: [id number] History of PTCA, Paroxysmal atrial fibrillation IO EKG Electrocardiogram- 12 Lead; Status:Complete; Done: [id number] Mixed hyperlipidemia Start: Atorvastatin Calcium 40 MG [...] sinus syndrome, paroxysmal A-fib, previously treated by dormitory maid in [place] now follows with ourselves. Her amiodarone has [...] Medication No Known Drug Allergies Recorded By: Ainlsey Tony; 09/07/2021 9:59:01 AM Social History Problems [...] Signs Recorded: 22Sep2022 10:31AM Heart Rate60, Apical Apruucdl959 Mmbiuwcmu70 Height5 ft 1 in Plptgp634 lb BMI Gxksmrescn21.92 kg/m2 BSA Calculated1.91 Tobacco Useb) No PHQ-2 #1. Over the last 2 weeks have you felt down, depressed or hopeless? (If yes, answer PHQ-9 below)No PHQ-2 #2. Over the last 2 wee (more content not included)... Normal [employer] Tobacco Screening.on 023 Adult depression screening assessment No [facility] [employer] [facility] y 250 DO Work Phone: Fall risk assessment b) One or more fall s in the last year [facility] [employer] y 250 DO Work Phone: Tobacco use status CPHS b) No [facility] Cogn[employer]usk y 250 DO Work Phone: PTH INTACTon 06-25-2022 PTH, Intact 40 pg/mL Normal 15-65 [facility] Comment on above: Performed By: #### B MP, AST, TSH #### [facility] [address] [place] [address] Dr. Dale Ngo HEMOGRAM AND PLATELon 2021 Hematocrit (Bld) [Volume fraction] 40.6 % Normal 36.0-48.0 [facility] Comment on above: Performed By: #### C BC #### [facility] [address] [address] [address] Dale Ngo Hemoglobin (Bld) [Mass/Vol] 13.1 g/dL Normal 12.0-16.0 [facility] Comment on above: Performed By: #### C BC #### [facility] [address] [place] [address] Dr. Dale Ngo MCH (RBC) [Entitic mass] 29.2 pg Normal 26.7-34.0 [facility] Comment on above: Performed By: #### C BC #### [facility] [address] [place] [address] Dr. Dale Ngo MCHC (RBC) [Mass/Vol] 32.3 g/dL Normal 29.9-35.2 [facility] Comment on above: Performed By: #### C BC #### [facility] [address] [place] [address] Dr. Dale Ngo MCV (RBC) [Entitic vol] 90.6 fL Normal 81.0-99.0 [facility] Comment on above: Performed By: #### C BC #### [facility] [address] [place] [address] Dr. Dale Ngo PLT 249 103/ul Normal 150-450 [facility] Comment on above: Performed By: #### C BC #### [facility] [address] [place] [address] Dr. Dale Ngo RBC 4.48 106/ul Normal 4.20-5.40 [facility] Comment on above: Performed By: #### C BC #### [facility] [address] [place] [address] Dr. Dale Ngo WBC 7.2 103/ul Normal 4.0-11.0 [facility] Comment on above: Performed By: #### C BC #### [facility] [address] [place] [address] Dr. Dale Ngo MAGNESIUMon 06-24-2022 Magnesium [Mass/Vol] 2.1 mg/dL Normal 1.8-2.4 [facility] Comment on above: Performed By: #### C BC #### [facility] [address] [place] [address] Dr. Dale Ngo RENAL FUNCTION PANELon 06-24 Albumin [Mass/Vol] 3.4 g/dL Normal 3.4-5.0 [facility] Comment on above: Performed By: #### C BC #### [facility] [address] [place] [address] Dr. Dale Ngo Calcium [Mass/Vol] 9.4 mg/dL Normal 8.5-10.1 [facility] Comment on above: Performed By: #### C BC #### [facility] [address] [address] [address] Dale Ngo Chloride [Moles/Vol] 104 mmol/L Normal 98-107 [facility] Comment on above: Performed By: #### C BC #### [facility] [address] [address] [address] Dale Ngo CO2 [Moles/Vol] 28.5 mmol/L Normal 21.0-32.0 [facility] Comment on above: Performed By: #### C BC #### [facility] [address] [address] [address] Dale Ngo Creatinine [Mass/Vol] 1.39 mg/dL Critically high 0.55-1.02 [facility] Comment on above: Performed By: #### C BC #### [facility] [address] [address] [address] Dale Ngo EGFR-AF MAURITIAN 45 mL/min/1.73m2 Critically low >=60 [facility] Comment on above: Performed By: #### C BC #### [facility] [address] [address] [address] Dale Ngo EGFR-NON AF MAURITIAN 37 mL/min/1.73m2 Critically low >=60 [facility] Comment on above: Performed By: #### C BC #### [facility] [address] [address] [address] Dale Ngo Glucose [Mass/Vol] 93 mg/dL Normal 74-106 [facility] Comment on above: Performed By: #### C BC #### [facility] [address] [address] [address] Dale Ngo Phosphate [Mass/Vol] 3.1 mg/dL Normal 2.6-4.7 [facility] Comment on above: Performed By: #### C BC #### [facility] [address] [address] [address] Dale Ngo Potassium [Moles/Vol] 5.0 mmol/L Normal 3.5-5.1 [facility] Comment on above: Performed By: #### C BC #### [facility] [address] [address] [address] Dale Ngo Sodium [Moles/Vol] 135 mmol/L Critically low 136-145 Th [facility] Comment on above: Performed By: #### C BC #### [facility] [address] [place] [address] Dr. Dale Ngo Urea nitrogen [Mass/Vol] 29.0 mg/dL Critically high 7.0-18.0 [facility] Comment on above: Performed By: #### C BC #### [facility] [address] [place] [address] Dr. Dale Ngo UA RANDOM W/MICROSCOPICon BACTERIA NONE SEEN Normal NONE SEEN [facility] Comment on above: Performed By: #### U AMIC #### [facility] [address] [place] [address] Dr. Dale Ngo Bilirubin Ql (U) Negative Normal NEGATIVE [facility] Comment on above: Performed By: #### U AMIC #### [facility] [address] [place] [address] Dr. Dale Ngo CAST NONE SEEN Normal NONE SEEN [facility] Comment on above: Performed By: #### U AMIC #### [facility] [address] [place] [address] Dr. Dale Ngo Clarity (U) CLEAR Normal CLEAR [facility] Comment on above: Performed By: #### U AMIC #### [facility] [address] [place] [address] Dr. Dale Ngo Color (U) LT. YELLOW Normal YELLOW [facility] Comment on above: Performed By: #### U AMIC #### [facility] [address] [place] [address] Dr. Dale Ngo Crystals LM Nom (Urine sed) NONE SEEN Normal NONE SEEN [facility] Comment on above: Performed By: #### U AMIC #### [facility] [address] [place] [address] Dr. Dale Ngo Epithelial cells LM Ql (Urine sed) FEW Abnormal NONE SEEN /RARE [facility] Comment on above: Performed By: #### U AMIC #### [facility] [address] [address] [address] Dale Ngo Glucose Ql (U) Negative Normal NEGATIVE [facility] Comment on above: Performed By: #### U AMIC #### [facility] [address] [address] [address] Dale Ngo Hemoglobin Ql (U) Negative Normal NEGATIVE [facility] Comment on above: Performed By: #### U AMIC #### [facility] [address] [address] [address] Dale Ngo Ketones Ql (U) Negative Normal NEGATIVE [facility] Comment on above: Performed By: #### U AMIC #### [facility] [address] [address] [address] Dale Ngo LEUKOCYTES SMALL Abnormal NEGATIVE [facility] Comment on above: Performed By: #### U AMIC #### [facility] [address] [address] [address] Dale Ngo MUCOUS NONE SEEN Normal NONE SEEN [facility] Comment on above: Performed By: #### U AMIC #### [facility] [address] [address] [address] Dale Ngo Nitrite Ql (U) Negative Normal NEGATIVE [facility] Comment on above: Performed By: #### U AMIC #### [facility] [address] [address] [address] Dale Ngo pH (U) 6.0 [pH] Normal 5-9 [facility] Comment on above: Performed By: #### U AMIC #### [facility] [address] [address] [address] Dale Ngo RBC NONE SEEN Abnormal 0-2 [facility] Comment on above: Performed By: #### U AMIC #### [facility] [address] [place] [address] Dr. Dale Ngo SPEC GRAVITY <=1.005 Abnormal 1.005-<=1.02 5 [facility] Comment on above: Performed By: #### U AMIC #### [facility] [address] [address] [address] Dale Ngo UA PROTEIN Negative Normal NEGATIVE/ TRACE [facility] Comment on above: Performed By: #### U AMIC #### [facility] [address] [address] [address] Dale Ngo Urobilinogen Qn (U) 0.2 {Tenisha'U}/dL Normal 0.2 - 1. 0 [facility] Comment on above: Performed By: #### U AMIC #### [facility] [address] [address] [address] Dale Ngo WBC 0-2 Abnormal NONE SEEN [facility] Comment on above: Performed By: #### U AMIC #### [facility] [address] [place] [address] Dr. Dale Ngo URIC ACID SERUMon 06-24-2022 Urate [Mass/Vol] 4.0 mg/dL Normal 2.6-6.0 [facility] Comment on above: Performed By: #### C BC #### [facility] [address] [place] [address] Dr. Dale Ngo URINE T PROTEIN CREAT RATIOo n 06-24-2022 UR PROT CREAT RAT 0.34 Normal [facility] Comment on above: Performed By: #### B MP, AST, TSH #### [facility] [address] [place] [address] Dr. Dale Ngo UR TOTAL PROTEIN <6.0 Normal <=12.0 [facility] Comment on above: Performed By: #### B MP, AST, TSH #### [facility] [address] [place] [address] Dr. Dale Ngo URINE CREAT 17.84 mg/dL Critically low 20.00-300.00 [facility] Comment on above: Performed By: #### B MP, AST, TSH #### [facility] [address] [place] [address] Dr. Dale Ngo VITAMIN D 25 OHon 06-24-2022 VIT D 25-OH 62.8 ng/mL Normal [facility] Comment on above: Performed By: #### V ITAD #### [facility] [address] [place], [place] [address] Dr. Dale Ngo VIT D RANGES SEE BELOW Normal [facility] Comment on above: Result Comment: <20 ng/mL Vit D deficient 20 - <30 ng/mL Vit D insufficient 30 - 100 ng/mL Vit D sufficient >100 ng/mL Potential Toxicity Performed By: #### V ITAD #### [facility] [address] [address] [address] CHEST WO CONon [...] MELINDA LOVE Date: 2022-06-05 21:20 Normal [facility] HEMOGLOBINon 05-23-2022 Hemoglobin (Bld) [Mass/Vol] 13.1 g/dL Normal 12.0-16.0 [facility] Comment on above: Performed By: #### C BC #### [facility] [address] [address] [address] Dale Ngo PROF CHEM 8 (BAS METB)on Anion gap [Moles/Vol] 9.9 mmol/L Normal [facility] Comment on above: Performed By: #### L ACT #### [facility] [address] [address] [address] Dale Ngo Calcium [Mass/Vol] 8.7 mg/dL Normal 8.5-10.1 [facility] Comment on above: Performed By: #### L ACT #### [facility] [address] [address] [address] Dale Ngo Chloride [Moles/Vol] 106 mmol/L Normal 98-107 [facility] Comment on above: Performed By: #### L ACT #### [facility] [address] [place] [address] Dr. Dale Ngo CO2 [Moles/Vol] 29.0 mmol/L Normal 21.0-32.0 [facility] Comment on above: Performed By: #### L ACT #### [facility] [address] [address] [address] Dale Ngo Creatinine [Mass/Vol] 1.37 mg/dL Critically high 0.55-1.02 [facility] Comment on above: Performed By: #### L ACT #### [facility] [address] [address] [address] Dale Ngo EGFR-AF MAURITIAN 46 mL/min/1.73m2 Critically low >=60 [facility] Comment on above: Performed By: #### L ACT #### [facility] [address] [address] [address] Dale Ngo EGFR-NON AF MAURITIAN 38 mL/min/1.73m2 Critically low >=60 [facility] Comment on above: Performed By: #### L ACT #### [facility] [address] [address] [address] Dale Ngo Glucose [Mass/Vol] 94 mg/dL Normal 74-106 [facility] Comment on above: Performed By: #### L ACT #### [facility] [address] [address] [address] Dale Ngo Potassium [Moles/Vol] 3.9 mmol/L Normal 3.5-5.1 [facility] Comment on above: Performed By: #### L ACT #### [facility] [address] [address] [address] Dale Ngo Sodium [Moles/Vol] 141 mmol/L Normal 136-145 [facility] Comment on above: Performed By: #### L ACT #### [facility] [address] [address] [address] Dale Ngo Urea nitrogen [Mass/Vol] 25.0 mg/dL Critically high 7.0-18.0 [facility] Comment on above: Performed By: #### L ACT #### [facility] [address] [address] [address] Dale Ngo Urea nitrogen/Creatinine [Mass ratio] 18.2 mg/mg Normal [facility] Comment on above: Performed By: #### L ACT #### [facility] [address] [address] [address] Dale Ngo SGOTon 05-23-2022 AST [Catalytic activity/Vol] 37 U/L Normal 15-37 [facility] Comment on above: Performed By: #### L ACT #### [facility] [address] [address] [address] Dale Ngo TSHon 05-23-2022 TSH 1.800 uIU/mL Normal 0.358-3.[address] [facility] Comment on above: Performed By: #### A ST, TSH, BMP #### [facility] [address] [address] [address] Dale Ngo XR CHEST 2 Von [...] AQUILINO FARIA Date: 2022-05-23 13:14 Normal [facility] Office Visit (Cardiology)on 03-10-2022 Follow-up [...] Weight Tips; Status:Complete - Retrospective Authorization; Done: [id number] High risk medication use, Paroxysmal atrial fibrillation Pulmonary Function Test with DLCO; Status:Active - Retrospective Authorization; Requested for:[id number]; Pulmonary Function Test with/without bronchodilators; Status:Active - Retrospective Authorization; Requested for:[id number]; Paroxysmal atrial fibrillation Start: Amiodarone HCl - 200 MG Oral Tablet; take one-half tablet daily monday through monday only IO EKG Electrocardiogram- 12 Lead; Status:Complete; Done: [id number] Unlinked Stop: Amiodarone HCl - 200 MG Oral Tablet Patient Instructions By signing my name below, I, Ramirez Shahid RN ,Scribe, attest that this documentation has been prepared under the direction and in the presence of Dr. Malcom Howard DO. All medical record entries made by the Alex were at my direction and personally dictated [...] and dyspnea. She sustained inferior ST elevation NM in August of this year with revascularization of the RCA. She has a history of paroxysmal A. 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 She has underlying obesity, pacemaker for reportedly [...] 02:45PM Hea (more content not included)... Normal [employer] Tobacco Screening.on 022 Adult depression screening assessment No [facility] [employer] [facility] y 250 DO Work Phone: Fall risk assessment a) No falls within the last year [facility] y 250 DO Work Phone: Tobacco use status CPHS b) No [facility] y 250 DO Work Phone: PROF CHEM 8 (BAS METB)on Anion gap [Moles/Vol] 10.3 mmol/L Normal [facility] Comment on above: Performed By: #### B MP, AST, TSH #### [facility] [address] [address] [address] Dale Ngo Calcium [Mass/Vol] 8.8 mg/dL Normal 8.5-10.1 [facility] Comment on above: Performed By: #### B MP, AST, TSH #### [facility] [address] [address] [address] Dale Ngo Chloride [Moles/Vol] 101 mmol/L Normal 98-107 [facility] Comment on above: Performed By: #### B MP, AST, TSH #### [facility] [address] [address] [address] Dale Ngo CO2 [Moles/Vol] 28.8 mmol/L Normal 21.0-32.0 [facility] Comment on above: Performed By: #### B MP, AST, TSH #### [facility] [address] [address] [address] Dale Ngo Creatinine [Mass/Vol] 1.58 mg/dL Critically high 0.55-1.02 [facility] Comment on above: Performed By: #### B MP, AST, TSH #### [facility] [address] [address] [address] Dale Ngo EGFR-AF MAURITIAN 39 mL/min/1.73m2 Critically low >=60 [facility] Comment on above: Performed By: #### B MP, AST, TSH #### [facility] [address] [place] [address] Dr. Dale Ngo EGFR-NON AF MAURITIAN 32 mL/min/1.73m2 Critically low >=60 [facility] Comment on above: Performed By: #### B MP, AST, TSH #### [facility] [address] [address] [address] Dale Ngo Glucose [Mass/Vol] 93 mg/dL Normal 74-106 [facility] Comment on above: Performed By: #### B MP, AST, TSH #### [facility] [address] [address] [address] Dale Ngo Potassium [Moles/Vol] 5.1 mmol/L Normal 3.5-5.1 [facility] Comment on above: Performed By: #### B MP, AST, TSH #### [facility] [address] [address] [address] Dale Ngo Sodium [Moles/Vol] 135 mmol/L Critically low 136-145 Th [facility] Comment on above: Performed By: #### B MP, AST, TSH #### [facility] [address] [address] [address] Dale Ngo Urea nitrogen [Mass/Vol] 36.0 mg/dL Critically high 7.0-18.0 [facility] Comment on above: Performed By: #### B MP, AST, TSH #### [facility] [address] [place] [address] Dr. Dale Ngo Urea nitrogen/Creatinine [Mass ratio] 22.8 mg/mg Normal [facility] Comment on above: Performed By: #### B MP, AST, TSH #### [facility] [address] [place] [address] Dr. Dale Ngo SGOTon 01-14-2022 AST [Catalytic activity/Vol] 29 U/L Normal 15-37 [facility] Comment on above: Performed By: #### B MP, AST, TSH #### [facility] [address] [place] [address] Dr. Dale Ngo T4 LABCORPon 01-14-2022 T4 [Mass/Vol] 10.1 ug/dL Normal 4.5-12.[address] [facility] Comment on above: Performed By: #### L ACT #### [facility] [address] [place] [address] Dr. Dale Ngo TSHon 01-14-2022 TSH 1.420 uIU/mL Normal 0.358-3.[address] [facility] Comment on above: Performed By: #### B MP, AST, TSH #### [facility] [address] [place] [address] Dr. Dale Ngo TSH RANGE SEE BELOW Normal [facility] Comment on above: Result Comment: <0.3 4 UIU/ml HYPERTHYROID 0.34-5.60 UIU/ml EUTHYROID >5.60 UIU/ml HYPOTHYROID Performed By: #### B MP, AST, TSH #### [facility] [address] [place] [address] Dr. Dale Ngo XR CHEST 2 Von [...] MELINDA LOVE Date: 2022-01-14 14:22 Normal [facility] BNPon 01-10-2022 Natriuretic peptide B (Bld) [Mass/Vol] 190.0 pg/mL Normal <=900.0 [facility] Comment on above: Performed By: #### B MP, AST, TSH #### [facility] [address] [place] [address] Dr. Dale Ngo CBC AUTO DIFFon 01-10-2022 BASO # 0.1 103/ul Normal 0.0-0.1 [facility] Comment on above: Performed By: #### B MP, AST, TSH #### [facility] [address] [address] [address] Dale Ngo Basophils/100 WBC (Bld) 0.8 % Normal 0.2-2.0 [facility] Comment on above: Performed By: #### B MP, AST, TSH #### [facility] [address] [place] [address] Dr. Dale Ngo EO # 0.3 103/ul Normal 0.0-0.7 [facility] Comment on above: Performed By: #### B MP, AST, TSH #### [facility] [address] [place] [address] Dr. Dale Ngo Eosinophils/100 WBC (Bld) 4.4 % Normal 0.9-7.0 [facility] Comment on above: Performed By: #### B MP, AST, TSH #### [facility] [address] [place] [address] Dr. Dale Ngo Erythrocyte distribution width (RBC) [Ratio] 14.0 % Normal 11.0-15.0 [facility] Comment on above: Performed By: #### B MP, AST, TSH #### [facility] [address] [place] [address] Dr. Dale Ngo Hematocrit (Bld) [Volume fraction] 40.6 % Normal 36.0-48.0 [facility] Comment on above: Performed By: #### B MP, AST, TSH #### [facility] [address] [place] [address] Dr. Dale Ngo Hemoglobin (Bld) [Mass/Vol] 13.0 g/dL Normal 12.0-16.0 [facility] Comment on above: Performed By: #### B MP, AST, TSH #### [facility] [address] [place] [address] Dr. Dale Ngo IG # 0.02 10e3/ul Normal 0.00-0.03 [facility] Comment on above: Performed By: #### B MP, AST, TSH #### [facility] [address] [place] [address] Dr. Dale Ngo IG % 0.3 % Normal 0.0-0.5 [facility] Comment on above: Performed By: #### B MP, AST, TSH #### [facility] [address] [place] [address] Dr. Dale Ngo LYMPH # 1.6 103/ul Normal 1.2-3.8 [facility] Comment on above: Performed By: #### B MP, AST, TSH #### [facility] [address] [place] [address] Dr. Dale Ngo Lymphocytes/100 WBC (Bld) 25.6 % Normal 20.5-60.0 [facility] Comment on above: Performed By: #### B MP, AST, TSH #### [facility] [address] [place] [address] Dr. Dale Ngo MANUAL DIFF REQ NO Normal [facility] Comment on above: Performed By: #### B MP, AST, TSH #### [facility] [address] [place] [address] Dr. Dale Ngo MCH (RBC) [Entitic mass] 29.1 pg Normal 26.7-34.0 [facility] Comment on above: Performed By: #### B MP, AST, TSH #### [facility] [address] [place] [address] Dr. Dale Ngo MCHC (RBC) [Mass/Vol] 32.0 g/dL Normal 29.9-35.2 [facility] Comment on above: Performed By: #### B MP, AST, TSH #### [facility] [address] [place] [address] Dr. Dale Ngo MCV (RBC) [Entitic vol] 90.8 fL Normal 81.0-99.0 [facility] Comment on above: Performed By: #### B MP, AST, TSH #### [facility] [address] [place] [address] Dr. Dale Ngo MONO # 0.4 103/ul Normal 0.3-0.8 [facility] Comment on above: Performed By: #### B MP, AST, TSH #### [facility] [address] [place] [address] Dr. Dale Ngo Monocytes/100 WBC (Bld) 6.6 % Normal 1.7-12.0 [facility] Comment on above: Performed By: #### B MP, AST, TSH #### [facility] [address] [place] [address] Dr. Dale Ngo NEUT # 3.9 103/ul Normal 1.4-6.5 [facility] Comment on above: Performed By: #### B MP, AST, TSH #### [facility] [address] [place] [address] Dr. Dale Ngo Neutrophils/100 WBC (Bld) 62.3 % Normal 43.0-75.0 [facility] Comment on above: Performed By: #### B MP, AST, TSH #### [facility] [address] [place] [address] Dr. Dale Ngo Platelet mean volume (Bld) [Entitic vol] 10.6 fL Normal 9.5-13.5 [facility] Comment on above: Performed By: #### B MP, AST, TSH #### [facility] [address] [address] [address] Dale Ngo PLT 240 103/ul Normal 150-450 [facility] Comment on above: Performed By: #### B MP, AST, TSH #### [facility] [address] [place] [address] Dr. Dale Ngo RBC 4.47 106/ul Normal 4.20-5.40 [facility] Comment on above: Performed By: #### B MP, AST, TSH #### [facility] [address] [place] [address] Dr. Dale Ngo WBC 6.2 103/ul Normal 4.0-11.0 [facility] Comment on above: Performed By: #### B MP, AST, TSH #### [facility] [address] [place] [address] Dr. Dale Ngo FREE THYROXINE INDEX T7on FTI 3.74 Normal 1.30-4.50 [facility] Comment on above: Performed By: #### B MP, AST, TSH #### [facility] [address] [place] [address] Dr. Dale Ngo T3U 37.0 % Normal 30.0-39.0 [facility] Comment on above: Performed By: #### B MP, AST, TSH #### [facility] [address] [place] [address] Dr. Dale Ngo T4 [Mass/Vol] 10.10 ug/dL Normal 4.80-13.90 [facility] Comment on above: Performed By: #### B MP, AST, TSH #### [facility] [address] [place] [address] Dr. Dale Ngo GLYCOHEMOGLOBIN A1Con 2021 ADA RECOMMENDATION SEE BELOW Normal [facility] Comment on above: Result Comment: ADA RECOMMENDED LIMIT 4.0 - 6.0 ADA THERAPEUTIC TARGET < 7.0 ACTION SUGGESTED > 7.0 Performed By: #### B MP, AST, TSH #### [facility] [address] [place] [address] Dr. Dale Ngo Glucose [Mass/Vol] 120 mg/dL Normal [facility] Comment on above: Performed By: #### B MP, AST, TSH #### [facility] [address] [address] [address] Dale Ngo HbA1c (Bld) [Mass fraction] 5.8 % Normal 4.5-6.2 [facility] Comment on above: Performed By: #### B MP, AST, TSH #### [facility] [address] [address] [address] Dale Ngo IRONon 01-10-2022 Iron [Mass/Vol] 81.0 ug/dL Normal 50.0-170.0 [facility] Comment on above: Performed By: #### B MP, AST, TSH #### [facility] [address] [address] [address] Dale Ngo LIPID PROFILEon 01-10-2022 CHOL-HDL RATIO NORM SEE BELOW Normal [facility] Comment on above: Result Comment: 3.3 - 4.4 LOW RISK 4.4 - 7.1 AVERAGE RISK 7.1 - 11.0 MODERATE RISK >11.0 HIGH RISK Performed By: #### B MP, AST, TSH #### [facility] [address] [address] [address] Dale Ngo Cholesterol [Mass/Vol] 144 mg/dL Normal <=200 [facility] Comment on above: Performed By: #### B MP, AST, TSH #### [facility] [address] [address] [address] Dale Ngo Cholesterol in HDL [Mass/Vol] 57 mg/dL Normal 40-60 [facility] Comment on above: Performed By: #### B MP, AST, TSH #### [facility] [address] [address] [address] Dale Ngo Cholesterol in LDL [Mass/Vol] 71.6 mg/dL Normal [facility] Comment on above: Performed By: #### B MP, AST, TSH #### [facility] [address] [address] [address] Dale Ngo Cholesterol.total/Chol esterol in HDL [Mass ratio] 2.5 {ratio} Normal [facility] Comment on above: Performed By: #### B MP, AST, TSH #### [facility] [address] [address] [address] Dale Ngo HDL NORMAL > or = 60 mg/dl - LO W CARDIOVASCULAR RISK <40 mg/dl - HIGH CARDIOVASCULAR RISK Normal [facility] Comment on above: Performed By: #### B MP, AST, TSH #### [facility] [address] [address] [address] Dale Ngo LDL CALC NORMAL SEE BELOW Normal [facility] Comment on above: Result Comment: <100 mg/dl OPTIMAL 100 - 129 mg/dl NEAR OR ABOVE OPTIMAL 130 - 159 mg/dl BORDERLINE HIGH 160 - 189 mg/dl HIGH >190 mg/dl VERY HIGH Performed By: #### B MP, AST, TSH #### [facility] [address] [address] [address] Dale Ngo Triglyceride [Mass/Vol] 77 mg/dL Normal <=150 [facility] Comment on above: Performed By: #### B MP, AST, TSH #### [facility] [address] [address] [address] Dale Ngo VLDL CALC 15.4 mg/dL Normal [facility] Comment on above: Performed By: #### B MP, AST, TSH #### [facility] [address] [address] [address] Dale Ngo OCC BLD IMMUNO SCREENon 12-20 OCCULT BLOOD Negative Normal NEGATIVE [facility] Comment on above: Performed By: #### B MP #### [facility] [address] [address] [address] Dale Ngo PROF 14(COMP METB)on 022 Albumin [Mass/Vol] 3.1 g/dL Critically low 3.4-5.0 Th [facility] Comment on above: Performed By: #### B MP, AST, TSH #### [facility] [address] [place] [address] Dr. Dale Ngo Albumin/Globulin [Mass ratio] 0.8 {ratio} Normal [facility] Comment on above: Performed By: #### B MP, AST, TSH #### [facility] [address] [address] [address] Dale Ngo ALP [Catalytic activity/Vol] 132 U/L Critically high 46-116 [facility] Comment on above: Performed By: #### B MP, AST, TSH #### [facility] [address] [address] [address] Dale Ngo ALT [Catalytic activity/Vol] 44 U/L Normal 14-59 [facility] Comment on above: Performed By: #### B MP, AST, TSH #### [facility] [address] [address] [address] Dale Ngo Anion gap [Moles/Vol] 12.6 mmol/L Normal [facility] Comment on above: Performed By: #### B MP, AST, TSH #### [facility] [address] [address] [address] Dale Ngo AST [Catalytic activity/Vol] 31 U/L Normal 15-37 [facility] Comment on above: Performed By: #### B MP, AST, TSH #### [facility] [address] [address] [address] Dale Ngo Bilirubin [Mass/Vol] 0.5 mg/dL Normal 0.2-1.0 [facility] Comment on above: Performed By: #### B MP, AST, TSH #### [facility] [address] [address] [address] Dale Ngo Calcium [Mass/Vol] 8.7 mg/dL Normal 8.5-10.1 [facility] Comment on above: Performed By: #### B MP, AST, TSH #### [facility] [address] [address] [address] Dale Ngo Chloride [Moles/Vol] 104 mmol/L Normal 98-107 [facility] Comment on above: Performed By: #### B MP, AST, TSH #### [facility] [address] [address] [address] Dale Ngo CO2 [Moles/Vol] 27.5 mmol/L Normal 21.0-32.0 [facility] Comment on above: Performed By: #### B MP, AST, TSH #### [facility] [address] [address] [address] Dale Ngo Creatinine [Mass/Vol] 1.49 mg/dL Critically high 0.55-1.02 [facility] Comment on above: Performed By: #### B MP, AST, TSH #### [facility] [address] [place] [address] Dr. Dale Ngo EGFR-AF MAURITIAN 42 mL/min/1.73m2 Critically low >=60 [facility] Comment on above: Performed By: #### B MP, AST, TSH #### [facility] [address] [place] [address] Dr. Dale Ngo EGFR-NON AF MAURITIAN 34 mL/min/1.73m2 Critically low >=60 [facility] Comment on above: Performed By: #### B MP, AST, TSH #### [facility] [address] [place] [address] Dr. Dale Ngo Globulin (S) [Mass/Vol] 3.8 g/dL Normal [facility] Comment on above: Performed By: #### B MP, AST, TSH #### [facility] [address] [place] [address] Dr. Dale Ngo Glucose [Mass/Vol] 105 mg/dL Normal 74-106 [facility] Comment on above: Performed By: #### B MP, AST, TSH #### [facility] [address] [place] [address] Dr. Dale Ngo Potassium [Moles/Vol] 4.1 mmol/L Normal 3.5-5.1 [facility] Comment on above: Performed By: #### B MP, AST, TSH #### [facility] [address] [place] [address] Dr. Dale Ngo Protein [Mass/Vol] 6.9 g/dL Normal 6.4-8.2 [facility] Comment on above: Performed By: #### B MP, AST, TSH #### [facility] [address] [place], [place] [id number] Dr. Dale Ngo Sodium [Moles/Vol] 140 mmol/L Normal 136-145 [facility] Comment on above: Performed By: #### B MP, AST, TSH #### [facility] [address] [place] [address] Dr. Dale Ngo Urea nitrogen [Mass/Vol] 26.0 mg/dL Critically high 7.0-18.0 [facility] Comment on above: Performed By: #### B MP, AST, TSH #### [facility] [address] [place] [address] Dr. Dale Ngo Urea nitrogen/Creatinine [Mass ratio] 17.4 mg/mg Normal [facility] Comment on above: Performed By: #### B MP, AST, TSH #### [facility] [address] [place] [address] Dr. Dale Ngo TSHon 01-10-2022 TSH 1.720 uIU/mL Normal 0.358-3.740 [facility] Comment on above: Performed By: #### B MP, AST, TSH #### [facility] [address] [place] [address] Dr. Dale Ngo TSH RANGE SEE BELOW Normal [facility] Comment on above: Result Comment: <0.3 4 UIU/ml HYPERTHYROID 0.34-5.60 UIU/ml EUTHYROID >5.60 UIU/ml HYPOTHYROID Performed By: #### B MP, AST, TSH #### [facility] [address] [place] [address] Dr. Dale Ngo URIC ACID SERUMon 01-10-2022 Urate [Mass/Vol] 4.1 mg/dL Normal 2.6-6.0 [facility] Comment on above: Performed By: #### B MP, AST, TSH #### [facility] [address] [place] [address] Dr. Dale Ngo PTH INTACTon 01-06-2022 PTH, Intact 62 pg/mL Normal 15-65 [facility] Comment on above: Performed By: #### B MP, AST, TSH #### [facility] [address] [place] [address] Dr. Dale Ngo HEMOGRAM AND PLATELon 2021 Hematocrit (Bld) [Volume fraction] 44.0 % Normal 36.0-48.0 [facility] Comment on above: Performed By: #### C BC #### [facility] [address] [place] [address] Dr. Dale Ngo Hemoglobin (Bld) [Mass/Vol] 14.1 g/dL Normal 12.0-16.0 [facility] Comment on above: Performed By: #### C BC #### [facility] [address] [place] [address] Dr. Dale Ngo MCH (RBC) [Entitic mass] 29.3 pg Normal 26.7-34.0 [facility] Comment on above: Performed By: #### C BC #### [facility] [address] [place] [address] Dr. Dale Ngo MCHC (RBC) [Mass/Vol] 32.0 g/dL Normal 29.9-35.2 [facility] Comment on above: Performed By: #### C BC #### [facility] [address] [place] [address] Dr. Dale Ngo MCV (RBC) [Entitic vol] 91.3 fL Normal 81.0-99.0 [facility] Comment on above: Performed By: #### C BC #### [facility] [address] [place] [address] Dr. Dale Ngo PLT 272 103/ul Normal 150-450 [facility] Comment on above: Performed By: #### C BC #### [facility] [address] [place] [address] Dr. Dale Ngo RBC 4.82 106/ul Normal 4.20-5.40 [facility] Comment on above: Performed By: #### C BC #### [facility] [address] [place] [address] Dr. Dale Ngo WBC 6.8 103/ul Normal 4.0-11.0 [facility] Comment on above: Performed By: #### C BC #### [facility] [address] [address] [address] Dale Ngo MAGNESIUMon 01-05-2022 Magnesium [Mass/Vol] 2.2 mg/dL Normal 1.8-2.4 [facility] Comment on above: Performed By: #### B MP #### [facility] [address] [address] [address] Dale Ngo RENAL FUNCTION PANELon 01-05 Albumin [Mass/Vol] 3.5 g/dL Normal 3.4-5.0 [facility] Comment on above: Performed By: #### B MP #### [facility] [address] [address] [address] Dale Ngo Calcium [Mass/Vol] 9.3 mg/dL Normal 8.5-10.1 [facility] Comment on above: Performed By: #### B MP #### [facility] [address] [address] [address] Dale Ngo Chloride [Moles/Vol] 105 mmol/L Normal 98-107 [facility] Comment on above: Performed By: #### B MP #### [facility] [address] [address] [address] Dale Ngo CO2 [Moles/Vol] 27.7 mmol/L Normal 21.0-32.0 [facility] Comment on above: Performed By: #### B MP #### [facility] [address] [address] [address] Dale Ngo Creatinine [Mass/Vol] 1.45 mg/dL Critically high 0.55-1.02 [facility] Comment on above: Performed By: #### B MP #### [facility] [address] [address] [address] Dale Ngo EGFR-AF MAURITIAN 43 mL/min/1.73m2 Critically low >=60 [facility] Comment on above: Performed By: #### B MP #### [facility] [address] [address] [address] Dale Ngo EGFR-NON AF MAURITIAN 35 mL/min/1.73m2 Critically low >=60 [facility] Comment on above: Performed By: #### B MP #### [facility] [address] [address] [address] Dale Ngo Glucose [Mass/Vol] 114 mg/dL Critically high 74-106 [facility] Comment on above: Performed By: #### B MP #### [facility] [address] [address] [address] Dale Ngo Phosphate [Mass/Vol] 3.9 mg/dL Normal 2.6-4.7 [facility] Comment on above: Performed By: #### B MP #### [facility] [address] [address] [address] Dale Ngo Potassium [Moles/Vol] 4.4 mmol/L Normal 3.5-5.1 [facility] Comment on above: Performed By: #### B MP #### [facility] [address] [address] [address] Dale Ngo Sodium [Moles/Vol] 141 mmol/L Normal 136-145 [facility] Comment on above: Performed By: #### B MP #### [facility] [address] [address] [address] Dale Ngo Urea nitrogen [Mass/Vol] 27.0 mg/dL Critically high 7.0-18.0 [facility] Comment on above: Performed By: #### B MP #### [facility] [address] [address] [address] Dale Ngo UA RANDOM W/MICROSCOPICon BACTERIA NONE SEEN Normal NONE SEEN [facility] Comment on above: Performed By: #### L ACT #### [facility] [address] [place] [address] Dr. Dale Ngo Bilirubin Ql (U) Negative Normal NEGATIVE [facility] Comment on above: Performed By: #### L ACT #### [facility] [address] [place] [address] Dr. Dale Ngo CAST SEEN Abnormal NONE SEEN [facility] Comment on above: Performed By: #### L ACT #### [facility] [address] [address] [address] Dale Ngo Clarity (U) CLEAR Normal CLEAR [facility] Comment on above: Performed By: #### L ACT #### [facility] [address] [place] [address] Dr. Dale Ngo Color (U) YELLOW Normal YELLOW [facility] Comment on above: Performed By: #### L ACT #### [facility] [address] [place] [address] Dr. Dlae Ngo Crystals LM Nom (Urine sed) NONE SEEN Normal NONE SEEN [facility] Comment on above: Performed By: #### L ACT #### [facility] [address] [place] [address] Dr. Dale Ngo Epithelial cells LM Ql (Urine sed) FEW Abnormal NONE SEEN /RARE [facility] Comment on above: Performed By: #### L ACT #### [facility] [address] [place] [address] Dr. Dale Ngo Glucose Ql (U) Negative Normal NEGATIVE [facility] Comment on above: Performed By: #### L ACT #### [facility] [address] [place] [address] Dr. Dale Ngo Hemoglobin Ql (U) Negative Normal NEGATIVE [facility] Comment on above: Performed By: #### L ACT #### [facility] [address] [place] [address] Dr. Dale Ngo HYALINE CAST RARE Normal [facility] Comment on above: Result Comment: Prev iously reported as: RARE On 01/05/2022 14:08 By RC01 Performed By: #### L ACT #### [facility] [address] [place] [address] Dr. Dale Ngo Ketones Ql (U) Negative Normal NEGATIVE [facility] Comment on above: Performed By: #### L ACT #### [facility] [address] [place] [address] Dr. Dale Ngo LEUKOCYTES TRACE Abnormal NEGATIVE [facility] Comment on above: Performed By: #### L ACT #### [facility] [address] [place] [address] Dr. Dale Ngo MUCOUS NONE SEEN Normal NONE SEEN [facility] Comment on above: Performed By: #### L ACT #### [facility] [address] [place] [address] Dr. Dale Ngo Nitrite Ql (U) Negative Normal NEGATIVE [facility] Comment on above: Performed By: #### L ACT #### [facility] [address] [place] [address] Dr. Dale Ngo pH (U) 5.0 [pH] Normal 5-9 [facility] Comment on above: Performed By: #### L ACT #### [facility] [address] [place] [address] Dr. Dale Ngo RBC NONE SEEN Abnormal 0-2 [facility] Comment on above: Performed By: #### L ACT #### [facility] [address] [place] [address] Dr. Dale Ngo SPEC GRAVITY >=1.030 Abnormal 1.005-<=1.02 5 [facility] Comment on above: Performed By: #### L ACT #### [facility] [address] [place] [address] Dr. Dale Ngo UA PROTEIN Negative Normal NEGATIVE/ TRACE [facility] Comment on above: Performed By: #### L ACT #### [facility] [address] [place] [address] Dr. Dale Ngo Urobilinogen Qn (U) 0.2 {Tenisha'U}/dL Normal 0.2 - 1. 0 [facility] Comment on above: Performed By: #### L ACT #### [facility] [address] [place] [address] Dr. Dale Ngo WBC 2-5 Abnormal NONE SEEN [facility] Comment on above: Performed By: #### L ACT #### [facility] [address] [place] [address] Dr. Dale Ngo URIC ACID SERUMon 01-05-2022 Urate [Mass/Vol] 3.8 mg/dL Normal 2.6-6.0 [facility] Comment on above: Performed By: #### B MP #### [facility] [address] [place] [address] Dr. Dale Ngo URINE T PROTEIN CREAT RATIOo n 01-05-2022 Protein (U) [Mass/Vol] 19.9 mg/dL Critically high <=12.0 [facility] Comment on above: Performed By: #### B MP, AST, TSH #### [facility] [address] [address] [address] Dale Ngo UR PROT CREAT RAT 0.10 Normal [facility] Comment on above: Performed By: #### B MP, AST, TSH #### [facility] [address] [address] [address] Dale Ngo URINE CREAT 197.92 mg/dL Normal 20.00-300.00 [facility] Comment on above: Performed By: #### B MP, AST, TSH #### [facility] [address] [address] [address] Dale Ngo VITAMIN D 25 OHon 01-05-2022 VIT D 25-OH 69.6 ng/mL Normal [facility] Comment on above: Performed By: #### C BC #### [facility] [address] [address] [address] Dale Ngo VIT D RANGES SEE BELOW Normal [facility] Comment on above: Result Comment: <20 ng/mL Vit D deficient 20 - <30 ng/mL Vit D insufficient 30 - 100 ng/mL Vit D sufficient >100 ng/mL Potential Toxicity Performed By: #### C BC #### [facility] [address] [address] [address] Dale Ngo Tobacco Screening.on 022 Fall risk assessment a) No falls within the last year [facility] [facility] DO Work Phone: Tobacco use status CPHS b) No -[facility] [facility] DO Work Phone: Coding Summary.on 06-22-2018 Coding Summary. CODING DATE: 06/22/2018 FINAL [facility] STATUS: Home (Routine DC) PAYOR: Medicare APC DESCRIPTION 5372 Level 2 Urology and Related Services ADMIT DX: REASON FOR VISIT DX: R31.21 Asymptomatic microscopic hematuria FINAL DX: PRINCIPAL: R31.21 Asymptomatic microscopic hematuria SECONDARY: N20.0 Calculus of kidney N28.1 Cyst of kidney, acquired R35.0 Frequency of micturition I48.91 Unspecified atrial fibrillation M10.9 Gout, unspecified I10 Essential (primary) hypertension Z79.01 manager terminal (current) use of anticoagulants E66.01 Morbid (severe) [...] Krystal Bertrand Date Saved: 06/22/2018 08:44 am [facility] Main OR Intraoperative Recor lillian 06-21-2018 Main OR Intraoperative Record IntraOp Document Type FTURO Summary Primary Physician: Romeo Hammond Jr., MD Finalized Date/Time: 06/21/18 14:34:44 Pt. Name: GWEN WILCOX/Sex: 1950 Female Med Rec #: [id number] Physician: Romeo Hammond Jr., MD Financial #: [id number] Pt. Type: O Room/Bed: / Admit/Disch: 06/21/18 14:08:24 - Institution: Case Times FTURO Entry 1 Patient Times In Room 06/21/18 14:24:00 Out Room 06/21/18 14:34:00 Procedure Times Start 06/21/18 14:28:00 Stop 06/21/18 14:30:00 Anesthesia Times Last Modified By: Andreia MARQUIS, LOUISEOR, Adenike Cortés 06/21/18 14:33:47 Case Attendance FTURO Entry 1 Entry 2 Entry 3 Case Attendee Romeo Hammond Jr., MD, RN, CNOR, Adenike Lester ENVIRONMENTAL PLANNER, Ana R Role Performed Surgeon - Primary Battery Container Finishing Hand - Primary Scrub - Primary Time In 06/21/18 14:26:00 06/21/18 14:24:00 06/21/18 14:24:00 Time Out 06/21/18 14:34:00 06/21/18 14:34:00 06/21/18 14:34:00 Procedure CYSTOSCOPY LOCAL(.) CYSTOSCOPY LOCAL(.) CYSTOSCOPY LOCAL(.) Comments Last Modified By: ILDA Boswell RN, Lou Ann Blank RN, CNOR, Lou Ann Blank RN, CNOR, Lou Ann 06/21/18 14:33:48 06/21/18 14:33:48 06/21/18 14:33:48 Surgical [...] Ludwig MD, Romeo Miranda, Verified (If Participants LOUISE Boswell RNOR, Adenike Applicable) Tayler Cortés CST, Shawn Barber Time Out Complete 06/21/18 14:26:00 Allergies Reviewed? [...] Boswell RN, Lou Ann 06/21/18 14:34 Normal [facility] Main OR Preoperative Recordo n 06-21-2018 Main OR Preoperative Record Holding Area Document Type FTURO Summary Primary Physician: Romeo Hammond Jr., MD Finalized Date/Time: 06/21/18 14:34:35 Pt. Name: CHANDRIKA GWENBOBO Gilliam/Sex: 1950 Female Med Rec #: [id number] Physician: Romeo Hammond Jr., MD Financial #: [id number] Pt. Type: O Room/Bed: / Admit/Disch: 06/21/18 [...] of Pain: No Comment: Skin Integrity Intact, Pluckemin, Warm, & Dry Vitals - EU Blood Pressure 158/87 Pulse 66 bpm Respirations 18 br/min SPO2 Additional None RN Reviewed Yes Specimens Collected Last Modified By: ILDA Boswell RN, Lou Ann 06/21/18 14:34:31 Finalized By: ILDA Boswell RN, Lou Ann Document Signatures Signed By: Radha GTZJosieJagruti 06/21/18 14:19 ILDA Boswell RN, Lou Ann 06/21/18 14:34 Normal [facility] Operative Reporton Operative Report Patient: GWEN WILCOX [...] with antibiotic coverage, Follow up arranged. Normal [facility] Comment on above: Result Comment: Elec tronically Signed By: Romeo Hammond Jr., MD\.br\Date and Time Signed: 06/21/18 14:37 EDT Vital Signs Date Time Vital Sign Value Performing Clinician Facility 10-15-2024 13:27-0500 Body height 147.3 cm Malcom Howard DO Work Phone: [facility] 10-15-2024 13:27-0500 Body mass index (BMI) [Ratio] 42.64 kg/m2 Malcom Howard DO Work Phone: [facility] 10-15-2024 13:27-0500 Body weight 92.53 kg Malcom Howard DO Work Phone: [facility] 10-15-2024 13:27-0500 Diastolic blood pressure 90 mm[Hg] Malcom Howard DO Work Phone: [facility] 10-15-2024 13:27-0500 Heart rate 61 /min Malcom Howard DO Work Phone: [facility] 10-15-2024 13:27-0500 Systolic blood pressure 136 mm[Hg] Malcom Howard DO Work Phone: [facility] 05-02-2024 11:38-0400 Body height 154.94 cm MD George Ozuna Work Phone: [facility] 05-02-2024 11:38-0400 Body mass index (BMI) [Ratio] 38 kg/m2 MD George Ozuna Work Phone: [facility] 05-02-2024 11:38-0400 Body temperature 96.2 [degF] MD George Ozuna Work Phone: [facility] 05-02-2024 11:38-0400 Body weight 91.34 kg MD George Ozuna Work Phone: [facility] 05-02-2024 11:38-0400 Diastolic blood pressure 79 mm[Hg] MD George Ozuna Work Phone: [facility] 05-02-2024 11:38-0400 Heart rate 92 /min MD George Ozuna Work Phone: [facility] 05-02-2024 11:38-0400 Respiratory rate 18 /min MD George Ozuna Work Phone: [facility] 05-02-2024 11:38-0400 SaO2% (BldA) [Mass fraction] 99 % MD George Ozuna Work Phone: [facility] 05-02-2024 11:38-0400 Systolic blood pressure 151 mm[Hg] MD George Ozuna Work Phone: [facility] 06-01-2023 11:40-0400 Body height 154.94 cm Guillermo Corbin Other [employer] Other 06-01-2023 11:40-0400 Body mass index (BMI) [Ratio] 40.35 kg/m2 Guillermo Corbin Other [facility] Other 06-01-2023 11:40-0400 Body temperature 96.6 [degF] Guillermo Corbin Other [facility] Other 06-01-2023 11:40-0400 Body weight 96.89 kg Guillermo Corbin Other [facility] Other 06-01-2023 11:40-0400 Diastolic blood pressure 77 mm[Hg] Guillermo Corbin Other [facility] Other 06-01-2023 11:40-0400 Respiratory rate 18 /min Guillermo Corbin Other [facility] Other 06-01-2023 11:40-0400 SaO2% (BldA) [Mass fraction] 96 % Guillermo Corbin Other [facility] Other 06-01-2023 11:40-0400 Systolic blood pressure 157 mm[Hg] Guillermo Corbin Other [facility] Other 09-22-2022 10:31-0500 Body height 154.94 cm George M Hoy Work Phone: [facility] DO Work Phone: 09-22-2022 10:31-0500 Body mass index (BMI) [Ratio] 38.92 kg/m2 George M Hoy Work Phone: [facility] DO Work Phone: 09-22-2022 10:31-0500 Body surface area Derived from formula 1.91 m2 George M Hoy Work Phone: [facility] DO Work Phone: 09-22-2022 10:31-0500 Body weight 93.44 kg George M Hoy Work Phone: [facility] DO Work Phone: 09-22-2022 10:31-0500 Diastolic blood pressure 86 mm[Hg] George M Hoy Work Phone: [facility] 250 DO Work Phone: 09-22-2022 10:31-0500 Heart rate 60 /min George M Hoy Work Phone: [facility] DO Work Phone: 09-22-2022 10:31-0500 Systolic blood pressure 136 mm[Hg] George M Hoy Work Phone: [facility] DO Work Phone: 06-30-2022 15:00-0500 Body height 154.94 cm Guillermo Corbin Other [facility] Other 06-30-2022 15:00-0500 Body mass index (BMI) [Ratio] 39.03 kg/m2 Guillermo Corbin Other [facility] Other 06-30-2022 15:00-0500 Body temperature 96.8 [degF] Guillermo Corbin Other [facility] Other 06-30-2022 15:00-0500 Body weight 93.71 kg Guillermo Corbin Other [facility] Other 06-30-2022 15:00-0500 Diastolic blood pressure 80 mm[Hg] Guillermo Corbin Other [facility] Other 06-30-2022 15:00-0500 Respiratory rate 18 /min Guillermo Corbin Other [facility] Other 06-30-2022 15:00-0500 SaO2% (BldA) [Mass fraction] 96 % Guillermo Corbin Other [facility] Other 06-30-2022 15:00-0500 Systolic blood pressure 126 mm[Hg] Guillermo Corbin Other [facility] Other 03-10-2022 14:45-0400 Body height 154.94 cm [employer] Work Phone: [facility] [employer] 250 DO Work Phone: 03-10-2022 14:45-0400 Body mass index (BMI) [Ratio] 39.49 kg/m2 [employer] Work Phone: [facility] [employer] 250 DO Work Phone: 03-10-2022 14:45-0400 Body surface area Derived from formula 1.92 m2 [employer] Work Phone: [facility] [employer] 250 DO Work Phone: 03-10-2022 14:45-0400 Body weight 94.8 kg George M Hoy Work Phone: [facility] DO Work Phone: 03-10-2022 14:45-0400 Diastolic blood pressure 74 mm[Hg] George M Hoy Work Phone: [facility] DO Work Phone: 03-10-2022 14:45-0400 Heart rate 60 /min George M Hoy Work Phone: [facility] DO Work Phone: 03-10-2022 14:45-0400 Systolic blood pressure 102 mm[Hg] George M Hoy Work Phone: [facility] DO Work Phone: 09-07-2021 10:10-0500 Body height 154.94 cm George M Hoy Work Phone: [facility] DO Work Phone: 09-07-2021 10:10-0500 Body mass index (BMI) [Ratio] 40.81 kg/m2 George M Hoy Work Phone: [facility] 250 DO Work Phone: 09-07-2021 10:10-0500 Body surface area Derived from formula 1.95 m2 George M Hoy Work Phone: [facility] 250 DO Work Phone: 09-07-2021 10:10-0500 Body weight 97.98 kg George M Hoy Work Phone: [facility] 250 DO Work Phone: 09-07-2021 10:10-0500 Diastolic blood pressure 68 mm[Hg] George M Hoy Work Phone: [facility] 250 DO Work Phone: 09-07-2021 10:10-0500 Heart rate 61 /min George Monet Hoy Work Phone: [facility] 250 DO Work Phone: 09-07-2021 10:10-0500 Systolic blood pressure 108 mm[Hg] George M Hoy Work Phone: [facility] DO Work Phone: 08-25-2021 08:15-0500 60 1 George M Hoy Work Phone: [facility] DO Work Phone: Comment on above: [id number] 06-24-2021 14:20-0400 Body height 154.94 cm Guillermo Corbin Other [facility] Other 06-24-2021 14:20-0400 Body mass index (BMI) [Ratio] 41.22 kg/m2 Guillermo Corbin Other [facility] Other 06-24-2021 14:20-0400 Body temperature 96.4 [degF] Guillermo Corbin Other [facility] Other 06-24-2021 14:20-0400 Body weight 98.98 kg Guillermo Corbin Other [facility] Other 06-24-2021 14:20-0400 Diastolic blood pressure 70 mm[Hg] Guillermo Corbin Other [facility] Other 06-24-2021 14:20-0400 Respiratory rate 18 /min Guillermo Corbin Other [facility] Other 06-24-2021 14:20-0400 SaO2% (BldA) [Mass fraction] 95 % Guillermo Corbin Other [facility] Other 06-24-2021 14:20-0400 Systolic blood pressure 120 mm[Hg] Guillermo Corbin Other [facility] Other Encounters Encounter Date Encounter Type Care Provider Facility Start: 10-15-2024 End: 10-15-2024 Office outpatient visit 15 minutes Malcom Howard DO Work Phone: [facility] Comment on above: Coronary artery dise ase, unspecified vessel or lesion type, unspecified whether angina present, unspecified whether [place] or transplanted heart; ASHD (arteriosclerotic heart disease); High risk medication use; Paroxysmal atrial fibrillation (Multi); History of PTCA; ST elevation myocardial infarction (STEMI) involving other coronary artery of inferior wall; Cardiac pacemaker in situ; Never smoked tobacco; BMI 40.0-44.9, adult (Multi) Start: 10-15-2024 End: 10-15-2024 ambulatory [facility] Start: 08-19-2024 End: 08-19-2024 ambulatory Diego Mesadon Facility:[facility] Start: 05-20-2024 End: 05-20-2024 Patient encounter procedure MD George Ozuna Work Phone: [facility] Start: 05-20-2024 End: 05-20-2024 ambulatory MD George Ozuna Work Phone: [facility] Work Phone: Start: 05-02-2024 End: 05-02-2024 Patient encounter procedure MD George Ozuna Work Phone: [facility] Manny Work Phone: Start: 04-25-2024 Non-patient / Non-visit MD Edelmira Ozuna Work Phone: [facility] Work Phone: Start: 02-19-2024 End: 02-19-2024 Patient encounter procedure MD George Ozuna Work Phone: [facility] Start: 02-19-2024 End: 02-19-2024 ambulatory MD George Ozuna Work Phone: [facility] Work Phone: Start: 11-17-2023 End: 11-17-2023 Patient encounter procedure MD George Ozuna Work Phone: [facility] Start: 11-17-2023 End: 11-17-2023 ambulatory MD George Ozuna Work Phone: [facility] Work Phone: Start: 08-18-2023 End: 08-18-2023 ambulatory MD George Ozuna Work Phone: [facility] Work Phone: Start: 08-18-2023 End: 08-18-2023 Patient encounter procedure MD George Ozuna Work Phone: [facility] Start: 07-11-2023 End: 07-11-2023 ambulatory Guillermo Corbin Other [facility] Other Start: 07-11-2023 Telephone encounter Guillermo Corbin [facility] Start: 06-01-2023 End: 06-01-2023 ambulatory Guillermo Corbin Other [facility] Other Start: 06-01-2023 Office outpatient vi sit 25 minutes Guillermo Corbin [facility] Start: 05-18-[address] George Ozuna Facility:[id number] Start: 02-13-[address] George Ozuna Facility:[id number] Start: 02-13-2023 End: 02-13-2023 ambulatory MD George Ozuna Work Phone: [facility] Work Phone: Start: 02-13-2023 End: 02-13-2023 Patient encounter procedure MD George Ozuna Work Phone: [facility] Start: 11-30-2022 End: 12-01-2022 ambulatory JAVIER MEDINA Facility:[facility] Start: 11-10-2022 End: 11-10-2022 ambulatory MD George Ozuna Work Phone: [facility] Work Phone: Start: 11-10-2022 End: 11-10-2022 Patient encounter procedure MD George Ozuna Work Phone: [facility] Start: 11-10-[address] George Ozuna Facility:90 Start: 10-17-2022 End: 10-19-2022 Evaluation and management of inpatient DR GEORGE OZUNA . Facility:[facility]1 Start: 09-22-2022 Office outpatient vi sit 25 minutes George Ozuna Work Phone: [facility] 250 DO Work Phone: Start: 09-22-[address] Malcom Howard Facility: Start: 09-16-2022 End: 09-16-2022 ambulatory Guillermo Corbin Other [facility] Other Start: 09-16-2022 Telephone encounter Guillermo Corbin [facility] Start: 09-12-2022 End: 09-12-2022 ambulatory Guillermo Corbin Other [facility] Other Start: 09-12-2022 Telephone encounter Guillermo Corbin [facility] Start: 09-05-2022 Rx Renewal George Ozuna Work Phone: [facility] 250 DO Work Phone: Start: 08-11-2022 End: 08-11-2022 Patient encounter procedure MD George Ozuna Work Phone: [facility] Start: 08-11-2022 End: 08-11-2022 ambulatory MD George Ozuna Work Phone: [facility] Work Phone: Start: 06-30-2022 End: 06-30-2022 ambulatory Guillermo Corbin Other [employer] Other Start: 06-30-2022 Office outpatient vi sit 25 minutes Guillermo Corbin [facility] Start: 06-24-2022 End: 06-25-2022 ambulatory GUILLERMO CORBIN Facility:[facility]1 Start: 06-04-2022 End: 06-05-[address] GEORGE OZUNA . Facility:[facility] Start: 05-23-2022 End: 05-24-2022 ambulatory AQUILINO FARIA Facility:[facility]1 Start: 05-13-2022 End: 05-13-2022 Patient encounter procedure MD George Ozuna Work Phone: [facility] Start: 03-10-2022 Office outpatient vi sit 25 minutes George Ozuna Work Phone: [facility] 250 DO Work Phone: Start: 02-04-2022 End: 02-04-2022 ambulatory Guillermo Corbin Other [facility] Other Start: 02-04-2022 Telephone encounter Guillermo Corbin [facility] Start: 01-14-2022 End: 01-15-[address] MELINDA LOVE Facility:[facility]1 Start: 01-10-2022 End: 01-11-[address] GEORGE OZUNA . Facility:[facility]1 Start: 01-05-2022 End: 01-06-2022 ambulatory GUILLERMO CORBIN Facility:[facility]1 Start: 12-23-2021 Patient encounter procedure George Ozuna Work Phone: [facility] 600 DO Work Phone: Start: 09-07-2021 Patient encounter procedure George Ozuna Work Phone: [facility] 250 DO Work Phone: Start: 06-24-2021 End: 06-24-2021 ambulatory Guillermo Alaniz Other [facility] Other Start: 06-24-2021 Office outpatient vi sit 25 minutes Guillermo Corbin [facility] Start: 06-21-2018 End: 06-22-2018 Patient encounter procedure Yvan Razo Facility:[facility] Procedures Date Procedure Procedure Detail Performing Clinician Start: 10-15-2024 Ecg routine ecg w/le ast 12 lds w/i&r Malcom Howard DO Work Phone: Start: 08-31-2023 History of percutane ous transluminal coronary angioplasty History of PTCA Malcom Nixon DO Work Phone: History of percutane ous transluminal coronary angioplasty History of PTCA George Ozuna Work Phone: History of percutane ous transluminal coronary angioplasty History of PTCA Malcom Mesadon DO Work Phone: History of placement of stent for coronary artery disease Status post insertion of drug eluting coronary artery stent George Ozuna Work Phone: Hysterectomy George Ozuna Work Phone: Insertion of pacemak er pulse generator George Ozuna Work Phone: Percutaneous transluminal coronary angioplasty George Ozuna Work Phone: Tonsillectomy and adenoidectomy George Ozuna Work Phone: NEGATED: Highlighted row has not occurred! Colonoscopy George Healy [email or web address] Work Phone: Plan of Treatment Date Care Activity Detail Author Start: 10-15-2024 End: 10-15-2025 Aspartate aminotransferase [Enzymatic activity/volume] in Serum or Plasma by With P-5'-P Aspartate Aminotransferase Lab Routine High risk medication use Paroxysmal atrial fibrillation (Multi) Expected: 10/15/2024 (Approximate), Expires: 10/15/2025 [facility] Service Area Work Phone: Comment on above: Expected: 10/15/2024 (Approximate), Expi res: 10/15/2025 Start: 10-15-2024 End: 10-15-2025 Basic metabolic 2000 panel - Serum or Plasma Basic Metabolic Panel Lab Routine High risk medication use Paroxysmal atrial fibrillation (Multi) Expected: 10/15/2024 (Approximate), Expires: 10/15/2025 [facility] Work Phone: Comment on above: Expected: 10/15/2024 (Approximate), Expi res: 10/15/2025 Start: 10-15-2024 End: 10-15-2025 Complete Pulmonary Function Test (Spirometry/DLCO/Lung Volumes) Complete Pulmonary Function Test (Spirometry/DLCO/Lung Volumes) PFT Routine High risk medication use Paroxysmal atrial fibrillation (Multi) Expected: 10/15/2024 (Approximate), Expires: 10/15/2025 [facility] Work Phone: Comment on above: Expected: 10/15/2024 (Approximate), Expi res: 10/15/2025 Start: 10-15-2024 End: 10-15-2025 Thyrotropin [Units/volume] in Serum or Plasma Thyroid Stimulating Hormone Lab Routine High risk medication use Paroxysmal atrial fibrillation (Multi) Expected: 10/15/2024 (Approximate), Expires: 10/15/2025 [facility] Work Phone: Comment on above: Expected: 10/15/2024 (Approximate), Expi res: 10/15/2025 Start: 10-15-2024 End: 10-15-2025 XR Chest 2 Views XR chest 2 views Imaging Routine High risk medication use Paroxysmal atrial fibrillation (Multi) Expected: 10/15/2024 (Approximate), Expires: 10/15/2025 [facility] Work Phone: Comment on above: Expected: 10/15/2024 (Approximate), Expi res: 10/15/2025 Start: 04-21-2024 COVID-19 Vaccine ( season) COVID-19 Vaccine () [facility] Start: 04-21-2024 Influenza vaccination Influenza Vaccine (#1) [facility] Start: 09-27-2023 FUV, Provider: Malcom Howard, Status: Pen, Time: 10:30 AM FUV, Provider: Malcom Howard, Status: Pen, Time: 10:30 AM [facility] 250 DO Work Phone: Start: 2023 RSV High Risk: (Elderly (60+) or Population) (1 - 1-dose 75+ series) RSV High Risk: (Elderly (60+) or Population) (1 - 1-dose 75+ series) [facility] Start: 09-22-2022 FUV, Provider: Malcom Howard, Status: Pen, Time: 10:30 AM FUV, Provider: Malcom Howard, Status: Pen, Time: 10:30 AM [facility] 250 DO Work Phone: Start: 03-09-2022 FUV, Provider: Malcom Howard, Status: Pen, Time: 9:50 AM FUV, Provider: Malcom Howard, Status: Pen, Time: 9:50 AM [facility] 250 DO Work Phone: Start: 1998 Zoster Vaccines (1 of 2) Zoster Vaccines (1 of 2) [facility] Start: 1970 DTaP/Tdap/Td Vaccines (1 - Tdap) DTaP/Tdap/Td Vaccines (1 - Tdap) [facility] Start: 1967 Pneumococcal vaccination Pneumococcal Vaccine (1 of 2 - PCV) [facility] Start: 1966 Diabetes mellitus screening Diabetes Screening [facility] Start: 1966 Hepatitis C screening Hepatitis C Screening [facility] Start: 1950 Lipid panel Lipid Panel [facility] Start: 1950 Medicare Annual Wellness Visit Medicare Annual Wellness Visit (AWV) [facility] Start: 1950 Screening for osteoporosis Bone Density Scan [facility] Start: 1950 Thyroid stimulating hormone measurement TSH Level [facility] Renal function 2000 panel - Serum or Plasma [facility] Payers Date Payer Category Payer Self-pay [id number] 2013 Medicare MEDICARE PART A AND B [id number] 1959 Medicare [id number] 1950 Unknown [id number] 1948 Unknown [id number] 2.16.840.1.980900.3.579.2.593 1948 Unknown [id number] 2.16.840.1.108284.3.579.2.593 1948 Unknown [id number] 2.16840.1.405397.3.579.2.593 1948 Unknown [id number] 2.840.1.135459.3.579.2.593 1948 Unknown [id number] 2.16.840.1.310020.3.579.2.593 1948 Unknown [id number] 2.16.840.1.120101.3.579.2.593 1948 Unknown [id number] 2.16.840.1.653857.3.579.2.593 1948 Unknown [id number] 2.16840.1.582329.3.579.2.593 1948 Unknown [id number] 2.16.840.1.314793.3.579.2.356 1948 Unknown [id number] 2.16.840.1.621422.3.579.2.356 1948 Unknown [id number] 2.16.840.1.096020.3.579.2.356 1948 Unknown [id number] 2.16.840.1.424560.3.579.2.356 1948 Unknown [id number] 2.16.840.1.629352.3.579.2.356 1948 Unknown [id number] 2.16.840.1.202395.3.579.2.124 4 Unknown Unknown HCAP/HFA/FAP Active [id number] Unknown [id number] 2.16.840.1.479721.3.579.2.531 Unknown [id number] 2.16.840.1.520867.3.579.2.531 Unknown [id number] 2.16.840.1.649040.3.579.2.531 Unknown [id number] 2.16.840.1.778166.3.579.2.531 Social History Date Type Detail Facility Start: 10-15-2024 No alcohol use No alcohol use [facility] Other Start: 10-15-2024 Sex Assigned At N [facility] Other Start: 08-24-2021 End: 08-31-2023 Tobacco smoking status NHIS Never smoked tobacco (finding) [facility] Start: 1950 Sex Assigned At Female [facility] Start: 10-15-2024 Alcoholic beverage intake Lifetime non-drinker (finding) [facility] Work Phone: Start: 1950 Sex assigned at Not on file U [facility] Work Phone: Start: 10-05-2024 End: 10-15-2024 Exposure to SARS-CoV-2 (event) Not sure [facility] Medical Equipment Procedure Code Equipment Code Equipment Origin al Text Equipment Identifier Dates Drug-eluting coronary artery stent, [id number] lymer-coated [id number] FDA Start: 08-24-2021 Drug-eluting coronary artery stent, [id number] lymer-coated [id number] FDA Start: 08-24-2021 Clinical Notes 06-24-2021 to 10-15-2024 Malcom Howard, DO - 10/15/2024 1:30 PM ESTPatient Instructions Note Date & Type Note Facility 10-15-2024 History of Presen t illness Narrative Subjective Gwen Wilcox is a 74 y.o. female Chief Complaint Annual Exam 74-year-old female returns for annual follow-up she is doing well she denies any cardiovascular events or complaints or nitrate usage or hospitalizations. It sounds like she had a brief episode of RSV this past winter treated by her primary care physician with resolution. 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 She has a history of sick sinus syndrome, paroxysmal A-fib, previously treated by dormitory maid in [place] now follows with ourselves. Additionally, we continue to treat her for hypertension, she has persistent obesity without disability. She remains on high risk medical therapies, low-dose amiodarone 100 mg Monday through Monday, apixaban twice daily with no bleeding or thromboembolic events ECG today demonstrates atrial paced rhythm with rightward axis and low voltage. Recommendations, obtain lipid panel from primary care physician, routine amiodarone surveillance, follow-up in 1 Review of Systems All other systems reviewed and are negative. Vitals: 10/15/24 1327 BP: 136/90 BP Location: Left arm Patient Position: Sitting Pulse: 61 Weight: 92.5 kg (204 lb) Height: 1.473 m (4' 10 ) EKG done in office today Objective Physical Exam Constitutional: Appearance: Normal appearance. HENT: Nose: Nose normal. Neck: Vascular: No carotid bruit. Cardiovascular: Rate and Rhythm: Normal rate. Pulses: Normal pulses. Heart sounds: Normal heart sounds. Pulmonary: Effort: Pulmonary effort is normal. Abdominal: General: Bowel sounds are normal. Palpations: Abdomen is soft. Musculoskeletal: General: Normal range of motion. Cervical back: Normal range of motion. Right lower leg: No edema. Left lower leg: No edema. Skin: General: Skin is warm and dry. Neurological: General: No focal deficit present. Mental Status: She is alert. Psychiatric: Mood and Affect: Mood normal. Behavior: Behavior normal. Thought Content: Thought content normal. Judgment: Judgment normal. Allergies Patient has no known allergies. Current Medications Current Outpatient Medications: allopurinol (Zyloprim) 300 mg tablet, Take 0.5 tablets (150 mg) by mouth once daily., Disp: , Rfl: amiodarone (Pacerone) 200 mg tablet, Take 0.5 tablets (100 mg) by mouth once daily. Monday through Monday only., Disp: , Rfl: apixaban (Eliquis) 5 mg tablet, Take 1 tablet (5 mg) by mouth 2 times a day., Disp: , Rfl: aspirin 81 mg chewable tablet, Chew 1 tablet (81 mg) 2 times a week., Disp: , Rfl: atorvastatin (Lipitor) 40 mg tablet, TAKE ONE TABLET BY MOUTH ONCE DAILY AT BEDTIME, Disp: 90 tablet, Rfl: 3 calcitriol (Rocaltrol) 0.25 mcg capsule, Take 1 capsule (0.25 mcg) by mouth 2 times a week., Disp: , Rfl: carvedilol (Coreg) 25 mg tablet, Take 1 tablet (25 mg) by mouth 2 times a day., Disp: , Rfl: lisinopril 2.5 mg tablet, Take 1 tablet (2.5 mg) by mouth once daily., Disp: , Rfl: nitroglycerin (Nitrostat) 0.4 mg SL tablet, Place 1 tablet (0.4 mg) under the tongue every 5 minutes if needed for chest pain. Call 911 or go to the ER after third dose., Disp: , Rfl: Assessment/Plan 1. Coronary artery disease, unspecified vessel or lesion type, unspecified whether angina present, unspecified whether [place] or transplanted heart Follow Up In Cardiology 2. ASHD (arteriosclerotic heart disease) 3. High risk medication use 4. Paroxysmal atrial fibrillation (Multi) 5. History of PTCA 6. ST elevation myocardial infarction (STEMI) involving other coronary artery of inferior wall 7. Cardiac pacemaker in situ 8. Never smoked tobacco 9. BMI 40.0-44.9, adult (Multi) Scribe Attestation By signing my name below, IDiane LPN Scribe attest that this documentation has been prepared under the direction and in the presence of Malcom Howard DO. Provider Attestation - Scribe documentation All medical record entries made by the Scribe were at my direction and personally dictated by me. I have reviewed the chart and agree that the record accurately reflects my personal performance of the history, physical exam, discussion and plan. documented in this encounter [facility] Work Phone: 10-15-2024 Instructions Diane Ford LPN - 10/15/2024 1:30 PM EST Please bring all medicines, vitamins, and herbal supplements with you when you come to the office. Prescriptions will not be filled unless you are compliant with your follow up appointments or have a follow up appointment scheduled as per instruction of your physician. Refills should be requested at the time of your visit. BMI was above normal measurement. Current weight: 92.5 kg (204 lb) Weight change since last visit (-) denotes wt loss -5 lbs Weight loss needed to achieve BMI 25: 84.6 Lbs Weight loss needed to achieve BMI 30: 60.8 Lbs Provided instructions on dietary changes Provided instructions on exercise. Amiodarone follow up per routine documented in this encounter [facility] Work Phone: 07-11-2023 Evaluation note Encounter Date Diagnosis Assessment Notes Jun, Secondary hyperparathyroidism (ICD-10 - N25.81) [facility] Other 10-12-2023 Evaluation note* Encounter Date Diagnosis [...] Continue statins. Monitor LFTs and lipid profile [facility] Other 01-27-2023 Evaluation note* Encounter Date Diagnosis Assessment Notes Treatment Notes Treatment Clinical Notes Aug, Secondary hyperparathyroidism (ICD-10 - N25.81) [facility] Other 01-23-2023 Evaluation note* Encounter Date Diagnosis Assessment Notes Treatment Notes Treatment Clinical Notes Aug, Secondary hyperparathyroidism (ICD-10 - N25.81) [facility] Other 11-10-2022 Evaluation note* Encounter Date Diagnosis [...] Potassium is normal. Continue low potassium diet. [facility] Other 06-17-2022 Evaluation note* Encounter Date Diagnosis Assessment Notes Treatment Notes Treatment Clinical Notes Jan, Secondary hyperparathyroidism (ICD-10 - N25.81) [facility] Other 01-01-2022 History general Narrative - Reported* [...] History A-fib Hospitalization History HEART ATTACK 08/2021 [facility] Other 01-01-2022 History general Narrative - Reported* [...] History SEPSIS AND URINARY TRACT INFECTION 09/2022 [facility] Other [id number] Evaluation note* Encounter Date Diagnosis Assessment Notes [...] normal. Continue Lasix and low K diet [facility] Other Evaluation noteNo assessment information available [facility] Work Phone: Evaluation note* Diagnosis Onset Date Resolution Status CKD (chronic kidney disease) stage 3, GFR 30-59 ml/min acute Hyperlipidemia acute [id number] acute Hyperuricemia acute Microscopic hematuria acute Secondary hyperparathyroidism acute [facility] Work Phone: Evaluation note* Diagnosis Coronary artery disease, unspecified vessel or lesion type, unspecified whether angina present, unspecified whether [place] or transplanted heart High risk medication use Paroxysmal atrial fibrillation (Multi) Atrial fibrillation History of PTCA Postsurgical percutaneous transluminal coronary angioplasty status ST elevation myocardial infarction (STEMI) involving other coronary artery of inferior wall Cardiac pacemaker in situ Never smoked tobacco BMI 40.0-44.9, adult (Multi) documented in this encounter [facility] Work Phone: History general Narrative - Reported* Type Description Date Medical History hypertension Medical History Arthritis Medical History Gout Medical History A fib Medical History osteoporsis Surgical History hysterectomy 1991 Surgical History cardiac pacemeker 05/2016 Surgical History tonsillectomy 1950 Hospitalization History see above surgical histo ry Hospitalization History A-fib [facility] Other Summary Purpose Family History No Family [...] 4:04pm Chief Complaint Amiodarone order sent to [facility] for December* GWEN WILCOX is being seen for a 6 month follow-up of. * 71-year-old female who returns for follow-up, her only complaints are increasing shortness of breath and dyspnea. She sustained inferior ST elevation NM in August of this year with revascularizationof the RCA. She has a history of paroxysmal A. 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 She has underlying obesity, pacemaker for reportedly [...] and Reason for Visit Chief Complaint i49.5 Chief Complaint RENAL 1 year follow up i49.5 Reason for Visit CKD (chronic kidney disease) stage 3, GFR 30-59 ml/min Hyperlipidemia [id number] Hyperuricemia Microscopic hematuria Secondary hyperparathyroidism Additional Source Comments INFORMATION SOURCE (unrecogn ized section and content) DATE CREATED AUTHOR [facility]29/2018 [facility] DATE CREATED AUTHOR AUTHOR'S ORGANIZ ATION 09/23/2022 [employer] DATE CREATED AUTHOR AUTHOR'S ORGANIZ ATION 12/05/2022 [facility] DATE CREATED AUTHOR AUTHOR'S ORGANIZ ATION 05/28/2023 [facility] DATE CREATED AUTHOR AUTHOR'S ORGANIZ ATION 08/30/2024 [facility] DATE CREATED AUTHOR AUTHOR'S ORGANIZ ATION 10/17/2024 [facility] REASON FOR VISIT (unrecogniz ed section and content) Reason Comments Annual Exam Specialty Diagnoses / Procedures Referred By Maxim t Referred To Contact Cardiology Diagnoses Coronary artery disease, unspecified vessel or lesion type, unspecified whether angina present, unspecified whether [place] or transplanted heart Procedures Follow Up In Cardiology Malcom Howard, DO [address] [facility] [address], [facility] [address] [place] [address] Phone: tel: fax: Malcom Howard, DO [address] [place] [address] Phone: tel: fax: Referral ID Status Reason Start Date Expiration Date V isits Requested Visits Authorized [id number] Authorized 09/27/2023 09/26/2024 1 1 Care Teams (unrecognized sec tion and content) Team Status: Active Member Role Status Leonardo Ozuna MD Primary Care Provider Active Team Status: Active Member Role Status Leonardo Ozuna MD Primary Care Provider Active Start: April 25, 2024 Guillermo Alaniz MD Attending Provider Active Start : April 25, 2024 Team Status: Inactive Member Role Status Leonardo Ozuna MD Primary Care Provider Active Start: May 02, 2024 End: May 02, 2024 Guillermo Alaniz MD Attending Provider Active Start : May 02, 2024 End: May 02, 2024 Team Status: Inactive Member Role Status Leonardo Ozuna MD Primary Care Provider Active Start: May 20, 2024 End: May 20, 2024 Mahsa Howard DO Attending Provider Active S tart: May 20, 2024 End: May 20, 2024 Team Status: Inactive Member Role Status Leonardo Ozuna MD Primary Care Provider Active W Diego Howard DO Attending Provider Active Team Status: Inactive Member Role Status Leonardo Ozuna MD Primary Care Provider Active Start: November 17, 2023 End: November 17, 2023 Mahsa Howard DO Attending Provider Active S tart: November 17, 2023 End: November 17, 2023 Team Status: Inactive Member Role Status Leonardo Ozuna MD Primary Care Provider Active Start: February 19, 2024 End: February 19, 2024 Mahsa Howard DO Attending Provider Active S tart: February 19, 2024 End: February 19, 2024 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 [facility] [employer] [facility]. provides no warranty or guarantee of the accuracy or completeness of information in this document.
--- NOTE | 2024-10-23 13:49 | RT_ITS ---
[facility] Test Date: 2024-10-23 Pat Name: ROBERT COBOS Department: Room: - Gender: Female Cyber Ops Planner: Adrian Simon RRT : 1950 Requested By: [id number] Order Number: [id number] Reading MD: Ahsan Rees Interpretive Statements Pulmonary function testing was completed according to ATS criteria. Findings were considered accurate and reproducible. No bronchodilator was administered due to normal spirometric values. Spirometry: -FEV1/FVC: Normal @ 91% -FEV1: Normal @ 114% -FVC: Normal @ 92% -There is a paradoxical bronchodilator response. -RV: Reduced @ 60% -TLC: Normal @ 83% Diffusion capacity: -DLCO: Moderate reduction @ 59% when corrected for Hb 14.5g/dL Comparison from 09/12/2023: -Essentially unchanged spirometry (FEV1 113%, FVC 93%) -No lung volumes performed this date -Marked drop in DLCO from 87%) Impressions: -Normal spirometry and TLC. Moderate diffusion impairment. This pattern can be seen in, but not restricted to, cardiopulmonary vascular disorders, early interstitial lung disease, and early emphysema. 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 Clinical correlation required. Electronically Signed On 10-30-2024 9:05:36 EDT by Ahsan Rees
== END 2024-10-23 12:21 | disposition home or self-care (01) ==
LOC: CARD 12:21
PROVIDERS: PCP Family Medicine; Visit Provider Internal Medicine Cardiovascular Disease
DX: I48.0 Paroxysmal atrial fibrillation (principal); Z79.899 Other long term (current) drug therapy; Z95.0 Presence of cardiac pacemaker
CPT/HCPCS: 71046; 94010; 94726; 94729

== ENCOUNTER 2025-03-31 09:26 | Outpatient (OUT) | payer MEDICARE, SELFPAY ==
--- OUTSIDE RECORDS SUMMARY | 2024-12-23 12:30 | XMS_ITS ---
Author Organization [facility] in [place] Address [address] [place] [address] Care Team Providers Care Business Analyst Sales Operations Name Role Phone Mychal Ozuna Primary Care Provider REASON FOR VISIT rf coreg Medications Medication SIG (Take, Route, Fr equency, Duration) Notes Start Date End Date Status Carvedilol 25 mg TAKE ONE TABLET BY M OUTH TWICE A DAY for 90 Active Encounters Encounter Location Date Provider Diagnosis [facility] [address] [place] [address] 12/23/2024 Mychal Ozuna Plan Of Treatment Medication Medication Name Sig Start Date Stop Date Notes Carvedilol 25 mg TAKE ONE TABLET BY M OUTH TWICE A DAY for 90 Next Appt Details Provider Name:Mychal Ozuna, 01:00:00 PM, [address] [place], [address], Progress Notes * Gwen WILCOX SDOB:[birth year] (74 yo F)Acc No.[id number]:12/23/2024 Patient: Lucía Gwen VARGAS :1950 A ge:74 Y S ex:Female Address:[address] [place] [address], [phone] * Refills Refill Carvedilol Tablet, 25 mg, 180 Each, TAKE ONE TABLET BY MOUTH TWICE A DAY, 90, Refills=3 * true * Date: Generated for Satish meléndez/Sonny/Yonatanitting on: 0 03/31/2025 09:31 AM EDT
--- OUTSIDE RECORDS SUMMARY | 2025-03-13 05:33 | XMS_ITS ---
Author Organization [facility] in [place] Address [address] [place] [address] Care Team Providers Care Third Rail Installer Name Role Phone Mychal Ozuna Primary Care Provider REASON FOR VISIT refill Medications Medication SIG (Take, Route, Frequency, Duration) Notes Start Date End Date Status Atorvastatin Calcium 40 MG 1 tablet Oral ly Once a day for 30 days Active Encounters Encounter Location Date Provider Diagnosis [facility] [address] [place] [address] 03/13/2025 Mychal Ozuna Plan Of Treatment Medication Medication Name Sig Start Date Stop Date Notes Atorvastatin Calcium 40 MG 1 tablet Oral ly Once a day for 30 days Next Appt Details Provider Name:Mychal Ozuna, 01:00:00 PM, [address] [place], [address], Progress Notes * Gwen WILCOX SDOB:[birth year] (74 yo F)Acc No.[id number]:03/13/2025 Patient: Lucía SHARONEleazar MITCHELLen Willis :1950 A ge:74 Y S ex:Female Address:[address] [place] [address], [address] * Refills Refill Atorvastatin Calcium Tablet, 40 MG, Orally, 30 Tablet, 1 tablet, Once a day, 30 days, Refills=11 * true * Date: Generated for Printi ng/Faxing/eTransmitting on: 0 03/31/2025 09:31 AM EDT
--- OUTSIDE RECORDS SUMMARY | 2025-03-31 09:31 | XMS_ITS | Encounter Summary ---
Author Organization [facility] Address [address] [place] [address] Phone Care Team Providers Care Health Care Facility Administrator Name Role Phone Julius Ozuna MD Primary Care Provider [phone] Encounter Details Date Type Department Care Team (Late st Contact Info) Description 02/24/2021 Orders Only [facility] [address] [place] [address] Conversion, Onbase Social History Tobacco Use Types Packs/Day Years Used Date Smoking Tobacco: Never Assessed Comments Unknown Sex and Gender Information Value Date Recorded Sex Assigned at Not on file Legal Sex Female 1:07 PM EST Gender Identity Not on file Sexual Orientation Not on file documented as of this encounter Plan of Treatment Upcoming Encounters Date Type Department Care Team (Late st Contact Info) Description 10/21/2025 1:20 PM EST Office Visit [facility] [address] [facility] [address] [place] [address] Malcom Alicea, [address] [facility] [address] [place] [address] Scheduled Orders Name Type Priority Associated Diagnoses Orde r Schedule OUTSIDE LAB SCAN Lab Ordered: 02/24/2021 documented as of this encounter Visit Diagnoses Not on filedocumented in this encounter Care Teams Health Care Facility Administrator Relationship Specialty Start Date End Date Julius Ozuna MD [address] [facility] [place] [address] PCP - General 08/21/99 documented as of this encounter
--- OUTSIDE RECORDS SUMMARY | 2025-03-31 09:31 | XMS_ITS | Encounter Summary ---
Author Organization [facility] Address [address] [place] [address] Phone Care Team Providers Care Oyster Fisherman Name Role Phone Julius Ozuna MD Primary Care Provider [phone] Encounter Details Date Type Department Care Team (Late st Contact Info) Description 09/14/2023 Scanned Document [facility] [address] [place] [id number] Scanning, Generic Provider Social History Tobacco Use Types Packs/Day Years Used Date Smoking Tobacco: Never Comments Unknown Sex and Gender Information Value Date Recorded Sex Assigned at Not on file Legal Sex Female 1:07 PM EST Gender Identity Not on file Sexual Orientation Not on file documented as of this encounter Plan of Treatment Upcoming Encounters Date Type Department Care Team (Late st Contact Info) Description 10/21/2025 1:20 PM EST Office Visit [facility] [address] [facility] [address] [place] [address] Malcom Alicea DO [address] [facility] [address] [place] [address] documented as of this encounter Visit Diagnoses Not on filedocumented in this encounter Care Teams Oyster Fisherman Relationship Specialty Start Date End Date Julius Ozuna MD [address] [facility] [place] [address] PCP - General 08/21/99 documented as of this encounter
--- OUTSIDE RECORDS SUMMARY | 2025-03-31 09:31 | XMS_ITS | Encounter Summary ---
Author Organization [facility] Address [address] [place] [address] Phone Care Team Providers Care Industrial Court Magistrate Name Role Phone Julius Ozuna MD Primary Care Provider [phone] Encounter Details Date Type Department Care Team (Late st Contact Info) Description 07/23/2021 Orders Only [facility] [address] [place] [address] Conversion, Onbase Social History Tobacco Use Types [...] Description 10/21/2025 1:20 PM EST Office Visit [facility] [address] [facility] [address] [place] [address] Malcom Alicea DO [address] [facility] [place] [address] Scheduled Orders Name Type Priority Associated Diagnoses Orde r Schedule OUTSIDE LAB SCAN Lab Ordered: 07/23/2021 documented as of this encounter Visit Diagnoses Not on filedocumented in this encounter Care Teams Industrial Court Magistrate Relationship Specialty Start Date End Date Julius Ozuna MD [address] [facility] [place] [address] PCP - General 08/21/99 documented as of this encounter
--- OUTSIDE RECORDS SUMMARY | 2025-03-31 09:31 | XMS_ITS | Encounter Summary ---
Author Organization [facility] Address [address] [place] [address] Phone Care Team Providers Care Cap Parts Cutter Name Role Phone Julius Ozuna MD Primary Care Provider [phone] Encounter Details Date Type Department Care Team (Late st Contact Info) Description 05/18/2023 Scanned Document [facility] [address] [place] [address] Conversion, Onbase Social History Tobacco Use Types [...] Description 10/21/2025 1:20 PM EST Office Visit [facility] [address] [facility] [address] [place] [address] Malcom Alicea, [address] [facility] [address] [place] [address] documented as of this encounter Procedures Procedure Name Priority Date/Time Associated Diagnosis Comments OUTSIDE GENERIC TESTING 05/18/2023 documented in this encounter Results * OUTSIDE GENERIC TESTING (05/18/2023) Anatomical Region Laterality Modality Other Narrative 05/18/2023 Ordered by an unspecified provider. us Onbase Conversion OUTSIDE SCAN Final Result documented in this encounter Visit Diagnoses Not on filedocumented in this encounter Care Teams Cap Parts Cutter Relationship Specialty Start Date End Date Julius Ozuna MD [address] [place] [id number] PCP - General 08/21/99 documented as of this encounter
--- OUTSIDE RECORDS SUMMARY | 2025-03-31 09:31 | XMS_ITS | Encounter Summary ---
Author Organization [facility] Address [address] [place] [address] Phone Care Team Providers Care Beef Pluck Trimmer Name Role Phone Julius Ozuna MD Primary Care Provider [phone] Encounter Details Date Type Department Care Team (Late st Contact Info) Description 11/30/2022 Orders Only [facility] [address] [place] [address] Conversion, Onbase Social History Tobacco Use Types [...] Description 10/21/2025 1:20 PM EST Office Visit [facility] [address] [facility] [address] [place] [address] Malcom Alicea, [address] [facility] [address] [place] [address] Scheduled Orders Name Type Priority Associated Diagnoses Orde r Schedule OUTSIDE LAB SCAN Lab Ordered: 11/30/2022 documented as of this encounter Visit Diagnoses Not on filedocumented in this encounter Care Teams Beef Pluck Trimmer Relationship Specialty Start Date End Date Julius Ozuna MD [address] [facility] [place] [address] PCP - General 08/21/99 documented as of this encounter
--- OUTSIDE RECORDS SUMMARY | 2025-03-31 09:31 | XMS_ITS | Encounter Summary ---
Author Organization [facility] Address [address] [place] [address] Phone Care Team Providers Care Hired Worker Name Role Phone Julius Ozuna MD Primary Care Provider [phone] Encounter Details Date Type Department Care Team (Late st Contact Info) Description 01/14/2022 Orders Only [facility] [address] [place] [address] Conversion, Onbase Social History Tobacco Use Types [...] Description 10/21/2025 1:20 PM EST Office Visit [facility] [address] [facility] [address] [place] [address] Malcom Alicea DO 7[address] [facility] [address], [address] [place] [address] Scheduled Orders Name Type Priority Associated Diagnoses Orde r Schedule OUTSIDE LAB SCAN Lab Ordered: 01/14/2022 documented as of this encounter Visit Diagnoses Not on filedocumented in this encounter Care Teams Hired Worker Relationship Specialty Start Date End Date Julius Ozuna MD [address] [facility] [place] [address] PCP - General 08/21/99 documented as of this encounter
--- OUTSIDE RECORDS SUMMARY | 2025-03-31 09:31 | XMS_ITS | Encounter Summary ---
Author Organization [facility] Address [address] [place] [address] Phone Care Team Providers Care Heavy Equipment Diesel Mechanic Name Role Phone Julius Ozuna MD Primary Care Provider [phone] Encounter Details Date Type Department Care Team (Late st Contact Info) Description 01/06/2022 Orders Only [facility] [address] [place] [address] Conversion, Onbase Social History Tobacco Use Types [...] Description 10/21/2025 1:20 PM EST Office Visit [facility] 703 [facility] [address] [place] [address] Malcom Alicea DO 703 [facility] 2, [address] [place] [address] Scheduled Orders Name Type Priority Associated Diagnoses Orde r Schedule OUTSIDE LAB SCAN Lab Ordered: 01/06/2022 documented as of this encounter Visit Diagnoses Not on filedocumented in this encounter Care Teams Heavy Equipment Diesel Mechanic Relationship Specialty Start Date End Date Julius Ozuna MD [address] [facility] [place] [address] PCP - General 08/21/99 documented as of this encounter
--- OUTSIDE RECORDS SUMMARY | 2025-03-31 09:31 | XMS_ITS | Encounter Summary ---
Author Organization [facility] Address [address] [place] [address] Phone Care Team Providers Care Tactical Air Control Party Manager Name Role Phone Julius Ozuna MD Primary Care Provider [phone] Encounter Details Date Type Department Care Team (Late st Contact Info) Description 05/23/2022 Orders Only [facility] [address] [place] [address] Conversion, Onbase Social History Tobacco Use Types [...] 10/21/2025 1:20 PM EST Office Visit [facility] 7[address] [facility] [address] [place] [address] Malcom Alicea DO 703 [facility] [address], [address] [place] [address] Scheduled Orders Name Type Priority Associated Diagnoses Orde r Schedule OUTSIDE LAB SCAN Lab Ordered: 05/23/2022 OUTSIDE LAB SCAN Lab Ordered: 05/23/2022 documented as of this encounter Visit Diagnoses Not on filedocumented in this encounter Care Teams Tactical Air Control Party Manager Relationship Specialty Start Date End Date Julius Ozuna MD [address] [place] [facility] [place] [address] PCP - General 08/21/99 documented as of this encounter
--- OUTSIDE RECORDS SUMMARY | 2025-03-31 09:31 | XMS_ITS | Encounter Summary ---
Author Organization [facility] Address [address] [place] [address] Phone Care Team Providers Care Residential Real Estate Appraiser Name Role Phone Julius Ozuna MD Primary Care Provider [phone] Encounter Details Date Type Department Care Team (Late st Contact Info) Description 07/22/2021 Orders Only [facility] [address] [place] [address] Conversion, Onbase Social History Tobacco Use Types [...] Description 10/21/2025 1:20 PM EST Office Visit [facility] 703 [facility] [address] [place] [address] Malcom Alicea DO 703 [facility] 2, [address] [place] [address] Scheduled Orders Name Type Priority Associated Diagnoses Orde r Schedule OUTSIDE LAB SCAN Lab Ordered: 07/22/2021 documented as of this encounter Visit Diagnoses Not on filedocumented in this encounter Care Teams Residential Real Estate Appraiser Relationship Specialty Start Date End Date Julius Ozuna MD [address] [place] [address] PCP - General 08/21/99 documented as of this encounter
--- OUTSIDE RECORDS SUMMARY | 2025-03-31 09:31 | XMS_ITS | Encounter Summary ---
Author Organization [facility] Address [address] [place] [address] Phone Care Team Providers Care Automobile Spring Repairer Name Role Phone Julius Ozuna MD Primary Care Provider [phone] Encounter Details Date Type Department Care Team (Late st Contact Info) Description 01/26/2021 Orders Only [facility] LE[facility] [address] [place] [address] Conversion, Onbase Social History Tobacco Use Types [...] Description 10/21/2025 1:20 PM EST Office Visit [facility] 703 [facility] 250 [place] [address] Malcom Alicea DO 703 [facility] 2, [address] [place] [address] Scheduled Orders Name Type Priority Associated Diagnoses Orde r Schedule OUTSIDE LAB SCAN Lab Ordered: 01/26/2021 documented as of this encounter Visit Diagnoses Not on filedocumented in this encounter Care Teams Automobile Spring Repairer Relationship Specialty Start Date End Date Julius Ozuna MD [address] [place] [facility] [place] [address] PCP - General 08/21/99 documented as of this encounter
--- OUTSIDE RECORDS SUMMARY | 2025-03-31 09:32 | XMS_ITS | Clinical Summary ---
Author Organization [facility] Address [address] [place] [address] Phone Care Team Providers Care Shipping Support Clerk Name Role Phone Julius Ozuna MD Primary Care Provider [phone] Allergies No known active allergies Medications allopurinol (Zyloprim) 300 mg tablet Take 0.5 tablets (150 mg) by mouth once daily. Active apixaban (Eliquis) 5 mg tablet Take 1 tablet (5 mg) by mouth 2 times a day. Active aspirin 81 mg chewable tablet Chew 1 tablet (81 mg) 2 times a week. Active calcitriol (Rocaltrol) 0.25 mcg capsule Take 1 capsule (0.25 mcg) by mouth 2 times a week. Active carvedilol (Coreg) 25 mg tablet Take 1 tablet (25 mg) by mouth 2 times a day. Active lisinopril 2.5 mg tablet Take 1 tablet (2.5 mg) by mouth once daily. Active nitroglycerin (Nitrostat) 0.[address] 1 tablet (0.4 mg) under the tongue every 5 minutes if needed for chest pain. Call 911 or go to the ER after third dose. Active atorvastatin (Lipitor) 40 mg tabletIndications:M ixed hyperlipidemia TAKE ONE TABLET BY MOUTH ONCE DAILY AT BEDTIME 90 tablet 3 4 Active Active Problems Problem Noted Date Diagnosed Date Never smoked tobacco 10/15/2024 BMI 40.0-44.9, adult (Multi) 10/15/2024 High risk medication use 09/27/2023 ASHD (arteriosclerotic heart disease) 08/31/2023 Cardiac pacemaker in situ 08/31/2023 History of PTCA 08/31/2023 HTN (hypertension) 08/31/2023 Mixed hyperlipidemia 08/31/2023 Paroxysmal atrial fibrillation (Multi) Sinus node dysfunction (Multi) 08/31/2023 STEMI (ST elevation myocardial infarction) (Mult i) 08/31/2023 Family History Medical History Relation Name Comments malignant neoplasm of bone Brother CABG Father malignant neoplasm of esophagus Father Alzheimer's disease Mother Cerebral aneurysm Sister Relation Name Status Comments Brother Father Mother Sister Social History Tobacco Use Types Packs/Day Years Used Date Smoking Tobacco: Never Tobacco Cessation:Counseling Given: Not Answered Alcohol Use Standard Drinks/Week Comments Never 0 (1 standard drink = 0.6 oz pur e alcohol) Comments Unknown Sex and Gender Information Value Date Recorded Sex Assigned at Not on file Legal Sex Female 1:07 PM EST Gender Identity Not on file Sexual Orientation Not on file Last Filed Vital Signs Vital Sign Reading Time Taken Comments Blood Pressure 136/90 10/15/2024 1:27 PM EST Pulse 61 10/15/2024 1:27 PM EST Temperature - - Respiratory Rate - - Oxygen Saturation - - Inhaled Oxygen Concentration - - Weight 92.5 kg (204 lb) 10/15/2024 1:27 PM EST Height 147.3 cm (4' 10 ) 10/15/2024 1:27 PM EST Body Mass Index 42.64 10/15/2024 1:27 PM EST Plan of Treatment Upcoming Encounters Date Type Department Care Team (Late st Contact Info) Description 10/21/2025 1:20 PM EST Office Visit [facility] 703 [facility] [address] [place] [address] Malcom Alicea DO 703 [facility] [address], [address] [place] [address] Health Maintenance Due Date Last Done Comments Lipid Panel 1950 Medicare Annual Wellness Vis it (AWV) 1950 Diabetes Screening 1966 Hepatitis C Screening 1966 Pneumococcal Vaccine (1 of 2 - PCV) 1967 DTaP/Tdap/Td Vaccines (1 - Tdap) 1970 Zoster Vaccines (1 of 2) 1998 Bone Density Scan 2013 RSV High Risk: (Elderly (60+ ) or Population) (1 - 1-dose 75+ series) 2023 COVID-19 Vaccine (1 - 2023-2 5 season) 2024 Influenza Vaccine (#1) 2025 HIB Vaccines Aged Out No longer eligi ble based on patient's age to complete this topic HPV Vaccines Aged Out No longer eligi ble based on patient's age to complete this topic Hepatitis A Vaccines Aged Out No long er eligible based on patient's age to complete this topic Hepatitis B Vaccines Aged Out No long er eligible based on patient's age to complete this topic IPV Vaccines Aged Out No longer eligi ble based on patient's age to complete this topic Meningococcal Vaccine Aged Out No [place]a [place] eligible based on patient's age to complete this topic Rotavirus Vaccines Aged Out No longer eligible based on patient's age to complete this topic Insurance MEDICARE PART A AND B Care Teams Shipping Support Clerk Relationship Specialty Start Date End Date Julius Ozuna MD [address] [id number] PCP - General 08/21/99
[2025-03-31 10:07] LABS: Hematocrit 44.5 % (36.0-48.0); Hemoglobin 14.4 g/dL (12.0-16.0); Mean Corpuscular HGB Conc 32.4 g/dL (29.9-35.2); Mean Corpuscular Hemoglobin 29.0 pg (26.7-34.0); Mean Corpuscular Volume 89.5 fL (81.0-99.0); Platelet Count 332 10^3/uL (150-450); Red Blood Count 4.97 10^6/uL (4.20-5.40); White Blood Count 7.2 10^3/uL (4.0-11.0)
[2025-03-31 10:10] LABS: Protein Creatinine Ratio Urine 0.12; Total Protein Urine Random 21.7 mg/dL (<=11.9)
[2025-03-31 10:39] LABS: Albumin Level 3.4 g/dL (3.4-5.0); Anion Gap 12.2; Blood Urea Nitrogen 36.0 mg/dL (7.0-18.0); Calcium 9.3 mg/dL (8.5-10.1); Carbon Dioxide 27.0 mmol/L (21.0-32.0); Chloride 102 mmol/L (98-107); Estimated GFR (African America 41 (>=60 mL/min/1.73m^2); Estimated GFR (Non-African Ame 34 (>=60 mL/min/1.73m^2); Glucose 110 mg/dL (74-106); Magnesium 2.0 mg/dL (1.8-2.4); Potassium 4.2 mmol/L (3.5-5.1); Sodium 137 mmol/L (136-145); Uric Acid 4.5 mg/dL (2.6-6.0)
== END 2025-03-31 09:27 | disposition home or self-care (01) ==
LOC: LAB 09:29
PROVIDERS: PCP Family Medicine; Visit Provider Internal Medicine
DX: E78.5 Hyperlipidemia, unspecified (principal); R31.29 Other microscopic hematuria; E79.0 Hyperuricemia without signs of inflammatory arthritis and tophaceous disease; N25.81 Secondary hyperparathyroidism of renal origin; I12.9 Hypertensive chronic kidney disease with stage 1 through stage 4 chronic kidney disease, or unspecified chronic kidney disease; N18.30 Chronic kidney disease, stage 3 unspecified
CPT/HCPCS: 36415; 80069; 81001; 82306; 82570; 83735; 83970; 84156; 84550; 85027

== ENCOUNTER 2025-04-01 09:16 | Outpatient (REF) | payer MEDICARE, SELFPAY ==
--- OUTSIDE RECORDS SUMMARY | 2024-12-23 12:30 | XMS_ITS ---
Author Organization [facility] in [place] Address [address] [place] [address] Care Team Providers Care Crayon Painter Name Role Phone Mychal Ozuna Primary Care Provider REASON FOR VISIT rf coreg Medications Medication SIG (Take, Route, Fr equency, Duration) Notes Start Date End Date Status Carvedilol 25 mg TAKE ONE TABLET BY M OUTH TWICE A DAY for 90 Active Encounters Encounter Location Date Provider Diagnosis [facility] [address] [place] [address] 12/23/2024 Mychal Ozuna Plan Of Treatment Medication Medication Name Sig Start Date Stop Date Notes Carvedilol 25 mg TAKE ONE TABLET BY M OUTH TWICE A DAY for 90 Next Appt Details Provider Name:Mychal Ozuna, 01:00:00 PM, [address] [place], [address], Progress Notes * Gwen WILCOX SDOB:[birth year] (74 yo F)Acc No.[id number]:12/23/2024 Patient: Lucía Gwen VARGAS :1950 A ge:74 Y S ex:Female Address:[address] [place] [address], [phone] * Refills Refill Carvedilol Tablet, 25 mg, 180 Each, TAKE ONE TABLET BY MOUTH TWICE A DAY, 90, Refills=3 * true * Date: Generated for Satish meléndez/Sonny/Yonatanitting on: 0 04/01/2025 09:19 AM EDT
--- OUTSIDE RECORDS SUMMARY | 2025-01-01 09:00 | XMS_ITS ---
Author Organization The [facility] in [place] Address [address] [place] [address] Care Team Providers Care Application Performance Engineer Name Role Phone Mychal Ozuna Primary Care Provider Allergies No Known Allergies REASON FOR VISIT 4 mo f/u Medications Medication SIG (Take, Route, Frequency, Duration) Notes Start Date End Date Status OneTouch Delica Lancets 33G Active OneTouch Ultra Test Use one strip as directed once daily for 90 days Active Zetia 10 MG 1 tablet Orally Once a day for 30 days 05/03/2024 Active Eliquis 5 MG 1 tablet Orally Twic e a day for 90 days Active Lisinopril 2.5 MG 1 tablet Orally Once a day for 90 days Active Nitroglycerin 0.4 MG as directed Sublingual Active Calcitriol 0.25 MCG 1 capsule Orally twi ce weekly Active Carvedilol 25 mg TAKE ONE TABLET BY M OUTH TWICE A DAY for 90 Active Aspirin 81 81 MG 1 tablet Orally 2 ti mes weekly Active Atorvastatin Calcium 40 MG 1 tablet Oral ly Once a day Active Allopurinol 300 MG 1/2 tablet Orally On ce a day for 30 days Active Social History Tobacco Use: Social History Observation Description Date Details (start date - stop date) Never Smoker NA - NA Tobacco Use/Smoking Question Answer Notes Patient is a nonsmoker AUDIT-C (Standard) Question Answer Notes Did you have a drink containing alcohol in the p ast year? No Points 0 Interpretation Negative Vital Signs Weight 202 lbs 01/01/2025 Height 58 in 01/01/2025 Blood pressure systolic 138 mm Hg 01/02/20 25 Blood pressure diastolic 82 mm Hg 025 BMI 42.21 kg/m2 01/01/2025 Encounters Encounter Location Date Provider Diagnosis [facility] [address] [place] [address] 01/01/2025 Mychal Ozuna Overweight E66.3 ; Paroxysmal atrial fibrillation I48.0 ; Chest pain R07.9 ; Hyperlipidemia E78.5 ; Diastolic heart failure I50.30 ; Pulmonary hypertension I27.20 and Benign essential HTN I10 Assessments Encounter Date Diagnosis (ICD Code) Assessment Notes Treatment Notes Treatment Clinical Notes Section Notes 01/01/2025 Overweight (ICD-10 - E66.3) disucssed diet 01/01/2025 Paroxysmal atrial fibrillation (ICD-10 - I48.0) rate controlled off amidarone 01/01/2025 Chest pain (ICD-10 - R07.9) none 01/01/2025 Hyperlipidemia (ICD-10 - E78.5) on meds 01/01/2025 Diastolic heart failure (ICD-10 - I50.30) no edema - no serra 01/01/2025 Pulmonary hypertension (ICD-10 - I27.20) see aboe 01/01/2025 Benign essential HTN (ICD-10 - I10) well control Plan Of Treatment Treatment Notes Assessment Notes Overweight disucssed diet Paroxysmal atrial fibrillation rate cont rolled off amidarone Chest pain none Hyperlipidemia on meds Diastolic heart failure no edema - no do e Pulmonary hypertension see aboe Benign essential HTN well control Next Appt Details Provider Name:Mychal Ozuna, 01:00:00 PM, [address] [place], [address], Progress Notes * Gwen WILCOX SDOB:[birth year] (74 yo F)Acc No.[id number]:01/01/2025 Progress Note Patient: Eleazar BALTAZARen Willis Provider: Allison Ozuna ([facility])MD :1950 A ge:74 Y S ex:Female Date:01/01/2025 Address:[address] [place], [place] [id number] Check In:12:58 PM Opal Sommers ut:01:28 PM EST Subjective: * Chief Complaints: * 4 mo f/u * ROS: E ENT: hearing changes d enies. v isual changes d enies.?non-healing mouth sores d enies. s wollen glands or neck lumps d enies. h oarseness d enies. s ore throat d enies. d ifficulty swallowing d enies. n ose bleeds d enies. n ever congestion d enies. e ar ache d enies. e ar discharge?denies. r inging in ears d enies. l ight sensitivity d enies. e ye pain d enies. b lurring d enies. e ye irritation d enies. d ouble vision d enies.?vision loss d enies. G eneral/Constitutional: Sweats: D enies. F atigue d enies. S leep problems d enies. A norexia d enies. M alaise d enies. W eight loss d enies.?Fatigue or Weakness d enies. F ever or Chills d enies. C ardiovascular: Shortness of Breath w/lying flat d enies. L ightheadedness/dizziness d enies. C hest tightness/ heavy pressure d enies. S welling of legs, ankles, or feet d enies. W aking up with shortness of breath d enies. C hest pain denies. P alpitations d enies. W eight gain d enies. R espiratory: Chronic or frequent cough d enies. C oughing up blood?denies. D ifficulty breathing d enies. P roductive cough d enies. S noring?denies. S hortness of breath that awakens from sleep (PND) d enies. C hest pain d enies. S putum production d enies. W heezing d enies. M usculoskeletal: Joint pain d enies. J oint Fluid d enies. B ack pain d enies. K nee pain d enies. N katlyn pain d enies. J oint Stiffness d enies. M uscle cramps d enies. W eakness of muscles d enies. A rthritis d enies. M uscle aches d enies. P ain in shoulder(s) d enies. S wollen joints d enies. * Active Problem List E66.3 Overweight Modified On:05/17/2023 Status:confirmed E87.5 Hyperkalemia Modified On:01/06/2023 Status:confirmed I21.02 ST elevation (STEMI) myocardial infarction involving left anterior descending coronary artery Modified On:01/06/2023 Status:confirmed I48.0 Paroxysmal atrial fi brillation Modified On:05/17/2023 Status:confirmed I49.5 Sick sinus syndrome Modified On:01/02/2023 Status:confirmed M17.0 Bilateral primary os teoarthritis of knee Modified On:01/02/2023 Status:confirmed R07.89 Other chest pain Modified On:01/02/2023 Status:confirmed R07.9 Chest pain Modified On:01/02/2023 Status:confirmed E78.5 Hyperlipidemia Modified On:03/27/2023 Status:confirmed N20.0 Kidney stones Modified On:01/02/2023 Status:confirmed E79.0 Hyperuricemia Modified On:01/02/2023 Status:confirmed I50.32 Chronic diastolic he art failure Modified On:08/30/2023 Status:confirmed R55 Near syncope Modified On:01/02/2023 Status:confirmed E04.2 Multinodular goiter Modified On:05/17/2023 Status:confirmed L25.9 Contact dermatitis Modified On:01/02/2023 Status:confirmed Z95.0 Presence of permanen t cardiac pacemaker Modified On:01/02/2023 Status:confirmed Z91.81 At risk for falls Modified On:01/02/2023 Status:confirmed N25.81 Secondary hyperparat hyroidism (of renal origin) Modified On:01/02/2023 Status:confirmed M19.90 Osteoarthritis Modified On:01/02/2023 Status:confirmed I50.30 Diastolic heart fail ure Modified On:05/17/2023 Status:confirmed I12.9 Renal disease, hyper tensive benign with chronic kidney disease, stage 1-4 or unspecified chronic kidney disease Modified On:01/02/2023 Status:confirmed I27.20 Pulmonary hypertensi on Modified On:01/02/2023 Status:confirmed N18.30 Chronic kidney disea se, stage 3 unspecified Modified On:08/30/2023 Status:confirmed E11.9 Controlled type 2 di abetes mellitus Modified On:03/27/2023 Status:confirmed I10 Benign essential HTN Modified On:11/11/2022 Status:confirmed A41.51 Sepsis due to Escher ichia coli [E. coli] Modified On:01/09/2023 Status:confirmed E66.01 Morbid obesity Modified On:01/09/2023 Status:confirmed I12.9 Hypertension, renal, stage 1-4 or unspecified chronic kidney disease Modified On:01/09/2023 Status:confirmed M81.0 Age-related osteopor osis without current pathological fracture Modified On:08/29/2023 Status:confirmed M81.0 Osteoporosis Modified On:08/30/2023 Status:confirmed I48.91 Afib Modified On:09/18/2023 Status:confirmed * Medical History: * Surgical History: H ysterectomy Pacemaker Cardiac Stents x2 CYstoscopy Tonsillectomy * Hospitalization/Major Diagno stic Procedure: U TI 10/2022 * Family History: F ather: , Esophageal CA, diagnosed with Other malignant neoplasm of unspecified site, Unspecified heart disease. M other: , Mini strokes, Dementia. B rother(s): , Bone, diagnosed with Other malignant neoplasm of unspecified site. S ister(s): , Aneurysm. 1 brother(s) , 1 sister(s) . 1 son(s) , 1 daughter(s) - healthy. . * Social History: T obacco Use: T obacco Use/Smoking P atient is a n onsmoker D rug/Alcohol: A NATALIE-C (Standard) D id you have a drink containing alcohol in the past year? N o P oints 0 I nterpretation N egative * Medications: T akingAllopurinol 300 MG Tablet 1/2 tablet Orally Once a day Aspirin 81(Aspirin) 81 MG Tablet Chewable 1 tablet Orally 2 times weekly Atorvastatin Calcium 40 MG Tablet 1 tablet Orally Once a day Calcitriol 0.25 MCG Capsule 1 capsule Orally twice weekly Carvedilol 25 mg Tablet TAKE ONE TABLET BY MOUTH TWICE A DAY Eliquis(Apixaban) 5 MG Tablet 1 tablet Orally Twice a day Lisinopril 2.5 MG Tablet 1 tablet Orally Once a day Nitroglycerin 0.4 MG Tablet Sublingual as directed Sublingual OneTouch Delica Lancets 33G OneTouch Ultra Test Use one strip as directed once daily Zetia(Ezetimibe) 10 MG Tablet 1 tablet Orally Once a day Taking Allopurinol 300 MG Tablet 1/2 tablet Orally Once a day Taking Aspirin 81(Aspirin) 81 MG Tablet Chewable 1 tablet Orally 2 times weekly Taking Atorvastatin Calcium 40 MG Tablet 1 tablet Orally Once a day Taking Calcitriol 0.25 MCG Capsule 1 capsule Orally twice weekly Taking Carvedilol 25 mg Tablet TAKE ONE TABLET BY MOUTH TWICE A DAY Taking Eliquis(Apixaban) 5 MG Tablet 1 tablet Orally Twice a day Taking Lisinopril 2.5 MG Tablet 1 tablet Orally Once a day Taking Nitroglycerin 0.4 MG Tablet Sublingual as directed Sublingual Taking OneTouch Delica Lancets 33G Taking OneTouch Ultra Test Use one strip as directed once daily Taking Zetia(Ezetimibe) 10 MG Tablet 1 tablet Orally Once a day DiscontinuedAlendronate Sodium 70 mg Tablet TAKE ONE TABLET BY MOUTH ONCE WEEKLY 30 MINUTES BEFORE FIRST FOOD, DRINK OR MEDICINE OF THE DAY WITH PLAIN WATER Amiodarone HCl 100 MG Tablet 1 tablet Orally Medication List reviewed and reconciled with the patientDiscontinued Alendronate Sodium 70 mg Tablet TAKE ONE TABLET BY MOUTH ONCE WEEKLY 30 MINUTES BEFORE FIRST FOOD, DRINK OR MEDICINE OF THE DAY WITH PLAIN WATER Discontinued Amiodarone HCl 100 MG Tablet 1 tablet Orally Medication List reviewed and reconciled with the patient * Allergies: N .K.D.A.no[Allergies Verified] Objective: * Vitals: W t:202lbs, Ht: 58 in, BP:138/82mm Hg, BMI:42.21Index, Ht-cm: 147.32 cm, Wt-k.63 kg. * Examination: P hysical Exam: GENERAL: w ell developed, well nourished, in no acute distress. HEAD: n ormocephalic/atraumatic. EYES: p upils equal, round and reactive to light, conjunctivae and sclerae normal. EARS: n o deformity or lesion of external ear, canals and TM appear normal bilaterally, TM's intact, not inflamed with normal light reflex, hearing grossly normal to conversational speech. NOSE: n o deformity, discharge, inflammation, or lesions.? MOUTH: m ucous membranes moist, normal oropharynx and posterior pharynx without lesions or exudates, tongue normal, dentition normal. NECK: n katlyn supple, no masses or palpable cervical nodes, trachea midline, thyroid without nodules, masses, tenderness, or enlargement. CHEST: n o chest wall deformity, no chest wall tenderness.? LUNGS: n ormal respiratory effort and clear to auscultation, no wheezes, rales, or rhonchi, good air exchange. CARDIO: r egular rate and rhythm, normal S1 and S2, nor murmur, rub, or gallop. PULSES: n ormal capillary refill. ABDOMEN: s oft, non-distended, non-tender, no masses. MUSCULOSKELETAL: n o deformity or scoliosis noted, normal range of motion, joints normal, no erythema, edema, effusion, or ecchymosis. EXTREMITY: n o clubbing, cyanosis, edema, or deformity with normal ROM in both upper and lower bilateral extremities. NEUROLOGIC: g rossly normal. SKIN: n o rashes, ulcerations, or suspicious lesions. LYMPH NODES: n o cervical adenopathy, nodes normal. MENTAL STATUS: a lert and oriented x3, normal mood and affect. Assessment: * Assessment: 1. O verweight - E66.3 (Primary) 2 . P aroxysmal atrial fibrillation - I48.0 3 . C hest pain - R07.9 4 . H yperlipidemia - E78.5 ? 5 . D iastolic heart failure - I50.30 6 . P ulmonary hypertension - I27.20 7 . B enign essential HTN - I10 Plan: * Treatment: 2. P aroxysmal atrial fibrillation Notes: rate controlled off amidarone 3. C hest pain Notes: none 4. H yperlipidemia Notes: on meds 5. D iastolic heart failure Notes: no edema - no serra 6. P ulmonary hypertension Notes: see aboe 7. B enign essential HTN Notes: well control * Procedure Codes: * Preventive Medicine: Screenings/Counseling: B [place] ACTION PLAN Above Normal BMI Follow-up D ietary management education, guidance, and counseling * * Sign off status: Completed Visit Status: C HK (Check Out) true * Provider: Allison Ozuna ([facility])MD Date: 0 01/01/2025 Generated for Printi ng/Faxing/eTransmitting on: 0 04/01/2025 09:20 AM EDT History and Physical Notes * Examination Category Sub-Category Detail Notes Category Not es Physical Exam GENERAL: well developed, well nourished, in no acute distress HEAD: normocephalic/atraum atic EYES: pupils equal, round and reactive to light, conjunctivae and sclerae normal EARS: no deformity or lesi on of external ear, canals and TM appear normal bilaterally, TM's intact, not inflamed with normal light reflex, hearing grossly normal to conversational speech NOSE: no deformity, discha rge, inflammation, or lesions MOUTH: mucous membranes aviva st, normal oropharynx and posterior pharynx without lesions or exudates, tongue normal, dentition normal NECK: neck supple, no mass es or palpable cervical nodes, trachea midline, thyroid without nodules, masses, tenderness, or enlargement CHEST: no chest wall deform ity, no chest wall tenderness LUNGS: normal respiratory e ffort and clear to auscultation, no wheezes, rales, or rhonchi, good air exchange CARDIO: regular rate and rhy thm, normal S1 and S2, nor murmur, rub, or gallop PULSES: normal capillary ref ill ABDOMEN: soft, non-distended, non-tender, no masses RECTAL: MUSCULOSKELETAL: no deformity or scol iosis noted, normal range of motion, joints normal, no erythema, edema, effusion, or ecchymosis EXTREMITY: no clubbing, cyanosi s, edema, or deformity with normal ROM in both upper and lower bilateral extremities NEUROLOGIC: grossly normal SKIN: no rashes, ulceratio ns, or suspicious lesions LYMPH NODES: no cervical adenopat hy, nodes normal MENTAL STATUS: alert and oriented x 3, normal mood and affect
--- OUTSIDE RECORDS SUMMARY | 2025-03-13 05:33 | XMS_ITS ---
Author Organization The [facility] in [place] Address [address] [place] [address] Care Team Providers Care Ribbon Lapper Tender Name Role Phone Mychal Ozuna Primary Care Provider REASON FOR VISIT refill Medications Medication SIG (Take, Route, Frequency, Duration) Notes Start Date End Date Status Atorvastatin Calcium 40 MG 1 tablet Oral ly Once a day for 30 days Active Encounters Encounter Location Date Provider Diagnosis [facility] [address] [place] [address] 03/13/2025 Mychal Ozuna Plan Of Treatment Medication Medication Name Sig Start Date Stop Date Notes Atorvastatin Calcium 40 MG 1 tablet Oral ly Once a day for 30 days Next Appt Details Provider Name:Mychal Ozuna, 01:00:00 PM, [address] [place], [address], Progress Notes * Gwen WILCOX SDOB:[birth year] (74 yo F)Acc No.[id number]:03/13/2025 Patient: Lucía SHARONEleazar MITCHELLen Willis :1950 A ge:74 Y S ex:Female Address:[address] [place] [address], [address] * Refills Refill Atorvastatin Calcium Tablet, 40 MG, Orally, 30 Tablet, 1 tablet, Once a day, 30 days, Refills=11 * true * Date: Generated for Printi ng/Faxing/eTransmitting on: 0 04/01/2025 09:20 AM EDT
--- OUTSIDE RECORDS SUMMARY | 2025-04-01 09:20 | XMS_ITS | Encounter Summary ---
Author Organization [facility] Address [address] [place] [address] Phone Care Team Providers Care Strategic Communications Manager Name Role Phone Julius Ozuna MD Primary Care Provider [phone] Encounter Details Date Type Department Care Team (Late st Contact Info) Description 09/14/2023 Scanned Document [facility] [address] [place] [id number] Scanning, Generic Provider Social History Tobacco Use [...] Description 10/21/2025 1:20 PM EST Office Visit [facility] 703 [facility] [address] [place] [address] Malcom Alicea DO [address] [facility] 2, [address] [place] [address] documented as of this encounter Visit Diagnoses Not on filedocumented in this encounter Care Teams Strategic Communications Manager Relationship Specialty Start Date End Date Julius Ozuna MD [address] [facility] [place] [address] PCP - General 08/21/99 documented as of this encounter
--- OUTSIDE RECORDS SUMMARY | 2025-04-01 09:20 | XMS_ITS | Encounter Summary ---
Author Organization [facility] Address [address] [place] [address] Phone Care Team Providers Care Belly Packer Name Role Phone Julius Ozuna MD Primary Care Provider [phone] Encounter Details Date Type Department Care Team (Late st Contact Info) Description 07/22/2021 Orders Only [facility] LE[facility] [address] [place] [address] Conversion, Onbase Social History Tobacco Use Types [...] Description 10/21/2025 1:20 PM EST Office [facility] 703 [facility] [address] [place] [address] Malcom Alicea DO 703 [facility] 2, [address] [place] [address] Scheduled Orders Name Type Priority Associated Diagnoses Orde r Schedule OUTSIDE LAB SCAN Lab Ordered: 07/22/2021 documented as of this encounter Visit Diagnoses Not on filedocumented in this encounter Care Teams Belly Packer Relationship Specialty Start Date End Date Julius Ozuna MD [address] [facility] [place] [address] PCP - General 08/21/99 documented as of this encounter
--- OUTSIDE RECORDS SUMMARY | 2025-04-01 09:20 | XMS_ITS | Encounter Summary ---
Author Organization [facility] Address [address] [place] [address] Phone Care Team Providers Care Instrument Shop Supervisor Name Role Phone Julius Ozuna MD Primary Care Provider [phone] Encounter Details Date Type Department Care Team (Late st Contact Info) Description 01/06/2022 Orders Only [facility] [address] [place] [address] Conversion, Onbase Social History Tobacco Use Types [...] Description 10/21/2025 1:20 PM EST Office Visit [facility] 703 [facility] [address] [place] [address] Malcom Alicea DO [address] [facility] 2, [address] [place] [address] Scheduled Orders Name Type Priority Associated Diagnoses Orde r Schedule OUTSIDE LAB SCAN Lab Ordered: 01/06/2022 documented as of this encounter Visit Diagnoses Not on filedocumented in this encounter Care Teams Instrument Shop Supervisor Relationship Specialty Start Date End Date Julius Ozuna MD [address] [place] [address] PCP - General 08/21/99 documented as of this encounter
--- OUTSIDE RECORDS SUMMARY | 2025-04-01 09:20 | XMS_ITS | Encounter Summary ---
Author Organization [facility] Address [address] [place] [address] Phone Care Team Providers Care Certified Breastfeeding Educator Name Role Phone Julius Ozuna MD Primary Care Provider [phone] Encounter Details Date Type Department Care Team (Late st Contact Info) Description 05/23/2022 Orders Only [facility] [address] [place] [address] Conversion, Onbase Social History Tobacco Use Types [...] Description 10/21/2025 1:20 PM EST Office Visit [facility] [address] [facility] [address] [place] [address] Malcom Alicea DO 703 [facility] 2, [address] [place] [address] Scheduled Orders Name Type Priority Associated Diagnoses Orde r Schedule OUTSIDE LAB SCAN Lab Ordered: 05/23/2022 OUTSIDE LAB SCAN Lab Ordered: 05/23/2022 documented as of this encounter Visit Diagnoses Not on filedocumented in this encounter Care Teams Certified Breastfeeding Educator Relationship Specialty Start Date End Date Julius Ozuna MD [address] [facility] [place] [address] PCP - General 08/21/99 documented as of this encounter
--- OUTSIDE RECORDS SUMMARY | 2025-04-01 09:20 | XMS_ITS | Encounter Summary ---
Author Organization [facility] Address [address] [place] [address] Phone Care Team Providers Care Roofing Contractor Name Role Phone Julius Ozuna MD Primary Care Provider [phone] Encounter Details Date Type Department Care Team (Late st Contact Info) Description 05/18/2023 Scanned Document [facility] LE[facility] [address] [place] [address] Conversion, Onbase Social History Tobacco Use Types [...] Description 10/21/2025 1:20 PM EST Office Visit [facility] 703 [facility] [address] [place] [address] Malcom Alicea, 703 [facility] 2, [address] [place] [address] documented as of this encounter Procedures Procedure Name Priority Date/Time Associated Diagnosis Comments OUTSIDE GENERIC TESTING 05/18/2023 documented in this encounter Results * OUTSIDE GENERIC TESTING (05/18/2023) Anatomical Region Laterality Modality Other Narrative 05/18/2023 Ordered by an unspecified provider. us Onbase Conversion OUTSIDE SCAN Final Result documented in this encounter Visit Diagnoses Not on filedocumented in this encounter Care Teams Roofing Contractor Relationship Specialty Start Date End Date Julius Ozuna MD [address] [id number] PCP - General 08/21/99 documented as of this encounter
--- OUTSIDE RECORDS SUMMARY | 2025-04-01 09:20 | XMS_ITS | Encounter Summary ---
Author Organization [facility] Address [address] [place] [address] Phone Care Team Providers Care Studio Operations Engineer In Charge Name Role Phone Julius Ozuna MD Primary Care Provider [phone] Encounter Details Date Type Department Care Team (Late st Contact Info) Description 07/23/2021 Orders Only [facility] [address] [place] [address] Conversion, Onbase Social History Tobacco Use Types [...] Description 10/21/2025 1:20 PM EST Office Visit [facility] 703 [facility] [address] [place] [address] Malcom Alicea DO 703 [facility] 2, [address] [place] [address] Scheduled Orders Name Type Priority Associated Diagnoses Orde r Schedule OUTSIDE LAB SCAN Lab Ordered: 07/23/2021 documented as of this encounter Visit Diagnoses Not on filedocumented in this encounter Care Teams Studio Operations Engineer In Charge Relationship Specialty Start Date End Date Julius Ozuna MD [address] [facility] [place] [address] PCP - General 08/21/99 documented as of this encounter
--- OUTSIDE RECORDS SUMMARY | 2025-04-01 09:20 | XMS_ITS | Encounter Summary ---
Author Organization [facility] Address [address] [place] [address] Phone Care Team Providers Care Extruder Operator Name Role Phone Julius Ozuna MD Primary Care Provider [phone] Encounter Details Date Type Department Care Team (Late st Contact Info) Description 01/14/2022 Orders Only [facility] [address] [place] [address] Conversion, Onbase Social History Tobacco Use Types [...] Description 10/21/2025 1:20 PM EST Office Visit [facility] 703 [facility] [address] [place] [address] Malcom Alicea DO 703 [facility] 2, [address] [place] [address] Scheduled Orders Name Type Priority Associated Diagnoses Orde r Schedule OUTSIDE LAB SCAN Lab Ordered: 01/14/2022 documented as of this encounter Visit Diagnoses Not on filedocumented in this encounter Care Teams Extruder Operator Relationship Specialty Start Date End Date Julius Ozuna MD [address] [facility] [place] [address] PCP - General 08/21/99 documented as of this encounter
--- OUTSIDE RECORDS SUMMARY | 2025-04-01 09:20 | XMS_ITS | Encounter Summary ---
Author Organization [facility] Address [address] [place] [address] Phone Care Team Providers Care Trench Digging Machine Operator Name Role Phone Julius Ozuna MD Primary Care Provider [phone] Encounter Details Date Type Department Care Team (Late st Contact Info) Description 01/26/2021 Orders Only [facility] [address] [place] [address] Conversion, Onbase Social History Tobacco Use Types [...] Description 10/21/2025 1:20 PM EST Office Visit [facility] 703 [facility] [address] [place] [address] Malcom Alicea DO 703 [facility] 2, [address] [place] [address] Scheduled Orders Name Type Priority Associated Diagnoses Orde r Schedule OUTSIDE LAB SCAN Lab Ordered: 01/26/2021 documented as of this encounter Visit Diagnoses Not on filedocumented in this encounter Care Teams Trench Digging Machine Operator Relationship Specialty Start Date End Date Julius Ozuna MD [address] [facility] [place] [address] PCP - General 08/21/99 documented as of this encounter
--- OUTSIDE RECORDS SUMMARY | 2025-04-01 09:20 | XMS_ITS | Clinical Summary ---
Author Organization [facility] Address [address] [place] [address] Phone Care Team Providers Care Mail Machine Operator Name Role Phone Julius Ozuna MD Primary Care Provider [phone] Allergies No known active allergies Medications allopurinol [...] Description 10/21/2025 1:20 PM EST Office Visit [facility] 703 [facility] 250 [place] [address] Malcom Ailcea DO 703 [facility] 2, [address] [place] [address] Health Maintenance Due Date Last Done Comments [...] MEDICARE PART A AND B Care Teams Mail Machine Operator Relationship Specialty Start Date End Date Julius Ozuna MD [address] [phone] PCP - General 08/21/99
--- OUTSIDE RECORDS SUMMARY | 2025-04-01 09:20 | XMS_ITS | Encounter Summary ---
Author Organization [facility] Address [address] [place] [address] Phone Care Team Providers Care Long Filler Cigar Roller Machine Name Role Phone Julius Ozuna MD Primary Care Provider [phone] Encounter Details Date Type Department Care Team (Late st Contact Info) Description 02/24/2021 Orders Only [facility] [address] [place] [address] Conversion, Onbase Social History Tobacco Use Types [...] Description 10/21/2025 1:20 PM EST Office Visit [facility] [address] [facility] [address] [place] [address] Malcom Alicea, 703 [facility] 2, [address] [place] [address] Scheduled Orders Name Type Priority Associated Diagnoses Orde r Schedule OUTSIDE LAB SCAN Lab Ordered: 02/24/2021 documented as of this encounter Visit Diagnoses Not on filedocumented in this encounter Care Teams Long Filler Cigar Roller Machine Relationship Specialty Start Date End Date Julius Ozuna MD [address] [facility] [place] [address] PCP - General 08/21/99 documented as of this encounter
--- OUTSIDE RECORDS SUMMARY | 2025-04-01 09:20 | XMS_ITS | Encounter Summary ---
Author Organization [facility] Address [address] [place] [address] Phone Care Team Providers Care Area Representative Name Role Phone Julius Ozuna MD Primary Care Provider [phone] Encounter Details Date Type Department Care Team (Late st Contact Info) Description 11/30/2022 Orders Only [facility] [address] [place] [address] Conversion, Onbase Social History Tobacco Use Types [...] Description 10/21/2025 1:20 PM EST Office Visit [facility] 703 [facility] [address] [place] [address] Malcom Alicea, 703 [facility] 2, [address] [place] [address] Scheduled Orders Name Type Priority Associated Diagnoses Orde r Schedule OUTSIDE LAB SCAN Lab Ordered: 11/30/2022 documented as of this encounter Visit Diagnoses Not on filedocumented in this encounter Care Teams Area Representative Relationship Specialty Start Date End Date Julius Ozuna MD [address] [facility] [place] [address] PCP - General 08/21/99 documented as of this encounter
[2025-04-01 09:31] LABS: Glucose Urine UA NEGATIVE (NEGATIVE)
[2025-04-01 10:04] LABS: Cast Seen? NONE SEEN #/LPF (NONE SEEN); Crystals Seen? None Seen #/HPF (None Seen)
== END 2025-04-01 09:17 | disposition home or self-care (01) ==
LOC: LAB 09:16
PROVIDERS: PCP Family Medicine; Visit Provider Internal Medicine
DX: E78.5 Hyperlipidemia, unspecified (principal); R31.29 Other microscopic hematuria; E79.0 Hyperuricemia without signs of inflammatory arthritis and tophaceous disease; N25.81 Secondary hyperparathyroidism of renal origin; I12.9 Hypertensive chronic kidney disease with stage 1 through stage 4 chronic kidney disease, or unspecified chronic kidney disease; N18.30 Chronic kidney disease, stage 3 unspecified
CPT/HCPCS: 81001; 82570; 84156